=== PATIENT | male | born 1950 | race Hispanic/Latino ===

== ENCOUNTER 2020-06-12 15:49 | Inpatient (IN) | payer MEDICARE, OTHER ==
[~2020-06-12] VITALS: Ht 167.6 cm; Wt 89.4 kg
[2020-06-12] MEDS ORDERED: SODIUM CHLORIDE 0.9% 500ML 500 ML ONE (16:05)
[2020-06-12] MEDS ORDERED: VANCOMYCIN 1GM/NS 250 ML 250 ML ONE (16:05)
[2020-06-12] MEDS ORDERED: CEFEPIME 1GM/NS 0.9% 50 ML 50 ML IV STA (16:05)
[2020-06-12] MEDS ORDERED: CEFEPIME 1GM/NS 0.9% 50 ML 50 ML IV ONE (16:06)
[2020-06-12] MEDS ORDERED: SODIUM CHLORIDE 0.9% 1000ML 1,000 ML IV ONE (16:15)
[2020-06-12] MEDS ORDERED: VANCOMYCIN 1GM/NS 250 ML 250 ML IV ONE (16:15)
--- NOTE | 2020-06-12 16:26 | Emergency Department Note ---
History of Present Illnes History of Present Illness Chief Complaint: COVID PUI History of Present Illness This is a 69 year old male with history of diabetes dyslipidemia COPD here with 1 week history of generalized weakness, malaise, loss of appetite, dry cough and shortness of breath. Patient's was ill with similar one week prior. . Historian: Patient Arrival Mode: Car Onset (how long ago): week(s) (1) Location: diffuse, dyspnea Radiation: Reports non-radiation Severity: severe Onset quality: gradual Duration (how long): week(s) (1) Timing of current episode: constant Progression: worsening Chronicity: new Context: Reports other (+sick contacts ) Relieving factors: none Exacerbating factors: movement Associated symptoms: Reports cough, Reports fever/chills, Reports headaches, Reports loss of appetite, Reports malaise, Reports shortness of breath, Reports weakness; Denies chest pain, Denies diaphoresis, Denies nausea/vomiting, Denies rash, Denies seizure, Denies syncope Treatments prior to arrival: none Past Medical/Family History Physician Review I have reviewed the patient's past medical and family history. Any updates have been documented here. Past Medical History Recent Fever: Yes Clinical Suspicion of Infectio: Yes Past Medical History: Hypertension, Diabetes, CAD Past Surgical History: CABG Social History Alcohol Use: None Any Illegal Drug Use: No Family History Family history of heart diseas: Yes Review of Systems Review of Systems Constitutional: Reports as per HPI EENTM: Reports nose congestion, Reports throat pain; Denies throat swelling, Denies mouth pain Cardiovascular: Reports no symptoms Respiratory: Reports as per HPI Gastrointestinal: Reports as per HPI Genitourinary: Reports no symptoms Musculoskeletal: Reports no symptoms Integumentary: Reports no symptoms Neurological: Reports as per HPI Psychological: Reports no symptoms Hematological/Lymphatic: Reports no symptoms Review of other systems: All other systems negative Physical Exam Related Data Allergies: Coded Allergies: No Known Allergies (Unverified , 06/12/20) Vital signs reviewed: Yes (hypoxic to 80% RA, 91 on 5L) Physical Exam CONSTITUTIONAL Constitutional: Present well-developed, Present well-nourished, Present distressed, Present ill appearing HENT HENT: Present normocephalic, Present atraumatic, Present oropharynx clear /moist, Present nose normal HENT L/R: Present left ext ear normal, Present right ext ear normal EYES Eyes: Reports PERRL, Reports conjunctivae normal NECK Neck: Present ROM normal PULMONARY Pulmonary: Present respiratory distress (mild), Present rales (diffusely ) CARDIOVASCULAR Cardiovascular: Present regular rhythm, Present heart sounds normal, Present capillary refill normal, Present tachycardia GASTROINTESTINAL Abdominal: Present soft, Present nontender, Present bowel sounds normal GENITOURINARY Genitourinary: Present exam deferred SKIN Skin: Present warm, Present dry MUSCULOSKELETAL Musculoskeletal: Present ROM normal NEUROLOGICAL Neurological: Present alert, Present oriented x 3, Present no gross motor or sensory deficits PSYCHOLOGICAL Psychological: Present mood/affect normal, Present judgement normal Procedures 12 Lead ECG Interpretation ECG Interpretation : ECG: ECG 1 Linen Sorter: Interpreted by ED physician Additional Comments EKG interpreted by me shows normal axis normal sinus rhythm normal intervals no acute ST changes, patient does have a pathologic Q waves in 3 and aVF. Critical Care Time Total Critical Care Time (min): 31 Critcal care necessary due to: sepsis, other (severe hypoxia, COVID) Critcal care time spent by me: blood dram for specimens, develop tx plan w patient/surrogate, discussion w consultants, evaluation patient response to tx, examination of patient, order/perform tx or interventions, order/review laboratory studies, pulse oximetry, review of old charts Assessment & Plan Medical Decision Making MDM Patient is a 69-year-old male with history of CAD, diabetes, hypertension here with 1 week history of shortness of breath, malaise, nausea, body aches. Patient noted to be hypoxic in the 80s on room air with rales on exam. Given that he has sick contacts, patient high risk for covid. History of hypoxia, he will be t ransferred to [facility] for admission. Primary care doctor is Dr. Lundberg. Reassessment Reassessment Patient on point of care testing shows a glucose of 552, creatinine of 1.3, potassium of 5.4, CO2 26, lactic acid of 2.2. We will give the patient 10 units of insulin. Patient states that he has been hyperglycemic over the last week and uses Levemir up to 18 units. Assessment & Plan Final Impression: (1) Pneumonia due to COVID-19 virus (2) Multifocal pneumonia (3) Hypoxia Depart Disposition: ADMITTED Medications in the ED Sodium Chloride 500 ml @ [facility] ONCE .ROUTE ; Start 06/12/20 at 16:05; Stop 06/12/20 at 16:01; Status DC Vancomycin HCl 250 ml @ [facility] .ROUTE ; Start 06/12/20 at 16:05; Stop 06/12/20 at 16:01; Status DC Cefepime HCl 50 ml @ [facility] ON[facility] IV ; Start 06/12/20 at 16:06; Stop 06/12/20 at 16:01; Status DC INNA KENDALL MD Jun 12, 2020 16:26
[2020-06-12] MEDS ORDERED: DEXAMETHASONE SOD PHOS 10 MG/1 ML VIAL IV ONE ×2 (17:00→20:30)
[2020-06-12 17:03] LABS: BASOPHILS % 0.2 % (0.0-1.0); HEMATOCRIT 41.7 % (38.2-49.6); HEMOGLOBIN 13.5 g/dL (14.0-18.0); LYMPHOCYTES # (AUTO) 1.5 (1.0-3.2); LYMPHOCYTES % 27.1 % (18.0-39.1); MEAN CORPUSCULAR HEMOGLOBIN 28.4 pg (28-32); MEAN CORPUSCULAR HGB CONC 32.4 g/dL (31-35); MEAN CORPUSCULAR VOLUME 87.8 fL (81-99); MONOCYTES # (AUTO) 0.4 (0.2-0.8); MONOCYTES % 6.9 % (4.4-11.3); NEUTROPHILS # (AUTO) 3.7 (2.1-6.9); NEUTROPHILS % 65.4 % (38.7-80.0); PLATELET COUNT 186 x10e3/uL (140-360); RED BLOOD COUNT 4.75 x10e6/uL (4.3-5.7); RED CELL DISTRIBUTION WIDTH 12.3 % (11.7-14.4)
[2020-06-12 17:22] LABS: ALBUMIN 3.3 g/dL (3.5-5.0); ALBUMIN/GLOBULIN RATIO 0.8 (0.8-2.0); ANION GAP 17.4 mmol/L (8-16); CREATININE, SERUM 1.99 mg/dL (0.72-1.25); POTASSIUM 5.4 mmol/L (3.5-5.1)
[2020-06-12 17:28] LABS: CREATINE KINASE MB 0.4 ng/mL (0-5.0)
[2020-06-12] MEDS ORDERED: INSULIN REGULAR, HUMAN 100 UNIT/1 ML 3ML VIAL SQ ONE (17:30)
--- NOTE | 2020-06-12 17:43 | Diagnostic Imaging Report ---
EXAMINATION: CXR 1 W - [facility] INDICATION: Cough and sore throat. COMPARISON: None FINDINGS: TUBES and LINES: None. LUNGS: Normal lung volumes. There are subtle multifocal patchy opacities throughout both lungs and right hilar prominence. PLEURA: No pleural effusion or pneumothorax. HEART AND MEDIASTINUM: The cardiomediastinal silhouette is unremarkable. BONES AND SOFT TISSUES: No acute osseous lesion. Median sternotomy wires in place. Soft tissues are otherwise normal. UPPER ABDOMEN: No free air under the diaphragm. IMPRESSION: Subtle multifocal patchy interstitial opacities throughout both lungs and right hilar prominence. This constellation of findings may represent chronic small airway inflammation such as bronchitis with pulmonary vascular congestion and/or developing infection in the proper clinical context. Signed by: Hilda Momin MD on 06/12/2020 5:40 PM
--- OUTSIDE RECORDS SUMMARY | 2020-06-12 18:03 | XMS REPORT | Continuity of Care Document ---
Author Author [facility] t Organization [facility] Address [address] [place] [id number] Phone Unavailable Care Team Providers Care Slot Tag Inserter Name Role Phone Torsten KENDALL Attmadeleine Unavailable Problems This patient has no known problems. Allergies, Adverse Reactions, Alerts This patient has no known allergies or adverse reactions. Medications This patient has no known medications. Procedures This patient has no known procedures. Results Test Description Test Time Test Comments Results Result Comments Source CXR 1 W - [facility] 2020-06-12 17:36:00 [place] [address] Patient Name: MARQUISE PHAN MR #: [id number] : 1950 Age/Sex: 69/M Req #: [id number] Adm Physician: Ordered by: INNA KENDALL MD Report #: [id number] Location: [facility] Room/Bed: Procedure: [id number] [facility]OP[facility]/CXR 1 VEW - [facility] Exam Date: 06/12/20 Exam Time: 1625 REPORT STATUS: Signed EXAMINATION: CXR 1 W - [facility] INDICATION: Cough and sore throat. COMPARISON: None FINDINGS: TUBES and LINES: None. LUNGS: Normal lung volumes. There are subtle multifocal patchy opacities throughout both lungs and right hilar prominence. PLEURA: No pleural effusion or pneumothorax. HEART AND MEDIASTINUM: The cardiomediastinal silhouette is unremarkable. BONES AND SOFT TISSUES: No acute osseous lesion. Median sternotomy wires in place. Soft tissues are otherwise normal. UPPER ABDOMEN: No free air under the diaphragm. IMPRESSION: Subtle multifocal patchy interstitial opacities throughout both lungs and right hilar prominence. This constellation of findings may represent chronic small airway inflammation such as bronchitis with pulmonary vascular congestion and/or developing infection in the proper clinical context. Signed by: Gaby Panda MD on 06/12/2020 5:40 PM Dictated By: GABY PANDA MD 39 Transcribed By: CHRIS on 06/12/201739 COPY TO: INNA KENDALL MD
--- NOTE | 2020-06-12 18:06 | NUR ---
[facility] NOTIFIED OF TRANSFER TO [facility] ETA 30-45 MINUTES
--- NOTE | 2020-06-12 18:07 | NUR ---
DR KENDALL AWARE OF BLOOD SUGAR OF 542, NO ORDERS RECIEVED.
[2020-06-12] MEDS ORDERED: DEXTROSE 50% SYRINGE 50 ML IV PRN (20:00)
--- NOTE | 2020-06-12 20:04 | NUR ---
called and spoke to dr Fallon, made him aware patient is in room 198. he added insulin order. order carried out.
[2020-06-12] MEDS ORDERED: SODIUM CHLORIDE 0.9% 1000ML 1,000 ML ONE (20:20)
--- NOTE | 2020-06-12 20:40 | NUR ---
called and spoke to dr Abisai Quintanilla, for consult.
[2020-06-12 20:45] VITALS: BP 90/58
--- NOTE | 2020-06-12 20:55 | NUR ---
Called and spoke to dr Neves for consult, the MD also gave orders. orders carried out, see MAR. also the MD ordered to keep patient's O2 above 91%, and continue home medications.
[2020-06-12] MEDS ORDERED: INSULIN GLARGINE 100 UNITS/ML VIAL SQ SCH (21:00)
[2020-06-12] MEDS ORDERED: ONDANSETRON HCL INJ 2MG/ML 2ML 2 MG/ML VIAL IV PRN (21:00)
[2020-06-12] MEDS ORDERED: ACETAMINOPHEN 325 MG TAB PO PRN (21:00)
[2020-06-12] MEDS: AZITHROMYCIN 500MG/NS 250 ML 250 ML IV SCH (21:09)
[2020-06-12] MEDS: ENOXAPARIN SOD INJ 40 MG/0.4 ML SYR SC SCH (21:10)
[2020-06-12] MEDS ORDERED: SODIUM CHLORIDE 0.9% 100 ML ONE (21:12)
[2020-06-12] MEDS: INSULIN LISPRO 100 UNIT/1 ML 3ML VIAL SQ SCH (21:21)
[2020-06-12 21:50] VITALS: BP 90/58
--- NOTE | 2020-06-12 22:06 | NUR ---
CALLED AND SPOKE TO DR CENTENO, PT BLOOD SUGAR WAS 560, GAVE 14 UNITS HUMALOG AND SCHEDULE LANTUS. NO NEW ORDER FROM THE MD, CHECK BLOOD SUGAR AGAIN IN THE MORNING.
[2020-06-12] MEDS: CEFTRIAXONE SOD 2 GM/NS 100 ML 100 ML IV SCH (22:19)
[2020-06-12] MEDS ORDERED: LOSARTAN POTAS100 MG PO (22:22)
[2020-06-12] MEDS ORDERED: ZETIA10 MG PO (22:35)
[2020-06-12] MEDS ORDERED: FLOMAX0.4 MG PO (22:35)
[2020-06-12] MEDS ORDERED: ROSUVASTATIN CA40 MG (22:37)
[2020-06-13 00:15] VITALS: BP 92/56
[2020-06-13 04:21] VITALS: BP 96/57
[2020-06-13 04:39] LABS: HEMATOCRIT 39.2 % (38.2-49.6); HEMOGLOBIN 12.6 g/dL (14.0-18.0); MEAN CORPUSCULAR HEMOGLOBIN 29.2 pg (28-32); MEAN CORPUSCULAR HGB CONC 32.1 g/dL (31-35); MEAN CORPUSCULAR VOLUME 90.7 fL (81-99); PLATELET COUNT 169 x10e3/uL (140-360); RED BLOOD COUNT 4.32 x10e6/uL (4.3-5.7); RED CELL DISTRIBUTION WIDTH 12.3 % (11.7-14.4)
[2020-06-13 04:49] LABS: INR 0.87; PROTHROMBIN TIME 12.2 seconds (11.9-14.5)
[2020-06-13 05:51] LABS: ANION GAP 14.3 mmol/L (8-16); CALCIUM 9.3 mg/dL (8.4-10.2); CREATININE, SERUM 1.63 mg/dL (0.72-1.25); POTASSIUM 5.3 mmol/L (3.5-5.1)
[2020-06-13] MEDS: INSULIN LISPRO 100 UNIT/1 ML 3ML VIAL SQ SCH ×4 (06:51→21:30)
[2020-06-13 07:28] LABS: ALBUMIN 2.8 g/dL (3.5-5.0); BILIRUBIN,DIRECT 0.2 mg/dL (0.0-0.5)
[2020-06-13] MEDS ORDERED: DEXAMETHASONE SOD PHOS 10 MG/1 ML VIAL IV SCH (09:00)
[2020-06-13] MEDS ORDERED: LOSARTAN POTASSIUM 100 MG TAB PO SCH (09:00)
[2020-06-13] MEDS: TAMSULOSIN HCL 0.4 MG CAP PO SCH ×2 (09:13→16:40)
[2020-06-13] MEDS: DEXAMETHASONE 4 MG TAB PO SCH (09:13)
[2020-06-13] MEDS: ENOXAPARIN SOD INJ 40 MG/0.4 ML SYR SC SCH (09:14)
[2020-06-13] MEDS: EZETIMIBE 10 MG TAB PO SCH (09:14)
[2020-06-13 09:21] VITALS: BP 135/77
[2020-06-13 09:28] VITALS: BP 135/77
[2020-06-13 12:18] VITALS: BP 124/65
[2020-06-13] MEDS ORDERED: SODIUM CHLORIDE 0.9% 1000ML 1,000 ML IV ONE (16:00)
--- NOTE | 2020-06-13 16:19 | Consultation ---
DATE OF CONSULTATION: Pulmonary Critical Care consultation CHIEF COMPLAINT: Cough, dyspnea, and malaise. HISTORY OF PRESENT ILLNESS: The patient is a 69-year-old man. He has a history of a prior coronary bypass grafting 18 years ago. He reports malaise and fatigue for 10-14 days. He notes some dyspnea and cough. He did not complain of fever. There is no nausea or vomiting. PAST SURGICAL HISTORY: 1. Status post coronary bypass grafting 18 years ago. 2. Status post hand surgery. PAST SURGICAL HISTORY: 1. Diabetes. 2. Prostatic hypertrophy. 3. Hypertension. SOCIAL HISTORY: The patient quit smoking 23 years ago. He is not a drinker. ALLERGIES: NO KNOWN DRUG ALLERGIES. REVIEW OF SYSTEMS: There are possible fevers. There is no headache. There is no cough. There is some shortness of breath. There is no chest pain. There is no nausea or vomiting. PHYSICAL EXAMINATION: VITAL SIGNS: The patient is afebrile. The blood pressure is 124/65, and saturation is 99% on 6 L. HEENT: No facial swelling or erythema. The oropharynx is normal. LYMPHATIC: No submandibular, cervical, or supraclavicular adenopathy. CARDIAC: Regular rate and rhythm with normal S1, S2. LUNGS: Auscultation of lungs reveals clear breath sounds bilaterally. There is no wheezing. ABDOMEN: Soft, nontender. There is no rebound or guarding. EXTREMITIES: No leg edema or calf tenderness. There is no cyanosis or clubbing. SKIN: No rashes. LABORATORY DATA: COVID-19 test is positive. Blood sugars are 360-390 and hemoglobin A1c is 11.5. BUN to creatinine ratio is 28 to 1.63. Other electrolytes are within normal limits. White blood cell count is 3.3 and hemoglobin 12.6. The platelet count is 169. RADIOGRAPHIC DATA: Chest x-ray shows patchy bilateral infiltrates. IMPRESSION: 1. Acute respiratory failure. 2. Viral pneumonia and coronavirus disease-19 infection. 3. Diabetes. 4. Hypertension. 5. History of coronary artery disease. 6. Acute kidney injury. PLAN: 1. Zithromax and Rocephin. 2. Intravenous fluids. 3. Lovenox. 4. Lantus insulin at night and subcu insulin during the day. 5. Continue to monitor BUN and creatinine. MD IRINA Elise/ANGELA /[id number]
[2020-06-13] MEDS ORDERED: ENOXAPARIN SOD INJ 40 MG/0.4 ML SYR SC SCH (16:45)
--- NOTE | 2020-06-13 18:50 | Consultation ---
DATE OF CONSULTATION: HISTORY OF PRESENT ILLNESS: Mr. Sanabria is a 69-year-old male with history of CABG, coronary artery disease. He has been sick for 2 weeks, fatigue and cough, not feeling well. The patient comes into the emergency room. This patient has history of coronary artery disease, CABG, hand surgery, diabetes mellitus, neuropathy, and hypertension. He used to smoke, but quit 20 years ago. No drug abuse or alcohol abuse. FAMILY HISTORY: Unremarkable. The patient comes in with pneumonia, COVID-19. I was asked to see him. REVIEW OF SYSTEMS: Currently, he is complaining of shortness of breath and minimum cough and malaise. Otherwise, all other systems within normal limit. PHYSICAL EXAMINATION: GENERAL: He is currently alert, and oriented. VITAL SIGNS: Stable, afebrile. He is on 6 L. HEENT: Normocephalic. NECK: Supple. CHEST: Crackles. HEART: S1-S2. No murmur. ABDOMEN: Soft. LABORATORY DATA: Reviewed. Chart reviewed. Blood cultures still pending. White count 3.38, hemoglobin of 12. His sodium 136, potassium 5.3, creatinine 1.63, and glucose of 411. His COVID-19 was positive. IMPRESSION AND PLAN: coronavirus disease-19 with superimposed bacterial pneumonia, diabetes mellitus, uncontrolled hypertension, coronary artery disease, and acute on chronic kidney disease. Azithromycin 500 mg daily for 3 days, Rocephin 1 g daily for 5 days. Diabetic control. Lovenox 30 mg subcutaneous daily. Decadron 6 mg daily for 10 days. The patient is not a candidate for remdesivir because of kidney function and the left foot infection. Continue supportive care. We will follow. MD ELÍAS Littlejohn/MODL /[id number]
[2020-06-13] MEDS ORDERED: SODIUM CHLORIDE 0.9% 250ML 250 ML ONE (19:25)
[2020-06-13] MEDS: CEFTRIAXONE SOD 2 GM/NS 100 ML 100 ML IV SCH (19:45)
[2020-06-13 20:00] VITALS: BP 126/72
[2020-06-13] MEDS ORDERED: INSULIN GLARGINE 100 UNITS/ML VIAL SQ SCH (21:00)
[2020-06-13] MEDS: AZITHROMYCIN 500MG/NS 250 ML 250 ML IV SCH (21:30)
[2020-06-14] VITALS (7 sets, daily range): BP systolic 96–146; BP diastolic 50–99
--- NOTE | 2020-06-14 05:00 | NUR ---
Patient 02 sats 86% on 5L NC. 02 increased to 6L NC, 02 sat 88%. RT called. Patient to be placed on high flow NC. Will continue to monitor.
[2020-06-14 05:24] LABS: BASOPHILS % 0.1 % (0.0-1.0); HEMATOCRIT 39.3 % (38.2-49.6); LYMPHOCYTES # (AUTO) 1.8 (1.0-3.2); MEAN CORPUSCULAR HEMOGLOBIN 28.9 pg (28-32); MEAN CORPUSCULAR HGB CONC 33.1 g/dL (31-35); MEAN CORPUSCULAR VOLUME 87.3 fL (81-99); MONOCYTES # (AUTO) 0.8 (0.2-0.8); MONOCYTES % 6.4 % (4.4-11.3); NEUTROPHILS # (AUTO) 9.4 (2.1-6.9); NEUTROPHILS % 77.7 % (38.7-80.0); PLATELET COUNT 212 x10e3/uL (140-360); RED CELL DISTRIBUTION WIDTH 12.3 % (11.7-14.4)
[2020-06-14 06:06] LABS: ALANINE AMINOTRANSFERASE 20 IU/L (0-55); ALBUMIN 2.6 g/dL (3.5-5.0); ALBUMIN/GLOBULIN RATIO 0.7 (0.8-2.0); ALKALINE PHOSPHATASE 105 IU/L (40-150); ANION GAP 11.5 mmol/L (8-16); BLOOD UREA NITROGEN 23 mg/dL (7-26); BUN/CREATININE RATIO 21 (6-25); CALCIUM 9.5 mg/dL (8.4-10.2); CARBON DIOXIDE 23 mmol/L (22-29); CHLORIDE 109 mmol/L (98-107); CREATININE, SERUM 1.12 mg/dL (0.72-1.25); EST GLOMERULAR FILTRATION RATE > 60 ML/MIN (60-); GLUCOSE 226 mg/dL (74-118); POTASSIUM 4.5 mmol/L (3.5-5.1); SODIUM 139 mmol/L (136-145)
--- NOTE | 2020-06-14 07:01 | History and Physical ---
PRIMARY CARE DOCTOR: Dr. Preston Lundberg. CHIEF COMPLAINT: Shortness of breath. HISTORY OF PRESENT ILLNESS: This is a 69-year-old, who has been sick for a week now with cough and feeling tired. Denies fever. No nausea or vomiting. No diarrhea. However, his shortness of breath continued to get worse, finally presented to the emergency room. He was saturating at 80% on room air. PAST MEDICAL AND SURGICAL HISTORY: 1. Coronary artery disease, status post CABG. 2. Diabetes. 3. Hypertension. MEDICATIONS: Please see medication reconciliation form. ALLERGIES: NONE. SOCIAL HISTORY: Quit smoking about 10 years ago. FAMILY HISTORY: Positive for diabetes. REVIEW OF SYSTEMS: A 10-point review of systems obtained and nothing else is significant other than what is stated in HPI. PHYSICAL EXAMINATION: VITAL SIGNS: Temperature 98, pulse 78, respiratory rate 23, blood pressure 124/65. GENERAL: No acute distress. SKIN: No rash. HEENT: Anicteric. Oropharynx is clear. LUNGS: Few rhonchi. HEART: Regular rate and rhythm. Normal S1 and S2. GI: Abdomen is soft and nondistended. NEUROLOGIC: Alert and oriented x3. Cranial nerves II through XII grossly intact. PSYCHIATRIC: No hallucination. MUSCULOSKELETAL: Painless range of motion. LABORATORY DATA: White count 3.4, hemoglobin 12.6, and platelet count 169. Creatinine is 1.63, potassium is 5.3, sugar is 411. Hemoglobin A1c is 11.5%. Chest x-ray is consistent with pneumonia. ASSESSMENT AND PLAN: 1. Coronavirus disease 2019 pneumonia with hypoxia. We will continue azithromycin, Rocephin, and Decadron per Infectious Disease and electrical automation engineer. We will continue to support him with nasal cannula oxygen. 2. Mild hyperkalemia. We will discontinue his losartan for now and monitor. 3. Likely acute renal failure. We will continue to monitor. Creatinine is little better today. 4. Diabetes with hyperglycemia. We will start Lantus along with sliding scale. 5. Gastrointestinal and deep venous thrombosis prophylaxis, Lovenox. Yiching MD GUCCI Marie/ANGELA /[id number] cc: Preston Lundberg
--- NOTE | 2020-06-14 07:03 | NUR ---
Handoff completed with oncoming nurse. No issues or concerns noted. Patient A&Ox3. High flow 10L NC, 02 sat 94%, tolerating.
[2020-06-14] MEDS: INSULIN LISPRO 100 UNIT/1 ML 3ML VIAL SQ SCH ×4 (08:54→21:00)
[2020-06-14] MEDS: TAMSULOSIN HCL 0.4 MG CAP PO SCH ×2 (08:54→17:38)
[2020-06-14] MEDS: DEXAMETHASONE 4 MG TAB PO SCH (08:54)
[2020-06-14] MEDS: EZETIMIBE 10 MG TAB PO SCH (08:54)
[2020-06-14] MEDS ORDERED: ENOXAPARIN 30 MG/0.3 ML SYR SC SCH (09:00)
--- NOTE | 2020-06-14 17:26 | NUR ---
Nutrition Screen Note RD Recommendation for Physician: - Recommend adding 1800 ADA restriction per DM dx and BG trend Plan of Care: RD following, monitoring for tolerance and adequacy Nutrition reason for involvement: LOS, stage II PU Primary Diagnose(s): hypoxia, multifocal pneumonia PMH: CABG, CAD, DM, HTN Ht: 66 in Wt: 190 lb BMI: 30.7 kg/m2 IBW: [address] Assessment: (06/14) 69 YOM admitted for hypoxia and PNA, evaluated today per LOS and new stage II PU. Pt COVID negative, however currently on treatment protocol. Pt eating 100% of meals prior to NPO, no wt loss, no GI distress reported. Chart reviewed. Labs and meds reviewed, BG trend elevated. Will continue to monitor. Current Diet: NPO Malnutrition Evaluation (06/14/20) The patient does not meet criteria for a specified degree of malnutrition at this time. Will re-evaluate at follow-up as appropriate. Unable to assess per current isolation protocol for IMCU/PUI. Diet Education Needs Assessment: Diet education not indicated. Diet tolerance: tolerating po Nutrition Care Level: low Signed: Ashlee Lopez RD, LD, CNSC
--- NOTE | 2020-06-14 18:14 | Progress Note ---
DATE: SUBJECTIVE: Mr. Sanabria is better. There are no new complaints. The patient has been sick for more than a week. The patient comes in with hypoxia, azithromycin, Rocephin, dexamethasone as well as he is on Lovenox. His white count is 12.04, sodium 139, potassium 4.5, creatinine 1.1. The patient is on 5 L. The patient has been sick for 2 weeks when he came here. IMPRESSION: Acute kidney injury, improving. Continue with insulin. Continue with dexamethasone. Continue with azithromycin and Rocephin. We will follow. MD ELÍAS Littlejohn/MODL /[id number]
[2020-06-14] MEDS: CEFTRIAXONE SOD 2 GM/NS 100 ML 100 ML IV SCH (20:40)
[2020-06-14] MEDS: AZITHROMYCIN 500MG/NS 250 ML 250 ML IV SCH (20:40)
--- NOTE | 2020-06-14 20:49 | NUR ---
patient saturating in the 80s, started on a rebreather mask. Saturations now at 98.
[2020-06-14] MEDS ORDERED: INSULIN GLARGINE 100 UNITS/ML VIAL SQ SCH (21:00)
--- NOTE | 2020-06-14 21:45 | Progress Note ---
DATE: 06/14/2020 SUBJECTIVE: His shortness of breath is about the same. OBJECTIVE: VITAL SIGNS: Temperature 98.3, pulse 91, respiratory rate 28, blood pressure 129/99. GENERAL: No acute distress. SKIN: No rash. LUNGS: Decreased breath sounds. HEART: Regular rate and rhythm. Normal S1, S2. GI: Abdomen is soft, nondistended. NEUROLOGIC: Alert and oriented x3. PSYCH: No hallucination. LABORATORY DATA: White count was 12, hemoglobin 13, platelet count 212. Creatinine is 1.12. ASSESSMENT AND PLAN: 1. Coronavirus disease-19 pneumonia with hypoxia. We will continue azithromycin, Rocephin and Decadron per Infectious Disease and insurance actuary and also we will continue to support him with nasal cannula oxygen. We will need to monitor his leukocytosis. He is afebrile may just be due to Decadron. 2. Acute kidney injury which has resolved. 3. Diabetes with hyperglycemia. We will increase his Lantus dosage. 4. Gastrointestinal and deep venous thrombosis prophylaxis. Lovenox increased to 40 mg instead of 30 mg since his creatinine is better now. Freidaching MD GUCCI Marie/JENNIFERL /[id number]
[2020-06-15] VITALS (15 sets, daily range): BP systolic 100–146; BP diastolic 60–101
[2020-06-15 06:30] LABS: ANION GAP 12.3 mmol/L (8-16); BLOOD UREA NITROGEN 20 mg/dL (7-26); BUN/CREATININE RATIO 22 (6-25); CALCIUM 9.6 mg/dL (8.4-10.2); CARBON DIOXIDE 24 mmol/L (22-29); CHLORIDE 107 mmol/L (98-107); CREATININE, SERUM 0.91 mg/dL (0.72-1.25); EST GLOMERULAR FILTRATION RATE > 60 ML/MIN (60-); GLUCOSE 187 mg/dL (74-118); POTASSIUM 4.3 mmol/L (3.5-5.1); SODIUM 139 mmol/L (136-145)
[2020-06-15 07:07] LABS: BASOPHILS % 0.1 % (0.0-1.0); HEMATOCRIT 40.1 % (38.2-49.6); HEMOGLOBIN 13.2 g/dL (14.0-18.0); LYMPHOCYTES # (AUTO) 1.1 (1.0-3.2); LYMPHOCYTES % 10.2 % (18.0-39.1); MEAN CORPUSCULAR HEMOGLOBIN 28.5 pg (28-32); MEAN CORPUSCULAR HGB CONC 32.9 g/dL (31-35); MEAN CORPUSCULAR VOLUME 86.6 fL (81-99); MONOCYTES # (AUTO) 0.7 (0.2-0.8); MONOCYTES % 6.6 % (4.4-11.3); NEUTROPHILS % 82.4 % (38.7-80.0); PLATELET COUNT 243 x10e3/uL (140-360); RED BLOOD COUNT 4.63 x10e6/uL (4.3-5.7); RED CELL DISTRIBUTION WIDTH 12.6 % (11.7-14.4)
[2020-06-15] MEDS: INSULIN LISPRO 100 UNIT/1 ML 3ML VIAL SQ SCH ×4 (08:00→20:58)
[2020-06-15] MEDS: DEXAMETHASONE 4 MG TAB PO SCH (10:32)
[2020-06-15] MEDS: TAMSULOSIN HCL 0.4 MG CAP PO SCH ×2 (10:32→21:00)
[2020-06-15] MEDS: ENOXAPARIN SOD INJ 40 MG/0.4 ML SYR SC SCH (10:33)
[2020-06-15] MEDS: EZETIMIBE 10 MG TAB PO SCH (10:33)
--- NOTE | 2020-06-15 12:23 | Diagnostic Imaging Report ---
EXAMINATION: CHEST SINGLE (PORTABLE) INDICATION: Line placement COMPARISON: Chest radiograph 06/12/2020 FINDINGS: LINES/TUBES:Interval placement of right PICC line with tip in the superior vena cava. LUNGS:The lung volumes are low. Interval increase of right greater than left bilateral multifocal airspace opacities. PLEURA:No pleural effusion or pneumothorax. MEDIASTINUM:The cardiomediastinal silhouette appears normal in size and shape. BONES/SOFT TISSUES:No acute osseous injury. Sternotomy wires in place. ABDOMEN:No free air under the diaphragm. IMPRESSION: Right PICC line terminates in the SVC. Interval increase in bilateral right greater than left multifocal airspace opacities concerning for multifocal pneumonia. Signed by: Rigo Cotter MD on 06/15/2020 12:20 PM
--- NOTE | 2020-06-15 14:40 | NUR ---
Patient transferred to [facility] ICU to room 13, patient tolerated transfer, handoff report to nurse Wooten.
--- NOTE | 2020-06-15 16:24 | Progress Note ---
DATE: SUBJECTIVE: Mr. Sanabria is doing better. He is about the same in terms of oxygen demand. REVIEW OF SYSTEMS: Otherwise there is nothing new. PHYSICAL EXAMINATION: GENERAL: He is currently alert. VITAL SIGNS: Stable, currently afebrile. HEENT: He is not icteric. NECK: Supple. CHEST: Crackles bilaterally. HEART: S1, S2. ABDOMEN: Soft. IMPRESSION AND PLAN: 1. Day #3 of hospitalization. Coronavirus disease-19. On Rocephin, azithromycin, and decadron. Continue as ordered. 2. Acute kidney injury, resolved. 3. Diabetes mellitus. Continue diabetic control. We will follow. MD ELÍAS Littlejohn/MODL /[id number]
[2020-06-15] MEDS: CEFTRIAXONE SOD 2 GM/NS 100 ML 100 ML IV SCH (20:11)
[2020-06-15] MEDS: AZITHROMYCIN 500MG/NS 250 ML 250 ML IV SCH (20:53)
[2020-06-15] MEDS: INSULIN GLARGINE 100 UNITS/ML VIAL SQ SCH (20:58)
--- NOTE | 2020-06-15 21:10 | Progress Note ---
DATE: SUBJECTIVE: The patient is now on Elavil. He is on 60 L and 65% oxygen. He is not complaining of chest pain or any distress. PHYSICAL EXAMINATION: VITAL SIGNS: The patient is afebrile. The blood pressure is 113/71, saturation is 93%. HEENT: Shows no facial swelling or erythema. LYMPHATIC: Shows no submandibular, cervical, or supraclavicular adenopathy. CARDIAC: Reveals regular rate and rhythm with normal S1 and S2. LUNGS: Auscultation of lungs reveals rhonchorous breath sounds bilaterally. There is no wheezing. ABDOMEN: Soft, nontender. There is no rebound or guarding. EXTREMITIES: Shows no leg edema or calf tenderness. There is no cyanosis or clubbing. SKIN: Shows no rashes. NEUROLOGIC: Shows no focal abnormalities. LABORATORY DATA: White blood cell count is 10.8 and hemoglobin is 13.2. The platelet count is 243. BUN to creatinine ratio is normal. The other electrolytes are within normal limits. The blood sugar is 225 to 260. IMPRESSION: 1. Acute respiratory failure. 2. Viral pneumonia and coronavirus disease 2019 infection. 3. Diabetes. 4. Hypertension. 5. Acute kidney injury. PLAN: 1. Continue Elavil. 2. Continue current antibiotics. 3. Lovenox. 4. Continue to monitor blood sugars and adjust insulin. MD IRINA Elise/ANGELA /[id number]
--- NOTE | 2020-06-15 22:55 | Progress Note ---
DATE: 06/15/2020 SUBJECTIVE: The patient feels the same. However, occasionally he does de-sat. OBJECTIVE: VITAL SIGNS: Temperature 97.7, pulse 67, respiratory rate anywhere from 19 to 37, blood pressure 111/66. GENERAL: No acute distress. SKIN: No rash. LUNGS: Decreased breath sounds. HEART: Regular rhythm. Normal S1, S2. GI: Abdomen is soft, nondistended. NEUROLOGIC: Alert and oriented x3. PSYCHIATRIC: No hallucination. LABORATORY DATA: Laboratory calderon, white count 10, hemoglobin 13, platelet count 243, creatinine 0.9. ASSESSMENT AND PLAN: 1. COVID-19 pneumonia with hypoxia. We will continue azithromycin, Rocephin, and Decadron per Infectious Disease and Pulmonology. The patient was moved to the ICU for close monitor. 2. Acute kidney injury, which is resolved. 3. Diabetes with hyperglycemia, partially due to Decadron. We will increase Lantus again. 4. Gastrointestinal and deep venous thrombosis prophylaxis. Continue Lovenox 40 mg daily. MD GUCCI Bingham/ANGELA /[id number]
[2020-06-16] VITALS (24 sets, daily range): BP systolic 107–152; BP diastolic 58–84
[2020-06-16 04:47] LABS: BASOPHILS % 0.1 % (0.0-1.0); HEMATOCRIT 38.7 % (38.2-49.6); HEMOGLOBIN 12.6 g/dL (14.0-18.0); LYMPHOCYTES # (AUTO) 1.5 (1.0-3.2); LYMPHOCYTES % 18.8 % (18.0-39.1); MEAN CORPUSCULAR HEMOGLOBIN 28.7 pg (28-32); MEAN CORPUSCULAR HGB CONC 32.6 g/dL (31-35); MEAN CORPUSCULAR VOLUME 88.2 fL (81-99); MONOCYTES # (AUTO) 0.8 (0.2-0.8); MONOCYTES % 10.2 % (4.4-11.3); NEUTROPHILS # (AUTO) 5.2 (2.1-6.9); NEUTROPHILS % 67.2 % (38.7-80.0); PLATELET COUNT 242 x10e3/uL (140-360); RED BLOOD COUNT 4.39 x10e6/uL (4.3-5.7); RED CELL DISTRIBUTION WIDTH 12.4 % (11.7-14.4)
[2020-06-16 05:10] LABS: ALANINE AMINOTRANSFERASE 27 IU/L (0-55); ALBUMIN 2.4 g/dL (3.5-5.0); ALBUMIN/GLOBULIN RATIO 0.6 (0.8-2.0); ALKALINE PHOSPHATASE 108 IU/L (40-150); ANION GAP 11.2 mmol/L (8-16); BLOOD UREA NITROGEN 26 mg/dL (7-26); BUN/CREATININE RATIO 27 (6-25); CALCIUM 9.3 mg/dL (8.4-10.2); CARBON DIOXIDE 24 mmol/L (22-29); CHLORIDE 109 mmol/L (98-107); CREATININE, SERUM 0.98 mg/dL (0.72-1.25); EST GLOMERULAR FILTRATION RATE > 60 ML/MIN (60-); GLUCOSE 191 mg/dL (74-118); POTASSIUM 4.2 mmol/L (3.5-5.1); SODIUM 140 mmol/L (136-145)
[2020-06-16] MEDS: INSULIN LISPRO 100 UNIT/1 ML 3ML VIAL SQ SCH ×4 (08:30→21:18)
--- NOTE | 2020-06-16 08:30 | Diagnostic Imaging Report ---
EXAM: CHEST SINGLE (PORTABLE) DATE: 06/16/2020 5:30 AM INDICATION: Hypoxia COMPARISON: 06/15/2020 FINDINGS: Post surgical changes from median sternotomy again noted. Right-sided PICC line identified in stable position. The trachea is midline. Again identified are patchy airspace opacities throughout the lungs bilaterally with a lower lung zone predominance. Findings are no significantly changed from the prior examination. There is no evidence for pneumothorax or significant volume pleural effusion. The cardiomediastinal silhouette is stable in appearance. No acute osseous abnormality is identified. IMPRESSION: No significant interval change from 06/15/2020. Grossly stable appearing bilateral airspace opacities which can be seen in the setting of a multifocal/viral infectious process. Signed by: Dr. Gopi Ceja MD on 06/16/2020 8:27 AM
[2020-06-16 08:54] LABS: BAND NEUTROPHILS % (MANUAL) 4 %; LYMPHOCYTES % (MANUAL) 16 % (19-48); MONOCYTES % (MANUAL) 8 % (3.4-9.0); NEUTROPHILS % (MANUAL) 72 % (40-74)
--- NOTE | 2020-06-16 09:52 | Progress Note ---
DATE: SUBJECTIVE: The patient remains on Airvo at 60 L with 90% oxygen. His saturation is in the mid 90s. His pulse is 75. PHYSICAL EXAMINATION: VITAL SIGNS: As noted above. HEENT: There is no facial swelling or erythema. LYMPHATIC: No submandibular, cervical, or supraclavicular adenopathy. CARDIAC: Regular rate and rhythm with normal S1, S2. LUNGS: Auscultation of lungs reveals clear breath sounds bilaterally. There is no wheezing. ABDOMEN: Soft, nontender. There is no rebound or guarding. EXTREMITIES: No leg edema or calf tenderness. There is no cyanosis or clubbing. SKIN: No rashes. NEUROLOGICAL: No focal abnormalities. LABORATORY DATA: The white blood cell count is 7.3 and hemoglobin is 12.6. The platelet count is 242. The BUN to creatinine ratio is normal. The other electrolytes are within normal limits and the blood sugar is 205-380. Albumin is 2.4. IMPRESSION: 1. Acute respiratory failure. 2. Viral pneumonia and coronavirus disease-19 infection. 3. Diabetes. 4. Hypertension. 5. Acute kidney injury. PLAN: 1. Continue Airvo. 2. Monitor and control blood sugars. 3. Continue Lovenox. 4. Complete dexamethasone. 5. Complete current antibiotics. 6. Cardiology evaluation. 7. Repeat x-ray tomorrow. Foreign Quintanilla MD [facility]/JENNIFERL /[id number]
[2020-06-16] MEDS: DEXAMETHASONE 4 MG TAB PO SCH (11:32)
[2020-06-16] MEDS: ENOXAPARIN SOD INJ 40 MG/0.4 ML SYR SC SCH (11:32)
[2020-06-16] MEDS: TAMSULOSIN HCL 0.4 MG CAP PO SCH ×2 (11:32→21:05)
[2020-06-16] MEDS: EZETIMIBE 10 MG TAB PO SCH (11:32)
--- NOTE | 2020-06-16 18:46 | Progress Note ---
DATE: SUBJECTIVE: Mr. Sanabria remains in Intensive Care Unit, on AIRVO at 60 L with 90% oxygen. PHYSICAL EXAMINATION: HEENT: Normocephalic. NECK: Supple. CHEST: Crackles bilateral. HEART: S1, S2. ABDOMEN: Soft. Bowel sounds present. EXTREMITIES: No edema. SKIN: No rash. LABORATORY DATA: Lab data reviewed. Chart reviewed. IMPRESSION: Respiratory failure, viral pneumonia, COVID-19, diabetes mellitus. Continue with plan as ordered. Discussed with medical team. We will follow. MD ELÍAS Littlejohn/MODL /[id number]
[2020-06-16] MEDS: CEFTRIAXONE SOD 2 GM/NS 100 ML 100 ML IV SCH (20:24)
--- NOTE | 2020-06-16 21:00 | Consultation ---
DATE OF CONSULTATION: 06/16/2020 Cardiology Consultation. REFERRING PHYSICIAN: Luiz Fallon MD. CONSULTING PHYSICIAN: Eligio Albarran MD, Interventional Cardiology. REASON FOR CONSULTATION: CAD, shortness of breath. HISTORY OF PRESENT ILLNESS: A 69-year-old pleasant man with history of coronary artery disease, status post remote aortocoronary bypass, hypertension, and dyslipidemia presents over one week with progressive dyspnea on exertion, nausea, and fatigue. Noted to have COVID-19 infection and community-acquired pneumonia. He is being admitted on FiO2 supplementation to COVID Unit. He denies any chest discomfort. He denies any other current complaints. REVIEW OF SYSTEMS: Negative except for as noted above. PAST MEDICAL HISTORY: Unremarkable as per HPI. SOCIAL HISTORY: Former smoker. No alcohol. No drugs. FAMILY HISTORY: Noncontributory. PHYSICAL EXAMINATION: VITAL SIGNS: Temperature 98 degrees, heart rate 74, blood pressure 134/64, respiratory rate 20, O2 saturation 97%, BMI 30. GENERAL: No acute distress. Alert. NECK: No JVD. CHEST: Clear to auscultation bilaterally. CARDIOVASCULAR: Regular rate and rhythm. Normal S1 and S2. No S3 or S4. Systolic ejection murmur. ABDOMEN: Soft. Bowel sounds positive. EXTREMITIES: No edema. Warm distal extremities. SKIN: Sternotomy scar observed. CARDIOVASCULAR MEDICATIONS: Reviewed. Zetia 10 mg daily, Lovenox 40 mg subcu daily, tamsulosin 0.4 mg every 12 hours, azithromycin, ceftriaxone antibiotics, dexamethasone 4 mg daily. LABORATORY STUDIES: Reviewed. Sodium 140, potassium 4.2, chloride 109, bicarbonate 24, BUN 26, creatinine 0.9, glucose 191. White blood cell 7.8, hemoglobin 12.6, platelets 142,000. PT 12.2, INR 0.8. AST 36, ALT 27, alkaline phosphatase 108. ASSESSMENT AND PLAN: A 69-year-old man presents with COVID-19 infection, community-acquired pneumonia. He has a history of CAD, status post aortic coronary bypass as well as diabetes, dyslipidemia and hypertension. RECOMMENDATIONS: 1. Obtain echocardiogram. 2. Initiate aspirin and statin. 3. Add beta-gudelia to the current regimen. Diabetes optimization. Agree with dexamethasone and oxygen supplementation. Monitor closely respiratory status while in the intensive care unit. MD NOAH Ireland/JENNIFERL /[id number]
[2020-06-16] MEDS: AZITHROMYCIN 500MG/NS 250 ML 250 ML IV SCH (21:05)
[2020-06-16] MEDS: INSULIN GLARGINE 100 UNITS/ML VIAL SQ SCH (21:19)
[2020-06-16] MEDS ORDERED: SODIUM CHLORIDE 0.9% 250ML 250 ML ONE (21:27)
[2020-06-16] MEDS: ATORVASTATIN 40 MG TAB PO SCH (21:57)
--- NOTE | 2020-06-16 22:21 | Progress Note ---
DATE: 06/16/2020 CONSULTANTS: 1. Dr. Foreign Quintanilla, slat basket maker helper machine. 2. Dr. Neves, with ID. 3. Dr. Simons, Cardiology. CHIEF COMPLAINT: Shortness of breath. SUBJECTIVE: The patient is sitting up in bed, on high-flow nasal cannula. He reports feeling better, complained of constipation. OBJECTIVE: VITAL SIGNS: Temperature 98.0, pulse of 88, respirations 18, blood pressure 131/71, pulse ox is 97% on high-flow nasal cannula. GENERAL: No acute distress. HEENT: Normocephalic, atraumatic. CARDIOVASCULAR: Regular rate and rhythm. Decreased breath sounds. ABDOMEN: Soft and nontender. NEURO: Alert, awake, and oriented x3. MUSCULOSKELETAL: Moves all extremities. SKIN: Dry. LABORATORY DATA: WBC 7.81, hemoglobin 12.6, platelet 242. Sodium 140, potassium 4.2, creatinine 0.98, blood glucose 191, AST 36, ALT 27. IMAGING: Chest x-ray no significant interval change from yesterday. IMPRESSION: 1. Coronavirus disease-2019 pneumonia with hypoxia. Continue on azithromycin, Rocephin, and Decadron per ID. On high-flow nasal cannula. ID and Pulmonary on the case. Chest x-ray with no significant change. 2. Acute kidney injury, resolved. 3. Uncontrolled diabetes. Likely due to Decadron. Lantus was increased to 35 units at bedtime. We will monitor closely and adjust as needed. SSI before meals and at bedtime. 4. High cholesterol. Continue Zetia. 5. Coronary artery disease workup. Cardiology has been consulted. Echo pending. Started on metoprolol and aspirin. 6. Deep vein thrombosis prophylaxis. Lovenox 40 mg subcu. Dictated by RACHEL Haynes Luiz Fallon MD MY/MODL /[id number]
[2020-06-17] VITALS (23 sets, daily range): BP systolic 95–158; BP diastolic 61–88
[2020-06-17 04:42] LABS: BASOPHILS # (AUTO) 0.1 (0.0-0.1); BASOPHILS % 0.4 % (0.0-1.0); HEMOGLOBIN 12.2 g/dL (14.0-18.0); LYMPHOCYTES # (AUTO) 1.9 (1.0-3.2); LYMPHOCYTES % 16.9 % (18.0-39.1); MEAN CORPUSCULAR HEMOGLOBIN 29.8 pg (28-32); MEAN CORPUSCULAR VOLUME 90.5 fL (81-99); MONOCYTES % 8.4 % (4.4-11.3); NEUTROPHILS # (AUTO) 7.6 (2.1-6.9); NEUTROPHILS % 67.5 % (38.7-80.0); PLATELET COUNT 246 x10e3/uL (140-360); RED BLOOD COUNT 4.09 x10e6/uL (4.3-5.7); RED CELL DISTRIBUTION WIDTH 12.8 % (11.7-14.4)
[2020-06-17 05:08] LABS: ALANINE AMINOTRANSFERASE 23 IU/L (0-55); ALBUMIN 2.3 g/dL (3.5-5.0); ALBUMIN/GLOBULIN RATIO 0.7 (0.8-2.0); ALKALINE PHOSPHATASE 99 IU/L (40-150); ANION GAP 10.1 mmol/L (8-16); BLOOD UREA NITROGEN 27 mg/dL (7-26); BUN/CREATININE RATIO 28 (6-25); CALCIUM 9.8 mg/dL (8.4-10.2); CARBON DIOXIDE 25 mmol/L (22-29); CHLORIDE 109 mmol/L (98-107); CREATININE, SERUM 0.96 mg/dL (0.72-1.25); EST GLOMERULAR FILTRATION RATE > 60 ML/MIN (60-); GLUCOSE 141 mg/dL (74-118); POTASSIUM 4.1 mmol/L (3.5-5.1); SODIUM 140 mmol/L (136-145)
[2020-06-17] MEDS: INSULIN LISPRO 100 UNIT/1 ML 3ML VIAL SQ SCH ×4 (07:30→20:53)
[2020-06-17] MEDS: EZETIMIBE 10 MG TAB PO SCH (08:36)
[2020-06-17] MEDS: ASPIRIN 81 MG CHEW TAB PO SCH (08:36)
[2020-06-17] MEDS: DEXAMETHASONE 4 MG TAB PO SCH (08:36)
[2020-06-17] MEDS: TAMSULOSIN HCL 0.4 MG CAP PO SCH ×2 (08:36→21:11)
[2020-06-17] MEDS: METOPROLOL SUCCINATE 25 MG TAB XL PO SCH (08:38)
[2020-06-17] MEDS ORDERED: FAMOTIDINE 20 MG/2 ML VIAL IV SCH (09:00)
[2020-06-17] MEDS ORDERED: ASPIRIN 325 MG TAB PO SCH (09:00)
--- NOTE | 2020-06-17 09:01 | Diagnostic Imaging Report ---
EXAMINATION: CHEST SINGLE (PORTABLE) INDICATION: Viral pneumonia. COMPARISON: Chest radiograph 06/16/2020 FINDINGS: LINES/TUBES:Right arm PICC terminates in the SVC. LUNGS:The lung volumes are mildly hypoinflated. Interval slight increase in lower lung zone predominant interstitial and patchy airspace opacity. PLEURA:No pleural effusion or pneumothorax. MEDIASTINUM:Unchanged cardiomediastinal silhouette. BONES/SOFT TISSUES:No acute osseous injury. Status post median sternotomy with wires unchanged. ABDOMEN:No free air under the diaphragm. IMPRESSION: Interval slight increase in opacities, compatible with viral pneumonia. Signed by: Dr. Chivo Xavier MD on 06/17/2020 8:57 AM
[2020-06-17] MEDS: ENOXAPARIN SOD INJ 40 MG/0.4 ML SYR SC SCH (11:14)
--- NOTE | 2020-06-17 16:15 | Progress Note ---
DATE: SUBJECTIVE: The patient is feeling more comfortable. He has less dyspnea and less cough. He is still on Vapotherm. He is on 60 L with FiO2 of 70%. PHYSICAL EXAMINATION: VITAL SIGNS: The patient is afebrile. The blood pressure is 121/70 and saturation is 93%. HEENT: Shows no facial swelling or erythema. The oropharynx is normal. LYMPHATIC: Shows no submandibular, cervical, or supraclavicular adenopathy. CARDIAC: Reveals a regular rate and rhythm with a normal S1 and S2. LUNGS: Auscultation of lungs reveals clear breath sounds bilaterally. There is no wheezing. ABDOMEN: Soft and nontender. There is no rebound or guarding. EXTREMITIES: Shows no leg edema or calf tenderness. There is no cyanosis or clubbing. SKIN: Shows no rashes. LABORATORY DATA: White blood cell count is 11.2 and hemoglobin is 12.2. The platelet count is 246. The BUN to creatinine ratio is normal. The other electrolytes are within normal limits. Albumin is 2.3. RADIOGRAPHIC DATA: Chest x-ray shows bilateral infiltrates. IMPRESSION: 1. Acute respiratory failure. 2. Viral pneumonia and COVID-19 infection. 3. Diabetes. 4. Hypertension. 5. Acute kidney injury. PLAN: 1. Continue Airvo and decrease L flow as tolerated. 2. Monitor and control blood sugars. 3. Continue Lovenox. 4. Continue dexamethasone. 5. Complete antibiotics. 6. Prognosis remains poor. Physical therapy. Foreign Quintanilla MD [facility]/JENNIFERL /[id number]
--- NOTE | 2020-06-17 17:35 | Progress Note ---
DATE: SUBJECTIVE: Mr. Sanabria is doing better. This is day #5 of hospitalization. Remains in Intensive Care Unit. OBJECTIVE: VITAL SIGNS: Stable. HEENT: He is not icteric. NECK: Supple. HEART: S1, S2. ABDOMEN: Soft. IMPRESSION: 1. COVID-19. 2. Acute kidney injury. 3. Diabetes mellitus. 4. Hypercholesterolemia. 5. Continue as ordered. Discussed with Medical team. No new recommendations. MD ELÍAS Littlejohn/MODL /[id number]
--- NOTE | 2020-06-17 20:16 | Progress Note ---
DATE: 06/17/2020 CONSULTANTS: 1. Dr. Quintanilla, beam saw operator. 2. Dr. Neves, Infectious Disease. 3. Dr. Simons, Cardiology. CHIEF COMPLAINT: Shortness of breath. SUBJECTIVE: The patient is seen in the [facility] ICU, remains on high-flow nasal cannula. He denies any chest pain, fever, or abdominal discomfort. Had a BM this morning. OBJECTIVE: VITAL SIGNS: Temperature 98.2, pulse is 60, respirations 16, blood pressure 140/71, pulse ox is 93% on nasal cannula . GENERAL: No acute distress. HEENT: Normocephalic, atraumatic. CARDIOVASCULAR: Regular rate and rhythm. LUNGS: Decreased breath sounds. ABDOMEN: Soft and nontender. NEURO: Alert, awake oriented x3. MUSCULOSKELETAL: Moves all extremities. SKIN: Dry. LABORATORY DATA: WBC 11.27, hemoglobin 12.2, hematocrit 37.0, platelet is 246. Sodium 140, potassium 4.1, BUN is 27, creatinine 0.96, blood glucose 141, AST 25, ALT 23. Chest x-ray interval slight increase in opacity compatible with viral pneumonia. IMPRESSION AND PLAN: 1. Acute respiratory failure due to coronavirus disease-2019 pneumonia with hypoxia. Chest x-ray this morning with slight increase. Continue on Rocephin, azithromycin and Decadron per ID. Remains on high-flow nasal cannula. Pulmonology on the case. 2. Acute kidney injury. Resolved. Creatinine is 0.96 today. 3. Diabetes type 2. Blood sugar is improving. We will continue with Lantus 35 units at bedtime and sliding scale insulin. 4. High cholesterol. Continue Zetia. 5. Coronary artery disease workup. Echo has been done, pending results. Continue on metoprolol and aspirin per Cardiology. 6. Deep vein thrombosis prophylaxis. Continue Lovenox 40 mg subcu. Dictated by RACHEL Haynes Luiz Fallon MD MY/MODL /[id number] Seen and examined. Agree with the findings and plan as documented by RACHEL Lo. TANVIR
[2020-06-17] MEDS: CEFTRIAXONE SOD 2 GM/NS 100 ML 100 ML IV SCH (20:17)
[2020-06-17] MEDS: INSULIN GLARGINE 100 UNITS/ML VIAL SQ SCH (20:55)
[2020-06-17] MEDS: AZITHROMYCIN 500MG/NS 250 ML 250 ML IV SCH (21:10)
[2020-06-17] MEDS: FAMOTIDINE 20 MG/2 ML VIAL IV SCH (21:11)
[2020-06-17] MEDS: ATORVASTATIN 40 MG TAB PO SCH (21:11)
[2020-06-18] VITALS (24 sets, daily range): BP systolic 110–164; BP diastolic 47–92
[2020-06-18 04:47] LABS: ANION GAP 11.8 mmol/L (8-16); BLOOD UREA NITROGEN 23 mg/dL (7-26); BUN/CREATININE RATIO 28 (6-25); CALCIUM 9.8 mg/dL (8.4-10.2); CARBON DIOXIDE 24 mmol/L (22-29); CHLORIDE 110 mmol/L (98-107); CREATININE, SERUM 0.81 mg/dL (0.72-1.25); EST GLOMERULAR FILTRATION RATE > 60 ML/MIN (60-); POTASSIUM 3.8 mmol/L (3.5-5.1); SODIUM 142 mmol/L (136-145)
[2020-06-18 04:48] LABS: GLUCOSE 57 mg/dL (74-118)
--- NOTE | 2020-06-18 05:00 | NUR ---
Lab notified this RN of critical glucose. Rechecked with glucometer- BS 86. Gave patient apple juice. Patient has no complaints.
[2020-06-18] MEDS: INSULIN LISPRO 100 UNIT/1 ML 3ML VIAL SQ SCH ×4 (07:20→21:54)
[2020-06-18] MEDS: DEXAMETHASONE 4 MG TAB PO SCH (08:19)
[2020-06-18] MEDS: METOPROLOL SUCCINATE 25 MG TAB XL PO SCH (08:19)
[2020-06-18] MEDS: ASPIRIN 81 MG CHEW TAB PO SCH (08:19)
[2020-06-18] MEDS: ENOXAPARIN SOD INJ 40 MG/0.4 ML SYR SC SCH (08:19)
[2020-06-18] MEDS: TAMSULOSIN HCL 0.4 MG CAP PO SCH ×2 (08:19→21:32)
[2020-06-18] MEDS: EZETIMIBE 10 MG TAB PO SCH (08:19)
[2020-06-18] MEDS: FAMOTIDINE 20 MG/2 ML VIAL IV SCH ×2 (08:19→21:32)
--- NOTE | 2020-06-18 12:53 | Progress Note ---
DATE: SUBJECTIVE: The patient is still having some dyspnea with exertion. His Airvo is decreased to 70% with 50 L. PHYSICAL EXAMINATION: VITAL SIGNS: Blood pressure is 164/86 and the saturation is 96%. Pulse is 68. HEENT: Shows no facial swelling or erythema. LYMPHATIC: Shows no submandibular, cervical, or supraclavicular adenopathy. CARDIAC: Reveals regular rate and rhythm with normal S1 and S2. There are no murmurs or rubs. LUNGS: Auscultation of lungs reveals decreased breath sounds at the bases. There is no wheezing. ABDOMEN: Soft and nontender. There is no rebound or guarding. EXTREMITIES: Shows no leg edema or calf tenderness. There is no cyanosis or clubbing. SKIN: Shows no rashes. LABORATORY DATA: White blood cell count is 11.3 and hemoglobin is 12.2. The platelet count is 246 BUN to creatinine ratio is normal. The other electrolytes are within normal limits. RADIOGRAPHIC DATA: Chest x-ray shows bilateral opacities. IMPRESSION: 1. Acute respiratory failure. 2. Viral pneumonia and COVID-19 infection. 3. Diabetes. 4. Hypertension. PLAN: 1. Continue to decrease L flow and oxygen requirement as tolerated on Airvo. 2. Continue Lovenox. 3. Monitor and control blood sugars. 4. Complete dexamethasone. 5. Complete antibiotics. Foreign Quintanilla MD [facility]/MODL /[id number]
--- NOTE | 2020-06-18 16:20 | NUR ---
he patient is still having some dyspnea with exertion. His Airvo is decreased to 70% with 50 L. PHYSICAL EXAMINATION: VITAL SIGNS: Blood pressure is 164/86 and the saturation is 96%. Pulse is 68. HEENT: Shows no facial swelling or erythema. LYMPHATIC: Shows no submandibular, cervical, or supraclavicular adenopathy. CARDIAC: Reveals regular rate and rhythm with normal S1 and S2. There are no murmurs or rubs. LUNGS: Auscultation of lungs reveals decreased breath sounds at the bases. There is no wheezing. ABDOMEN: Soft and nontender. There is no rebound or guarding. EXTREMITIES: Shows no leg edema or calf tenderness. There is no cyanosis or clubbing. SKIN: Shows no rashes. LABORATORY DATA: White blood cell count is 11.3 and hemoglobin is 12.2. The platelet count is 246 BUN to creatinine ratio is normal. The other electrolytes are within normal limits. RADIOGRAPHIC DATA: Chest x-ray shows bilateral opacities. resp failure covid 19 cont as ordered
--- NOTE | 2020-06-18 19:15 | Progress Note ---
DATE: 06/18/2020 Cardiology Progress Note. SUBJECTIVE: Mr. Sanabria remains in high-flow nasal cannula. He denies any chest discomfort, and otherwise feels comfortable, currently with no complaints. OBJECTIVE: VITAL SIGNS: Temperature 98.3, heart rate 72, blood pressure 110/68, respiratory rate 18, O2 saturations 96%. BMI 30.6. GENERAL: No acute distress, alert. NECK: No JVD. CHEST: With rales and decreased breath sounds. HEART: Regular rate and rhythm. Normal S1 and S2. ABDOMEN: Soft. EXTREMITIES: No edema. SKIN: Sternotomy scar. NEURO: Nonfocal. CARDIOVASCULAR MEDICATIONS: Reviewed: 1. Zetia 10 mg daily. 2. Atorvastatin 40 mg at bedtime. 3. Lovenox 40 mg subcu daily. 4. Metoprolol succinate 25 mg daily. 5. Aspirin 81 mg daily. 6. Tamsulosin 0.4 mg q.12 hours. LABORATORY DATA: Reviewed, sodium 142, potassium 3.8, chloride 110, bicarbonate 24, BUN 23, creatinine 0.8, glucose 57. White blood cells 11.2, hemoglobin 12.2, platelets 246. PT 12.2, INR 0.87, AST 25, ALT 23, alkaline phosphatase 99. ASSESSMENT AND PLAN: A 69-year-old man presents with: 1. Community-acquired pneumonia, COVID-19 infection. 2. Acute respiratory failure, requiring high-flow nasal cannula, increased FiO2. 3. History of coronary artery disease with previous coronary artery bypass. 4. Hypertension. 5. Dyslipidemia. 6. Diabetes. RECOMMENDATIONS: Continue current cardiovascular medications. Blood pressure is at goal. He denies any active angina. Continue supportive treatment for COVID-19 infection as well as dexamethasone 6 mg daily to complete course. MD NOAH Ireland/ANGELA /[id number]
[2020-06-18] MEDS: AZITHROMYCIN 500MG/NS 250 ML 250 ML IV SCH (21:25)
[2020-06-18] MEDS: ATORVASTATIN 40 MG TAB PO SCH (21:33)
--- NOTE | 2020-06-18 21:45 | Progress Note ---
DATE: 06/18/2020 SUBJECTIVE: The patient feels his breathing is a little better. OBJECTIVE: VITAL SIGNS: Temperature 98.3, pulse 68, respiratory rate 26, blood pressure 118/70. GENERAL: No acute distress. SKIN: No rash. LUNGS: Decreased breath sounds. HEART: Regular rate and rhythm. Normal S1, S2. GI: Abdomen is soft, nondistended. NEUROLOGIC: Alert and oriented x3. PSYCHIATRIC: No hallucination. MUSCULOSKELETAL: Painless range of motion. LABORATORY DATA: White count 11, hemoglobin 12, platelet count 246, creatinine 0.8. ASSESSMENT AND PLAN: 1. Acute respiratory failure due to coronavirus disease-19 pneumonia. We will continue Rocephin, azithromycin, and Decadron per plan nurse and Infectious Disease specialist. 2. Acute kidney injury, resolved. 3. Diabetes. We will continue Lantus. 4. Gastrointestinal and deep vein thrombosis prophylaxis. Continue Lovenox. MD GUCCI Bingham/ANGELA /[id number]
[2020-06-18] MEDS: INSULIN GLARGINE 100 UNITS/ML VIAL SQ SCH (21:55)
--- NOTE | 2020-06-18 22:00 | NUR ---
Report given to Prashanth GARCIAS.
[2020-06-18] MEDS: CEFTRIAXONE SOD 2 GM/NS 100 ML 100 ML IV SCH (23:52)
[2020-06-19] VITALS (26 sets, daily range): BP systolic 89–137; BP diastolic 45–95
[2020-06-19 06:41] LABS: BASOPHILS # (AUTO) 0.1 (0.0-0.1); BASOPHILS % 0.6 % (0.0-1.0); EOSINOPHILS # (AUTO) 0.1 (0.0-0.4); EOSINOPHILS % 0.6 % (0.0-6.0); HEMATOCRIT 37.6 % (38.2-49.6); HEMOGLOBIN 13.3 g/dL (14.0-18.0); LYMPHOCYTES # (AUTO) 2.1 (1.0-3.2); LYMPHOCYTES % 12.2 % (18.0-39.1); MEAN CORPUSCULAR HEMOGLOBIN 31.8 pg (28-32); MEAN CORPUSCULAR HGB CONC 35.4 g/dL (31-35); MONOCYTES # (AUTO) 1.1 (0.2-0.8); MONOCYTES % 6.3 % (4.4-11.3); NEUTROPHILS # (AUTO) 12.1 (2.1-6.9); NEUTROPHILS % 70.9 % (38.7-80.0); PLATELET COUNT 230 x10e3/uL (140-360); RED BLOOD COUNT 4.18 x10e6/uL (4.3-5.7); RED CELL DISTRIBUTION WIDTH 13.8 % (11.7-14.4)
[2020-06-19] MEDS: INSULIN LISPRO 100 UNIT/1 ML 3ML VIAL SQ SCH ×4 (07:29→21:35)
[2020-06-19] MEDS: FAMOTIDINE 20 MG/2 ML VIAL IV SCH ×2 (08:11→20:52)
[2020-06-19] MEDS: ASPIRIN 81 MG CHEW TAB PO SCH (08:11)
[2020-06-19] MEDS: TAMSULOSIN HCL 0.4 MG CAP PO SCH ×2 (08:12→20:52)
[2020-06-19] MEDS: DEXAMETHASONE 4 MG TAB PO SCH (08:12)
[2020-06-19] MEDS: ENOXAPARIN SOD INJ 40 MG/0.4 ML SYR SC SCH (08:13)
[2020-06-19] MEDS: EZETIMIBE 10 MG TAB PO SCH (08:13)
[2020-06-19] MEDS: METOPROLOL SUCCINATE 25 MG TAB XL PO SCH (08:14)
--- NOTE | 2020-06-19 10:06 | NUR ---
infectious disease progress note Patient is intensive care unit patients examination reviewed the events noted he patient is still having some dyspnea with exertion. His Airvo is decreased to 70% with 50 L. PHYSICAL EXAMINATION: VITAL SIGNS: Blood pressure is 164/86 and the saturation is 96%. Pulse is 68. HEENT: Shows no facial swelling or erythema. LYMPHATIC: Shows no submandibular, cervical, or supraclavicular adenopathy. CARDIAC: Reveals regular rate and rhythm with normal S1 and S2. There are no murmurs or rubs. LUNGS: Auscultation of lungs reveals decreased breath sounds at the bases. There is no wheezing. ABDOMEN: Soft and nontender. There is no rebound or guarding. EXTREMITIES: Shows no leg edema or calf tenderness. There is no cyanosis or clubbing. SKIN: Shows no rashes. LABORATORY DATA: White blood cell count is 11.3 and hemoglobin is 12.2. The platelet count is 246 BUN to creatinine ratio is normal. The other electrolytes are within normal limits. RADIOGRAPHIC DATA: Chest x-ray shows bilateral opacities. IMPRESSION: 1. Acute respiratory failure. 2. Viral pneumonia and COVID-19 infection. 3. Diabetes. 4. Hypertension. Continue with supportive care as ordered' Discussed with medical team
[2020-06-19 12:05] LABS: BAND NEUTROPHILS % (MANUAL) 1 %; LYMPHOCYTES % (MANUAL) 14 % (19-48); MONOCYTES % (MANUAL) 5 % (3.4-9.0); MYELOCYTES % (MANUAL) 3 % (0-0); NEUTROPHILS % (MANUAL) 73 % (40-74); NUCLEATED RED BLOOD CELLS 1; PLATELET ESTIMATE ADEQUATE; PLATELET MORPHOLOGY COMMENT NORMAL; RBC MORPHOLOGY COMMENT NORMAL
--- NOTE | 2020-06-19 19:29 | Progress Note ---
DATE: SUBJECTIVE: The patient is currently having some dyspnea with exertion. He has some cough. PHYSICAL EXAMINATION: VITAL SIGNS: The patient is afebrile. The blood pressure is 106/55, saturation is 90%. He is on Airvo with 60 L and 87% oxygen. HEENT: Shows no facial swelling or erythema. The oropharynx is normal. LYMPHATIC: Shows no submandibular, cervical, or supraclavicular adenopathy. CARDIAC: Reveals a regular rate and rhythm with normal S1 and S2. LUNGS: Auscultation of lungs shows crackles at the bases. There is no wheezing. ABDOMEN: Soft and nontender. There is no rebound or guarding. EXTREMITIES: Shows no leg edema or calf tenderness. There is no cyanosis or clubbing. SKIN: Shows no rashes. NEUROLOGICAL: Shows no focal abnormalities. LABORATORY DATA: White blood cell count is 17, hemoglobin is 13.3, and the platelet count is 230. IMPRESSION: 1. Acute respiratory failure. 2. Viral pneumonia and COVID-19 infection. 3. Diabetes. 4. Hypertension. PLAN: 1. Place the patient in the prone position. 2. Continue to use Airvo. 3. Continue Lovenox. 4. Complete dexamethasone. 5. Continue to monitor and control blood sugars. Foreign Quintanilla MD [facility]/MODL /[id number]
[2020-06-19] MEDS: AZITHROMYCIN 500MG/NS 250 ML 250 ML IV SCH (20:52)
[2020-06-19] MEDS: CEFTRIAXONE SOD 2 GM/NS 100 ML 100 ML IV SCH (20:52)
[2020-06-19] MEDS: ATORVASTATIN 40 MG TAB PO SCH (20:52)
[2020-06-19] MEDS: INSULIN GLARGINE 100 UNITS/ML VIAL SQ SCH (21:40)
--- NOTE | 2020-06-19 22:11 | Progress Note ---
DATE: 06/19/2020 SUBJECTIVE: No new complaints, he feels his breathing is better. OBJECTIVE: VITAL SIGNS: Temperature 98.5, pulse 66, respiratory rate 22, and blood pressure 103/53. GENERAL: No acute distress. SKIN: No rash. LUNGS: Decreased breath sound ordered. HEART: Regular rate and rhythm. Normal S1 and S2. GI: Abdomen is soft and nondistended. NEUROLOGIC: Alert and oriented x3. PSYCHIATRIC: No hallucination. MUSCULOSKELETAL: Painless range of motion. LABORATORY DATA: White count 17, hemoglobin 13, and platelet count 230. ASSESSMENT AND PLAN: 1. Acute respiratory failure due to COVID-19 pneumonia. We will need to monitor his leukocytosis. The patient is afebrile. We will continue Rocephin, Zithromax, and Decadron per lvn lpn and Infectious Disease specialists. 2. Acute kidney injury, resolved. 3. Diabetes. Sugar this morning was lowish. We will decrease his Lantus. 4. Gastrointestinal and deep venous thrombosis prophylaxis. Continue Lovenox. MD GUCCI Bingham/ANGELA /[id number]
[2020-06-20] VITALS (25 sets, daily range): BP systolic 90–158; BP diastolic 50–100
[2020-06-20 04:47] LABS: BASOPHILS # (AUTO) 0.1 (0.0-0.1); BASOPHILS % 0.5 % (0.0-1.0); EOSINOPHILS # (AUTO) 0.1 (0.0-0.4); EOSINOPHILS % 0.7 % (0.0-6.0); HEMATOCRIT 38.7 % (38.2-49.6); HEMOGLOBIN 12.8 g/dL (14.0-18.0); LYMPHOCYTES # (AUTO) 1.5 (1.0-3.2); LYMPHOCYTES % 8.4 % (18.0-39.1); MEAN CORPUSCULAR HEMOGLOBIN 29.1 pg (28-32); MEAN CORPUSCULAR HGB CONC 33.1 g/dL (31-35); MONOCYTES # (AUTO) 0.7 (0.2-0.8); MONOCYTES % 4.1 % (4.4-11.3); NEUTROPHILS # (AUTO) 13.6 (2.1-6.9); NEUTROPHILS % 78.1 % (38.7-80.0); PLATELET COUNT 276 x10e3/uL (140-360); RED CELL DISTRIBUTION WIDTH 12.3 % (11.7-14.4)
[2020-06-20 05:04] LABS: ALANINE AMINOTRANSFERASE 19 IU/L (0-55); ALBUMIN 2.2 g/dL (3.5-5.0); ALBUMIN/GLOBULIN RATIO 0.6 (0.8-2.0); ALKALINE PHOSPHATASE 117 IU/L (40-150); BLOOD UREA NITROGEN 20 mg/dL (7-26); BUN/CREATININE RATIO 25 (6-25); CALCIUM 9.9 mg/dL (8.4-10.2); CARBON DIOXIDE 23 mmol/L (22-29); CHLORIDE 108 mmol/L (98-107); CREATININE, SERUM 0.81 mg/dL (0.72-1.25); EST GLOMERULAR FILTRATION RATE > 60 ML/MIN (60-); GLUCOSE 62 mg/dL (74-118); SODIUM 138 mmol/L (136-145)
--- NOTE | 2020-06-20 06:52 | NUR ---
Pt blood glucose was 67 this morning at 6:40 gave two russell crackers.
[2020-06-20] MEDS: INSULIN LISPRO 100 UNIT/1 ML 3ML VIAL SQ SCH ×4 (07:30→21:21)
[2020-06-20] MEDS: FAMOTIDINE 20 MG/2 ML VIAL IV SCH ×2 (09:20→21:15)
[2020-06-20] MEDS: ENOXAPARIN SOD INJ 40 MG/0.4 ML SYR SC SCH (09:21)
[2020-06-20] MEDS: METOPROLOL SUCCINATE 25 MG TAB XL PO SCH (09:21)
[2020-06-20] MEDS: ASPIRIN 81 MG CHEW TAB PO SCH (09:21)
[2020-06-20] MEDS: EZETIMIBE 10 MG TAB PO SCH (09:21)
[2020-06-20] MEDS: TAMSULOSIN HCL 0.4 MG CAP PO SCH ×2 (09:21→21:16)
[2020-06-20] MEDS: DEXAMETHASONE 4 MG TAB PO SCH (09:21)
[2020-06-20] MEDS: DOCUSATE SODIUM 100 MG CAP PO SCH ×2 (09:58→17:40)
--- NOTE | 2020-06-20 09:59 | NUR ---
Pt with reported no bm x 1 week. Order to start docusate and give a prune juice, per Dr Simons, given now.
--- NOTE | 2020-06-20 10:27 | Progress Note ---
DATE: 06/20/2020 Cardiology Progress Note SUBJECTIVE: Denies any chest pain or shortness of breath. Feels abdominal discomfort. Reports being constipated. High-flow nasal cannula. OBJECTIVE: VITAL SIGNS: Heart rate 93, blood pressure 122/64, O2 saturation 90%, and temperature 98.1. GENERAL: Chronically ill-appearing, high-flow nasal cannula in place with non-rebreather face mask on top. NECK: No JVD. CHEST: Regular rate and rhythm. Normal S1 and S2. ABDOMEN: Soft. Bowel sounds positive. EXTREMITIES: No edema. CARDIOVASCULAR MEDICATIONS: Reviewed. Aspirin 81 mg daily, metoprolol succinate 25 mg daily, Zetia 10 mg daily, Lovenox 40 mg subcutaneous daily, Decadron 6 mg daily, and atorvastatin 40 mg at bedtime. STUDIES: Reviewed. White blood cells 17, hemoglobin 12, and platelets 276. Creatinine 0.8 and glucose 67. ASSESSMENT AND PLAN: A 69-year-old man with community-acquired pneumonia, COVID-19 infection, acute respiratory failure, coronary artery disease with previous bypass, hypertension, diabetes, and dyslipidemia. RECOMMEND: Continue dexamethasone trial and rest of cardiovascular medications, particularly aspirin, atorvastatin, Zetia, and metoprolol. MD NOAH Ireland/ANGELA /[id number]
[2020-06-20 11:23] LABS: LYMPHOCYTES % (MANUAL) 6 % (19-48); MONOCYTES % (MANUAL) 4 % (3.4-9.0); MYELOCYTES % (MANUAL) 5 % (0-0); NEUTROPHILS % (MANUAL) 84 % (40-74); PLATELET ESTIMATE ADEQUATE; PLATELET MORPHOLOGY COMMENT NORMAL; RBC MORPHOLOGY COMMENT NORMAL
[2020-06-20] MEDS ORDERED: LACTATED RINGER'S 500 ML INJ ONE (12:00)
--- NOTE | 2020-06-20 12:07 | NUR ---
infectious disease progress note Patient seen and examined chart reviewed Discussed with medical team ITAL SIGNS: Heart rate 93, blood pressure 122/64, O2 saturation 90%, and temperature 98.1. Patient short of breath GENERAL: Chronically ill-appearing, high-flow nasal cannula in place with non-rebreather face mask on top. NECK: No JVD. CHEST: Regular rate and rhythm. Normal S1 and S2. ABDOMEN: Soft. Bowel sounds positive. EXTREMITIES: No edema. CARDIOVASCULAR MEDICATIONS: Reviewed. Aspirin 81 mg daily, metoprolol succinate 25 mg daily, Zetia 10 mg daily, Lovenox 40 mg subcutaneous daily, Decadron 6 mg daily, and atorvastatin 40 mg at bedtime. STUDIES: Reviewed. White blood cells 17, hemoglobin 12, and platelets 276. Creatinine 0.8 and glucose 67. Covid 19 on admission Respiratory failure To finish 10 days of Decadron This is day #8 Continue as ordered discussed with the medical team
--- NOTE | 2020-06-20 12:18 | Progress Note ---
DATE: SUBJECTIVE: The patient remains on Vapotherm at 50 L and 93%. He is not having fevers. He does have some dyspnea. PHYSICAL EXAMINATION: VITAL SIGNS: The patient is afebrile. The blood pressure is 121/91, saturation is 92%. The respiratory rate is 26. HEENT: No facial swelling or erythema. The oropharynx is normal. LYMPHATIC: No submandibular, cervical, or supraclavicular adenopathy. CARDIAC: Regular rate and rhythm with normal S1, S2. LUNGS: Auscultation of lungs reveals crackles at the bases. There is no wheezing. ABDOMEN: Soft, nontender. There is no rebound or guarding. EXTREMITIES: No leg edema or calf tenderness. There is no cyanosis or clubbing. SKIN: No rashes. LABORATORY DATA: White blood cell count is 17.4 and hemoglobin 12.8. The platelet count 267. The BUN to creatinine ratio is 20 to 0.81. The other electrolytes within normal limits. The albumin is 2.2. IMPRESSION: 1. Acute respiratory failure. 2. Viral pneumonia and coronavirus disease-19 infection. 3. Diabetes. 4. Hypertension. 5. History of prior coronary artery disease and bypass. PLAN: 1. Continue Airvo. 2. Complete course of dexamethasone. 3. Complete antibiotics. 4. Continue Lovenox. 5. Continue to monitor and control blood sugars. 6. Judicious use of IV fluids. 7. Nutritional supplementation and dietary consult. Foreign Quintanilla MD LM/MODL /[id number]
--- NOTE | 2020-06-20 13:28 | NUR ---
Substitute School Nurse called pt's to offer emotional/spiritual support. Pt's states she only speaks Tunisian. Substitute School Nurse will attempt to call pt's son. ALEXA Emerson Spiritual Care Department O: [phone]
--- NOTE | 2020-06-20 13:32 | NUR ---
Farm Service Adviser called pt's son, Dilan, to offer emotional/spiritual support. No answer. ALEXA Emerson Spiritual Care Department O: [phone]
--- NOTE | 2020-06-20 17:28 | NUR ---
Nutrition Intervention Note RD Recommendation(s) for Physician: - Recommend adding ADA diet to diet order - Encourage Glucerna or Ensure Compact nutrition supplements Plan of Care: RD following, monitoring for tolerance and adequacy, oral supplement recommendation Nutrition reason for involvement: consult RD Assessment (06/20) RD received consult. RD spoke to RN over the phone due to isolation restrictions. Speech therapy evaluated pt and recommended a mechanical soft/chopped meats and veggies. RN stated pt is eating 25% of meals and has been refusing nutrition supplements. Encourage Glucerna or Ensure Compact nutrition supplements. Will continue to monitor (06/14) 69 YOM admitted for hypoxia and PNA, evaluated today per LOS and new stage II PU. Pt COVID negative, however currently on treatment protocol. Pt eating 100% of meals prior to NPO, no wt loss, no GI distress reported. Chart reviewed. Labs and meds reviewed, BG trend elevated. Will continue to monitor. Principal Problems/Diagnoses: hypoxia, multifocal pneumonia PMH: CABG, CAD, DM, HTN GI: soft, non-tender, round abdomen, last recorded BM 06/20 Skin: intact Labs: (06/20) Na 138, K 4.0, BUN 20, Cr 0.81, Glu 62 Meds: insulin, colace, metoprolol, dexmethasone, pepcid, antibiotics, zofran Ht: 66 in Wt: 190 lb BMI: 30.7 kg/m2 IBW: 142 lb Malnutrition Evaluation (06/14/20) The patient does not meet criteria for a specified degree of malnutrition at this time. Will re-evaluate at follow-up as appropriate. Nutrition Prescription (Diet Order): cardiac diet Estimated Nutritional Needs: 4352-0999 calories/day (22-25 kcal/kg IBW) 97-129 g protein/day (1.5-2 g pro/kg IBW) Diet Adequacy: Not meeting calorie needs, Not meeting protein needs Tolerance:Tolerating PO Diet Education Needs Assessment: Diet education not indicated. Nutrition Care Level: low Nutrition Diagnosis: tolerating PO Goal: Patient will meet 75-100% of estimated needs by follow up Progress: goal not met Interventions: -carbohydrate and fat/cholesterol/sodium -modified diet, Commercial beverage, Recommended Modifications, Collaboration with other providers Monitoring/Evaluation: -Total energy intake, Total protein intake, Modified diet, Liquid supplement, Weight change Signed: Esme Buckley, RD, LD
[2020-06-20] MEDS: AZITHROMYCIN 500MG/NS 250 ML 250 ML IV SCH (21:15)
[2020-06-20] MEDS: CEFTRIAXONE SOD 2 GM/NS 100 ML 100 ML IV SCH (21:15)
[2020-06-20] MEDS: ATORVASTATIN 40 MG TAB PO SCH (21:16)
[2020-06-20] MEDS: INSULIN GLARGINE 100 UNITS/ML VIAL SQ SCH (21:21)
--- NOTE | 2020-06-20 22:00 | Progress Note ---
DATE: 06/20/2020 SUBJECTIVE: No new complaints. OBJECTIVE: VITAL SIGNS: Temperature 99.1, pulse 78, respiratory rate 25, and blood pressure 90/51. GENERAL: No acute distress. SKIN: No rash. LUNGS: Decreased breath sounds. HEART: Regular rate and rhythm. Normal S1 and S2. GI: Abdomen is soft and nondistended. NEUROLOGIC: Alert and oriented x3. PSYCHIATRIC: No hallucination. LABORATORY DATA: Laboratory calderon, white count 17, hemoglobin 13, and platelet count 276. Creatinine 0.8. ASSESSMENT AND PLAN: 1. Acute respiratory failure due to COVID-19 pneumonia. His leukocytosis is about the same. The patient is afebrile. We will continue plan per Infectious Disease and uniform designer. 2. Acute kidney injury, resolved. 3. Diabetes. We will continue to monitor. Adjust decrease his Lantus. We may have to increase it a little bit. 4. Gastrointestinal and deep venous thrombosis prophylaxis, Lovenox. MD GUCCI Bingham/ANGELA /[id number]
[2020-06-21] VITALS (24 sets, daily range): BP systolic 99–139; BP diastolic 43–90
[2020-06-21 05:01] LABS: BASOPHILS # (AUTO) 0.1 (0.0-0.1); BASOPHILS % 0.4 % (0.0-1.0); EOSINOPHILS # (AUTO) 0.1 (0.0-0.4); EOSINOPHILS % 0.4 % (0.0-6.0); HEMATOCRIT 38.8 % (38.2-49.6); HEMOGLOBIN 12.8 g/dL (14.0-18.0); LYMPHOCYTES # (AUTO) 1.2 (1.0-3.2); LYMPHOCYTES % 6.6 % (18.0-39.1); MEAN CORPUSCULAR HEMOGLOBIN 28.3 pg (28-32); MEAN CORPUSCULAR VOLUME 85.8 fL (81-99); MONOCYTES # (AUTO) 0.7 (0.2-0.8); MONOCYTES % 3.8 % (4.4-11.3); NEUTROPHILS # (AUTO) 15.1 (2.1-6.9); NEUTROPHILS % 82.1 % (38.7-80.0); PLATELET COUNT 239 x10e3/uL (140-360); RED BLOOD COUNT 4.52 x10e6/uL (4.3-5.7); RED CELL DISTRIBUTION WIDTH 12.4 % (11.7-14.4)
[2020-06-21 05:15] LABS: ANION GAP 11.1 mmol/L (8-16); BLOOD UREA NITROGEN 20 mg/dL (7-26); BUN/CREATININE RATIO 25 (6-25); CALCIUM 9.7 mg/dL (8.4-10.2); CARBON DIOXIDE 22 mmol/L (22-29); CHLORIDE 109 mmol/L (98-107); CREATININE, SERUM 0.79 mg/dL (0.72-1.25); EST GLOMERULAR FILTRATION RATE > 60 ML/MIN (60-); GLUCOSE 121 mg/dL (74-118); POTASSIUM 4.1 mmol/L (3.5-5.1); SODIUM 138 mmol/L (136-145)
[2020-06-21 07:16] LABS: LYMPHOCYTES % (MANUAL) 4 % (19-48); MONOCYTES % (MANUAL) 5 % (3.4-9.0); MYELOCYTES % (MANUAL) 2 % (0-0); NEUTROPHILS % (MANUAL) 89 % (40-74)
[2020-06-21 07:17] LABS: PLATELET ESTIMATE ADEQUATE; PLATELET MORPHOLOGY COMMENT NORMAL; RBC MORPHOLOGY COMMENT NORMAL
[2020-06-21] MEDS: INSULIN LISPRO 100 UNIT/1 ML 3ML VIAL SQ SCH ×4 (07:30→20:51)
[2020-06-21] MEDS: METOPROLOL SUCCINATE 25 MG TAB XL PO SCH (08:37)
[2020-06-21] MEDS: EZETIMIBE 10 MG TAB PO SCH (08:37)
[2020-06-21] MEDS: ENOXAPARIN SOD INJ 40 MG/0.4 ML SYR SC SCH ×2 (08:39→20:50)
[2020-06-21] MEDS ORDERED: BENZOCAINE 20% SPR 60 ML CAN MT STA (09:21)
[2020-06-21] MEDS: ASPIRIN 81 MG CHEW TAB PO SCH (09:56)
[2020-06-21] MEDS: FAMOTIDINE 20 MG/2 ML VIAL IV SCH ×2 (09:56→20:50)
[2020-06-21] MEDS: DEXAMETHASONE 4 MG TAB PO SCH (09:56)
[2020-06-21] MEDS: TAMSULOSIN HCL 0.4 MG CAP PO SCH ×2 (09:56→20:50)
[2020-06-21] MEDS: DOCUSATE SODIUM 100 MG CAP PO SCH ×2 (09:56→16:58)
--- NOTE | 2020-06-21 10:28 | Diagnostic Imaging Report ---
EXAMINATION: CHEST SINGLE (PORTABLE) INDICATION: Respiratory failure COMPARISON: Chest are graft 06/16/2020 FINDINGS: LINES/TUBES:Right PICC line terminates in the SVC. EKG leads overlie the chest. LUNGS:The lung volumes are low. Increasing right greater than left multifocal hazy airspace opacities. PLEURA:No pleural effusion or pneumothorax. MEDIASTINUM:The cardiomediastinal silhouette appears unchanged in size and shape. BONES/SOFT TISSUES:No acute osseous injury. ABDOMEN:No free air under the diaphragm. IMPRESSION: Low lung volumes. Increasing right greater than left airspace opacities consistent with known viral pneumonia. Signed by: Rigo Cotter MD on 06/21/2020 10:24 AM
--- NOTE | 2020-06-21 10:48 | Progress Note ---
DATE: SUBJECTIVE: The patient is still on airflow at 60 L with 93% oxygen. He has a non-rebreather superimposed over the airflow. In the supine position he desaturated into the low 80s. When he was prone his saturations improved into the low 90s. PHYSICAL EXAMINATION: VITAL SIGNS: The patient is afebrile. The blood pressure is 139/78, saturation is 95%. Pulse is 89. HEENT: Shows no facial swelling or erythema. There is an outflow placed. He has a double-lumen PICC. CARDIAC: Reveals regular rate and rhythm with normal S1 and S2. LUNGS: Auscultation of lungs reveals crackles at the bases. There is no wheezing. ABDOMEN: Soft, nontender. There is no rebound or guarding. EXTREMITIES: Shows no leg edema or calf tenderness. There is no cyanosis or clubbing. SKIN: Shows no rashes. NEUROLOGICAL: Shows no focal abnormalities. LABORATORY DATA: White blood cell count is 18.3 and hemoglobin 12.8. The platelet count is 239. The BUN to creatinine ratio is 20 to 0.79 and the chloride is 109. RADIOGRAPHIC DATA: Chest x-ray shows bilateral infiltrates, right worse than left. IMPRESSION: 1. Acute respiratory failure. 2. Viral pneumonia and coronavirus disease-19 infection. 3. Diabetes. 4. Hypertension. 5. History of prior coronary artery disease. PLAN: 1. Continue Airvo. 2. Continue to place patient in the prone position. 3. Complete antibiotics. 4. Lovenox. 5. Continue to monitor and control blood sugars. Foreign Quintanilla MD Annmarie/ANGELA /[id number]
[2020-06-21] MEDS ORDERED: DEXMEDETOMIDINE HCL 200 MCG in SODIUM CHLORIDE 0.9% 50ML 48 ML IV PRN (11:00)
--- NOTE | 2020-06-21 12:55 | NUR ---
this is infectious disease progress note patient is to examine chart reviewed this is June 21, 2020 The patient remains in intensive care unit. he patient is still on airflow at 60 L with 93% oxygen. He has a non-rebreather superimposed over the airflow. In the supine position he desaturated into the low 80s. When he was prone his saturations improved into the low 90s. PHYSICAL EXAMINATION: VITAL SIGNS: The patient is afebrile. The blood pressure is 139/78, saturation is 95%. Pulse is 89. HEENT: Shows no facial swelling or erythema. There is an outflow placed. He has a double-lumen PICC. CARDIAC: Reveals regular rate and rhythm with normal S1 and S2. LUNGS: Auscultation of lungs reveals crackles at the bases. There is no wheezing. ABDOMEN: Soft, nontender. There is no rebound or guarding. EXTREMITIES: Shows no leg edema or calf tenderness. There is no cyanosis or clubbing. SKIN: Shows no rashes. NEUROLOGICAL: Shows no focal abnormalities. LABORATORY DATA: White blood cell count is 18.3 and hemoglobin 12.8. The platelet count is 239. The BUN to creatinine ratio is 20 to 0.79 and the chloride is 109. RADIOGRAPHIC DATA: Chest x-ray shows bilateral infiltrates, right worse than left. IMPRESSION: 1. Acute respiratory failure. 2. Viral pneumonia and coronavirus disease-19 infection. 3. Diabetes. 4. Hypertension. 5. History of prior coronary artery disease. he is on Rocephin azithromycin 200 course as ordered as well Decadron
--- NOTE | 2020-06-21 14:13 | NUR ---
ST Note: Discussed case with DIETER Wolfe. Pt now requires prone position to maintain O2 sats, near intubation per RN. Will defer further intervention at this time. Will f/u as indicated.
[2020-06-21] MEDS ORDERED: FUROSEMIDE INJ 10 MG/ML 4 ML VIAL IV ONE (17:15)
--- NOTE | 2020-06-21 18:15 | Progress Note ---
DATE: 06/21/2020 Cardiology Progress Note SUBJECTIVE: Has felt more short of breath today, on some Precedex and in prone position, high-flow nasal cannula. Feels somewhat better. Denies chest pain. OBJECTIVE: VITAL SIGNS: Temperature 97.9, heart rate 71, respiratory rate 31, blood pressure 121/71, and O2 saturation 96% on oxygen supplementation. NECK: Supple. CHEST: With rales and decreased breath sounds. CARDIOVASCULAR: Regular rate and rhythm. Normal S1 and S2. ABDOMEN: Soft. EXTREMITIES: No edema. Warm extremities. CARDIOVASCULAR MEDICATIONS: Aspirin 81 mg daily, Flomax 0.4 mg every 12 hours, metoprolol succinate 25 mg daily, Zetia 10 mg daily, and atorvastatin 40 mg at bedtime. STUDIES: Reviewed. White blood cells 18, hemoglobin 12.8, and platelets 239. Sodium 138, potassium 4.1, chloride 109, bicarbonate 22, BUN 20, creatinine 0.7, glucose 174, and calcium 9.7. ASSESSMENT AND PLAN: Coronavirus-19 infection, community-acquired pneumonia, acute respiratory failure, coronary artery disease with previous bypass, hypertension, diabetes, and dyslipidemia. RECOMMEND: Continue current cardiovascular medications. Trial Lasix IV x1, 40 today and monitor volume status. Continue steroid trial, prone positioning. MD NOAH Ireland/ANGELA /[id number]
--- NOTE | 2020-06-21 20:30 | Progress Note ---
DATE: 06/21/2020 SUBJECTIVE: Not lethargic today. OBJECTIVE: VITAL SIGNS: Temperature 97.9, pulse 77, respiratory rate 28, blood pressure 130/72. GENERAL: No respiratory distress. SKIN: No rash. LUNGS: Decreased breath sounds. HEART: Regular rate and rhythm. Normal S1 and S2. GI: Abdomen is soft, nondistended. MUSCULOSKELETAL: Painless range of motion. NEUROLOGIC: Alert. PSYCHIATRIC: Calm. LABORATORY DATA: White count 18, hemoglobin 12.8, platelet count 239. Creatinine 0.8. ASSESSMENT AND PLAN: 1. Acute respiratory failure due to COVID-19 pneumonia. The patient's oxygen requirement is higher. We will need to monitor for possible intubation. Continue with azithromycin, Rocephin per Pulmonary and Infectious Disease. The patient has completed his Decadron. 2. Acute kidney injury resolved. 3. Diabetes, sugars acceptable. Continue Lantus. 4. GI, DVT prophylaxis. Pepcid IV and Lovenox b.i.d. MD GUCCI Bingham/ANGELA /[id number] MTDD
[2020-06-21] MEDS: AZITHROMYCIN 500MG/NS 250 ML 250 ML IV SCH (20:50)
[2020-06-21] MEDS: CEFTRIAXONE SOD 2 GM/NS 100 ML 100 ML IV SCH (20:50)
[2020-06-21] MEDS: ATORVASTATIN 40 MG TAB PO SCH (20:50)
[2020-06-21] MEDS: INSULIN GLARGINE 100 UNITS/ML VIAL SQ SCH (20:51)
[2020-06-22] VITALS (25 sets, daily range): BP systolic 88–164; BP diastolic 58–97
[2020-06-22] MEDS: DEXMEDETOMIDINE HCL 200 MCG in SODIUM CHLORIDE 0.9% 50ML 48 ML IV PRN ×3 (03:35→15:18)
[2020-06-22 05:01] LABS: BASOPHILS # (AUTO) 0.1 (0.0-0.1); BASOPHILS % 0.3 % (0.0-1.0); EOSINOPHILS % 0.2 % (0.0-6.0); HEMATOCRIT 41.3 % (38.2-49.6); HEMOGLOBIN 13.5 g/dL (14.0-18.0); LYMPHOCYTES # (AUTO) 1.1 (1.0-3.2); LYMPHOCYTES % 6.4 % (18.0-39.1); MEAN CORPUSCULAR HEMOGLOBIN 28.4 pg (28-32); MEAN CORPUSCULAR HGB CONC 32.7 g/dL (31-35); MEAN CORPUSCULAR VOLUME 86.8 fL (81-99); MONOCYTES # (AUTO) 0.6 (0.2-0.8); MONOCYTES % 3.2 % (4.4-11.3); NEUTROPHILS # (AUTO) 14.6 (2.1-6.9); NEUTROPHILS % 84.4 % (38.7-80.0); PLATELET COUNT 248 x10e3/uL (140-360); RED BLOOD COUNT 4.76 x10e6/uL (4.3-5.7); RED CELL DISTRIBUTION WIDTH 12.5 % (11.7-14.4)
[2020-06-22 05:26] LABS: ALANINE AMINOTRANSFERASE 13 IU/L (0-55); ALBUMIN 2.1 g/dL (3.5-5.0); ALBUMIN/GLOBULIN RATIO 0.5 (0.8-2.0); ALKALINE PHOSPHATASE 181 IU/L (40-150); ANION GAP 13.3 mmol/L (8-16); BUN/CREATININE RATIO 35 (6-25); CALCIUM 9.9 mg/dL (8.4-10.2); CARBON DIOXIDE 21 mmol/L (22-29); CHLORIDE 110 mmol/L (98-107); CREATININE, SERUM 0.88 mg/dL (0.72-1.25); EST GLOMERULAR FILTRATION RATE > 60 ML/MIN (60-); GLUCOSE 94 mg/dL (74-118); POTASSIUM 4.3 mmol/L (3.5-5.1); SODIUM 140 mmol/L (136-145)
[2020-06-22 05:32] LABS: BLOOD UREA NITROGEN 31 mg/dL (7-26)
[2020-06-22 06:59] LABS: BAND NEUTROPHILS % (MANUAL) 1 %; LYMPHOCYTES % (MANUAL) 5 % (19-48); MONOCYTES % (MANUAL) 2 % (3.4-9.0); MYELOCYTES % (MANUAL) 2 % (0-0); NEUTROPHILS % (MANUAL) 90 % (40-74); PLATELET ESTIMATE ADEQUATE; PLATELET MORPHOLOGY COMMENT NORMAL; RBC MORPHOLOGY COMMENT NORMAL
[2020-06-22 07:16] LABS: GIANT PLATELETS RARE; LARGE PLATELETS FEW
[2020-06-22] MEDS: INSULIN LISPRO 100 UNIT/1 ML 3ML VIAL SQ SCH ×4 (07:30→20:20)
[2020-06-22] MEDS: EZETIMIBE 10 MG TAB PO SCH (08:03)
[2020-06-22] MEDS: ASPIRIN 81 MG CHEW TAB PO SCH (08:28)
[2020-06-22] MEDS: ENOXAPARIN SOD INJ 40 MG/0.4 ML SYR SC SCH ×2 (08:29→20:20)
[2020-06-22] MEDS: TAMSULOSIN HCL 0.4 MG CAP PO SCH ×2 (08:29→20:20)
[2020-06-22] MEDS: DOCUSATE SODIUM 100 MG CAP PO SCH ×2 (08:30→17:00)
--- NOTE | 2020-06-22 08:57 | Progress Note ---
DATE: SUBJECTIVE: The patient is currently on airflow at 60 L and 93%. He is in the prone position. He is not complaining of dyspnea or discomfort. He is not having fevers. PHYSICAL EXAMINATION: VITAL SIGNS: The blood pressure is 124/65, saturation is 93%. The pulse is 64. HEENT: Shows no facial swelling or erythema. LYMPHATIC: Shows no submandibular, cervical, or supraclavicular adenopathy. CARDIAC: Reveals regular rate and rhythm with normal S1, S2. LUNGS: Auscultation of lungs reveals clear breath sounds bilaterally. There is no wheezing. ABDOMEN: Soft and nontender. There is no rebound or guarding. EXTREMITIES: Shows no leg edema or calf tenderness. There is no cyanosis or clubbing. SKIN: Shows no rashes. NEUROLOGICAL: Shows no focal abnormalities. LABORATORY DATA: The white blood cell count is 17.2, hemoglobin is 13.5. The platelet count is 248. The BUN to creatinine ratio is 31 to 0.88. Carbon dioxide is 21 and the albumin is 2.1. RADIOGRAPHIC DATA: There are bilateral airspace opacities. IMPRESSION: 1. Viral pneumonia and COVID-19 infection. 2. Acute respiratory failure. 3. Diabetes. 4. Hypertension. 5. History of prior coronary artery disease. PLAN: 1. Continue airflow. 2. Use prone position as much as possible. 3. Complete antibiotics. 4. Continue Lovenox. 5. Monitor and control blood sugars. 6. Judicious use of IV fluids. Foreign Quintanilla MD [facility]/MODL /[id number]
[2020-06-22] MEDS ORDERED: LACTATED RINGER'S 500 ML INJ ONE (09:15)
--- NOTE | 2020-06-22 10:00 | NUR ---
ST Note: RN requested any swallow intervention be deferred this date due to respiratory status. Will f/u as indicated.
[2020-06-22] MEDS: FAMOTIDINE 20 MG/2 ML VIAL IV SCH ×2 (11:18→20:20)
[2020-06-22] MEDS: METOPROLOL SUCCINATE 25 MG TAB XL PO SCH (11:19)
--- NOTE | 2020-06-22 15:07 | NUR ---
he patient is currently on airflow at 60 L and 93%. He is in the prone position. He is not complaining of dyspnea or discomfort. He is not having fevers. PHYSICAL EXAMINATION: VITAL SIGNS: The blood pressure is 124/65, saturation is 93%. The pulse is 64. HEENT: Shows no facial swelling or erythema. LYMPHATIC: Shows no submandibular, cervical, or supraclavicular adenopathy. CARDIAC: Reveals regular rate and rhythm with normal S1, S2. LUNGS: Auscultation of lungs reveals clear breath sounds bilaterally. There is no wheezing. ABDOMEN: Soft and nontender. There is no rebound or guarding. EXTREMITIES: Shows no leg edema or calf tenderness. There is no cyanosis or clubbing. SKIN: Shows no rashes. NEUROLOGICAL: Shows no focal abnormalities. LABORATORY DATA: The white blood cell count is 17.2, hemoglobin is 13.5. The platelet count is 248. The BUN to creatinine ratio is 31 to 0.88. Carbon dioxide is 21 and the albumin is 2.1. RADIOGRAPHIC DATA: There are bilateral airspace opacities.
--- NOTE | 2020-06-22 16:04 | Progress Note ---
DATE: Mr. Sanabria remains in intensive care unit, on 60 L with 93% oxygen in a prone position, is doing okay. Laboratory data reviewed. Chest x-ray is about the same. White count was 17.2. Afebrile. The patient will continue on Lovenox. We will discontinue his antibiotic. The patient finished his course of treatment. Continue with supportive care. MD ELÍAS Littlejohn/ANGELA /[id number]
[2020-06-22] MEDS ORDERED: BENZOCAINE 20% SPR 60 ML CAN MT ONE (17:30)
[2020-06-22] MEDS ORDERED: FUROSEMIDE INJ 10 MG/ML 4 ML VIAL IV ONE (17:45)
--- NOTE | 2020-06-22 18:00 | Progress Note ---
DATE: 06/22/2020 Cardiology Progress Note SUBJECTIVE: In prone position with non-rebreather face mask. Shortness of breath remains stable. Denies chest pain. OBJECTIVE: VITAL SIGNS: Temperature 97.8, heart rate 68, respiratory rate 26, blood pressure 141/74, and O2 saturation 94% on non-rebreather face mask. GENERAL: Acutely ill-appearing. NECK: Supple. CHEST: With rales and decreased breath sounds. CARDIOVASCULAR: Regular rate and rhythm. Normal S1 and S2. ABDOMEN: Bowel sounds positive. EXTREMITIES: Trace edema. CARDIOVASCULAR MEDICATIONS: Reviewed. Metoprolol succinate 25 mg daily, Lovenox 40 mg subcutaneous q.12 hours, aspirin 81 mg daily, and atorvastatin 40 mg at bedtime. STUDIES: Reviewed. ASSESSMENT AND PLAN: COVID-19 infection, community-acquired pneumonia, acute respiratory failure, coronary artery disease, status post aortocoronary bypass, hypertension, diabetes, and dyslipidemia. RECOMMEND: 1. Continue diuretics. 2. Continue rest of cardiovascular medications. Eligio Albarran MD [facility]/MODL /[id number]
[2020-06-22] MEDS: INSULIN GLARGINE 100 UNITS/ML VIAL SQ SCH (20:20)
[2020-06-22] MEDS: ATORVASTATIN 40 MG TAB PO SCH (20:20)
--- NOTE | 2020-06-22 21:30 | NUR ---
Dr. Quintanilla on unit, pt desatting to 60s while repositioning in bed. Pt proned and sats improved to 84%. Dr. Quintanilla rounding on pt and pt states "he is tired" and pt is abdominal breathing with rate in the upper 30s. MD decided to intubate pt. Pt educated and agrees with plan. Etomidate & Versed given. Pt intubated and 02 sats up to 99%. ETT 22 in @ the lip, CXR obtained & MD viewed. 20mg Vecuronium push given per MD and pt started on Versed & Fentanyl drips. Pt restrained. NGT placed, pending xray. Family notified.
--- NOTE | 2020-06-22 22:47 | Progress Note ---
DATE: 06/22/2020 SUBJECTIVE: Positive short of breath. OBJECTIVE: VITAL SIGNS: Temperature 98.1, pulse 70, respiratory rate 30, and blood pressure 150/70. GENERAL: In some respiratory distress. SKIN: No rash. LUNGS: Decreased breath sounds. HEART: Regular rate and rhythm. Normal S1 and S2. GI: Abdomen is soft and nondistended. NEUROLOGIC: Alert. PSYCHIATRIC: Calm. MUSCULOSKELETAL: Painless range of motion. LABORATORY DATA: Laboratory calderon, white count 17, hemoglobin 14, and platelet count 248. Creatinine 0.9. ASSESSMENT AND PLAN: 1. Acute respiratory failure due to COVID-19 pneumonia. We will continue to monitor for the need for intubation. Continue IV antibiotics per Infectious Disease specialist. 2. Acute kidney injury, resolved. 3. Diabetes. Continue Lantus. 4. Gastrointestinal and deep venous thrombosis prophylaxis. Lovenox twice a day. Yiching MD GUCCI Marie/ANGELA /[id number]
--- NOTE | 2020-06-22 22:49 | Diagnostic Imaging Report ---
EXAMINATION: CHEST SINGLE (PORTABLE) INDICATION: ^s/p intubation ^[id number] ^[id number] COMPARISON: 06/21/2020 FINDINGS: AP view TUBES and LINES: Endotracheal tube in place with tip approximately 2.7 cm above mila. Stable right PICC. LUNGS: Lungs are well inflated. Diffuse bilateral airspace opacities are again seen. PLEURA: No pleural effusion or pneumothorax. HEART AND MEDIASTINUM: The cardiomediastinal silhouette is obscured but appears enlarged. Median sternotomy wires are again seen. BONES AND SOFT TISSUES: No acute osseous lesion. Soft tissues are unremarkable. UPPER ABDOMEN: No free air under the diaphragm. IMPRESSION: Interval intubation. Again seen diffuse bilateral airspace opacities, representing edema and/or pneumonia. Signed by: Dr. Wilfredo Kaur MD on 06/22/2020 10:45 PM
[2020-06-22] MEDS: MIDAZOLAM HCL 50 MG in SODIUM CHLORIDE 0.9% 100 ML 90 ML IV PRN (23:18)
[2020-06-22] MEDS: FENTANYL CITRATE INJ 2,000 MCG in SODIUM CHLORIDE 0.9% 250ML 210 ML IV PRN (23:18)
[2020-06-23] VITALS (27 sets, daily range): BP systolic 82–126; BP diastolic 47–78
--- NOTE | 2020-06-23 00:37 | Operative Report ---
DATE OF PROCEDURE: SURGEON: Foreign Quintanilla MD PROCEDURE: Endotracheal intubation with GlideScope. PREOPERATIVE DIAGNOSIS: Respiratory failure. POSTOPERATIVE DIAGNOSIS: Respiratory failure. CONSENT: Consent was obtained from the patient and the family. MEDICATIONS: Versed 1 mg, etomidate 20 mg IV. DESCRIPTION OF PROCEDURE: The patient was desaturating with an AIRVO at 60 L with 100%. He was falling intermittently into the mid 70s. He was preoxygenated with 100% oxygen, followed by an Ambu bag. Hurricaine spray was used to anesthetize the posterior pharynx. He received Versed and etomidate. A 3-0 Mac blade was used to visualize glottis. An 8.0 endotracheal tube was passed on the first attempt. There were equal breath sounds bilaterally. The patient has a good CO2 return. COMPLICATIONS: None. ESTIMATED BLOOD LOSS: None. Foreign Quintanilla MD [facility]/MODL /[id number]
[2020-06-23] MEDS ORDERED: SODIUM CHLORIDE 0.9% 250ML 250 ML ONE (02:33)
[2020-06-23] MEDS ORDERED: ROCURONIUM BROMIDE IV ONE (02:34)
[2020-06-23] MEDS: NYSTATIN SUSPENSION 5 ML UDC PO SCH ×5 (03:03→23:57)
[2020-06-23] MEDS: ROCURONIUM BROMIDE 250 MG in SODIUM CHLORIDE 0.9% 250ML 225 ML IV SCH ×2 (03:03→20:59)
--- NOTE | 2020-06-23 04:21 | Diagnostic Imaging Report ---
EXAM: Abdomen 1 Views INDICATION: ^s/p OGT/NGT PLACEMENT ^[id number] ^0308 COMPARISON: None IMPRESSION: Dedicated x-ray to confirm enteric tube placement. Subdiaphragmatic enteric tube with tip projecting over gastric body. Nonobstructive bowel gas pattern. Bilateral lung airspace opacities. Signed by: Dr. Wilfredo Kaur MD on 06/23/2020 4:18 AM
--- NOTE | 2020-06-23 04:24 | Diagnostic Imaging Report ---
EXAMINATION: CHEST SINGLE (PORTABLE) INDICATION: ^intubated ^[id number] ^0308 COMPARISON: 06/22/2020 FINDINGS: AP view TUBES and LINES: Stable endotracheal tube and right PICC. New enteric tube in place with tip extending below the inferior margin of the film. LUNGS: Lungs are well inflated. Bilateral airspace opacities, improved when compared to prior x-ray. PLEURA: No significant pleural effusion or pneumothorax. HEART AND MEDIASTINUM: The cardiomediastinal silhouette is unremarkable. Median sternotomy wires are again seen. BONES AND SOFT TISSUES: No acute osseous lesion. Soft tissues are unremarkable. UPPER ABDOMEN: No free air under the diaphragm. IMPRESSION: Bilateral lung airspace opacities, improved when compared to prior x-ray. Signed by: Dr. Wilfredo Kaur MD on 06/23/2020 4:21 AM
[2020-06-23 06:12] LABS: BASOPHILS # (AUTO) 0.1 (0.0-0.1); BASOPHILS % 0.4 % (0.0-1.0); EOSINOPHILS # (AUTO) 0.1 (0.0-0.4); EOSINOPHILS % 0.3 % (0.0-6.0); HEMATOCRIT 43.7 % (38.2-49.6); HEMOGLOBIN 13.8 g/dL (14.0-18.0); LYMPHOCYTES # (AUTO) 1.5 (1.0-3.2); LYMPHOCYTES % 9.4 % (18.0-39.1); MEAN CORPUSCULAR HEMOGLOBIN 28.5 pg (28-32); MEAN CORPUSCULAR HGB CONC 31.6 g/dL (31-35); MEAN CORPUSCULAR VOLUME 90.3 fL (81-99); MONOCYTES # (AUTO) 0.6 (0.2-0.8); MONOCYTES % 3.7 % (4.4-11.3); NEUTROPHILS # (AUTO) 12.8 (2.1-6.9); NEUTROPHILS % 81.2 % (38.7-80.0); PLATELET COUNT 243 x10e3/uL (140-360); RED BLOOD COUNT 4.84 x10e6/uL (4.3-5.7); RED CELL DISTRIBUTION WIDTH 12.8 % (11.7-14.4)
[2020-06-23 06:22] LABS: ALBUMIN/GLOBULIN RATIO 0.5 (0.8-2.0); ANION GAP 15.5 mmol/L (8-16); CALCIUM 9.5 mg/dL (8.4-10.2); CREATININE, SERUM 1.34 mg/dL (0.72-1.25); POTASSIUM 4.5 mmol/L (3.5-5.1)
[2020-06-23] MEDS ORDERED: ASCORBIC ACID 500 MG TAB PO SCH ×2 (09:00)
[2020-06-23] MEDS ORDERED: BISACODYL 10 MG SUPP PR PRN (09:45)
[2020-06-23] MEDS ORDERED: LACTULOSE SYRUP 20 GM/30 ML UDC PO PRN (09:45)
[2020-06-23] MEDS: FAMOTIDINE 20 MG/2 ML VIAL IV SCH ×2 (09:48→20:42)
[2020-06-23] MEDS: ENOXAPARIN SOD INJ 40 MG/0.4 ML SYR SC SCH (09:48)
[2020-06-23] MEDS: ASPIRIN 81 MG CHEW TAB PO SCH (09:49)
[2020-06-23] MEDS: CHOLECALCIFEROL 1,000 UNIT TAB PO SCH (09:49)
[2020-06-23] MEDS: ZINC SULFATE 220 MG CAP PO SCH (09:49)
[2020-06-23] MEDS ORDERED: SODIUM CHLORIDE 0.45% 1,000 ML IV ONE (10:15)
[2020-06-23 10:30] LABS: ABG HCO3 23 mmol/L (22-26); ABG PCO2 54 mmHg (35-45); ABG PH 7.24 (7.35-7.45); ABG PO2 137 mmHg (80-105); ABG TCO2 24
--- NOTE | 2020-06-23 10:39 | Progress Note ---
DATE: SUBJECTIVE: The patient is now on a ventilator. He is on a PRVC mode of ventilation. He has no fevers. PHYSICAL EXAMINATION: VITAL SIGNS: The blood pressure is 101/62 and the saturation is 99%. The pulse is 94. HEENT: Shows no facial swelling or erythema. There is an oral endotracheal tube in place. There is a PRVC mode of ventilation, rate of 28 with a tidal volume of 400 and a PEEP of 10. The patient is off Levophed. HEENT: Shows no facial swelling or erythema. LYMPHATIC: Shows no submandibular, cervical, or supraclavicular adenopathy. CARDIAC: Reveals regular rate and rhythm with normal S1, S2. LUNGS: Auscultation of lungs reveals rhonchorous breath sounds bilaterally. There is no wheezing. ABDOMEN: Soft and nontender. There is no rebound or guarding. EXTREMITIES: Shows no leg edema or calf tenderness. There is no cyanosis or clubbing. SKIN: Shows no rashes. NEUROLOGICAL: Shows no focal abnormalities. LABORATORY DATA: White blood cell count is 15.7 and hemoglobin is 13.8. The platelet count is 243 and BUN to creatinine ratio is 52 to 1.34. The albumin is 2.0. Chest x-ray shows bilateral airspace opacities. IMPRESSION: 1. Acute respiratory failure. 2. Viral pneumonia and COVID-19 infection. 3. Diabetes. 4. Acute kidney injury. 5. Hypertension. 6. Prior history of coronary artery disease. PLAN: 1. Continue current mode of ventilation and repeat ABG. 2. Given additional fluids and monitor creatinine. 3. Renal ultrasound. 4. Begin enteral feedings. 5. Decrease Lantus at night and use sliding scale. 6. Complete dexamethasone. 7. Complete current antibiotics. Greater than 35 minutes in direct critical care time. Foreign Quintanilla MD [facility]/MODL /[id number]
--- NOTE | 2020-06-23 12:10 | Progress Note ---
DATE: 06/23/2020 Cardiology Progress Note SUBJECTIVE: Mr. Sanabria was intubated overnight. OBJECTIVE: VITAL SIGNS: Temperature 98 degrees, heart rate 94, blood pressure 95/60, respiratory rate 30, O2 saturation 99%. GENERAL: Intubated and sedated. NECK: Supple. CHEST: With rales and decreased breath sounds. CARDIOVASCULAR: Regular rate and rhythm. Normal S1, S2. ABDOMEN: Soft. EXTREMITIES: Trace edema. CARDIOVASCULAR MEDICATIONS: Reviewed. Aspirin 81 mg daily, Lovenox 40 mg subcu daily, atorvastatin 40 mg at bedtime. STUDIES: Reviewed sodium 142, potassium 4.5, creatinine 1.3, glucose 173. White blood cells 15.7, hemoglobin 13.8, and platelets 243. ASSESSMENT AND PLAN: A 69-year-old man with COVID-19 and the patient with community-acquired pneumonia, acute respiratory failure, hypertension, acute on chronic systolic heart failure, coronary artery disease, Diabetes, and dyslipidemia. RECOMMENDATIONS: Continue supportive care. Switch metoprolol tartrate 12.5 q.12 hours with holding parameter systolic blood pressure less than 110. Otherwise, continue rest of cardiovascular medications and monitor volume status. MD NOAH Ireland/ANGELA /[id number]
[2020-06-23] MEDS: INSULIN LISPRO 100 UNIT/1 ML 3ML VIAL SQ SCH ×3 (12:11→23:57)
--- NOTE | 2020-06-23 12:34 | NUR ---
this is infectious disease parent note patient seen and examined. Chart reviewed case discussed with the medical team -June 23, 2020. The patient is now on a ventilator. He is on a PRVC mode of ventilation. He has no fevers. PHYSICAL EXAMINATION: VITAL SIGNS: The blood pressure is 101/62 and the saturation is 99%. The pulse is 94. HEENT: Shows no facial swelling or erythema. There is an oral endotracheal tube in place. There is a PRVC mode of ventilation, rate of 28 with a tidal volume of 400 and a PEEP of 10. The patient is off Levophed. HEENT: Shows no facial swelling or erythema. LYMPHATIC: Shows no submandibular, cervical, or supraclavicular adenopathy. CARDIAC: Reveals regular rate and rhythm with normal S1, S2. LUNGS: Auscultation of lungs reveals rhonchorous breath sounds bilaterally. There is no wheezing. ABDOMEN: Soft and nontender. There is no rebound or guarding. EXTREMITIES: Shows no leg edema or calf tenderness. There is no cyanosis or clubbing. SKIN: Shows no rashes. NEUROLOGICAL: Shows no focal abnormalities. LABORATORY DATA: White blood cell count is 15.7 and hemoglobin is 13.8. The platelet count is 243 and BUN to creatinine ratio is 52 to 1.34. The albumin is 2.0. Chest x-ray shows bilateral airspace opacities. IMPRESSION: 1. Acute respiratory failure. 2. Viral pneumonia and COVID-19 infection. 3. Diabetes. 4. Acute kidney injury. 5. Hypertension. 6. Prior history of coronary artery disease. see orders
[2020-06-23] MEDS ORDERED: SODIUM CHLORIDE 0.45% 500 ML IV ONE (16:00)
[2020-06-23] MEDS: MEROPENEM 500MG/ NS 50ML 50 ML IV SCH (16:34)
[2020-06-23] MEDS: VANCOMYCIN 1GM/NS 250 ML 250 ML IV SCH (16:35)
[2020-06-23] MEDS: MIDAZOLAM HCL 50 MG in SODIUM CHLORIDE 0.9% 100 ML 90 ML IV PRN (17:19)
--- NOTE | 2020-06-23 18:51 | Operative Report ---
DATE OF PROCEDURE: SURGEON: Foreign Quintanilla MD PROCEDURE: Arterial line placement under ultrasound guidance. PREOPERATIVE DIAGNOSIS: Respiratory failure. POSTOPERATIVE DIAGNOSIS: Respiratory failure. CONSENT: Consent was obtained from the family. MEDICATIONS: The patient was on Versed and fentanyl at the time of the procedure. DESCRIPTION OF PROCEDURE: An ultrasound machine was used to visualize the right radial artery. It was patent. The right ulnar artery was patent as well with good collateral circulation. The patient was prepped with chlorhexidine. A sterile drape, gloves, and mask were used. An ultrasound machine was used to visualize the radial artery and the radial artery was cannulated under direct visualization with a 20-gauge needle. A wire was placed through the needle and a 20-gauge catheter was then placed over the wire by the Seldinger technique. There was good blood return and a normal waveform. COMPLICATIONS: None. ESTIMATED BLOOD LOSS: None. Foreign Quintanilla MD [facility]/MODL /[id number]
--- NOTE | 2020-06-23 19:39 | Diagnostic Imaging Report ---
EXAM: Renal Ultrasound INDICATION: Elevated creatinine COMPARISON: None TECHNIQUE: Transverse and longitudinal images of the kidneys and bladder were obtained. FINDINGS: Right Kidney: Size: 10.3 x 4.5 x 5.3 cm Echogenicity: Normal Parenchymal thickness: Normal Collecting system: No hydronephrosis Stones: None Cyst/Mass: None Left Kidney: Size: 12.2 x 5.1 x 4.8 cm Echogenicity: Normal Parenchymal thickness: Normal Collecting system: No hydronephrosis Stones: None Cyst/Mass: None Bladder: Decompressed with a Harrison catheter in place. IMPRESSION: Normal bilateral kidneys. Signed by: Hilda Momin MD on 06/23/2020 7:36 PM
[2020-06-23 19:57] LABS: ABG HCO3 22 mmol/L (22-26); ABG PCO2 45 mmHg (35-45); ABG PH 7.29 (7.35-7.45); ABG PO2 114 mmHg (80-105); ABG TCO2 23
[2020-06-23] MEDS ORDERED: ALBUMIN 25% 12.5GM 0.25 GM/ML BTL IV ONE (20:30)
[2020-06-23] MEDS: ATORVASTATIN 40 MG TAB PO SCH (20:42)
[2020-06-23] MEDS: ASCORBIC ACID 500 MG TAB PO SCH (20:42)
[2020-06-23] MEDS ORDERED: ALBUMIN 25% 25GM 100ML 200 ML IV ONE (20:45)
[2020-06-23] MEDS: INSULIN GLARGINE 100 UNITS/ML VIAL SQ SCH (20:58)
[2020-06-23] MEDS: NOREPINEPHRINE 8 MG/D5W 250 ML 250 ML IV PRN (21:00)
[2020-06-23] MEDS ORDERED: METOPROLOL SUCCINATE 25 MG TAB XL PO SCH (21:00)
--- NOTE | 2020-06-23 22:16 | Progress Note ---
DATE: 06/23/2020 SUBJECTIVE: Intubated, sedated, cannot give any history. OBJECTIVE: VITAL SIGNS: Temperature 97.6, pulse 87, respiratory rate 28, blood pressure 82/54. GENERAL: Sedated, intubated. SKIN: No rash. HEENT: Endotracheal tube in place. LUNGS: Decreased breath sounds. HEART: Regular rate and rhythm. Normal S1, S2. ABDOMEN: Soft, nondistended. NEUROLOGIC: Sedated. PSYCHIATRIC: Sedated. LABORATORY DATA: White count 16, hemoglobin 14, platelet count 243, and creatinine 1.3. ASSESSMENT AND PLAN: 1. Acute respiratory failure due to COVID-19 pneumonia. We will continue vent management per automatic blocker. I have discussed with both Dr. Simons and Dr. Quintanilla. We will start IV fluid in light of acute kidney injury. We will continue meropenem and IV vancomycin per infectious disease specialist. 2. Diabetes. Continue Lantus. 3. Gastrointestinal and deep venous thrombosis prophylaxes. Lovenox daily. MD GUCCI Bingham/ANGELA /[id number]
[2020-06-24] VITALS (28 sets, daily range): BP systolic 89–150; BP diastolic 39–67
[2020-06-24] MEDS: MEROPENEM 500MG/ NS 50ML 50 ML IV SCH ×3 (00:02→20:37)
[2020-06-24] MEDS: NYSTATIN SUSPENSION 5 ML UDC PO SCH ×4 (05:53→23:28)
[2020-06-24] MEDS: INSULIN LISPRO 100 UNIT/1 ML 3ML VIAL SQ SCH ×4 (05:59→23:26)
[2020-06-24] MEDS ORDERED: ENOXAPARIN SOD INJ 40 MG/0.4 ML SYR SC SCH (06:00)
[2020-06-24] MEDS: ROCURONIUM BROMIDE 250 MG in SODIUM CHLORIDE 0.9% 250ML 225 ML IV SCH ×2 (06:03→17:42)
[2020-06-24 06:06] LABS: BASOPHILS % 0.2 % (0.0-1.0); EOSINOPHILS # (AUTO) 0.1 (0.0-0.4); EOSINOPHILS % 0.7 % (0.0-6.0); HEMATOCRIT 34.5 % (38.2-49.6); HEMOGLOBIN 10.7 g/dL (14.0-18.0); LYMPHOCYTES # (AUTO) 1.6 (1.0-3.2); LYMPHOCYTES % 9.4 % (18.0-39.1); MEAN CORPUSCULAR HEMOGLOBIN 28.4 pg (28-32); MEAN CORPUSCULAR VOLUME 91.5 fL (81-99); MONOCYTES # (AUTO) 0.8 (0.2-0.8); MONOCYTES % 4.5 % (4.4-11.3); NEUTROPHILS # (AUTO) 13.5 (2.1-6.9); NEUTROPHILS % 81.9 % (38.7-80.0); PLATELET COUNT 230 x10e3/uL (140-360); RED BLOOD COUNT 3.77 x10e6/uL (4.3-5.7); RED CELL DISTRIBUTION WIDTH 13.2 % (11.7-14.4)
[2020-06-24 06:25] LABS: ALBUMIN 2.5 g/dL (3.5-5.0); ALBUMIN/GLOBULIN RATIO 0.9 (0.8-2.0); ANION GAP 11.3 mmol/L (8-16); CREATININE, SERUM 1.64 mg/dL (0.72-1.25); POTASSIUM 4.3 mmol/L (3.5-5.1)
--- NOTE | 2020-06-24 08:30 | Diagnostic Imaging Report ---
EXAM: CHEST SINGLE (PORTABLE) DATE: 06/24/2020 4:40 AM INDICATION: Respiratory failure COMPARISON: 06/23/2020 FINDINGS: Endotracheal tube and right-sided PICC line identified in stable position. Enteric tube noted coursing below the diaphragm. There are postsurgical changes from prior median sternotomy. Again identified are patchy airspace opacities throughout the lungs bilaterally, unchanged from the prior examination. There is no for pneumothorax or significant volume pleural effusion. The cardiomediastinal silhouette is stable in appearance. No acute osseous abnormality is identified. IMPRESSION: No significant interval change from 06/23/2020. Stable appearing airspace opacities identified throughout the lungs bilaterally. Signed by: Dr. Gopi Ceja MD on 06/24/2020 8:27 AM
[2020-06-24] MEDS: ASPIRIN 81 MG CHEW TAB PO SCH (08:40)
[2020-06-24] MEDS: CHOLECALCIFEROL 1,000 UNIT TAB PO SCH (08:41)
[2020-06-24] MEDS: NOREPINEPHRINE 8 MG/D5W 250 ML 250 ML IV PRN (08:41)
[2020-06-24] MEDS: FAMOTIDINE 20 MG/2 ML VIAL IV SCH (08:43)
--- NOTE | 2020-06-24 09:43 | Progress Note ---
DATE: Pulmonary Critical Care Progress Note SUBJECTIVE: The patient is currently on Versed and fentanyl along with rocuronium. He is also on a PRVC mode of ventilation at a rate of 30 with a tidal volume of 400 and a PEEP of 12. His FiO2 is set at 70%. PHYSICAL EXAMINATION: VITAL SIGNS: The blood pressure is 108/41, saturation is 97%. He is afebrile. HEENT: Shows no facial swelling or erythema. There is an oral endotracheal tube. CARDIAC: Reveals regular rate and rhythm with normal S1, S2. LUNGS: Auscultation of lungs reveals rhonchorous breath sounds bilaterally. There is no wheezing. ABDOMEN: Soft, nontender. There is no rebound or guarding. EXTREMITIES: Shows no leg edema or calf tenderness. There is no cyanosis or clubbing. SKIN: Shows no rashes. NEUROLOGICAL: Shows no focal abnormalities. The patient is sedated. LABORATORY DATA: White blood cell count is 16.5 and hemoglobin is 10.7. The platelet count is 230. The BUN to creatinine ratio is 69 to 1.64. Other electrolytes are within normal limits. The albumin is 3.5. RADIOGRAPHIC DATA: Chest x-ray shows bilateral infiltrates. IMPRESSION: 1. Acute respiratory failure. 2. Viral pneumonia and COVID-19 infection. 3. Acute kidney injury. 4. Diabetes. 5. Hypertension. 6. Chronic systolic congestive heart failure. 7. Coronary artery disease. PLAN: 1. The patient is not responding to fluid bolus. His creatinine continues to rise. We will consult Nephrology. 2. Continue current ventilator settings. 3. Monitor ABGs. 4. Continue enteral feedings. 5. Continue to adjust insulin. 6. Continue dexamethasone. 7. Complete current antibiotics. 8. Case discussed with family, nursing staff, Respiratory, Infectious Disease, and Internal Medicine. Greater than 35 minutes in direct critical care time. Foreign Quintanilla MD [facility]/MODL /[id number]
[2020-06-24] MEDS: ZINC SULFATE 220 MG CAP PO SCH (12:13)
[2020-06-24] MEDS: ASCORBIC ACID 500 MG TAB PO SCH ×2 (12:13→20:37)
[2020-06-24] MEDS: METOPROLOL TARTRATE 25 MG TAB NG SCH ×2 (12:19→20:30)
[2020-06-24] MEDS: MIDAZOLAM HCL 50 MG in SODIUM CHLORIDE 0.9% 100 ML 90 ML IV PRN (12:23)
--- NOTE | 2020-06-24 13:42 | NUR ---
The patient is currently on Versed and fentanyl along with rocuronium. He is also on a PRVC mode of ventilation at a rate of 30 with a tidal volume of 400 and a PEEP of 12. His FiO2 is set at 70%. PHYSICAL EXAMINATION: VITAL SIGNS: The blood pressure is 108/41, saturation is 97%. He is afebrile. HEENT: Shows no facial swelling or erythema. There is an oral endotracheal tube. CARDIAC: Reveals regular rate and rhythm with normal S1, S2. LUNGS: Auscultation of lungs reveals rhonchorous breath sounds bilaterally. There is no wheezing. ABDOMEN: Soft, nontender. There is no rebound or guarding. EXTREMITIES: Shows no leg edema or calf tenderness. There is no cyanosis or clubbing. SKIN: Shows no rashes. NEUROLOGICAL: Shows no focal abnormalities. The patient is sedated. LABORATORY DATA: White blood cell count is 16.5 and hemoglobin is 10.7. The platelet count is 230. The BUN to creatinine ratio is 69 to 1.64. Other electrolytes are within normal limits. The albumin is 3.5. RADIOGRAPHIC DATA: Chest x-ray shows bilateral infiltrates.
--- NOTE | 2020-06-24 14:31 | Progress Note ---
DATE: SUBJECTIVE: Mr. Sanabria remains in intensive care unit. This is day #12 on drip, on the ventilator. OBJECTIVE: HEENT: He is not icteric. NECK: Supple. CHEST: Few crackles. HEART: S1 and S2. ABDOMEN: Soft. Bowel sounds present. EXTREMITIES: No edema. IMPRESSION: COVID-19, acute kidney injury. The patient is currently on vancomycin and meropenem. White count is 16.5 and hemoglobin of 10. Sodium 142, creatinine 1.64 . Await cultures. Continue current choice of antibiotic. We will follow. MD ELÍAS Littlejohn/MODL /[id number]
[2020-06-24 14:44] LABS: ABG HCO3 24 mmol/L (22-26); ABG PCO2 45 mmHg (35-45); ABG PH 7.33 (7.35-7.45); ABG PO2 77 mmHg (80-105); ABG TCO2 25
[2020-06-24] MEDS: VANCOMYCIN 1GM/NS 250 ML 250 ML IV SCH (15:35)
--- NOTE | 2020-06-24 16:31 | NUR ---
Nutrition Intervention Note RD Recommendation(s) for Physician: - Recommend modifying formula to Vital High Protein @ 60 mL/hr (provides 1440 kca, 126 g protein) - Water/fluid management per MD Plan of Care: RD following, monitoring for tolerance and adequacy, oral supplement recommendation Nutrition reason for involvement: enteral nutrition RD Assessment 06/24: Early follow up due to initiation of tube feeding. Pt was intubated and tube feeding order was placed yesterday. Tube feeding recommendations provided to RN. Will continue to monitor. (06/20) RD received consult. RD spoke to RN over the phone due to isolation restrictions. Speech therapy evaluated pt and recommended a mechanical soft/chopped meats and veggies. RN stated pt is eating 25% of meals and has been refusing nutrition supplements. Encourage Glucerna or Ensure Compact nutrition supplements. Will continue to monitor (06/14) 69 YOM admitted for hypoxia and PNA, evaluated today per LOS and new stage II PU. Pt COVID negative, however currently on treatment protocol. Pt eating 100% of meals prior to NPO, no wt loss, no GI distress reported. Chart reviewed. Labs and meds reviewed, BG trend elevated. Will continue to monitor. Principal Problems/Diagnoses: hypoxia, multifocal pneumonia PMH: CABG, CAD, DM, HTN GI: soft, non-tender, round abdomen, last recorded BM 06/20 Skin: intact Labs: 06/24: Na 142,K 4.3, BUN 69, Cr 1.64, Glu 179 (06/20) Na 138, K 4.0, BUN 20, Cr 0.81, Glu 62 Meds: lactulose, norepinephrine, vitamin D, rocuronium, insulin, vitamin C, atorvastatin, antibiotic, zinc sulfate, fentanyl, pepcid, metoprolol, zofran Ht: 66 in Wt:170 lbs (06/24) 190 lb (06/12) BMI: 27.4 kg/m2 - using weight of 170 lbs IBW: 142 lb Malnutrition Evaluation (06/14/20) The patient does not meet criteria for a specified degree of malnutrition at this time. Will re-evaluate at follow-up as appropriate. Nutrition Prescription (Diet Order): Glucerna 1.2 @ 40 mL/hr (1152 kcal and 58 g protein) Estimated Nutritional Needs: 8209-0998 calories/day (18-20 kcal/kg CBW) - weight used: 170 lbs 93-155 g protein/day (1.2-2 g pro/kg CBW) Weight used: 170 lbs Diet Adequacy: Not meeting calorie needs, Not meeting protein needs Tolerance: tolerance pending Diet Education Needs Assessment: Diet education not indicated. Nutrition Care Level: moderate Nutrition Diagnosis: Inadequate oral intake related to acute respiratory failure/mechanical ventilation as evidenced by pt requiring enteral nutrition. Goal: Patient will meet 75-100% of estimated needs by follow up Progress: goal not met Interventions: -Compostition/Rate/Route, Recommended modifications Monitoring/Evaluation: -Total energy intake, Total protein intake, Formula/Solution, Weight change Signed: Esme Buckley RD, LD
[2020-06-24] MEDS: FENTANYL CITRATE INJ 2,000 MCG in SODIUM CHLORIDE 0.9% 250ML 210 ML IV PRN (17:43)
[2020-06-24] MEDS ORDERED: VECURONIUM BROMIDE FOR INJ 20 MG VIAL ONE (19:55)
[2020-06-24] MEDS ORDERED: MIDAZOLAM HCL 2 MG/2 ML VIAL ONE (19:55)
[2020-06-24] MEDS ORDERED: WATER STERILE 10 ML VIAL ONE (19:55)
[2020-06-24] MEDS ORDERED: SUCCINYLCHOLINE CHLORIDE 20 MG/ML 10ML VIAL ONE (19:55)
[2020-06-24] MEDS ORDERED: ETOMIDATE 2 MG/ML 10 ML INJ IV ONE (19:55)
[2020-06-24] MEDS: ATORVASTATIN 40 MG TAB PO SCH (20:37)
[2020-06-24] MEDS: INSULIN GLARGINE 100 UNITS/ML VIAL SQ SCH (20:55)
--- NOTE | 2020-06-24 22:23 | Progress Note ---
DATE: 06/24/2020 SUBJECTIVE: Intubated and sedated, cannot give any history. OBJECTIVE: VITAL SIGNS: Temperature 99.2, pulse 107, respiratory rate 30, blood pressure 129/46. GENERAL: Intubated and sedated. SKIN: No rash. HEENT: Endotracheal tube in place. LUNGS: Decreased breath sounds. HEART: Tachycardic. Normal S1, S2. GI: Abdomen is soft, nondistended. NEUROLOGIC: Sedated. PSYCHIATRIC: Sedated. LABORATORY DATA: White count 17, hemoglobin 11, platelet count 230. Creatinine 1.6. ASSESSMENT/PLAN: 1. Acute respiratory failure due to coronavirus disease-2019 pneumonia. We will continue vent management per water taxi captain. Continue renal dose, meropenem and IV vancomycin per Infectious Disease specialist. 2. Acute kidney injury. Consult Nephrology. 3. Diabetes. Continue Lantus. 4. Gastrointestinal and deep vein thrombosis prophylaxes. Lovenox 30 mg daily. MD GUCCI Bingham/ANGELA /[id number]
--- NOTE | 2020-06-24 22:47 | Consultation ---
DATE OF CONSULTATION: 06/24/2020 Nephrology Consultation REASON FOR CONSULTATION: Acute kidney injury. HISTORY OF PRESENT ILLNESS: This is a 69-year-old male, who is currently with coronavirus, intubated and sedated, severely on the critical condition in the ICU, the primary team consulted me for underlying acute kidney injury management. In reviewing this patient's chart, the patient had episodic hypotension, eventually requiring pressors at some point. He did not receive any contrast studies according to the records and his med rec was reviewed. No evidence of any serum eosinophils. He is otherwise doing well with no other issues at this time. REVIEW OF SYSTEMS: Unable to obtain at this time. He is currently intubated and sedated. ALLERGIES: NO KNOWN DRUG ALLERGIES. MEDICATIONS: Currently not available at this time. PAST MEDICAL HISTORY: Unknown. PAST SURGICAL HISTORY: Unknown. PAST FAMILY HISTORY: Unknown. SOCIAL HISTORY: Unknown at this time. PHYSICAL EXAMINATION: VITAL SIGNS: Temperature is 99.2, pulse 105, respiratory rate 30, blood pressure 130/52, pulse ox 92%, FiO2 of 70. GENERAL: Intubated and sedated. PULMONARY: Intubated and sedated. CARDIOVASCULAR: Positive S1, S2. No murmurs, rubs, or gallops. ABDOMEN: Soft, nondistended, nontender to palpation. Bowel sounds present. MUSCULOSKELETAL: Sedated. NEUROLOGIC: Sedated. SKIN: Intact. Warm to touch. Good cap refill. EXTREMITIES: No edema appreciated. LABORATORY DATA: Labs show white count 16, hemoglobin 10, hematocrit 34, his platelets is 230. His chemistry shows sodium 142, potassium 4.3, chloride 113, bicarbonate 22, anion gap of 11, BUN 69 and creatinine 1.64, prior to that, creatinine is 1.34. Urine output noted 550 mL documented. Serology; coronavirus was positive. Microbiology; blood cultures, no growth. Sputum cultures, no growth today. IMAGING STUDIES: Chest x-ray, this morning, shows no focal interval change from 06/23. Stable appearing airspace opacity identified throughout lung. IMPRESSION: 1. Acute kidney injury, likely to be hypotension from underlying acute tubular necrosis. 2. Coronavirus pneumonia, intubated and sedated. PLAN: At this time, after reviewing the chart very closely, the patient's creatinine did rise, but it says it is steady rate and it correlates with the patient's hypotension just two days ago. He is currently on IV pressors. He is making good urine output. Electrolytes are stable. At this time, it would be very difficult for us to get a renal ultrasound due to his intubated state, but I would possibly would try to get one and see if it is possible. Otherwise, his electrolytes are stable. We will repeat labs in the morning. If renal function continues to worsen with very minimal urine output, we may need to get dialysis, but at this time, he is not a candidate for renal replacement therapy as he is currently doing very well from a renal standpoint. MD JAMARCUS Estrada/ANGELA /[id number]
[2020-06-24 23:36] LABS: ABG HCO3 25 mmol/L (22-26); ABG PCO2 61 mmHg (35-45); ABG PH 7.22 (7.35-7.45); ABG PO2 73 mmHg (80-105); ABG TCO2 27
[2020-06-25] VITALS (26 sets, daily range): BP systolic 111–159; BP diastolic 42–74
[2020-06-25] MEDS: ROCURONIUM BROMIDE 250 MG in SODIUM CHLORIDE 0.9% 250ML 225 ML IV SCH ×2 (00:10→22:01)
--- NOTE | 2020-06-25 02:29 | Progress Note ---
DATE: 06/24/2020 Cardiology Progress Note SUBJECTIVE: Mr. Sanabria remains intubated and sedated. OBJECTIVE: VITAL SIGNS: Temperature 97.8, heart rate 79, blood pressure 119/41, respiratory rate 30, O2 saturation 94%. GENERAL: Intubated and sedated. NECK: Supple. CHEST: With rales and decreased breath sounds. CARDIOVASCULAR: Regular rate and rhythm. Normal S1, S2. ABDOMEN: Soft. Bowel sounds positive. EXTREMITIES: Trace edema. Normothermic. CARDIOVASCULAR MEDICATIONS: Reviewed. Lovenox 30 subcu daily, atorvastatin 40 every night at bedtime, aspirin 81 mg daily, metoprolol tartrate 12.5 mg every 12 hours. LABORATORY DATA: Studies reviewed. Creatinine increasing at 1.64, potassium 4.3, sodium 142, bicarbonate 22, chloride 113, BUN 69, glucose 149. White blood cells 16, hemoglobin 10.7, platelets 230. INR 0.8. AST 24, ALT 17, alkaline phosphatase 148. ASSESSMENT AND PLAN: A 69-year-old man presents with coronavirus disease-19 infection community-acquired pneumonia, acute respiratory failure requiring endotracheal intubation and ventilatory support, diabetes, hypertension. RECOMMENDATIONS: Creatinine trending up. Acute kidney injury. Has elevated BUN to creatinine ratio, status post hydration trial. Of note, hemoglobin has dropped several points overnight, possibly dilutional; however, given acute illness and on Lovenox, we will check fecal occult blood test to rule out ongoing bleed. So far, no gross bleeding documented on aspirin too. Continue medications for now as currently prescribed. Can hold aspirin and Lovenox if any gross bleeding noted. Eligio Albarran MD [facility] /[id number]
[2020-06-25] MEDS: INSULIN LISPRO 100 UNIT/1 ML 3ML VIAL SQ SCH ×3 (05:21→18:23)
[2020-06-25] MEDS: ENOXAPARIN 30 MG/0.3 ML SYR SC SCH (05:21)
[2020-06-25] MEDS: NYSTATIN SUSPENSION 5 ML UDC PO SCH ×3 (05:21→17:10)
[2020-06-25 05:23] LABS: BASOPHILS # (AUTO) 0.1 (0.0-0.1); BASOPHILS % 0.4 % (0.0-1.0); EOSINOPHILS # (AUTO) 0.2 (0.0-0.4); EOSINOPHILS % 1.2 % (0.0-6.0); HEMATOCRIT 36.8 % (38.2-49.6); LYMPHOCYTES # (AUTO) 1.7 (1.0-3.2); LYMPHOCYTES % 9.3 % (18.0-39.1); MEAN CORPUSCULAR HEMOGLOBIN 27.7 pg (28-32); MEAN CORPUSCULAR HGB CONC 29.9 g/dL (31-35); MEAN CORPUSCULAR VOLUME 92.7 fL (81-99); MONOCYTES # (AUTO) 1.1 (0.2-0.8); MONOCYTES % 5.8 % (4.4-11.3); NEUTROPHILS # (AUTO) 14.5 (2.1-6.9); NEUTROPHILS % 79.6 % (38.7-80.0); PLATELET COUNT 262 x10e3/uL (140-360); RED BLOOD COUNT 3.97 x10e6/uL (4.3-5.7); RED CELL DISTRIBUTION WIDTH 13.2 % (11.7-14.4)
[2020-06-25 05:59] LABS: ALBUMIN 2.2 g/dL (3.5-5.0); ALBUMIN/GLOBULIN RATIO 0.7 (0.8-2.0); ANION GAP 9.6 mmol/L (8-16); CALCIUM 8.9 mg/dL (8.4-10.2); CREATININE, SERUM 1.49 mg/dL (0.72-1.25); POTASSIUM 4.6 mmol/L (3.5-5.1)
--- NOTE | 2020-06-25 06:22 | Diagnostic Imaging Report ---
EXAMINATION: CHEST SINGLE (PORTABLE) INDICATION: ^resp failure COMPARISON: 06/24/2020 FINDINGS: AP view TUBES and LINES: Stable endotracheal tube and enteric tube. LUNGS: Limited by rotation. Lungs are well inflated. Again seen bilateral airspace opacities, slightly increased at the left lung base. PLEURA: No pleural effusion or pneumothorax. HEART AND MEDIASTINUM: The cardiomediastinal silhouette is unremarkable. Median sternotomy wires. BONES AND SOFT TISSUES: No acute osseous lesion. Soft tissues are unremarkable. UPPER ABDOMEN: No free air under the diaphragm. IMPRESSION: Persistent bilateral airspace opacities, slightly increased at left lung base. Signed by: Dr. Wilfredo Kaur MD on 06/25/2020 6:19 AM
[2020-06-25 08:21] LABS: ABG HCO3 25 mmol/L (22-26); ABG PCO2 53 mmHg (35-45); ABG PH 7.29 (7.35-7.45); ABG PO2 62 mmHg (80-105); ABG TCO2 27
[2020-06-25] MEDS: CHOLECALCIFEROL 1,000 UNIT TAB PO SCH (08:32)
[2020-06-25] MEDS: ZINC SULFATE 220 MG CAP PO SCH (08:33)
[2020-06-25] MEDS: FAMOTIDINE 20 MG/2 ML VIAL IV SCH (08:33)
[2020-06-25] MEDS: ASPIRIN 81 MG CHEW TAB PO SCH (08:33)
[2020-06-25] MEDS: ASCORBIC ACID 500 MG TAB PO SCH ×2 (08:34→20:41)
[2020-06-25] MEDS: METOPROLOL TARTRATE 25 MG TAB NG SCH ×2 (08:35→20:41)
[2020-06-25] MEDS: MEROPENEM 500MG/ NS 50ML 50 ML IV SCH ×2 (09:22→20:40)
--- NOTE | 2020-06-25 10:24 | Progress Note ---
DATE: SUBJECTIVE: The patient remains on PRVC mode of ventilation. His tidal volume was increased to 450. This rate was increased to 32. His FiO2 is set at 70% and his PEEP is set at 12. His plateau pressure was 28. He is off Levophed. The patient is currently on fentanyl, rocuronium, and Versed. The patient is still on meropenem and vancomycin. PHYSICAL EXAMINATION: VITAL SIGNS: The patient is afebrile. The blood pressure is 124/68. The saturation is 93%. The pulse is 79. The patient is on the above ventilator settings. HEENT: Shows no facial swelling or erythema. There is an oral endotracheal tube. He is in good position. The patient has a PICC line in place as well as an arterial line. CARDIAC: Reveals regular rate and rhythm with normal S1, S2. LUNGS: Auscultation of lungs reveals crackles at the bases. There is no wheezing. ABDOMEN: Soft and nontender. There is no rebound or guarding. EXTREMITIES: Shows no leg edema or calf tenderness. There is no cyanosis or clubbing. SKIN: Shows no rashes. NEUROLOGICAL: Shows no focal abnormalities. LABORATORY DATA: The BUN to creatinine ratio is 58 to 1.49. The chloride is 112. Blood sugar is 200-278. Albumin is 2.2. RADIOGRAPHIC DATA: Chest x-ray shows some bilateral airspace opacities. IMPRESSION: 1. Acute respiratory failure. 2. Viral pneumonia and COVID-19 infection. 3. Acute kidney injury. 4. Diabetes. 5. Hypertension. 6. Chronic systolic congestive heart failure. 7. Coronary artery disease. PLAN: 1. Continue current ventilator settings. Repeat ABG later today. 2. Tube placed, the patient in prone position. 3. Continue to monitor creatinine and electrolytes. 4. Continue enteral feedings. 5. Complete dexamethasone. 6. Complete antibiotics. 7. Continue to adjust insulin. 8. Greater than 35 minutes in direct critical care time. Foreign Quintanilla MD [facility]/MODL /[id number]
[2020-06-25] MEDS: MIDAZOLAM HCL 50 MG in SODIUM CHLORIDE 0.9% 100 ML 90 ML IV PRN (12:27)
[2020-06-25] MEDS: FENTANYL CITRATE INJ 2,000 MCG in SODIUM CHLORIDE 0.9% 250ML 210 ML IV PRN (12:27)
--- NOTE | 2020-06-25 13:15 | Progress Note ---
DATE: SUBJECTIVE: Mr. Sanabria remains in intensive care unit, intubated, sedated. Laboratory data reviewed. Chart reviewed. Vent setting reviewed. PHYSICAL EXAMINATION: GENERAL: He is afebrile. HEENT: He is not icteric. NECK: Supple. CHEST: Crackles. HEART: S1, S2. No murmur. ABDOMEN: Soft. IMPRESSION: Respiratory failure, viral pneumonia, coronavirus disease-19, acute kidney injury, and diabetes mellitus. Continue with supportive care. His cultures are negative so far. He is afebrile, had a T-max of 100.3, was observed. The patient, who is on day 13, currently on meropenem for aspiration pneumonia, healthcare-associated and vancomycin. We will plan five days and then discontinue. MD ELÍAS Littlejohn/ANGELA /[id number]
--- NOTE | 2020-06-25 14:25 | Progress Note ---
DATE: 06/25/2020 Cardiology Progress Note SUBJECTIVE: Remains intubated, sedated, in prone position. PHYSICAL EXAMINATION: VITAL SIGNS: Temperature 98.7, heart rate 77, respiratory rate 32, blood pressure 136/71, O2 saturation 95% on vent support. GENERAL: Intubated, sedated. NECK: Supple. CHEST: With rales and decreased breath sounds. CARDIOVASCULAR: Regular rate and rhythm. Normal S1 and S2. ABDOMEN: Bowel sounds positive. EXTREMITIES: With trace edema. CARDIOVASCULAR MEDICATIONS: Reviewed. Atorvastatin 40 mg at bedtime, aspirin 81 mg daily, Lovenox 30 mg subcu daily, off Levophed, metoprolol tartrate 12.5 mg every 12 hours. LABORATORY DATA: Studies reviewed. Sodium 141, potassium 4.6, chloride 112, bicarbonate 24, BUN 58, creatinine 1.49, glucose 303. White blood cells 18, hemoglobin 11, platelets 262. PT 12.2, INR 0.87. AST 19, ALT 15, alkaline phosphatase 171, total bilirubin 0.4. ASSESSMENT: A 69-year-old man presents with diabetes mellitus, hypertension, dyslipidemia, community-acquired pneumonia, coronavirus disease-2019 infection, acute respiratory failure, history of coronary artery disease with prior bypass. RECOMMENDATIONS: 1. Continue current cardiovascular medications. Hemoglobin today 11, stable from 10.7 yesterday. 2. Creatinine somewhat better today. Continue to monitor renal function, liberalize diuresis at this point. 3. Continue ventilatory support. Continue rest of cardiovascular medication. Eligio Albarran MD [facility]/MODL /[id number]
[2020-06-25] MEDS: VANCOMYCIN 1GM/NS 250 ML 250 ML IV SCH (17:14)
--- NOTE | 2020-06-25 18:16 | Progress Note ---
DATE: 06/25/2020 Nephrology Progress Note SUBJECTIVE: The patient is still intubated and sedated. He is currently in a prone position. He is on low-dose pressors. Renal function improved. PHYSICAL EXAMINATION: VITAL SIGNS: Temperature is 97.9, pulse 78, respiratory rate is 32, blood pressure 130/68, pulse ox 96% with FiO2 70% on mechanical ventilator. GENERAL: Intubated and sedated. PULMONARY: Intubated and sedated. CARDIOVASCULAR: Positive S1, S2. No murmurs, rubs, or gallops. GI: Abdomen is soft, nondistended, nontender to palpation. Bowel sounds present. MUSCULOSKELETAL: Sedated. NEUROLOGICAL: Sedated. SKIN: Intact. Warm to touch. Good cap refill. LABORATORY FINDINGS: Show white count 18, hemoglobin 11, hematocrit is 37, platelets of 262. Chemistry, sodium 141, potassium 4.6, chloride 112, bicarb 24, anion gap of 9.6, BUN 58, creatinine 1.49 down trending. Glucose is 266, AST 19, ALT 15, alkaline phosphatase 171. MICROBIOLOGY: None. IMAGING STUDIES: Chest x-ray shows persistent bilateral airspace opacities, slightly increased in the left lung base. IMPRESSION: 1. Acute kidney injury secondary to hypotension from underlying acute tubular necrosis. 2. Coronavirus pneumonia, intubated and sedated. PLAN: At this time after reviewing this patient records, he did have hypotension several days ago, which likely played a role in his acute kidney injury, now his renal function is improving downtrending creatinine and BUN. Electrolytes are stable. We will continue to monitor very closely. Repeat labs in the morning. Monitor urine output. Thank you so much for this consultation. We will continue to follow with you. MD JAMARCUS Estrada/MODL /[id number]
--- NOTE | 2020-06-25 19:26 | Progress Note ---
DATE: 06/25/2020 CONSULTANTS: 1. Dr. Quintanilla with ground crew lines person. 2. Dr. Sandoval with Infectious Disease. 3. Dr. Simons, Cardiology. 4. Dr. Fry with Renal. CHIEF COMPLAINT: Shortness of breath. SUBJECTIVE: The patient remains intubated in prone position. OBJECTIVE: VITAL SIGNS: Temperature 97.9, pulse is 78, respirations 32, blood pressure 130/58, pulse ox is 96% on the vent. GENERAL: Intubated and sedated. HEENT: Normocephalic. LUNGS: Intubated. CARDIAC: Regular rate and rhythm. GI: Soft. Nondistended. MUSCULOSKELETAL: No edema. NEUROLOGIC: Sedated. SKIN: Intact. LABORATORY DATA: WBC 18.2, hemoglobin 11.0, and platelet 252. Sodium 141, potassium 4.6, BUN 58, creatinine 1.49, AST 19, ALT 15. Chest x-ray, persistent bilateral airspace opacities, slightly increased at the left lung base. IMPRESSION AND PLAN: 1. Acute respiratory failure due to coronavirus disease-19. Remains intubated, vent management per ground crew lines person. Continue on vancomycin and Merrem per ID. WBC increased today. Chest x-ray with slight increase in the left lower lobe. 2. Acute kidney injury. Improving with creatinine of 1.49. Further recommendations per Renal. 3. Diabetes type 2. Continue Lantus and sliding scale insulin. 4. High cholesterol. Continue Zetia. 5. Gastrointestinal and deep venous thrombosis prophylaxis. We will give Lovenox 30 mg subcu. Dictated by RACHEL Haynes Luiz Fallon MD [facility] /[id number] Seen and examined. Agree with the findings and plan documented by RACHEL Lo. MTDD
[2020-06-25] MEDS: ATORVASTATIN 40 MG TAB PO SCH (20:41)
[2020-06-25] MEDS: INSULIN GLARGINE 100 UNITS/ML VIAL SQ SCH (20:48)
[2020-06-25 21:03] LABS: ABG HCO3 26 mmol/L (22-26); ABG PCO2 49 mmHg (35-45); ABG PH 7.33 (7.35-7.45); ABG PO2 76 mmHg (80-105); ABG TCO2 27
--- NOTE | 2020-06-25 21:09 | NUR ---
[place] called and notified of patient's ABG; per [place], no changes to ventilator settings.
[2020-06-26] VITALS (26 sets, daily range): BP systolic 97–189; BP diastolic 45–74
[2020-06-26] MEDS: NYSTATIN SUSPENSION 5 ML UDC PO SCH ×5 (00:20→23:19)
[2020-06-26] MEDS: INSULIN LISPRO 100 UNIT/1 ML 3ML VIAL SQ SCH ×5 (00:25→23:48)
[2020-06-26] MEDS: ENOXAPARIN 30 MG/0.3 ML SYR SC SCH (05:29)
[2020-06-26 06:44] LABS: BASOPHILS # (AUTO) 0.1 (0.0-0.1); BASOPHILS % 0.4 % (0.0-1.0); EOSINOPHILS # (AUTO) 0.3 (0.0-0.4); EOSINOPHILS % 1.7 % (0.0-6.0); HEMATOCRIT 34.9 % (38.2-49.6); HEMOGLOBIN 10.8 g/dL (14.0-18.0); LYMPHOCYTES # (AUTO) 1.9 (1.0-3.2); LYMPHOCYTES % 10.4 % (18.0-39.1); MEAN CORPUSCULAR HEMOGLOBIN 28.5 pg (28-32); MEAN CORPUSCULAR HGB CONC 30.9 g/dL (31-35); MEAN CORPUSCULAR VOLUME 92.1 fL (81-99); MONOCYTES # (AUTO) 1.1 (0.2-0.8); MONOCYTES % 5.9 % (4.4-11.3); NEUTROPHILS # (AUTO) 14.2 (2.1-6.9); NEUTROPHILS % 79.1 % (38.7-80.0); PLATELET COUNT 207 x10e3/uL (140-360); RED BLOOD COUNT 3.79 x10e6/uL (4.3-5.7); RED CELL DISTRIBUTION WIDTH 13.2 % (11.7-14.4)
[2020-06-26 07:17] LABS: ALANINE AMINOTRANSFERASE 16 IU/L (0-55); ALBUMIN 1.9 g/dL (3.5-5.0); ALBUMIN/GLOBULIN RATIO 0.6 (0.8-2.0); ALKALINE PHOSPHATASE 179 IU/L (40-150); ANION GAP 7.3 mmol/L (8-16); BLOOD UREA NITROGEN 45 mg/dL (7-26); BUN/CREATININE RATIO 41 (6-25); CARBON DIOXIDE 27 mmol/L (22-29); CHLORIDE 117 mmol/L (98-107); EST GLOMERULAR FILTRATION RATE > 60 ML/MIN (60-); GLUCOSE 133 mg/dL (74-118); POTASSIUM 4.3 mmol/L (3.5-5.1); SODIUM 147 mmol/L (136-145)
[2020-06-26] MEDS: FENTANYL CITRATE INJ 2,000 MCG in SODIUM CHLORIDE 0.9% 250ML 210 ML IV PRN ×2 (07:45→21:44)
[2020-06-26] MEDS: MIDAZOLAM HCL 50 MG in SODIUM CHLORIDE 0.9% 100 ML 90 ML IV PRN ×3 (07:46→20:52)
[2020-06-26 08:12] LABS: ABG HCO3 27 mmol/L (22-26); ABG PCO2 44 mmHg (35-45); ABG PO2 80 mmHg (80-105); ABG TCO2 28
[2020-06-26] MEDS: FAMOTIDINE 20 MG/2 ML VIAL IV SCH (08:37)
[2020-06-26] MEDS: ASCORBIC ACID 500 MG TAB PO SCH ×2 (08:38→20:32)
[2020-06-26] MEDS: ASPIRIN 81 MG CHEW TAB PO SCH (08:38)
[2020-06-26] MEDS: MEROPENEM 500MG/ NS 50ML 50 ML IV SCH (08:38)
[2020-06-26] MEDS: METOPROLOL TARTRATE 25 MG TAB NG SCH ×3 (08:38→20:47)
[2020-06-26] MEDS: CHOLECALCIFEROL 1,000 UNIT TAB PO SCH (08:38)
[2020-06-26] MEDS: ZINC SULFATE 220 MG CAP PO SCH (08:38)
[2020-06-26] MEDS: FUROSEMIDE INJ 10 MG/ML 4 ML VIAL IV SCH ×2 (11:37→20:31)
[2020-06-26] MEDS: ALBUMIN 25% 12.5GM 0.25 GM/ML BTL IV SCH ×3 (11:45→23:19)
[2020-06-26] MEDS ORDERED: ALBUMIN 25% 25GM 100ML 0.25 GM/ML BTL IV SCH (12:00)
--- NOTE | 2020-06-26 12:14 | Progress Note ---
DATE: SUBJECTIVE: The patient is still on mechanical ventilator. He is on the PRVC mode of ventilation at rate of 32 with a tidal volume 400. His FiO2 is set at 70%. His PEEP is set at 12. PHYSICAL EXAMINATION: VITAL SIGNS: The blood pressure is 127/64, saturation is 91%. Pulse is 72. He is on Versed and fentanyl. He is off Levophed. HEENT: Shows no facial swelling or erythema. There is an oral endotracheal tube. CARDIAC: Reveals regular rate and rhythm with normal S1, S2. There is a PICC line in place. LUNGS: Auscultation of lungs reveals crackles at the bases. ABDOMEN: Soft and nontender. There is no rebound or guarding. The patient has an arterial line. EXTREMITIES: There is no leg edema. LABORATORY DATA: White blood cell count is 17.9, hemoglobin is 10.8, and platelet count is 207. The BUN to creatinine ratio is 45 to 1.1. Other electrolytes within normal limits. Blood sugar is 142. RADIOGRAPHIC DATA: Chest x-ray shows bilateral infiltrates. IMPRESSION: 1. Acute respiratory failure. 2. Acute kidney injury. 3. Viral pneumonia and COVID-19 infection. 4. Diabetes. 5. Chronic systolic congestive heart failure. 6. Hypertension. 7. Coronary artery disease. PLAN: 1. Taper antibiotics and discontinue vancomycin. 2. Continue current ventilator settings and repeat ABG later today. 3. Begin albumin and Lasix to help prevent anasarca. 4. Continue to monitor renal function. 5. Continue enteral feedings. 6. Complete dexamethasone. 7. Continue to monitor and adjust insulin. 8. Greater than 35 minutes in direct critical care time. Foreign Quintanilla MD [facility]/MODL /[id number]
--- NOTE | 2020-06-26 15:17 | Diagnostic Imaging Report ---
EXAMINATION: CHEST SINGLE (PORTABLE) INDICATION: Respiratory failure COMPARISON: 06/25/2020. FINDINGS: AP view TUBES and LINES: Stable endotracheal tube and subdiaphragmatic enteric tube which courses beyond the [id number]. LUNGS: Lungs are well inflated. Interval worsening of bilateral airspace opacities with almost complete involvement of the entire lungs. PLEURA: No pleural effusion or pneumothorax. HEART AND MEDIASTINUM: The cardiomediastinal silhouette is unchanged. Median sternotomy wires. BONES AND SOFT TISSUES: No acute osseous lesion. Soft tissues are unchanged. UPPER ABDOMEN: No free air under the diaphragm. IMPRESSION: Interval worsening of bilateral airspace opacities, concerning for worsening multifocal pneumonia. Signed by: Hilda Momin MD on 06/26/2020 3:14 PM
[2020-06-26] MEDS: VANCOMYCIN 1GM/NS 250 ML 250 ML IV SCH (15:25)
[2020-06-26 20:03] LABS: ABG PCO2 54 mmHg (35-45); ABG PH 7.31 (7.35-7.45)
[2020-06-26 20:04] LABS: ABG HCO3 27 mmol/L (22-26); ABG PO2 68 mmHg (80-105); ABG TCO2 29
[2020-06-26] MEDS: ATORVASTATIN 40 MG TAB PO SCH (20:31)
[2020-06-26] MEDS: INSULIN GLARGINE 100 UNITS/ML VIAL SQ SCH (20:48)
--- NOTE | 2020-06-26 20:50 | Progress Note ---
DATE: 06/26/2020 Nephrology Progress Note SUBJECTIVE: Still intubated and sedated. No overnight events. PHYSICAL EXAMINATION: VITAL SIGNS: Temperature 100.4, pulse 89, respiratory rate is 32, blood pressure 123/48, pulse ox 94% on mechanical ventilation, FiO2 of 70%. Ins and outs, the patient was net positive yesterday, 1 L. The patient is currently on diuretics. GENERAL: Intubated and sedated. CARDIOVASCULAR: Positive S1 and S2. No murmurs, rubs, or gallops appreciated. PULMONARY: Intubated and sedated. ABDOMEN: Soft, nondistended, and nontender to palpation. Bowel sounds present. MUSCULOSKELETAL: Unable to assess, sedated. NEUROLOGIC: Sedated. SKIN: Intact. Warm to touch. Good cap refill. EXTREMITIES: Upper extremities seem to be edematous. Lower extremities shows no edema. LABORATORY FINDINGS: Show white count 17, hemoglobin 10.8, hematocrit is 34.9, platelets of 207. Chemistry; sodium 147, potassium 4.3, chloride 117, bicarb 27, anion gap of 7.3, BUN 45, creatinine 1.1, glucose is 133. IMPRESSION: 1. Acute kidney injury secondary to hypotension from underlying acute tubular necrosis. 2. Coronavirus pneumonia, intubated and sedated. PLAN: At this time, the patient is on IV diuretics, which we will go ahead and continue as the patient is net positive. He is also receiving albumin. Monitor electrolytes and morning labs. We will continue to follow very closely. MD JAMARCUS Estrada/MODL /[id number]
--- NOTE | 2020-06-26 21:20 | Progress Note ---
DATE: 06/26/2020 Cardiology Progress Note SUBJECTIVE: Mr. Sanabria remains intubated and sedated. OBJECTIVE: VITAL SIGNS: Temperature 100.4, heart rate 93, blood pressure 124/66, respiratory rate 32, and O2 saturation 93%. GENERAL: Intubated and sedated. NECK: Supple. CHEST: With rales and decreased breath sounds. CARDIOVASCULAR: Regular rate and rhythm normal. Normal S1, S2. ABDOMEN: Soft. Bowel sounds positive. EXTREMITIES: Trace edema. Normothermic. CARDIOVASCULAR MEDICATIONS: Reviewed. Atorvastatin 40 mg at bedtime, furosemide 40 mg q.12 hours IV, aspirin 81 mg daily, metoprolol tartrate 12.5 mg every 12 hours, Lovenox 30 mg subcu daily. STUDIES: Reviewed. Sodium 147, potassium 4.3, chloride 117, bicarbonate 27, BUN 45 and creatinine 1.1, glucose 133. White blood cells 17.9, hemoglobin 10.8, platelets 207. PT 12.2, INR 0.87. AST 24, ALT 16, total bilirubin 0.5, alkaline phosphatase 179. ASSESSMENT AND PLAN: A 69-year-old man presents with pneumonia, COVID-19 infection, acute respiratory failure, history of coronary artery disease, diabetes, hypertension, dyslipidemia, acute on chronic systolic heart failure, anemia. RECOMMENDATIONS: Continue current cardiovascular medications. Blood pressure is at goal. Continue diuresis and weaning vent support as tolerated. Continue aspirin, metoprolol, and statin. Continue Lovenox. Monitor for any signs of gross bleeding. H and H remained stable from yesterday. MD NOAH Ireland/ANGELA /[id number]
--- NOTE | 2020-06-26 21:48 | NUR ---
patient proned around 21:30
[2020-06-27] VITALS (25 sets, daily range): BP systolic 95–153; BP diastolic 36–67
[2020-06-27] MEDS: ROCURONIUM BROMIDE 250 MG in SODIUM CHLORIDE 0.9% 250ML 225 ML IV SCH (02:56)
[2020-06-27] MEDS: NYSTATIN SUSPENSION 5 ML UDC PO SCH ×4 (05:07→23:09)
[2020-06-27] MEDS: ENOXAPARIN 30 MG/0.3 ML SYR SC SCH (05:07)
--- NOTE | 2020-06-27 05:12 | NUR ---
levo off at 0510
[2020-06-27 05:17] LABS: BASOPHILS % 0.3 % (0.0-1.0); EOSINOPHILS # (AUTO) 0.3 (0.0-0.4); EOSINOPHILS % 2.1 % (0.0-6.0); HEMOGLOBIN 9.8 g/dL (14.0-18.0); LYMPHOCYTES # (AUTO) 1.7 (1.0-3.2); LYMPHOCYTES % 11.2 % (18.0-39.1); MEAN CORPUSCULAR HEMOGLOBIN 30.9 pg (28-32); MEAN CORPUSCULAR HGB CONC 31.6 g/dL (31-35); MONOCYTES # (AUTO) 0.9 (0.2-0.8); MONOCYTES % 6.3 % (4.4-11.3); NEUTROPHILS # (AUTO) 11.7 (2.1-6.9); NEUTROPHILS % 78.1 % (38.7-80.0); PLATELET COUNT 132 x10e3/uL (140-360); RED BLOOD COUNT 3.17 x10e6/uL (4.3-5.7); RED CELL DISTRIBUTION WIDTH 13.6 % (11.7-14.4)
[2020-06-27 05:20] LABS: MEAN CORPUSCULAR VOLUME 97.8 fL (81-99)
[2020-06-27 05:31] LABS: ALANINE AMINOTRANSFERASE 16 IU/L (0-55); ALBUMIN 2.9 g/dL (3.5-5.0); ALBUMIN/GLOBULIN RATIO 1.1 (0.8-2.0); ALKALINE PHOSPHATASE 159 IU/L (40-150); ANION GAP 9.1 mmol/L (8-16); BLOOD UREA NITROGEN 44 mg/dL (7-26); BUN/CREATININE RATIO 38 (6-25); CALCIUM 9.4 mg/dL (8.4-10.2); CARBON DIOXIDE 29 mmol/L (22-29); CHLORIDE 114 mmol/L (98-107); CREATININE, SERUM 1.16 mg/dL (0.72-1.25); EST GLOMERULAR FILTRATION RATE > 60 ML/MIN (60-); GLUCOSE 119 mg/dL (74-118); POTASSIUM 4.1 mmol/L (3.5-5.1); SODIUM 148 mmol/L (136-145)
[2020-06-27] MEDS: INSULIN LISPRO 100 UNIT/1 ML 3ML VIAL SQ SCH ×4 (05:57→23:10)
--- NOTE | 2020-06-27 06:49 | NUR ---
infectious disease progress note This is late entry for June 26, 2020 Patient seen and examined chart reviewed and discussed with medical team please refer to the orders in the chart Still intubated and sedated. No overnight events. PHYSICAL EXAMINATION: VITAL SIGNS: Temperature 100.4, pulse 89, respiratory rate is 32, blood pressure 123/48, pulse ox 94% on mechanical ventilation, FiO2 of 70%. Ins and outs, the patient was net positive yesterday, 1 L. The patient is currently on diuretics. GENERAL: Intubated and sedated. CARDIOVASCULAR: Positive S1 and S2. No murmurs, rubs, or gallops appreciated. PULMONARY: Intubated and sedated. ABDOMEN: Soft, nondistended, and nontender to palpation. Bowel sounds present. MUSCULOSKELETAL: Unable to assess, sedated. NEUROLOGIC: Sedated. SKIN: Intact. Warm to touch. Good cap refill. EXTREMITIES: Upper extremities seem to be edematous. Lower extremities shows no edema. LABORATORY FINDINGS: Show white count 17, hemoglobin 10.8, hematocrit is 34.9, platelets of 207. Chemistry; sodium 147, potassium 4.3, chloride 117, bicarb 27, anion gap of 7.3, BUN 45, creatinine 1.1, glucose is 133. IMPRESSION: 1. Acute kidney injury secondary to hypotension from underlying acute tubular necrosis. 2. Coronavirus pneumonia, intubated and sedated. Concern about aspiration Continue with antibiotic as ordered Recheck CBC with chicken panel Oral hygiene Aspiration precaution Prognosis is guarded
--- NOTE | 2020-06-27 06:52 | NUR ---
infectious disease progress note Patient seen and examined chart reviewed June 27, 2020 Please refer to the orders in the charts Patient remains intensive care unit intubated Physical examination patient is intubated sedated HEENT normocephalic neck supple chest few crackles heart S1-S2 abdomen soft boatswain present extremities no edema 1. Acute respiratory failure. 2. Acute kidney injury. 3. Viral pneumonia and COVID-19 infection. 4. Diabetes. 5. Chronic systolic congestive heart failure. 6. Hypertension. 7. Coronary artery disease. aspiration pneumonia We will DC on antibiotic today status post 5 days Recheck CBC restrictive panel Surveillance for aspiration Prognosis is guarded
--- NOTE | 2020-06-27 08:37 | Progress Note ---
DATE: 06/26/2020 CONSULTANTS: 1. Dr. Quintanilla with Pulmonology. 2. Dr. Neves with Infectious Disease. 3. Dr. Simons, Cardiology. 4. Dr. Fry with Renal. CHIEF COMPLAINT: Shortness of breath. SUBJECTIVE: The patient remains intubated in supine position. OBJECTIVE: VITAL SIGNS: Temperature 97.9, pulse is 80, respirations 32, blood pressure 122/49, pulse ox is 93% on vent. GENERAL: Sedated and intubated. LUNGS: Decreased breath sounds. CARDIOVASCULAR: Regular rate and rhythm. GI: Soft, nondistended. MUSCULOSKELETAL: No edema. NEUROLOGIC: Sedated. SKIN: Dry. LABORATORY DATA: WBC 17.96, hemoglobin 10.8, hematocrit 34.9, platelets 207,000. Sodium 147, potassium 4.3, CO2 27, BUN 45, creatinine 1.1, blood glucose 133, AST 24, ALT 16, alkaline phosphate 179, albumin 1.9. IMAGING: Chest x-ray, interval worsening of bilateral airspace opacities concerning for worsening multifocal pneumonia. ASSESSMENT: 1. Acute respiratory failure due to COVID-19 pneumonia. Remains intubated and sedated. Vent management per head golf professional. Chest x-ray today shows worsening multifocal pneumonia. Continue vancomycin and Merrem per ID. 2. Acute kidney injury. Creatinine is improved to 1.1. IV Lasix b.i.d. and albumin to prevent edema. 3. Diabetes type 2. Continue Lantus and sliding scale insulin. 4. High cholesterol. Continue Zetia. 5. GI and DVT prophylaxis. Continue Lovenox 30 mg subcu. Dictated by RACHEL Haynes Luiz Fallon MD [facility]/MODL /[id number] Seen and examined on 05/25/20. Agree with the findings and plan as documented by RACHEL Lo. MTDD
[2020-06-27] MEDS: ASPIRIN 81 MG CHEW TAB PO SCH (08:42)
[2020-06-27] MEDS: METOPROLOL TARTRATE 25 MG TAB NG SCH ×2 (08:42→20:52)
[2020-06-27] MEDS: FAMOTIDINE 20 MG/2 ML VIAL IV SCH (08:42)
[2020-06-27] MEDS: CHOLECALCIFEROL 1,000 UNIT TAB PO SCH (08:42)
[2020-06-27] MEDS: FUROSEMIDE INJ 10 MG/ML 4 ML VIAL IV SCH ×2 (08:42→20:51)
[2020-06-27] MEDS: ASCORBIC ACID 500 MG TAB PO SCH ×2 (08:42→20:52)
[2020-06-27] MEDS: ZINC SULFATE 220 MG CAP PO SCH (08:43)
[2020-06-27] MEDS: MIDAZOLAM HCL 50 MG in SODIUM CHLORIDE 0.9% 100 ML 90 ML IV PRN ×2 (09:02→16:56)
[2020-06-27 09:29] LABS: ABG HCO3 29 mmol/L (22-26); ABG PCO2 51 mmHg (35-45); ABG PH 7.37 (7.35-7.45); ABG PO2 71 mmHg (80-105); ABG TCO2 31
[2020-06-27] MEDS: FENTANYL CITRATE INJ 2,000 MCG in SODIUM CHLORIDE 0.9% 250ML 210 ML IV PRN ×2 (10:20→21:18)
--- NOTE | 2020-06-27 10:27 | Progress Note ---
DATE: SUBJECTIVE: The patient remains in the prone position. He is currently on 70% FiO2. He is on a PRVC mode of ventilation at a rate of 32. His PEEP is set at 10. PHYSICAL EXAMINATION: VITAL SIGNS: The blood pressure is 139/59 and the pulse is 68. Saturation is 96%. HEENT: Shows no facial swelling or erythema. There is an oral endotracheal tube. There is a nasogastric tube in good position. CARDIAC: Reveals a regular rate and rhythm with normal S1 and S2. LUNGS: Auscultation of lungs reveals crackles at the bases. There is no wheezing. ABDOMEN: Soft and nontender. There is no rebound or guarding. EXTREMITIES: Shows no leg edema or calf tenderness. There is no cyanosis or clubbing. SKIN: Shows no rashes. NEUROLOGIC: Shows no focal abnormalities. LABORATORY DATA: White blood cell count is 14.9, hemoglobin is 9.8. Platelet count is 132. The BUN to creatinine ratio is 44 to 1.16 and the sodium is 148. The glucose is 150. The albumin is 2.9. RADIOGRAPHIC DATA: There were bilateral infiltrates. IMPRESSION: 1. Acute respiratory failure. 2. Acute kidney failure. 3. Viral pneumonia and COVID-19 infection. 4. Diabetes. 5. Chronic systolic congestive heart failure. 6. Hypertension. 7. Coronary artery disease. PLAN: 1. Continue current ventilator settings and monitor ABG. 2. Place the patient back in prone position later today. 3. Continue current antibiotics. 4. Continue to give albumin and Lasix. 5. Continue enteral feedings. 6. Complete dexamethasone. 7. Continue to monitor and adjust insulin. Greater than 35 minutes in direct critical care time. Foreign Quintanilla MD [facility]/MODL /[id number]
[2020-06-27] MEDS ORDERED: FENTANYL 2,000 MCG/250 ML BAG ONE (14:05)
[2020-06-27] MEDS ORDERED: MIDAZOLAM HCL 5MG/ML 10ML VIAL 100 ML BAG IV ONE (14:05)
--- NOTE | 2020-06-27 20:04 | Progress Note ---
DATE: 06/27/2020 CONSULTANTS: 1. Dr. Arechiga, boring machine operator double end. 2. Dr. Neves with Infectious Disease. 3. Dr. Simons, Cardiology. 4. Dr. Fry, Renal. SUBJECTIVE: The patient is seen in the [facility] ICU. Remains intubated and sedated, and prone position. Afebrile. PHYSICAL EXAMINATION: VITAL SIGNS: Temperature 97.0, pulse is 66, respirations 32, blood pressure 125/48, pulse ox is 95% on the vent. GENERAL: Sedated and intubated. LUNGS: Decreased breath sounds. CARDIOVASCULAR: Regular rate and rhythm. GI: Soft and nondistended. MUSCULOSKELETAL: No edema. NEUROLOGIC: Sedated. SKIN: Dry. : Harrison draining clear yellow urine. LABORATORY DATA: WBC 14.9, hemoglobin 9.8, hematocrit 31.0, platelets 132. Sodium 148, potassium 4.11, BUN 44, creatinine 1.10, glucose 119, AST 25, ALT 16. ABG with pCO2 51, PO2 71, bicarb 29, O2 sat 93. ASSESSMENT AND PLAN: 1. Acute respiratory failure due to coronavirus disease-2019 pneumonia. Remains intubated and sedated in prone position. Vent management per boring machine operator double end. Vancomycin and Merrem completed per Infectious Disease. WBC improving. 2. Acute kidney injury. Creatinine improved. Status post IV Lasix and albumin. Albumin per Renal. 3. Diabetes type 2. Continue sliding scale insulin and Lantus. 4. High cholesterol. Continue Zetia. 5. Gastrointestinal and deep venous thrombosis prophylaxis. Lovenox 30 mg subcu. Dictated by RACHEL Haynes Luiz Fallon MD [facility]/MODL /[id number] TANVIR
[2020-06-27] MEDS: ATORVASTATIN 40 MG TAB PO SCH (20:52)
[2020-06-27] MEDS: INSULIN GLARGINE 100 UNITS/ML VIAL SQ SCH (21:10)
--- NOTE | 2020-06-27 23:16 | Progress Note ---
DATE: 06/27/2020 Cardiology Progress Note SUBJECTIVE: The patient is sedated on mechanical ventilation. OBJECTIVE: VITAL SIGNS: Show blood pressure of 135/45 by art line, heart rate is 82 beats per minute, temperature is 99.1 degrees Fahrenheit, oxygen saturation is 91% with an FiO2 of 90%. NECK: Supple. LUNGS: Show decreased breath sounds anteriorly. CARDIOVASCULAR: Regular rate and rhythm. Normal S1 and S2. No murmurs heard. No tachycardia. ABDOMEN: Soft. Bowel sounds present. Not distended. EXTREMITIES: Trace edema. NEUROLOGICAL: Status could not be assessed due to sedation. ROS: unable to obtain, sedated intubated patient. CARDIOVASCULAR MEDICATIONS: Reviewed. LABORATORY DATA: Shows white blood cell count of 14.9, hemoglobin of 9.8, which is decreased from 10.8 from June 26, hematocrit is 31. Basic metabolic profile shows a sodium of 148, potassium of 4.1, chloride 114, bicarb of 29, BUN of 44, creatinine of 1.16, glucose of 119. Platelet count is 132,000, decreased from 207,000. His liver tests, AST and ALT are within the normal reference range. ASSESSMENT AND PLAN: 1. Acute hypoxemic respiratory failure, on mechanical ventilation. 2. Covid19 infection and associated pneumonia. 3. Acute kidney injury. 4. Nllbj-ed-oztepep heart failure. 5. History of coronary artery disease. 6. Diabetes mellitus type 2. 7. Hypertension. 8. Dyslipidemia. 9. Anemia and thrombocytopenia. RECOMMENDATIONS: 1. Continue full support. 2. Continue cardiovascular medications. 3. Monitor hemoglobin, hematocrit and platelet count. There has been no bleeding reported. Janet Holbrook MD [facility]/MODL /[id number] MTDAbi
[2020-06-27] MEDS: NOREPINEPHRINE 8 MG/D5W 250 ML 250 ML IV PRN (23:30)
[2020-06-28] VITALS (24 sets, daily range): BP systolic 100–178; BP diastolic 36–66
--- NOTE | 2020-06-28 01:11 | Progress Note ---
DATE: 06/28/2020 Nephrology Progress Note SUBJECTIVE: Still intubated and sedated. No changes overnight. PHYSICAL EXAMINATION: VITAL SIGNS: Temperature 97.4, pulse 62, respiratory rate is 32, blood pressure 122/46, pulse ox 97% on mechanical ventilation. GENERAL: Intubated and sedated. PULMONARY: Intubated and sedated. CARDIOVASCULAR: Positive S1, S2. No murmurs, rubs, or gallops appreciated. ABDOMEN: Soft, nondistended, and nontender to palpation. Bowel sounds present. MUSCULOSKELETAL: Sedated. NEUROLOGICAL: Sedated. LABORATORY FINDINGS: Show white count 14, hemoglobin 9.8, hematocrit is 31, platelets of 132. Chemistry reviewed, sodium 148, potassium 4.1, chloride 114, bicarb 29, anion gap of 9.1, BUN is 44, creatinine is 1.1. IMPRESSION: 1. Acute kidney injury secondary to hypotension from underlying acute tubular necrosis. 2. Coronavirus pneumonia, intubated and sedated. PLAN: At this time, continue with IV diuretics to make him net negative. Get a.m. labs. Monitor electrolytes. Continue to follow. MD JAMARCUS Estrada/MODL /[id number]
[2020-06-28] MEDS: MIDAZOLAM HCL 50 MG in SODIUM CHLORIDE 0.9% 100 ML 90 ML IV PRN ×2 (03:29→12:26)
[2020-06-28 04:55] LABS: BASOPHILS % 0.3 % (0.0-1.0); EOSINOPHILS # (AUTO) 0.2 (0.0-0.4); EOSINOPHILS % 1.5 % (0.0-6.0); HEMATOCRIT 33.7 % (38.2-49.6); HEMOGLOBIN 10.2 g/dL (14.0-18.0); LYMPHOCYTES # (AUTO) 1.5 (1.0-3.2); LYMPHOCYTES % 10.4 % (18.0-39.1); MEAN CORPUSCULAR HEMOGLOBIN 28.3 pg (28-32); MEAN CORPUSCULAR HGB CONC 30.3 g/dL (31-35); MEAN CORPUSCULAR VOLUME 93.6 fL (81-99); MONOCYTES # (AUTO) 0.8 (0.2-0.8); MONOCYTES % 5.6 % (4.4-11.3); NEUTROPHILS # (AUTO) 11.3 (2.1-6.9); NEUTROPHILS % 80.4 % (38.7-80.0); PLATELET COUNT 145 x10e3/uL (140-360); RED CELL DISTRIBUTION WIDTH 13.3 % (11.7-14.4)
[2020-06-28] MEDS: ENOXAPARIN 30 MG/0.3 ML SYR SC SCH (05:07)
[2020-06-28] MEDS: NYSTATIN SUSPENSION 5 ML UDC PO SCH ×4 (05:07→23:16)
[2020-06-28 05:23] LABS: ALBUMIN 2.4 g/dL (3.5-5.0); ALBUMIN/GLOBULIN RATIO 0.7 (0.8-2.0); ANION GAP 11.5 mmol/L (8-16); CALCIUM 9.4 mg/dL (8.4-10.2); CREATININE, SERUM 1.19 mg/dL (0.72-1.25); POTASSIUM 4.5 mmol/L (3.5-5.1)
[2020-06-28] MEDS: ROCURONIUM BROMIDE 250 MG in SODIUM CHLORIDE 0.9% 250ML 225 ML IV SCH ×2 (05:44→20:47)
[2020-06-28] MEDS: INSULIN LISPRO 100 UNIT/1 ML 3ML VIAL SQ SCH ×4 (05:51→23:16)
[2020-06-28] MEDS: FENTANYL CITRATE INJ 2,000 MCG in SODIUM CHLORIDE 0.9% 250ML 210 ML IV PRN ×2 (07:35→17:47)
--- NOTE | 2020-06-28 08:12 | Diagnostic Imaging Report ---
Examination: Single AP view of the chest. COMPARISON: 06/26/2020 INDICATION: Respiratory failure, viral pneumonia DISCUSSION: Endotracheal tube, enteric tube, and right upper extremity PICC are unchanged in position. Lungs remain reasonably well inflated. Aeration of the upper lungs has slightly improved relative to 06/26/2020; otherwise stable confluent bilateral airspace opacities. No sizable pleural effusion or pneumothorax. Stable cardiomediastinal contour with postsurgical changes of the mediastinum and coronary stents. No acute osseous abnormalities. IMPRESSION: Stable position of support lines and tubes. Slight interval improvement in aeration of the upper lungs relative to 06/26/2020, otherwise persistent findings of multifocal pneumonia. Signed by: Dr. Josué Danielson M.D. on 06/28/2020 8:09 AM
--- NOTE | 2020-06-28 08:30 | NUR ---
infectious disease progress note June 28, 2020 Patient seen and examined chart reviewed and discussed with medical team Events noted Patient remains in intensive care unit The patient remains in the prone position. He is currently on 70% FiO2. He is on a PRVC mode of ventilation at a rate of 32. His PEEP is set at 10. PHYSICAL EXAMINATION: VITAL SIGNS: The blood pressure is 139/59 and the pulse is 68. Saturation is 96%. HEENT: Shows no facial swelling or erythema. There is an oral endotracheal tube. There is a nasogastric tube in good position. CARDIAC: Reveals a regular rate and rhythm with normal S1 and S2. LUNGS: Auscultation of lungs reveals crackles at the bases. There is no wheezing. ABDOMEN: Soft and nontender. There is no rebound or guarding. EXTREMITIES: Shows no leg edema or calf tenderness. There is no cyanosis or clubbing. SKIN: Shows no rashes. NEUROLOGIC: Shows no focal abnormalities. LABORATORY DATA: White blood cell count is 14.9, hemoglobin is 9.8. Platelet count is 132. The BUN to creatinine ratio is 44 to 1.16 and the sodium is 148. The glucose is 150. The albumin is 2.9. RADIOGRAPHIC DATA: There were bilateral infiltrates. IMPRESSION: 1. Acute respiratory failure. 2. Acute kidney failure. 3. Viral pneumonia and COVID-19 infection. 4. Diabetes. 5. Chronic systolic congestive heart failure. 6. Hypertension. continue as ordered
[2020-06-28] MEDS: FUROSEMIDE INJ 10 MG/ML 4 ML VIAL IV SCH ×2 (08:36→20:06)
[2020-06-28] MEDS: FAMOTIDINE 20 MG/2 ML VIAL IV SCH (08:36)
[2020-06-28] MEDS: METOPROLOL TARTRATE 25 MG TAB NG SCH ×2 (08:37→20:06)
[2020-06-28] MEDS: ASCORBIC ACID 500 MG TAB PO SCH ×2 (08:37→20:06)
[2020-06-28] MEDS: CHOLECALCIFEROL 1,000 UNIT TAB PO SCH (08:37)
[2020-06-28] MEDS: ASPIRIN 81 MG CHEW TAB PO SCH (08:37)
[2020-06-28] MEDS: ZINC SULFATE 220 MG CAP PO SCH (08:37)
--- NOTE | 2020-06-28 10:03 | Progress Note ---
DATE: SUBJECTIVE: The patient is still in the supine position. Running on a PRVC at a rate of 32 with a tidal volume of 400 and FiO2 of 90%. His PEEP is set at 12. PHYSICAL EXAMINATION: VITAL SIGNS: The blood pressure is 113/43, the saturation is 97%. HEENT: No facial swelling or erythema. LYMPHATIC: No submandibular, cervical, or supraclavicular adenopathy. There is an oral endotracheal tube. There is a PICC line in place. The patient is an arterial line. CARDIAC: Regular rate and rhythm with normal S1, S2. LUNGS: Auscultation of lungs reveals crackles and rhonchi at the bases. There is no wheezing. ABDOMEN: Soft, nontender. There is no rebound or guarding. EXTREMITIES: No leg edema or calf tenderness. There is no cyanosis or clubbing. SKIN: No rashes. LABORATORY DATA: White blood cell count is 14, hemoglobin is 10.2. The platelet count is 145,000. The BUN to creatinine ratio is 49 to 1.19. The sodium is 148. Albumin is 2.4. RADIOGRAPHIC DATA: Chest x-ray shows bilateral infiltrates, unchanged. IMPRESSION: 1. Acute respiratory failure. 2. Acute renal failure. 3. Viral pneumonia and coronavirus disease-19 infection. 4. Diabetes. 5. Chronic systolic congestive heart failure. 6. Hypertension. 7. Coronary artery disease. PLAN: 1. Continue current ventilator settings and monitor ABG. 2. Place the patient in prone position again. 3. Continue to give albumin along with acetazolamide. 4. Continue enteral feedings. 5. Continue Versed and fentanyl along with rocuronium. 6. Wean patient off Levophed. Greater than 35 minutes in direct critical care time. Foreign Quintanilla MD [facility]/MODL /[id number]
[2020-06-28] MEDS: ALBUMIN 25% 12.5GM 50ML 100 ML IV SCH ×3 (10:06→21:01)
[2020-06-28 11:16] LABS: ABG PCO2 56 mmHg (35-45); ABG PH 7.35 (7.35-7.45)
[2020-06-28 11:17] LABS: ABG HCO3 31 mmol/L (22-26); ABG PO2 65 mmHg (80-105); ABG TCO2 32
[2020-06-28] MEDS ORDERED: ALBUMIN 25% 25GM 100ML 0.25 GM/ML BTL IV SCH (12:00)
[2020-06-28] MEDS: ATORVASTATIN 40 MG TAB PO SCH (20:06)
[2020-06-28] MEDS: INSULIN GLARGINE 100 UNITS/ML VIAL SQ SCH (20:10)
--- NOTE | 2020-06-28 23:36 | Progress Note ---
DATE: 06/28/2020 SUBJECTIVE: The patient was seen early this afternoon approximately at 1:20 p.m. The patient is still at baseline with no new complaints. PHYSICAL EXAMINATION: VITAL SIGNS: Afebrile. Normotensive. Respiratory rate is good. FiO2 70% on mechanical ventilation. GENERAL: Intubated and sedated. PULMONARY: Intubated and sedated. CARDIOVASCULAR: Positive S1, S2. No murmurs, rubs, or gallops appreciated. ABDOMEN: Soft, nondistended, and nontender to palpation. Bowel sounds present. MUSCULOSKELETAL: Sedated. NEUROLOGIC: Sedated. SKIN: Intact. Warm to touch. Good cap refill. LABORATORY DATA: CBC reviewed. White count is 14. Hemoglobin is stable at 10. Chemistry reviewed. Sodium 140, potassium 4.5. Rest of electrolytes are stable. MICROBIOLOGY: None. IMAGING STUDIES: Chest x-ray today still shows just slight improvement in aeration of the upper lungs. IMPRESSION: 1. Acute kidney injury secondary to hypotension from underlying acute tubular necrosis. 2. Coronavirus pneumonia, intubated and sedated. PLAN: At this time, continue with IV diuretics to make a net negative. Get a.m. labs. Electrolytes are stable. Monitor closely. MD JAMARCUS Estrada/MODL /[id number]
[2020-06-29] VITALS (25 sets, daily range): BP systolic 108–172; BP diastolic 45–70
--- NOTE | 2020-06-29 00:21 | Progress Note ---
DATE: 06/28/2020 Cardiology Progress Note SUBJECTIVE: The patient is still sedated on the vent in supine position. PHYSICAL EXAMINATION: VITAL SIGNS: Show the blood pressure is 112/40 with oxygen saturation of 97% on FiO2 of 90%. HEAD AND NECK: Show normocephalic. Anicteric conjunctivae. LUNGS: Show rhonchi in both lung mendoza. CARDIAC: Regular rate and rhythm. Normal S1 and S2. ABDOMEN: Soft, nontender. There is no rebound or guarding. EXTREMITIES: No leg edema. No clubbing or cyanosis. SKIN: No rash. LABORATORY DATA: White blood cell count of 14, H/H 10/34, and platelet count is 145,000. Sodium is 148, potassium is 4.5, BUN is 48, and creatinine is 1.19. RADIOGRAPHIC DATA: Chest x-ray showed bilateral infiltrates without significant change from previous x-ray. ASSESSMENT AND PLAN: 1. Acute hypoxemic respiratory failure, on mechanical ventilation. 2. Coronavirus disease 2019 infection and associated pneumonia. 3. Acute kidney injury, improving. 4. Kuhwh-nk-ilyulst heart failure. 5. History of coronary artery disease. 6. Diabetes mellitus type 2. 7. Hypertension. 8. Dyslipidemia. 9. Anemia and thrombocytopenia. RECOMMENDATIONS: 1. Continue full support. 2. Continue cardiovascular medications. 3. Continue to monitor hemoglobin, hematocrit and platelet count; no bleeding reported. MD ZUNILDA Dockery/ANGELA /[id number] MTDD
[2020-06-29] MEDS: MIDAZOLAM HCL 50 MG in SODIUM CHLORIDE 0.9% 100 ML 90 ML IV PRN ×3 (00:43→18:21)
[2020-06-29] MEDS: FENTANYL CITRATE INJ 2,000 MCG in SODIUM CHLORIDE 0.9% 250ML 210 ML IV PRN ×2 (04:50→15:00)
[2020-06-29 05:20] LABS: BASOPHILS % 0.3 % (0.0-1.0); EOSINOPHILS # (AUTO) 0.2 (0.0-0.4); EOSINOPHILS % 2.4 % (0.0-6.0); HEMOGLOBIN 9.6 g/dL (14.0-18.0); LYMPHOCYTES # (AUTO) 1.2 (1.0-3.2); LYMPHOCYTES % 11.6 % (18.0-39.1); MEAN CORPUSCULAR HEMOGLOBIN 28.4 pg (28-32); MEAN CORPUSCULAR VOLUME 94.7 fL (81-99); MONOCYTES # (AUTO) 0.7 (0.2-0.8); MONOCYTES % 6.5 % (4.4-11.3); NEUTROPHILS # (AUTO) 7.9 (2.1-6.9); NEUTROPHILS % 78.1 % (38.7-80.0); PLATELET COUNT 138 x10e3/uL (140-360); RED BLOOD COUNT 3.38 x10e6/uL (4.3-5.7); RED CELL DISTRIBUTION WIDTH 13.5 % (11.7-14.4)
[2020-06-29 05:36] LABS: ALANINE AMINOTRANSFERASE 16 IU/L (0-55); ALBUMIN 3.2 g/dL (3.5-5.0); ALBUMIN/GLOBULIN RATIO 1.1 (0.8-2.0); ALKALINE PHOSPHATASE 158 IU/L (40-150); ANION GAP 12.1 mmol/L (8-16); BLOOD UREA NITROGEN 40 mg/dL (7-26); BUN/CREATININE RATIO 39 (6-25); CALCIUM 9.8 mg/dL (8.4-10.2); CARBON DIOXIDE 32 mmol/L (22-29); CHLORIDE 111 mmol/L (98-107); CREATININE, SERUM 1.02 mg/dL (0.72-1.25); EST GLOMERULAR FILTRATION RATE > 60 ML/MIN (60-); GLUCOSE 188 mg/dL (74-118); POTASSIUM 4.1 mmol/L (3.5-5.1); SODIUM 151 mmol/L (136-145)
[2020-06-29] MEDS: INSULIN LISPRO 100 UNIT/1 ML 3ML VIAL SQ SCH ×3 (05:58→17:17)
[2020-06-29] MEDS: NYSTATIN SUSPENSION 5 ML UDC PO SCH ×3 (06:01→17:14)
[2020-06-29] MEDS: ENOXAPARIN 30 MG/0.3 ML SYR SC SCH (06:01)
--- NOTE | 2020-06-29 07:38 | Progress Note ---
DATE: 06/28/2020 CONSULTANTS: 1. Dr. Quintanilla with Pulmonology. 2. Dr. Neves with Infectious Disease. 3. Dr. Simons with Cardiology. 4. Dr. Fry with Nephrology. SUBJECTIVE: The patient remains intubated and sedated in some position. No events overnight. PHYSICAL EXAMINATION: VITAL SIGNS: Temperature 98.2, pulse is 75, respirations 32, blood pressure 132/55, pulse ox is 100% on vent. GENERAL: Sedated and intubated. LUNGS: With decreased breath sounds. CARDIOVASCULAR: Regular rate and rhythm. GI: Soft and nondistended. MUSCULOSKELETAL: No edema. NEUROLOGIC: Sedated. SKIN: Dry. : Harrison. LABORATORY DATA: WBC 14.08, hemoglobin 10.2, hematocrit 33.7, and platelets 145,000. Sodium 148, potassium 4.5, BUN is 48, creatinine 1.19, blood glucose 384. AST 26, ALT 17. Blood gases, pH 7.35, pCO2 56, PO2 65, bicarb 31. Chest x-ray stable position of lines, slight interval improvement otherwise persistent findings of multifocal pneumonia. ASSESSMENT AND PLAN: 1. Acute respiratory failure due to COVID-19 pneumonia. in prone position. Vent management per court reporter. Vancomycin and Merrem per ID. WBC is stable. 2. Acute kidney injury. Creatinine improved. 3. Diabetes type 2. Sliding scale insulin. 4. High cholesterol. On Zetia. 5. GI and DVT prophylaxis. Lovenox 30 mg subcu. PLAN: Continue current treatment, ABG is noted Dictated by Lili Lo, ANP Luiz Fallon MD [facility]/MODL /[id number]
[2020-06-29] MEDS: FAMOTIDINE 20 MG/2 ML VIAL IV SCH (08:22)
[2020-06-29] MEDS: METOPROLOL TARTRATE 25 MG TAB NG SCH ×2 (08:22→20:27)
[2020-06-29] MEDS: FUROSEMIDE INJ 10 MG/ML 4 ML VIAL IV SCH (08:22)
[2020-06-29] MEDS: ASPIRIN 81 MG CHEW TAB PO SCH (08:22)
[2020-06-29] MEDS: ASCORBIC ACID 500 MG TAB PO SCH ×2 (08:22→20:26)
[2020-06-29] MEDS: CHOLECALCIFEROL 1,000 UNIT TAB PO SCH (08:23)
[2020-06-29] MEDS: ZINC SULFATE 220 MG CAP PO SCH (08:23)
--- NOTE | 2020-06-29 09:34 | Progress Note ---
DATE: 06/29/2020 Cardiology Progress Note SUBJECTIVE: Mr. Sanabria remains intubated and sedated in prone position. OBJECTIVE: VITAL SIGNS: Temperature 97.9, heart rate 81, blood pressure 157/57, respiratory rate 32, O2 saturation 93%. GENERAL: Intubated and sedated in prone position. NECK: Supple. CHEST: With rales and decreased breath sounds. Dullness to percussion of both lung mendoza. ABDOMEN: With bowel sounds positive. EXTREMITIES: With trace edema. Normothermic. CARDIOVASCULAR MEDICATIONS: Reviewed. Atorvastatin 40 mg at bedtime, furosemide 40 mg every 12 hours, aspirin 81 mg daily, metoprolol tartrate 12.5 mg every 12 hours, Lovenox 30 mg daily. LABORATORY DATA: Studies reviewed. Sodium 151, potassium 4.1, chloride 111, bicarbonate 32, BUN 40 and creatinine 1, glucose 188. White blood cells 10, hemoglobin 9.6, platelets 138. PT 12.2, INR 0.87. AST 21, ALT 16, alkaline phosphatase 158. ASSESSMENT AND PLAN: A 69-year-old man presents with COVID-19 infection, community-acquired pneumonia, acute respiratory failure, coronary artery disease, diabetes, and hypertension. RECOMMENDATIONS: 1. Continue to monitor H and H. 2. Continue current cardiovascular medications, particularly metoprolol, aspirin, and atorvastatin from a CAD standpoint. Continue DVT prophylaxis with Lovenox. Continue volume optimization with furosemide. MD NOAH Ireland/ANGELA /[id number]
[2020-06-29] MEDS: ROCURONIUM BROMIDE 250 MG in SODIUM CHLORIDE 0.9% 250ML 225 ML IV SCH (11:39)
--- NOTE | 2020-06-29 12:04 | Progress Note ---
DATE: SUBJECTIVE: The patient is currently on mechanical ventilation in the prone position. He is on a PRVC mode of ventilation with the tidal volume of 420. His FiO2 is set at 60% and his PEEP is set at 10. He is currently saturating 92%. His pulse is 76. OBJECTIVE: HEENT: No facial swelling or erythema. LYMPHATIC: No submandibular, cervical, or supraclavicular adenopathy. CARDIAC: Regular rate and rhythm with normal S1, S2. LUNGS: Auscultation of lungs reveals rhonchorous breath sounds bilaterally. There is no wheezing. ABDOMEN: Soft, nontender. There is no rebound or guarding. EXTREMITIES: No leg edema. LABORATORY DATA: White blood cell count is 10.06, and the hemoglobin is 9.6. The platelet count is 138. The BUN to creatinine ratio is normal, it is 40/1.02. The sodium is 151 and the carbon dioxide is 32. The albumin is 3.2. IMPRESSION: 1. Acute respiratory failure. 2. Acute renal failure. 3. Viral pneumonia and coronavirus disease-19 infection. 4. Diabetes. 5. Chronic systolic congestive heart failure. 6. Hypernatremia. PLAN: 1. Continue current ventilator settings and monitor ABG. 2. Place the patient back in supine position. 3. Increase free water with enteral feedings. 4. Hold diuretics. 5. Continue Versed and fentanyl and wean rocuronium. Case discussed with nursing, Respiratory, Infectious Disease, and Internal Medicine. Greater than 35 minutes in direct critical care time. Foreign Quintanilla MD [facility]/MODL /[id number]
[2020-06-29 13:15] LABS: ABG PCO2 61 mmHg (35-45); ABG PH 7.35 (7.35-7.45); ABG PO2 60 mmHg (80-105)
[2020-06-29 13:16] LABS: ABG HCO3 34 mmol/L (22-26); ABG TCO2 35
--- NOTE | 2020-06-29 13:55 | NUR ---
this is infectious disease progress note patient seen and examined chart reviewed. This is June 29, 2020. Patient remains intensive care unit intubated and sedated. Case was discussed with all medical team. he patient is currently on mechanical ventilation in the prone position. He is on a PRVC mode of ventilation with the tidal volume of 420. His FiO2 is set at 60% and his PEEP is set at 10. He is currently saturating 92%. His pulse is 76. OBJECTIVE: HEENT: No facial swelling or erythema. LYMPHATIC: No submandibular, cervical, or supraclavicular adenopathy. CARDIAC: Regular rate and rhythm with normal S1, S2. LUNGS: Auscultation of lungs reveals rhonchorous breath sounds bilaterally. There is no wheezing. ABDOMEN: Soft, nontender. There is no rebound or guarding. EXTREMITIES: No leg edema. LABORATORY DATA: White blood cell count is 10.06, and the hemoglobin is 9.6. The platelet count is 138. The BUN to creatinine ratio is normal, it is 40/1.02. The sodium is 151 and the carbon dioxide is 32. The albumin is 3.2. IMPRESSION: 1. Acute respiratory failure. 2. Acute renal failure. 3. Viral pneumonia and coronavirus disease-19 infection. 4. Diabetes. 5. Chronic systolic congestive heart failure. 6. Hypernatremia. the patient will be here for 17 days prognosis remains very guarded continue with same concern about aspiration pneumonia but keep surveillance
--- NOTE | 2020-06-29 14:53 | NUR ---
Nutrition Intervention Note RD Recommendation(s) for Physician: - Continue to advance current TF of Vital High Protein to goal rate of 60 mL/hr (provides 1440 kcal, 126 g protein). - Pt may be fed at goal rate while prone when placed in reverse Trendelenburg with HOB at 10-25 degrees. - Water/fluid management per MD Plan of Care: RD following, monitoring for tolerance and adequacy, TF rec's Nutrition reason for involvement: follow up RD Assessment 06/29: Follow up. Pt remains intubated, sedated, and paralyzed. Pt currently proned. TF infusing at 20 ml/hr per RN, noted pt received 400 ml TF per I/O documentation yesterday. Pt currently tolerating TF and having BMs, no pressor support, no Propofol- no contraindications to advancing TF to goal rate. Discussed with RN advancing TF to goal rate and maintaining goal rate while in prone position as long as pt is in reverse Trendelenburg position with HOB 10-25 degrees. Chart reviewed, MD to increase free water flushes 2/2 Na elevated. Will continue to monitor. 06/24: Early follow up due to initiation of tube feeding. Pt was intubated and tube feeding order was placed yesterday. Tube feeding recommendations provided to RN. Will continue to monitor. (06/20) RD received consult. RD spoke to RN over the phone due to isolation restrictions. Speech therapy evaluated pt and recommended a mechanical soft/chopped meats and veggies. RN stated pt is eating 25% of meals and has been refusing nutrition supplements. Encourage Glucerna or Ensure Compact nutrition supplements. Will continue to monitor (06/14) 69 YOM admitted for hypoxia and PNA, evaluated today per LOS and new stage II PU. Pt COVID negative, however currently on treatment protocol. Pt eating 100% of meals prior to NPO, no wt loss, no GI distress reported. Chart reviewed. Labs and meds reviewed, BG trend elevated. Will continue to monitor. Principal Problems/Diagnoses: hypoxia, multifocal pneumonia PMH: CABG, CAD, DM, HTN GI: soft, non-tender, round abdomen, last recorded BM 06/29 Skin: intact Labs: 06/29: Na 151, K 4.1, BUN 40, Cr 1.02, Gluc 188, POC Gluc 174-189 06/24: Na 142,K 4.3, BUN 69, Cr 1.64, Glu 179 (06/20) Na 138, K 4.0, BUN 20, Cr 0.81, Glu 62 Meds: lispro, lantus, lipitor, zinc sulfate, vitamin D, vitamin C, lactulose PRN, zofran PRN IVF/Drips: Rocuronium, Fentanyl Ht: 66 in Wt: 218 lb (06/29) 170 lbs (06/24) 190 lb (06/12) BMI: 27.4 kg/m2 - using weight of 170 lbs IBW: 142 lb Malnutrition Evaluation (06/28/20) Unable to complete NFPE assessment. Will re-evaluate at follow-up as appropriate. Intake adequacy: acute moderate- TF and po not meeting needs >5 days Wt loss: none, no wt loss reported on admit, pt with wt fluctuations since admit Fat loss: FARIDEH 2/2 COVID ICU isolation precautions Muscle loss: FARIDEH 2/2 COVID ICU isolation precautions Edema: no edema Functional status: FARIDEH 2/2 pt intubated and sedated in COVID ICU Nutrition Prescription (Diet Order): Vital HP at 60 mL/hr, currently infusing at 20 ml/hr (480 kcal and 42 g protein) Estimated Nutritional Needs: 4912-9336 calories/day (18-20 kcal/kg CBW) - weight used: 170 lbs 93-155 g protein/day (1.2-2 g pro/kg CBW) Weight used: 170 lbs Diet Adequacy: Not meeting calorie needs, Not meeting protein needs Tolerance: tolerating trickle feeds Diet Education Needs Assessment: Diet education not indicated. Nutrition Care Level: moderate Nutrition Diagnosis: Inadequate oral intake related to acute respiratory failure/mechanical ventilation as evidenced by pt requiring enteral nutrition. Goal: Patient will meet 75-100% of estimated needs by follow up Progress: goal not met Interventions: - TF Compostition/Rate/Route, Recommended modifications, Collaboration with other providers Monitoring/Evaluation: -Total energy intake, Total protein intake, Formula/Solution, Weight change Signed: Ashlee Lopez RD, LD, CNSC
[2020-06-29] MEDS: ATORVASTATIN 40 MG TAB PO SCH (20:26)
[2020-06-29] MEDS: INSULIN GLARGINE 100 UNITS/ML VIAL SQ SCH (20:27)
--- NOTE | 2020-06-29 20:53 | Progress Note ---
DATE: 06/29/2020 CONSULTANTS: 1. Dr. Quintanilla, assistant project manager. 2. Dr. Neves with Infectious Disease. 3. Dr. Simons with Cardiology. 4. Dr. Fry with Nephrology. SUBJECTIVE: The patient remains intubated and sedated , in prone position. No events noted. PHYSICAL EXAMINATION: VITAL SIGNS: Temperature 98.8, pulse 83, respirations 32, blood pressure 121/61, and pulse ox 92% on the vent. GENERAL: Sedated and intubated, in prone position. LUNGS: Decreased breath sounds. CARDIOVASCULAR: Regular rate and rhythm. GI: Soft. MUSCULOSKELETAL: No edema. NEUROLOGIC: Sedated. : [place]. LABORATORY DATA: WBC 10.06, hemoglobin 9.6, hematocrit 32.0, and platelets 138. Sodium 151, potassium 4.1, CO2 of 32, BUN is 40, creatinine 1.02, blood glucose 188, AST 21, ALT 16, alkaline phosphate 158. ABG; pH of 7.35, pCO2 of 61, PO2 of 60, bicarb 34. ASSESSMENT AND PLAN: 1. Acute respiratory failure due to COVID-19 pneumonia. Remains intubated and sedated, in prone position. Vent management per assistant project manager. WBC has resolved. The patient is off antibiotics. 2. Acute kidney injury. Creatinine has improved. 3. Hypernatremia. Sodium is 151. Increase free water per NG tube. 4. Diabetes type 2. Sliding scale insulin. 5. High cholesterol, on Zetia. 6. Gastrointestinal and deep venous thrombosis prophylaxis. Continue Lovenox 30 mg subcu. Dictated by RACHEL Haynes Luiz Fallon MD [facility]/MODL /[id number]
[2020-06-29 21:33] LABS: ABG HCO3 34 mmol/L (22-26); ABG PCO2 63 mmHg (35-45); ABG PH 7.35 (7.35-7.45); ABG PO2 54 mmHg (80-105); ABG TCO2 36
[2020-06-30] VITALS (25 sets, daily range): BP systolic 110–164; BP diastolic 39–78
[2020-06-30] MEDS: NYSTATIN SUSPENSION 5 ML UDC PO SCH (00:10)
[2020-06-30] MEDS: INSULIN LISPRO 100 UNIT/1 ML 3ML VIAL SQ SCH ×5 (00:11→23:37)
[2020-06-30] MEDS: ROCURONIUM BROMIDE 250 MG in SODIUM CHLORIDE 0.9% 250ML 225 ML IV SCH ×2 (01:26→15:14)
[2020-06-30] MEDS: FENTANYL 2000MCG/NS 250 250 ML IV PRN ×3 (01:29→22:02)
--- NOTE | 2020-06-30 01:50 | Progress Note ---
DATE: 06/29/2020 Nephrology progress Note SUBJECTIVE: The patient is still intubated and sedated. No overnight events. PHYSICAL EXAMINATION: VITAL SIGNS: Temperature is 98.8, pulse 83, respirations 32, blood pressure 121/67, pulse ox 89%, FiO2 70%. GENERAL: Intubated and sedated. PULMONARY: Intubated and sedated. CARDIOVASCULAR: Positive S1, S2. No murmurs, rubs, or gallops appreciated. ABDOMEN: Soft, nondistended, nontender to palpation. Bowel sounds present. MUSCULOSKELETAL: Unable to assess, sedated. NEUROLOGICAL: Unable to assess, sedated. LABORATORY DATA: Show CBC stable. Chemistry reviewed shows sodium of 151, potassium 4.1, chloride 111, bicarb 32, anion gap of 12, BUN is 14, creatinine is 1.02, glucose 188. MICROBIOLOGY: Negative. DIAGNOSTIC STUDIES: Chest x-ray, stable shows a slight interval improvement in aeration of the upper lungs relative to 06/26/2020. IMPRESSION: 1. Acute kidney injury secondary to hypotension, rule out underlying acute tubular necrosis. 2. Coronavirus pneumonia, intubated and sedated. 3. Hyponatremia. PLAN: At this time, Lasix has been discontinued. Get morning labs for electrolytes are stable. Good urine output. If sodium continues to rise, we will add free water flushes. MD JAMARCUS Estrada/MODL /[id number]
[2020-06-30 04:14] LABS: BASOPHILS % 0.3 % (0.0-1.0); EOSINOPHILS # (AUTO) 0.3 (0.0-0.4); EOSINOPHILS % 3.2 % (0.0-6.0); HEMATOCRIT 32.7 % (38.2-49.6); HEMOGLOBIN 9.7 g/dL (14.0-18.0); LYMPHOCYTES # (AUTO) 1.5 (1.0-3.2); LYMPHOCYTES % 15.6 % (18.0-39.1); MEAN CORPUSCULAR HEMOGLOBIN 28.4 pg (28-32); MEAN CORPUSCULAR HGB CONC 29.7 g/dL (31-35); MEAN CORPUSCULAR VOLUME 95.9 fL (81-99); MONOCYTES # (AUTO) 0.7 (0.2-0.8); MONOCYTES % 7.1 % (4.4-11.3); NEUTROPHILS # (AUTO) 7.2 (2.1-6.9); NEUTROPHILS % 72.7 % (38.7-80.0); PLATELET COUNT 123 x10e3/uL (140-360); RED BLOOD COUNT 3.41 x10e6/uL (4.3-5.7); RED CELL DISTRIBUTION WIDTH 13.3 % (11.7-14.4)
[2020-06-30 04:36] LABS: ALANINE AMINOTRANSFERASE 17 IU/L (0-55); ALBUMIN 2.7 g/dL (3.5-5.0); ALBUMIN/GLOBULIN RATIO 0.8 (0.8-2.0); ALKALINE PHOSPHATASE 176 IU/L (40-150); ANION GAP 10.2 mmol/L (8-16); BLOOD UREA NITROGEN 47 mg/dL (7-26); BUN/CREATININE RATIO 42 (6-25); CALCIUM 9.8 mg/dL (8.4-10.2); CARBON DIOXIDE 33 mmol/L (22-29); CHLORIDE 111 mmol/L (98-107); CREATININE, SERUM 1.13 mg/dL (0.72-1.25); EST GLOMERULAR FILTRATION RATE > 60 ML/MIN (60-); GLUCOSE 293 mg/dL (74-118); POTASSIUM 4.2 mmol/L (3.5-5.1); SODIUM 150 mmol/L (136-145)
[2020-06-30] MEDS: MIDAZOLAM HCL 5MG/ML 10ML VIAL 100 ML IV PRN ×2 (04:58→15:02)
[2020-06-30] MEDS: ENOXAPARIN 30 MG/0.3 ML SYR SC SCH (05:16)
--- NOTE | 2020-06-30 08:07 | Diagnostic Imaging Report ---
TECHNIQUE: Frontal view of the chest. INDICATION: ^resp failure ^[id number] ^[id number] COMPARISON: 06/28/2020 DISCUSSION: Limited evaluation due to portable technique. Lines and hardware: Stable. Heart and mediastinum: Stable. Lungs and pleura: Stable confluent bilateral airspace opacities with a peripheral and lower lobe predominance. Negative for new large effusion or pneumothorax. Soft tissues and bones: No acute abnormality. IMPRESSION: Stable exam. Signed by: Colin Dewey MD on 06/30/2020 8:04 AM
[2020-06-30] MEDS: ASPIRIN 81 MG CHEW TAB PO SCH (08:25)
[2020-06-30] MEDS: ZINC SULFATE 220 MG CAP PO SCH (08:25)
[2020-06-30] MEDS: FAMOTIDINE 20 MG/2 ML VIAL IV SCH (08:25)
[2020-06-30] MEDS: CHOLECALCIFEROL 1,000 UNIT TAB PO SCH (08:25)
[2020-06-30] MEDS: METOPROLOL TARTRATE 25 MG TAB NG SCH ×2 (08:25→20:44)
[2020-06-30] MEDS: ASCORBIC ACID 500 MG TAB PO SCH ×2 (08:25→20:44)
--- NOTE | 2020-06-30 13:43 | Progress Note ---
DATE: 06/30/2020 Cardiology Progress Note. SUBJECTIVE: Mr. Sanabria remains on ventilatory support. OBJECTIVE: VITAL SIGNS: Temperature 97.4, heart rate 74, blood pressure 118/60, respiratory rate 36, O2 saturation 96%. BMI of 35. GENERAL: Intubated and sedated. NECK: No JVD. CHEST: Rales and decreased breath sounds. CARDIOVASCULAR: Regular rate and rhythm. Normal S1 and S2. ABDOMEN: Soft. EXTREMITIES: Trace edema. CARDIOVASCULAR MEDICATIONS: Reviewed. Atorvastatin 40 mg at bedtime, metoprolol tartrate 12.5 mg b.i.d., aspirin 81 mg daily, and Lovenox 30 mg subcu daily. LABORATORY STUDIES: Reviewed. Sodium 150, potassium 4.2, chloride 111, bicarbonate 33, BUN 47, creatinine 1.1, glucose 293. White blood cells 9.8, hemoglobin 9.7, platelets 123,000. PT 12.2, INR 0.87. AST 21, ALT 17, alkaline phosphatase 176, total bilirubin 0.6. ASSESSMENT AND PLAN: A 69-year-old man presents with: 1. Acute on chronic diastolic heart failure, COVID-19 infection, community-acquired pneumonia, hypertension, dyslipidemia, diabetes, CAD, anemia. We recommend continue ventilatory support. Continue metoprolol and aspirin. 2. Continue statin. 3. Continue Lovenox. Monitor H and H. Eligio Albarran MD [facility]/MODL /[id number]
--- NOTE | 2020-06-30 13:43 | Progress Note ---
DATE: SUBJECTIVE: The patient is afebrile. He continues on mechanical ventilation. He is on a PRVC at a rate of 36 with a FiO2 of 80% and tidal volume of 420. His PEEP is at 12. PHYSICAL EXAMINATION: VITAL SIGNS: The patient is afebrile. The vital signs are stable. HEENT: No facial swelling or erythema. There is an oral endotracheal tube. There is an arterial line and a PICC line in place. CARDIAC: Regular rate and rhythm with normal S1, S2. LUNGS: Auscultation of lungs reveals crackles and rhonchi at the bases. There is no wheezing. ABDOMEN: Soft, nontender. There is no rebound or guarding. EXTREMITIES: No leg edema or calf tenderness. There is no cyanosis or clubbing. SKIN: No rashes. NEUROLOGICAL: No focal abnormalities. LABORATORY DATA: White blood cell count 9.9 and hemoglobin is 9.7. The platelet count is 123. BUN to creatinine ratio is 47 to 1.13. The sodium is 150. Chloride is 111 and carbon dioxide is 33. The albumin is 2.7. RADIOGRAPHIC DATA: Bilateral infiltrates. IMPRESSION: 1. Acute respiratory failure. 2. Acute renal failure. 3. Viral pneumonia and coronavirus disease-19 infection. 4. Diabetes. 5. Chronic systolic congestive heart failure. 6. Hypernatremia. PLAN: 1. Continue current ventilator settings and monitor ABG. 2. Continue free water with enteral feedings. 3. Continue Versed and fentanyl. Rocuronium is being weaned. 4. Continue Lovenox. 5. Complete current antibiotics. Foreign Quintanilla MD [facility]/MODL /[id number]
[2020-06-30 18:35] LABS: ABG HCO3 35 mmol/L (22-26); ABG PCO2 75 mmHg (35-45); ABG PH 7.28 (7.35-7.45); ABG PO2 57 mmHg (80-105); ABG TCO2 37
--- NOTE | 2020-06-30 19:50 | Progress Note ---
DATE: 06/30/2020 CONSULTANTS: 1. Dr. Arechiga, director sales and trade marketing. 2. Dr. Neves, Infectious Disease. 3. Dr. Simons, Cardiology. 4. Dr. Fry, Nephrology. SUBJECTIVE: Sedated and intubated in a supine position. No events overnight. PHYSICAL EXAMINATION: VITAL SIGNS: Temperature 97.4, pulse is 87, respirations 36, blood pressure 164/78, pulse ox is 93% on the vent. GENERAL: Sedated and intubated. LUNGS: With decreased breath sounds. CARDIOVASCULAR: Regular rate and rhythm. GI: Soft. MUSCULOSKELETAL: No edema. NEURO: Sedated. : [place]. LABORATORY DATA: WBC 9.89, hemoglobin 9.7, hematocrit 32.7, and platelet 123. Sodium 150, potassium 4.2, CO2 of 33, BUN 47, creatinine 1.13, and estimated GFR greater than 60. AST 21, ALT 17, and alkaline phosphate 176. ABG, pH 7.35, pCO2 of 63, PO2 of 54, and bicarb 34. IMAGING: Chest x-ray, stable exam. IMPRESSION AND PLAN: 1. Acute respiratory failure due to coronavirus disease-19 pneumonia. He remains intubated and sedated in supine position. Vent management per director sales and trade marketing. Leukocytosis resolved, monitoring of antibiotics per ID. 2. Acute kidney injury. Creatinine improved. Renal on the case. 3. Hypernatremia. Sodium 150. We will continue free water per NG. 4. Diabetes type 2. Sliding scale insulin and Lantus at night. 5. High cholesterol. On Zetia. 6. Gastrointestinal and deep venous thrombosis prophylaxis. Continue Lovenox subcu. Dictated by RACHEL Haynes Luiz Fallon MD [facility]/MODL /[id number]
[2020-06-30] MEDS: ATORVASTATIN 40 MG TAB PO SCH (20:44)
[2020-06-30] MEDS: INSULIN GLARGINE 100 UNITS/ML VIAL SQ SCH (20:46)
[2020-07-01] VITALS (24 sets, daily range): BP systolic 119–160; BP diastolic 47–72
[2020-07-01] MEDS: MIDAZOLAM HCL 5MG/ML 10ML VIAL 100 ML IV PRN ×4 (00:14→18:17)
[2020-07-01] MEDS ORDERED: SODIUM CHLORIDE 0.9% 250ML 250 ML ONE (01:38)
--- NOTE | 2020-07-01 02:06 | Progress Note ---
DATE: 06/30/2020 Nephrology Progress Note SUBJECTIVE: Still intubated and sedated. No overnight events. PHYSICAL EXAMINATION: VITAL SIGNS: Afebrile. Pulse is 80, respiratory rate is 36, blood pressure 136/51. He is still on mechanical ventilation with FiO2 of 85%. GENERAL: Intubated and sedated. PULMONARY: Intubated and sedated. CARDIOVASCULAR: Positive S1, S2. No murmurs, rubs, or gallops appreciated. ABDOMEN: Soft, nondistended, nontender to palpation. Bowel sounds present. MUSCULOSKELETAL: Sedated. NEUROLOGIC: Sedated. LABORATORY DATA: Reviewed. CBC, stable. Chemistry; sodium of 150, still on diuretics. The rest of electrolytes are stable. MICROBIOLOGY: All cultures were negative. IMAGING DATA: Chest x-ray this morning was stable exam, still similar findings. IMPRESSION: 1. Acute kidney injury secondary to hypotension secondary to acute tubular necrosis. 2. Coronavirus pneumonia, intubated and sedated. 3. Hypernatremia. PLAN: At this time, Lasix has been discontinued. Sodium is still elevated at 150, but we will continue to monitor it very closely. Monitor electrolytes. Monitor urine output. MD JAMARUCS Estrada/MODL /[id number]
--- NOTE | 2020-07-01 04:07 | Progress Note ---
DATE: 06/30/2020 SUBJECTIVE: Mr. Sanabria remains in intensive care unit. This is day #18 of hospitalization. The patient remains intubated and sedated. OBJECTIVE: VITAL SIGNS: Stable. There is no fever. HEENT: Normocephalic. NECK: Supple. CHEST: Few rhonchi. HEART: S1 and S2. EXTREMITIES: No edema. The patient who is not on any antibiotics. His white count 9.9, hemoglobin 9.7. Sodium 150, 1.13. IMPRESSION: Respiratory failure, COVID-19, diabetes mellitus, and congestive heart failure. Stable off antibiotic. We will follow. Continue supportive care. MD ELÍAS Littlejohn/MODL /[id number]
[2020-07-01 04:58] LABS: BASOPHILS # (AUTO) 0.1 (0.0-0.1); BASOPHILS % 0.5 % (0.0-1.0); EOSINOPHILS # (AUTO) 0.5 (0.0-0.4); EOSINOPHILS % 4.7 % (0.0-6.0); HEMATOCRIT 34.1 % (38.2-49.6); HEMOGLOBIN 9.8 g/dL (14.0-18.0); LYMPHOCYTES # (AUTO) 1.9 (1.0-3.2); LYMPHOCYTES % 18.1 % (18.0-39.1); MEAN CORPUSCULAR HGB CONC 28.7 g/dL (31-35); MEAN CORPUSCULAR VOLUME 97.4 fL (81-99); MONOCYTES # (AUTO) 0.7 (0.2-0.8); MONOCYTES % 7.1 % (4.4-11.3); NEUTROPHILS % 68.2 % (38.7-80.0); PLATELET COUNT 134 x10e3/uL (140-360); RED CELL DISTRIBUTION WIDTH 13.6 % (11.7-14.4)
[2020-07-01] MEDS: ROCURONIUM BROMIDE 250 MG in SODIUM CHLORIDE 0.9% 250ML 225 ML IV SCH ×3 (05:00→22:58)
[2020-07-01 05:15] LABS: ALANINE AMINOTRANSFERASE 27 IU/L (0-55); ALBUMIN 2.4 g/dL (3.5-5.0); ALBUMIN/GLOBULIN RATIO 0.6 (0.8-2.0); ALKALINE PHOSPHATASE 194 IU/L (40-150); ANION GAP 10.3 mmol/L (8-16); BLOOD UREA NITROGEN 45 mg/dL (7-26); BUN/CREATININE RATIO 42 (6-25); CALCIUM 9.9 mg/dL (8.4-10.2); CARBON DIOXIDE 32 mmol/L (22-29); CHLORIDE 114 mmol/L (98-107); CREATININE, SERUM 1.07 mg/dL (0.72-1.25); EST GLOMERULAR FILTRATION RATE > 60 ML/MIN (60-); GLUCOSE 267 mg/dL (74-118); POTASSIUM 4.3 mmol/L (3.5-5.1); SODIUM 152 mmol/L (136-145)
[2020-07-01] MEDS: ENOXAPARIN 30 MG/0.3 ML SYR SC SCH (06:10)
[2020-07-01] MEDS: INSULIN LISPRO 100 UNIT/1 ML 3ML VIAL SQ SCH ×3 (06:11→17:21)
[2020-07-01] MEDS: FENTANYL 2000MCG/NS 250 250 ML IV PRN ×3 (07:22→22:16)
[2020-07-01] MEDS: FAMOTIDINE 20 MG/2 ML VIAL IV SCH (08:12)
[2020-07-01] MEDS: METOPROLOL TARTRATE 25 MG TAB NG SCH ×2 (08:12→20:01)
[2020-07-01] MEDS: CHOLECALCIFEROL 1,000 UNIT TAB PO SCH (08:12)
[2020-07-01] MEDS: ASPIRIN 81 MG CHEW TAB PO SCH (08:12)
[2020-07-01] MEDS: ASCORBIC ACID 500 MG TAB PO SCH ×2 (08:12→20:01)
[2020-07-01] MEDS: ZINC SULFATE 220 MG CAP PO SCH (08:12)
[2020-07-01 09:38] LABS: ABG HCO3 32 mmol/L (22-26); ABG PCO2 72 mmHg (35-45); ABG PH 7.25 (7.35-7.45); ABG PO2 51 mmHg (80-105); ABG TCO2 34
--- NOTE | 2020-07-01 13:19 | Progress Note ---
DATE: Pulmonary Critical Care Progress Note SUBJECTIVE: The patient had some respiratory acidosis this morning. His minute ventilation was increased. He was placed back in the prone position. He remains on enteral feedings. He is still on Versed and fentanyl. PHYSICAL EXAMINATION: VITAL SIGNS: The blood pressure is 143/60 and the pulse is 97. He has a PRVC at a rate of 36 with a tidal volume of 350. His FiO2 is set at 90%. His PEEP is set at 12. HEENT: Shows no facial swelling or erythema. There is an oral endotracheal tube. The site looks clean. There is no drainage. CARDIAC: Reveals regular rate and rhythm with normal S1 and S2. LUNGS: Auscultation of lungs reveals rhonchorous breath sounds bilaterally. There is no wheezing. ABDOMEN: Soft and nontender. There is no rebound or guarding. EXTREMITIES: Shows no leg edema or calf tenderness. There is no cyanosis or clubbing. SKIN: Shows no rashes. LABORATORY DATA: BUN to creatinine ratio is 14 to 1.07. Other electrolytes are within normal limits. The sodium is 152. The albumin is 2.4. The blood sugar is 250. IMPRESSION: 1. Acute respiratory failure. 2. Acute renal failure. 3. Viral pneumonia and COVID-19 infection. 4. Diabetes. 5. Chronic systolic congestive heart failure. 6. Hypernatremia. PLAN: 1. Continue to use the prone position. 2. Repeat ABG at 1300. 3. Continue Versed and fentanyl. The patient is back on rocuronium as well. 4. Continue Lovenox. 5. Complete antibiotics. 6. Case discussed with nursing, Respiratory, Infectious Disease, and Internal Medicine. Greater than 35 minutes in direct critical care time. Foreign Quintanilla MD [facility]/MODL /[id number]
--- NOTE | 2020-07-01 13:37 | NUR ---
infectious disease progress note. Patient seen and examined chart reviewed. Apparently this patient case was discussed with all medical team critical care. The patient made intensive care unit intubated sedated on multiple drips. e remains on enteral feedings. He is still on Versed and fentanyl. PHYSICAL EXAMINATION: VITAL SIGNS: The blood pressure is 143/60 and the pulse is 97. He has a PRVC at a rate of 36 with a tidal volume of 350. His FiO2 is set at 90%. His PEEP is set at 12. HEENT: Shows no facial swelling or erythema. There is an oral endotracheal tube. The site looks clean. There is no drainage. CARDIAC: Reveals regular rate and rhythm with normal S1 and S2. LUNGS: Auscultation of lungs reveals rhonchorous breath sounds bilaterally. There is no wheezing. ABDOMEN: Soft and nontender. There is no rebound or guarding. EXTREMITIES: Shows no leg edema or calf tenderness. There is no cyanosis or clubbing. SKIN: Shows no rashes. LABORATORY DATA: BUN to creatinine ratio is 14 to 1.07. Other electrolytes are within normal limits. The sodium is 152. The albumin is 2.4. The blood sugar is 250. IMPRESSION: 1. Acute respiratory failure. 2. Acute renal failure. 3. Viral pneumonia and COVID-19 infection. 4. Diabetes. 5. Chronic systolic congestive heart failure. 6. Hypernatremia. cultures noted see orders
[2020-07-01 15:36] LABS: ABG HCO3 34 mmol/L (22-26); ABG PCO2 101 mmHg (35-45); ABG PH 7.13 (7.35-7.45); ABG PO2 81 mmHg (80-105); ABG TCO2 37
--- NOTE | 2020-07-01 19:50 | Progress Note ---
DATE: 07/01/2020 Cardiology Progress Note SUBJECTIVE: Intubated and sedated. OBJECTIVE: VITAL SIGNS: Temperature 97.6, heart rate 107, sinus tachycardia on telemetry, respiratory rate 36, blood pressure 137/58, and O2 saturation 100% on vent support. GENERAL: Intubated and sedated. NECK: Supple. CHEST: With decreased breath sounds and rales. CARDIOVASCULAR: Regular rate and rhythm. Normal S1 and S2. ABDOMEN: Soft. Bowel sounds positive. EXTREMITIES: 1+ edema. CARDIOVASCULAR MEDICATIONS: Reviewed. Metoprolol tartrate 12.5 mg every 12 hours, aspirin 81 mg daily, atorvastatin 40 mg at bedtime, and Lovenox 40 mg subcutaneous daily. STUDIES: Reviewed. White blood cells 10, hemoglobin 9.8, and platelets 134. Glucose 203, creatinine 1.07, sodium 152, potassium 4.3, chloride 113, and bicarbonate 32. AST 32 and ALT 27. BUN 45. ASSESSMENT AND PLAN: 1. Remains intubated and sedated for acute respiratory failure in the setting COVID-19 infection and acute respiratory failure. Elevated BUN to creatinine ratio. 2. Diabetes. 3. [id number] diastolic heart failure and hypernatremia. RECOMMEND: 1. Increase free water intake. 2. Continue rest of cardiovascular medications. Diuretic holiday given elevated BUN to creatinine ratio and contraction alkalosis. Await rebalancing of intravascular fluids and resume diuretics following this. MD NOAH Ireland/ANGELA /[id number]
[2020-07-01] MEDS: ATORVASTATIN 40 MG TAB PO SCH (20:01)
--- NOTE | 2020-07-01 20:30 | Progress Note ---
DATE: 07/01/2020 CONSULTANTS: 1. Dr. Quintanilla, demolition crane operator. 2. Dr. Neves with Infectious Disease. 3. Dr. Simons, Cardiology. 4. Dr. Fry, Nephrology. SUBJECTIVE: The patient remains intubated and sedated in prone position. No further events overnight. PHYSICAL EXAMINATION: VITAL SIGNS: Temperature 97.6, pulse is 108, respirations 36, blood pressure 144/61, pulse ox is 99% on the vent. GENERAL: Sedated and intubated in prone position. LUNGS: With decreased breath sounds. CARDIOVASCULAR: Regular rate and rhythm. GI: Soft and nondistended. MUSCULOSKELETAL: No edema. NEURO: Sedated. LABORATORY DATA: WBC 10.23, hemoglobin 9.8, hematocrit 34.1, platelet 134. Sodium 152, potassium 4.3, CO2 32, BUN 45, creatinine 1.07, estimated GFR 60. IMPRESSION: 1. Acute respiratory failure due to coronavirus disease-19 pneumonia. He remains intubated and sedated in prone position. Vent management per demolition crane operator. 2. Leukocytosis, resolved, monitor, off antibiotics per ID. 3. Acute kidney injury. Creatinine improved, Renal following. 4. Hypernatremia. Sodium 152 today, continue with free water per NG. 5. Diabetes type 2. Sliding scale insulin and Lantus at night. 6. High cholesterol. Continue on Zetia. 7. Gastrointestinal and deep venous thrombosis prophylaxis. Lovenox 40 mg subcu. PLAN: To continue current treatment, vent management per demolition crane operator. Dictated by RACHEL Haynes Luiz Fallon MD [facility]/MODL /[id number]
[2020-07-01] MEDS: INSULIN GLARGINE 100 UNITS/ML VIAL SQ SCH (21:16)
[2020-07-02] VITALS (24 sets, daily range): BP systolic 99–191; BP diastolic 39–72
[2020-07-02] MEDS: MIDAZOLAM HCL 5MG/ML 10ML VIAL 100 ML IV PRN ×5 (00:02→22:21)
[2020-07-02] MEDS: INSULIN LISPRO 100 UNIT/1 ML 3ML VIAL SQ SCH ×4 (00:03→17:27)
--- NOTE | 2020-07-02 03:21 | Progress Note ---
DATE: 07/01/2020 Renal Progress Note SUBJECTIVE: The patient was seen and evaluated early this afternoon at approximately around 1 o' clock. No overnight events. PHYSICAL EXAMINATION: VITAL SIGNS: Temperature was 97.7, pulse 88, respiratory rate 36, blood pressure 183/52, pulse ox 96% on mechanical ventilation, 100% FiO2. GENERAL: Intubated and sedated. PULMONARY: Intubated and sedated. CARDIOVASCULAR: Positive S1, S2. No murmurs, rubs, or gallops. ABDOMEN: Soft, nondistended, and nontender to palpation. Bowel sounds present. MUSCULOSKELETAL: Intubated and sedated. NEUROLOGICAL: Sedated. LABORATORY DATA: Show white count 10.2, hemoglobin 9.8, hematocrit 34, platelets of 134. Chemistry; sodium 152, potassium 4.8, chloride 114, bicarb 32. Anion gap of 10, BUN is 45, creatinine is 1.07, glucose is 267. Microbiology none. IMAGING STUDIES: Nothing new. IMPRESSION: 1. Acute kidney injury secondary to hypotension secondary to acute tubular necrosis. 2. Coronavirus, pneumonia viral, intubated and sedated. 3. Hypernatremia secondary to dehydration. PLAN: At this time, free water flushes have been added, 250 mL q.6 hours up to 1 L given today. Monitor electrolytes closely. Bicarbonate and sodium in any case of dehydration. MD JAMARCUS Estrada/MODL /[id number]
[2020-07-02 04:53] LABS: BASOPHILS # (AUTO) 0.1 (0.0-0.1); BASOPHILS % 0.4 % (0.0-1.0); EOSINOPHILS # (AUTO) 0.6 (0.0-0.4); EOSINOPHILS % 5.2 % (0.0-6.0); HEMATOCRIT 33.7 % (38.2-49.6); HEMOGLOBIN 9.4 g/dL (14.0-18.0); LYMPHOCYTES # (AUTO) 2.1 (1.0-3.2); LYMPHOCYTES % 18.9 % (18.0-39.1); MEAN CORPUSCULAR HEMOGLOBIN 28.1 pg (28-32); MEAN CORPUSCULAR HGB CONC 27.9 g/dL (31-35); MEAN CORPUSCULAR VOLUME 100.6 fL (81-99); MONOCYTES # (AUTO) 0.8 (0.2-0.8); MONOCYTES % 7.2 % (4.4-11.3); NEUTROPHILS # (AUTO) 7.5 (2.1-6.9); NEUTROPHILS % 66.7 % (38.7-80.0); PLATELET COUNT 141 x10e3/uL (140-360); RED BLOOD COUNT 3.35 x10e6/uL (4.3-5.7); RED CELL DISTRIBUTION WIDTH 13.6 % (11.7-14.4)
[2020-07-02 05:14] LABS: ALANINE AMINOTRANSFERASE 31 IU/L (0-55); ALBUMIN 2.1 g/dL (3.5-5.0); ALBUMIN/GLOBULIN RATIO 0.6 (0.8-2.0); ALKALINE PHOSPHATASE 179 IU/L (40-150); ANION GAP 8.7 mmol/L (8-16); BLOOD UREA NITROGEN 40 mg/dL (7-26); BUN/CREATININE RATIO 41 (6-25); CALCIUM 9.9 mg/dL (8.4-10.2); CARBON DIOXIDE 33 mmol/L (22-29); CHLORIDE 117 mmol/L (98-107); CREATININE, SERUM 0.98 mg/dL (0.72-1.25); EST GLOMERULAR FILTRATION RATE > 60 ML/MIN (60-); GLUCOSE 100 mg/dL (74-118); POTASSIUM 4.7 mmol/L (3.5-5.1); SODIUM 154 mmol/L (136-145)
[2020-07-02] MEDS: FENTANYL 2000MCG/NS 250 250 ML IV PRN ×2 (05:29→16:47)
[2020-07-02] MEDS: ENOXAPARIN SOD INJ 40 MG/0.4 ML SYR SC SCH (05:29)
[2020-07-02] MEDS ORDERED: ENOXAPARIN 30 MG/0.3 ML SYR SC SCH (06:00)
[2020-07-02] MEDS: METOPROLOL TARTRATE 25 MG TAB NG SCH ×2 (07:50→20:38)
[2020-07-02] MEDS: ROCURONIUM BROMIDE 250 MG in SODIUM CHLORIDE 0.9% 250ML 225 ML IV SCH ×3 (08:10→19:35)
[2020-07-02] MEDS: CHOLECALCIFEROL 1,000 UNIT TAB PO SCH (08:32)
[2020-07-02] MEDS: ZINC SULFATE 220 MG CAP PO SCH (08:32)
[2020-07-02] MEDS: FAMOTIDINE 20 MG/2 ML VIAL IV SCH (08:32)
[2020-07-02] MEDS: ASPIRIN 81 MG CHEW TAB PO SCH (08:32)
[2020-07-02] MEDS: ASCORBIC ACID 500 MG TAB PO SCH ×2 (08:32→20:39)
[2020-07-02 09:17] LABS: ABG HCO3 35 mmol/L (22-26); ABG PCO2 88 mmHg (35-45); ABG PO2 78 mmHg (80-105); ABG TCO2 37
--- NOTE | 2020-07-02 10:08 | NUR ---
seen and examined PHYSICAL EXAMINATION: VITAL SIGNS: Temperature was 97.7, pulse 88, respiratory rate 36, blood pressure 183/52, pulse ox 96% on mechanical ventilation, 100% FiO2. GENERAL: Intubated and sedated. PULMONARY: Intubated and sedated. CARDIOVASCULAR: Positive S1, S2. No murmurs, rubs, or gallops. ABDOMEN: Soft, nondistended, and nontender to palpation. Bowel sounds present. MUSCULOSKELETAL: Intubated and sedated. NEUROLOGICAL: Sedated. LABORATORY DATA: Show white count 10.2, hemoglobin 9.8, hematocrit 34, platelets of 134. Chemistry; sodium 152, potassium 4.8, chloride 114, bicarb 32. Anion gap of 10, BUN is 45, creatinine is 1.07, glucose is 267. Microbiology none. IMAGING STUDIES: Nothing new. LABORATORY DATA: White blood cell count is 13.2 and the hemoglobin is 9.5. The platelet count is 159. The BUN to creatinine ratio is 35 to 0.82 and the other electrolytes are within normal limits. The sodium is 150. The albumin is 1.9. IMPRESSION: 1. Acute respiratory failure. 2. Viral pneumonia and COVID-19 infection. 3. Diabetes. 4. Chronic systolic congestive heart failure. 5. Acute kidney injury.
--- NOTE | 2020-07-02 14:13 | Progress Note ---
DATE: SUBJECTIVE: The patient is doing better. He has less congestion and less dyspnea. He remains afebrile. He is currently in the prone position. He had low pH this morning and his minute ventilation was increased. PHYSICAL EXAMINATION: VITAL SIGNS: The blood pressure is 104/44 and pulse is 77. HEENT: Shows no facial swelling or erythema. LYMPHATIC: Shows no submandibular, cervical or supraclavicular adenopathy. CARDIAC: Reveals regular rate and rhythm with normal S1 and S2. LUNGS: Auscultation of lungs reveals rhonchorous breath sounds bilaterally. There is no wheezing. ABDOMEN: Soft, nontender. There is no rebound or guarding. EXTREMITIES: Shows no leg edema or calf tenderness. There is no cyanosis or clubbing. SKIN: Shows no rashes. LABORATORY DATA: White blood cell count is 11.2 and hemoglobin is 9.4. The platelet count is 141. The BUN to creatinine ratio is 40 to 0.98 and the other electrolytes are within normal limits. Sodium is 154. Albumin is 2.1. IMPRESSION: 1. Acute respiratory failure. 2. Viral pneumonia and coronavirus disease-19 infection. 3. Hypernatremia. 4. Diabetes. 5. Chronic systolic congestive heart failure. 6. Acute kidney injury. PLAN: 1. Continue current ventilation and repeat ABG at 1300. 2. Continue Versed and fentanyl. Continue Lovenox. 3. Continue antibiotics. 4. Continue enteral feedings. 5. Increase free water. Greater than 35 minutes in direct critical care time. Foreign Quintanilla MD [facility]/MODL /[id number]
--- NOTE | 2020-07-02 16:58 | Progress Note ---
DATE: Nephrology Progress Note. SUBJECTIVE: Still intubated sedated. Sodium level was elevated and free water was initiated. PHYSICAL EXAMINATION: VITAL SIGNS: Temperature 97.9, pulse 77, respiratory 36, blood pressure was 124/57, pulse ox 100% on mechanical ventilation with FiO2 of 90%. GENERAL: Intubated and sedated. CARDIOVASCULAR: PositiveS1 and S. No murmurs, gallops or rubs. PULMONARY: Intubated and sedated. ABDOMEN: Soft nondistended, non tender palpation bowel sounds present. MUSCULOSKELETAL: He is sedated neurologic is sedated, unable to assess. LABORATORY FINDINGS: White count 11, hemoglobin 9.4, hematocrit 34 platelets of 141,000. Chemistry sodium, potassium 4.7, chloride 117, bicarb 33, anion gap of 8, BUN 40, creatinine 0.98, glucose is 100. IMPRESSION: 1. Acute kidney injury secondary to hypotension, secondary to ATN. 2. Hypernatremia secondary to dehydration and diuretics. 3. Viral pneumonia secondary to live virus intubated and sedated. PLAN: At this time free water flushes has been increased, 350 mL q.6 hours. Get sodium level in the morning. Replace electrolytes accordingly. MD JAMARCUS Estrada/MODL /[id number]
[2020-07-02 18:49] LABS: ABG HCO3 31 mmol/L (22-26); ABG PCO2 66 mmHg (35-45); ABG PH 7.28 (7.35-7.45); ABG PO2 79 mmHg (80-105); ABG TCO2 33
--- NOTE | 2020-07-02 19:24 | Progress Note ---
DATE: 07/02/2020 Cardiology Progress Note. SUBJECTIVE: Remains intubated and sedated. OBJECTIVE: VITAL SIGNS: Temperature 97.7, heart rate 72, blood pressure 140/56, respiratory rate 36, O2 saturation 100%. GENERAL: Intubated and sedated. NECK: Supple. CHEST: Rales and decreased breath sounds. CARDIOVASCULAR: Regular rate and rhythm. Normal S1, S2. ABDOMEN: Bowel sounds positive. EXTREMITIES: Trace edema. Normothermic extremities. CARDIOVASCULAR MEDICATIONS: Reviewed. Atorvastatin 40 mg at bedtime, aspirin 81 mg daily, Lovenox 40 mg subcu daily, metoprolol tartrate 12.5 mg every 12 hours. STUDIES: Reviewed: Sodium 154, potassium 4.7, chloride 117, bicarbonate 33, BUN 40, creatinine 0.9, glucose 100. White blood cells 11.2, hemoglobin 9.4, platelets 141. INR 0.8. ASSESSMENT AND PLAN: A 69-year-old man presents with acute respiratory failure, community acquired pneumonia, COVID-19 infection, diabetes, hypertension, dyslipidemia, coronary artery disease, anemia, hypernatremia. Recommend increased free water intake and continue rest of cardiovascular medications. Monitor H and H. MD NOAH Ireland/ANGELA /[id number]
[2020-07-02] MEDS: ATORVASTATIN 40 MG TAB PO SCH (20:39)
[2020-07-02] MEDS: INSULIN GLARGINE 100 UNITS/ML VIAL SQ SCH (20:40)
--- NOTE | 2020-07-02 20:54 | Progress Note ---
DATE: 07/02/2020 CONSULTANTS: 1. Dr. Quintanilla, brim stretcher. 2. Dr. Neves with Infectious Disease. 3. Dr. Simons, Cardiology. 4. Dr. Fry, Nephrology. SUBJECTIVE: The patient is intubated, sedated in prone position. Not tolerating supine position per staff. PHYSICAL EXAMINATION: VITAL SIGNS: Temperature 97.7, pulse is 77, respirations 36, blood pressure 142/54, pulse ox 100% on the vent. GENERAL: Sedated and intubated in prone position. LUNGS: Decreased breath sounds. CARDIOVASCULAR: Regular rate and rhythm. GI: Soft. MUSCULOSKELETAL: Moves. No edema. NEUROLOGIC: Sedated. LABORATORY DATA: WBC 11.26, hemoglobin 9.4, hematocrit 33.7, platelet 141. Sodium 134, potassium 4.7, CO2 33, BUN 40, creatinine 0.98, estimated GFR greater than 60. AST 32, ALT 31. ABG; pH 7.38, pCO2 66, PO2 79, and bicarb 31. IMPRESSION: 1. Acute respiratory failure due to COVID-19 pneumonia. Remains intubated and sedated in prone position. Vent management per his brim stretcher. 2. Leukocytosis, improving from antibiotics per ID. 3. Acute kidney injury. Creatinine is improving per Renal. 4. Hypernatremia. Sodium 154. Free water per NG and repeat labs. 5. Diabetes type 2. Sliding scale insulin and increase Lantus to 16 units at bedtime. 6. High cholesterol. On Zetia. 7. Gastrointestinal and deep venous thrombosis prophylaxes. Continue Lovenox 40 mg subcu. PLAN: To continue supportive therapy, vent per brim stretcher. Dictated by RACHEL Haynes Luiz Fallon MD MY/MODL /[id number]
[2020-07-03] VITALS (25 sets, daily range): BP systolic 88–154; BP diastolic 36–70
[2020-07-03] MEDS: INSULIN LISPRO 100 UNIT/1 ML 3ML VIAL SQ SCH ×4 (00:19→18:05)
[2020-07-03] MEDS: FENTANYL 2000MCG/NS 250 250 ML IV PRN ×4 (00:51→23:20)
[2020-07-03] MEDS: ROCURONIUM BROMIDE 250 MG in SODIUM CHLORIDE 0.9% 250ML 225 ML IV SCH ×2 (03:28→10:05)
[2020-07-03] MEDS: MIDAZOLAM HCL 5MG/ML 10ML VIAL 100 ML IV PRN ×4 (03:50→21:33)
[2020-07-03 05:38] LABS: BASOPHILS % 0.3 % (0.0-1.0); EOSINOPHILS # (AUTO) 0.7 (0.0-0.4); EOSINOPHILS % 5.2 % (0.0-6.0); HEMATOCRIT 33.7 % (38.2-49.6); HEMOGLOBIN 9.5 g/dL (14.0-18.0); LYMPHOCYTES # (AUTO) 2.3 (1.0-3.2); LYMPHOCYTES % 17.2 % (18.0-39.1); MEAN CORPUSCULAR HEMOGLOBIN 27.8 pg (28-32); MEAN CORPUSCULAR HGB CONC 28.2 g/dL (31-35); MEAN CORPUSCULAR VOLUME 98.5 fL (81-99); MONOCYTES # (AUTO) 0.9 (0.2-0.8); MONOCYTES % 6.7 % (4.4-11.3); NEUTROPHILS # (AUTO) 9.2 (2.1-6.9); NEUTROPHILS % 69.5 % (38.7-80.0); PLATELET COUNT 159 x10e3/uL (140-360); RED BLOOD COUNT 3.42 x10e6/uL (4.3-5.7); RED CELL DISTRIBUTION WIDTH 13.4 % (11.7-14.4)
[2020-07-03 05:53] LABS: ALANINE AMINOTRANSFERASE 33 IU/L (0-55); ALBUMIN 1.9 g/dL (3.5-5.0); ALBUMIN/GLOBULIN RATIO 0.5 (0.8-2.0); ALKALINE PHOSPHATASE 197 IU/L (40-150); ANION GAP 8.1 mmol/L (8-16); BLOOD UREA NITROGEN 35 mg/dL (7-26); BUN/CREATININE RATIO 43 (6-25); CALCIUM 9.8 mg/dL (8.4-10.2); CARBON DIOXIDE 32 mmol/L (22-29); CHLORIDE 114 mmol/L (98-107); CREATININE, SERUM 0.82 mg/dL (0.72-1.25); EST GLOMERULAR FILTRATION RATE > 60 ML/MIN (60-); GLUCOSE 106 mg/dL (74-118); POTASSIUM 4.1 mmol/L (3.5-5.1); SODIUM 150 mmol/L (136-145)
[2020-07-03] MEDS: ENOXAPARIN SOD INJ 40 MG/0.4 ML SYR SC SCH (06:04)
[2020-07-03] MEDS: FAMOTIDINE 20 MG/2 ML VIAL IV SCH (08:11)
[2020-07-03] MEDS: ASCORBIC ACID 500 MG TAB PO SCH ×2 (08:12→21:28)
[2020-07-03] MEDS: ZINC SULFATE 220 MG CAP PO SCH (08:12)
[2020-07-03] MEDS: METOPROLOL TARTRATE 25 MG TAB NG SCH ×2 (08:12→21:00)
[2020-07-03] MEDS: ASPIRIN 81 MG CHEW TAB PO SCH (08:12)
[2020-07-03] MEDS: CHOLECALCIFEROL 1,000 UNIT TAB PO SCH (08:12)
[2020-07-03 09:31] LABS: HYPOCHROMASIA SLIGHT
[2020-07-03 10:23] LABS: ABG HCO3 32 mmol/L (22-26); ABG PCO2 89 mmHg (35-45); ABG PH 7.16 (7.35-7.45); ABG PO2 74 mmHg (80-105); ABG TCO2 35
--- NOTE | 2020-07-03 12:56 | Progress Note ---
DATE: SUBJECTIVE: The patient is currently in the prone position. He remains on FiO2 of 85% with a PRVC of 36 and a tidal volume of 450. His PEEP is set at 10. He continues on Versed, fentanyl, and Nimbex. PHYSICAL EXAMINATION: VITAL SIGNS: The blood pressure is 110/65 and saturation is 99%. The pulse is 93. HEENT: Shows no facial swelling or erythema. LYMPHATIC: Shows no submandibular, cervical, or supraclavicular adenopathy. CARDIAC: Reveals regular rate and rhythm with normal S1 and S2. LUNGS: Auscultation of lungs reveals rhonchorous breath sounds bilaterally. There is no wheezing. ABDOMEN: Soft and nontender. There is no rebound or guarding. EXTREMITIES: Shows no leg edema or calf tenderness. There is no cyanosis or clubbing. SKIN: Shows no rashes. NEUROLOGICAL: Shows no focal abnormalities. LABORATORY DATA: White blood cell count is 13.2 and the hemoglobin is 9.5. The platelet count is 159. The BUN to creatinine ratio is 35 to 0.82 and the other electrolytes are within normal limits. The sodium is 150. The albumin is 1.9. IMPRESSION: 1. Acute respiratory failure. 2. Viral pneumonia and COVID-19 infection. 3. Diabetes. 4. Chronic systolic congestive heart failure. 5. Acute kidney injury. PLAN: 1. Place the patient back in the supine position. 2. Continue current ventilator settings and repeat ABG. 3. Continue enteral feedings and advance as tolerated. 4. Continue free water. 5. Complete antibiotics. 6. Repeat chest x-ray. Greater than 35 minutes in direct critical care time. Foreign Quintanilla MD Annmarie/JENNIFERL /[id number]
[2020-07-03] MEDS ORDERED: FUROSEMIDE INJ 10 MG/ML 4 ML VIAL IV SCH (13:00)
[2020-07-03 16:37] LABS: ABG HCO3 32 mmol/L (22-26); ABG PCO2 81 mmHg (35-45); ABG PO2 62 mmHg (80-105); ABG TCO2 34
--- NOTE | 2020-07-03 16:58 | Diagnostic Imaging Report ---
EXAMINATION: CHEST SINGLE (PORTABLE) INDICATION: Multifocal pneumonia. Hypoxia. COMPARISON: 06/30/2020. FINDINGS: AP view TUBES and LINES: Endotracheal tube has been removed. Enteric tube extending below the diaphragm with distal tip not included. Right upper extremity PICC with distal tip projected on the cavoatrial junction, unchanged. LUNGS: Redemonstration of bilateral patchy interstitial and airspace disease with confluent consolidation particularly in the lingula and left lower lobe, not significantly changed. PLEURA: Bilateral small pleural effusions. No pneumothorax. HEART AND MEDIASTINUM: Obscured. BONES AND SOFT TISSUES: No acute osseous lesion. UPPER ABDOMEN: No free air under the diaphragm. IMPRESSION: 1. Interval extubation. 2. No significant interval change in bilateral opacities. Signed by: Dr. Rafael Nunes M.D. on 07/03/2020 4:54 PM
--- NOTE | 2020-07-03 17:03 | Progress Note ---
DATE: 07/03/2020 Renal Progress Note SUBJECTIVE: The patient is still at baseline. Intubated and sedated. PHYSICAL EXAMINATION: VITAL SIGNS: Afebrile, blood pressure 107/62. He is still on mechanical ventilation 90% FiO2. GENERAL: Intubated and sedated. PULMONARY: Intubated and sedated. CARDIOVASCULAR: Positive S1 and S2. No murmurs, rubs, or gallops appreciated. ABDOMEN: Soft, nondistended, and nontender to palpation. Bowel sounds present. MUSCULOSKELETAL: Unable to assess. NEUROLOGIC: Unable to assess. LABORATORY DATA: Show CBC; white count 13, hemoglobin is stable. Chemistry; sodium is 150. He is on free water. Bicarbonate is 32, downtrending from 33. Creatinine is 0.82 and BUN is 35. IMAGING STUDIES: Nothing new. IMPRESSION: 1. Acute kidney injury secondary to hypotension and acute tubular necrosis, much improved. 2. Hypernatremia secondary to dehydration and diuretics. 3. Viral pneumonia secondary to coronavirus. Intubated and sedated. PLAN: I will continue with the free water flushes to 350 mL per q.6 hours. Get a sodium level in the morning. Replace electrolytes accordingly. MD JAMARCUS Estrada/MODL /[id number]
[2020-07-03] MEDS: ALBUMIN 25% 25GM 100ML 0.25 GM/ML BTL IV SCH (18:05)
[2020-07-03] MEDS: ROCURONIUM BROMIDE 1,250 MG in SODIUM CHLORIDE 0.9% 250ML 125 ML IV SCH (18:05)
[2020-07-03] MEDS: FUROSEMIDE INJ 100 MG in SODIUM CHLORIDE 0.9% 100 ML 90 ML IV SCH (18:05)
--- NOTE | 2020-07-03 18:09 | Diagnostic Imaging Report ---
EXAMINATION: CHEST SINGLE (PORTABLE) INDICATION: Tracheal tube replacement. COMPARISON: 07/03/2020 at 1624 hours. FINDINGS: AP view TUBES and LINES: Endotracheal tube has been placed with distal tip approximately 1.0 cm proximal to the mila. Right upper extremity PICC with distal tip projected on the cavoatrial junction, unchanged. LUNGS: The demonstration of diffuse patchy airspace disease, with abnormal lucency between consolidation in the mid to lower right lung, in the cardia mediastinal silhouette without mediastinal shift, possibly artifact, however, pneumothorax could result in this appearance. PLEURA: Bilateral small pleural effusions. HEART AND MEDIASTINUM: Obscured. BONES AND SOFT TISSUES: No acute osseous lesion. Soft tissues are unremarkable. UPPER ABDOMEN: No free air under the diaphragm. IMPRESSION: 1. Interval placement of an endotracheal tube with distal tip approximately 1.2 cm proximal to the mila. 2. Abnormal appearance of the right hemithorax with abnormal lucency could be part related to technique versus pneumothorax. Recommend repeat examination. Signed by: Dr. Rafael Nunes M.D. on 07/03/2020 6:06 PM
--- NOTE | 2020-07-03 18:10 | Diagnostic Imaging Report ---
EXAMINATION: CHEST SINGLE (PORTABLE) INDICATION: Multifocal pneumonia. Hypoxia. COMPARISON: 06/30/2020. FINDINGS: AP view TUBES and LINES: Endotracheal tube has been removed. Enteric tube extending below the diaphragm with distal tip not included. Right upper extremity PICC with distal tip projected on the cavoatrial junction, unchanged. LUNGS: Redemonstration of bilateral patchy interstitial and airspace disease with confluent consolidation particularly in the lingula and left lower lobe, not significantly changed. PLEURA: Bilateral small pleural effusions. No pneumothorax. HEART AND MEDIASTINUM: Obscured. BONES AND SOFT TISSUES: No acute osseous lesion. Soft tissues are unremarkable. UPPER ABDOMEN: No free air under the diaphragm. IMPRESSION: 1. Interval extubation. 2. No significant interval change in bilateral opacities. Signed by: Dr. Rafael Nunes M.D. on 07/03/2020 6:07 PM
--- NOTE | 2020-07-03 18:37 | NUR ---
patient had a cuff lick so Dr Quintanilla did tube exchanged. Patient did not tolerate the procedure well. patient oxygen saturation dropped to 50s with heart rate and sbp also in the 50s. emergent left chest tube was inserted, chest xray done. Dr tony called and updated her about the patient status.
--- NOTE | 2020-07-03 18:48 | Operative Report ---
DATE OF PROCEDURE: SURGEON: Foreign Quintanilla MD PROCEDURE: Tube exchange of an endotracheal tube with bougie. PREOPERATIVE DIAGNOSIS: Respiratory failure. POSTOPERATIVE DIAGNOSIS: Respiratory failure. CONSENT: Consent was obtained from the family due to prior intubation and mechanical ventilation. MEDICATIONS: The patient was on Versed and fentanyl at the time this procedure. PROCEDURE IN DETAIL: The NG tube was placed to suction. A bougie was placed to an 8.0 endotracheal tube. It was advanced into the trachea. The prior tube was removed and a new 8.0 endotracheal tube was passed over the bougie by the Seldinger technique. There was good CO2 return. There were decreased breath sounds on one side and the tube was retracted to 23 cm. The patient also required brief Ambu bag to increase saturations prior to be placing on the ventilator. COMPLICATIONS: None. ESTIMATED BLOOD LOSS: None. Foreign Quintanilla MD [facility]/MODL /[id number]
--- NOTE | 2020-07-03 18:57 | Diagnostic Imaging Report ---
EXAMINATION: CHEST SINGLE (PORTABLE) INDICATION: ET tube adjustment. COMPARISON: 07/03/2020 at 1727 hours. FINDINGS: AP view TUBES and LINES: Endotracheal tube has been withdrawn with distal tip approximately 2.4 cm proximal to the mila. Right upper extremity PICC with distal tip projected on the cavoatrial junction, unchanged. LUNGS: Redemonstration of lucency throughout the right hemithorax with displaced pleura in the apex, consistent with moderate to large pneumothorax. PLEURA: Bilateral small pleural effusions. HEART AND MEDIASTINUM: The cardiac silhouette is partially visualized. Widening of the superior mediastinum. BONES AND SOFT TISSUES: No acute osseous lesion. Soft tissues are unremarkable. UPPER ABDOMEN: No free air under the diaphragm. IMPRESSION: 1. Moderate to large right sided pneumothorax. Clinical team was informed of this finding at 6:45 PM on 07/03/2020. 2. Unchanged bilateral extensive airspace disease. Signed by: Dr. Rafael Nunes M.D. on 07/03/2020 6:54 PM
--- NOTE | 2020-07-03 18:58 | Operative Report ---
DATE OF PROCEDURE: SURGEON: Foreign Quintanilla MD PROCEDURE: Right-sided surgical chest tube placement. PREOPERATIVE DIAGNOSIS: Tension pneumothorax, on ventilator. POSTOPERATIVE DIAGNOSIS: Tension pneumothorax, on ventilator. CONSENT: Consent was deemed emergent due to hemodynamic instability and low oxygen saturations. MEDICATIONS: 1% lidocaine. DESCRIPTION OF PROCEDURE: The patient's right lateral thorax was prepped with chlorhexidine. 1% lidocaine was used to anesthetize the area in the mid axillary line at the 6th intercostal space. A 3 cm incision was made. Hemostat was used to dissect through the subcutaneous tissue to the parietal pleura. Rosa forceps were used to dissect through the parietal pleura into the pleural space. There was a large air leak. A 20-Wolof chest tube was placed. He was sutured in place with a horizontal mattress suture with 0 nylon. Two Prolene stitches were also used to anchor the tube. Tube was connected to a Pleur-evac with wall suction. COMPLICATIONS: None. ESTIMATED BLOOD LOSS: None. Foreign Quintanilla MD [facility]/MODL /[id number]
[2020-07-03 19:27] LABS: ABG PH 7.27 (7.35-7.45)
[2020-07-03 19:28] LABS: ABG HCO3 31 mmol/L (22-26); ABG PCO2 68 mmHg (35-45); ABG PO2 44 mmHg (80-105); ABG TCO2 33
--- NOTE | 2020-07-03 19:28 | Diagnostic Imaging Report ---
EXAMINATION: CHEST SINGLE (PORTABLE) INDICATION: Chest tube placement, verify position COMPARISON: Chest x-ray 07/03/2020 5:34 PM FINDINGS: TUBES and LINES: New right chest tube, sagittal port and tip projects within the right hemithorax. ET tube tip in the mid intrathoracic trachea. Enteric tube courses into the left upper abdomen, tip out of field of view. Right upper extremity PICC tip terminates in the superior cavoatrial junction. LUNGS: Extensive airspace haziness. PLEURA: Persistent moderate right pneumothorax. HEART AND MEDIASTINUM: The cardiomediastinal silhouette is mildly enlarged. Coronary stent. BONES AND SOFT TISSUES: Sternotomy wires. Subjacent emphysema in the right chest wall. UPPER ABDOMEN: No free air under the diaphragm. IMPRESSION: New right chest tube, tip and sidehole port project within the right hemithorax. Persistent moderate right pneumothorax. Extensive airspace disease. Signed by: Reagan Hanley DO on 07/03/2020 7:24 PM
--- NOTE | 2020-07-03 19:43 | Progress Note ---
DATE: 07/03/2020 CONSULTANTS: 1. Dr. Quintanilla, inpatient nursing aide. 2. Dr. Neves, Infectious Disease. 3. Dr. Simons, Cardiology. 4. Dr. Fry, Nephrology. SUBJECTIVE: The patient remains intubated and sedated, no events noted overnight. PHYSICAL EXAMINATION: VITAL SIGNS: Temperature 99.2, pulse is 93, respirations 36, blood pressure 110/64, pulse ox is 99% on vent. GENERAL: Sedated and intubated. LUNGS: Decreased breath sounds. CARDIOVASCULAR: Regular rate and rhythm. GI: Soft. MUSCULOSKELETAL: No edema. NEUROLOGIC: Sedated. SKIN: Dry. LABORATORY DATA: WBC 13.19, hemoglobin 9.5, hematocrit 33.7, and platelets 159. Sodium 150, potassium 4.1, BUN 35, creatinine 0.82, estimated GFR is 60. AST 34, ALT 33, alkaline phosphate 197, albumin 1.9. ABG; pH 7.16, pCO2 of 89, PO2 of 74, bicarb 32, total CO2 is 35. IMAGING: No significant interval change in bilateral opacities. IMPRESSION: 1. Acute respiratory failure due to coronavirus disease 2019 pneumonia. Remains intubated and sedated, on vent management per inpatient nursing aide. All antibiotics per ID. 2. Leukocytosis, improving. Further recommendations per ID. 3. Acute kidney injury. Creatinine is improved. 4. Hypernatremia. Sodium improving free water via NG per Renal. Sodium 150. 5. Diabetes type 2. Sliding scale insulin and Lantus at bedtime. 6. High cholesterol. Continue on Zetia. 7. Gastrointestinal and deep venous thrombosis prophylaxis. Continue Lovenox subcu. PLAN: To continue supportive therapy, vent management per inpatient nursing aide. Dictated by RACHEL Haynes Freidaching Richard Fallon MD MY/MODL /[id number]
--- NOTE | 2020-07-03 20:31 | NUR ---
Pt matteo - Evelio Quintanilla Addendum: 07/03/20 at 2031 by Tena Sow RT Amended: Links added.
[2020-07-03] MEDS: ATORVASTATIN 40 MG TAB PO SCH (21:28)
[2020-07-03] MEDS: INSULIN GLARGINE 100 UNITS/ML VIAL SQ SCH (21:33)
--- NOTE | 2020-07-03 22:05 | NUR ---
Patient proned at 20:30
--- NOTE | 2020-07-03 23:51 | NUR ---
while rounding, patient found to have large amount of blood on pads as well as large clots. Sand bag put on patient's side; stat labs drawn and Dr. Quintanilla notified of patient's status. per [place], morning dose of Lovenox to be held. Started patient of Levophed gtt. Will continue to monitor.
[2020-07-04] VITALS (23 sets, daily range): BP systolic 52–148; BP diastolic 35–73
[2020-07-04 00:10] LABS: HEMATOCRIT 28.2 % (38.2-49.6); HEMOGLOBIN 8.2 g/dL (14.0-18.0)
[2020-07-04 00:20] LABS: PROTHROMBIN TIME 13.7 seconds (11.9-14.5)
[2020-07-04] MEDS: NOREPINEPHRINE 8 MG/D5W 250 ML 250 ML IV PRN ×3 (00:20→12:10)
[2020-07-04 00:22] LABS: PARTIAL THROMBOPLASTIN TIME 36.7 seconds (23.8-35.5)
[2020-07-04] MEDS: ALBUMIN 25% 25GM 100ML 0.25 GM/ML BTL IV SCH ×3 (00:28→05:05)
[2020-07-04 00:30] LABS: ALBUMIN 2.3 g/dL (3.5-5.0); ALBUMIN/GLOBULIN RATIO 0.7 (0.8-2.0); ANION GAP 14.1 mmol/L (8-16); CALCIUM 9.5 mg/dL (8.4-10.2)
[2020-07-04 00:31] LABS: CREATININE, SERUM 1.33 mg/dL (0.72-1.25); POTASSIUM 5.1 mmol/L (3.5-5.1)
[2020-07-04] MEDS: INSULIN LISPRO 100 UNIT/1 ML 3ML VIAL SQ SCH ×4 (00:39→17:22)
[2020-07-04] MEDS ORDERED: ALTEPLASE RECOMBINANT 2 MG/2 ML VIAL IV ONE (01:45)
[2020-07-04] MEDS: MIDAZOLAM HCL 5MG/ML 10ML VIAL 100 ML IV PRN ×2 (02:05→13:29)
[2020-07-04] MEDS: ENOXAPARIN SOD INJ 40 MG/0.4 ML SYR SC SCH (05:05)
[2020-07-04 06:33] LABS: BASOPHILS # (AUTO) 0.1 (0.0-0.1); BASOPHILS % 0.4 % (0.0-1.0); EOSINOPHILS # (AUTO) 0.4 (0.0-0.4); EOSINOPHILS % 2.7 % (0.0-6.0); HEMATOCRIT 23.7 % (38.2-49.6); LYMPHOCYTES % 20.8 % (18.0-39.1); MEAN CORPUSCULAR HEMOGLOBIN 28.1 pg (28-32); MEAN CORPUSCULAR HGB CONC 28.7 g/dL (31-35); MEAN CORPUSCULAR VOLUME 97.9 fL (81-99); MONOCYTES # (AUTO) 1.1 (0.2-0.8); MONOCYTES % 7.6 % (4.4-11.3); NEUTROPHILS # (AUTO) 9.5 (2.1-6.9); NEUTROPHILS % 66.6 % (38.7-80.0); PLATELET COUNT 215 x10e3/uL (140-360); RED BLOOD COUNT 2.42 x10e6/uL (4.3-5.7); RED CELL DISTRIBUTION WIDTH 13.4 % (11.7-14.4)
[2020-07-04 06:40] LABS: HEMOGLOBIN 6.8 g/dL (14.0-18.0)
[2020-07-04] MEDS ORDERED: ALBUMIN 25% 25GM 100ML 0.25 GM/ML BTL IV ONE (06:45)
[2020-07-04 07:07] LABS: ALBUMIN 3.2 g/dL (3.5-5.0); ALBUMIN/GLOBULIN RATIO 1.1 (0.8-2.0); ANION GAP 12.8 mmol/L (8-16); CALCIUM 9.5 mg/dL (8.4-10.2); CREATININE, SERUM 1.44 mg/dL (0.72-1.25); POTASSIUM 4.8 mmol/L (3.5-5.1)
[2020-07-04] MEDS ORDERED: ALBUMIN 25% 25GM 100ML 200 ML IV ONE (07:15)
[2020-07-04] MEDS ORDERED: SODIUM CHLORIDE 0.9% 250ML 250 ML IV ONE (07:20)
[2020-07-04] MEDS ORDERED: LIDOCAINE HCL 2% LOCAL 20 ML VIAL ONE (08:06)
[2020-07-04] MEDS ORDERED: VASOPRESSIN INJ 20 UNIT/ML VIAL ONE (08:13)
[2020-07-04] MEDS ORDERED: SODIUM CHLORIDE 0.9% 50ML 50 ML ONE (08:14)
--- NOTE | 2020-07-04 08:53 | Diagnostic Imaging Report ---
TECHNIQUE: Frontal view of the chest. INDICATION: ^chest tube placement/desaturation ^[id number] ^[id number] COMPARISON: Prior day. DISCUSSION: Limited evaluation due to portable technique. Lines and hardware: Stable positioning of right PICC, right chest tube, endotracheal tube and enteric tube. Heart and mediastinum: Stable. Lungs and pleura: There is a large right pneumothorax without significant right to left mediastinal shift. There is increasing diffuse interstitial airspace opacities throughout the left lung. Soft tissues and bones: No acute abnormality. IMPRESSION: Large right pneumothorax with indwelling right chest tube concerning for tube malfunction. Increased diffuse patchy opacities of the left lung. Patient underwent chest tube placement after this radiograph. Signed by: Colin Dewey MD on 07/04/2020 8:50 AM
--- NOTE | 2020-07-04 08:56 | Diagnostic Imaging Report ---
TECHNIQUE: Frontal view of the chest. INDICATION: ^eval chest, chest tubes ^[id number] ^[id number] COMPARISON: Same day DISCUSSION: Limited evaluation due to portable technique. Lines and hardware: Interval placement of a second right chest tube is noted. Remaining support structures are stable. Heart and mediastinum: Stable. Lungs and pleura: Reexpansion of the right lung is noted without definite residual pneumothorax. There are diffuse bilateral interstitial and alveolar airspace opacities with a more consolidative appearance the left lung base, increased since the prior exam. Question trace effusions. Soft tissues and bones: No acute abnormality. Trace of the hands emphysema is noted overlying the right chest. IMPRESSION: 1. Interval placement of a second right chest tube with reexpansion of the right lung. Negative for significant right pneumothorax. 2. Worsening bilateral interstitial and airspace opacities with a more consolidative appearance at the left lung base. Trace effusions are also noted. Signed by: Colin Dewey MD on 07/04/2020 8:53 AM
[2020-07-04] MEDS: METOPROLOL TARTRATE 25 MG TAB NG SCH ×2 (09:00→20:31)
[2020-07-04] MEDS: ASPIRIN 81 MG CHEW TAB PO SCH (09:02)
[2020-07-04] MEDS: FAMOTIDINE 20 MG/2 ML VIAL IV SCH (09:02)
[2020-07-04] MEDS: CHOLECALCIFEROL 1,000 UNIT TAB PO SCH (09:02)
[2020-07-04] MEDS: ZINC SULFATE 220 MG CAP PO SCH (09:02)
[2020-07-04] MEDS: ASCORBIC ACID 500 MG TAB PO SCH ×2 (09:02→20:33)
[2020-07-04 09:03] LABS: BASOPHILS # (AUTO) 0.1 (0.0-0.1); BASOPHILS % 0.4 % (0.0-1.0); EOSINOPHILS # (AUTO) 0.4 (0.0-0.4); EOSINOPHILS % 1.8 % (0.0-6.0); HEMATOCRIT 23.8 % (38.2-49.6); LYMPHOCYTES % 35.5 % (18.0-39.1); MEAN CORPUSCULAR HEMOGLOBIN 28.3 pg (28-32); MEAN CORPUSCULAR HGB CONC 27.3 g/dL (31-35); MEAN CORPUSCULAR VOLUME 103.5 fL (81-99); MONOCYTES # (AUTO) 1.2 (0.2-0.8); NEUTROPHILS # (AUTO) 10.1 (2.1-6.9); NEUTROPHILS % 50.9 % (38.7-80.0); PLATELET COUNT 209 x10e3/uL (140-360); RED CELL DISTRIBUTION WIDTH 13.5 % (11.7-14.4)
[2020-07-04] MEDS ORDERED: SODIUM BICARBONATE 8.4% SYRING 100 ML ONE (09:05)
[2020-07-04 09:09] LABS: HEMOGLOBIN 6.5 g/dL (14.0-18.0)
[2020-07-04] MEDS: VASOPRESSIN 60 UNIT in DEXTROSE 5% 50ML 57 ML IV PRN (09:20)
--- NOTE | 2020-07-04 09:37 | Operative Report ---
DATE OF PROCEDURE: SURGEON: Foreign Quintanilla MD PROCEDURE: Surgical chest tube placement. PREOPERATIVE DIAGNOSIS: Tension pneumothorax with hypotension and desaturations. POSTOPERATIVE DIAGNOSIS: Tension pneumothorax with hypotension and desaturations. CONSENT: Consent was deemed emergent due to hemodynamic instability. MEDICATIONS: 1% lidocaine for local anesthesia. DESCRIPTION OF PROCEDURE: The patient was placed in a supine position. The area at the 2nd intercostal space in the midclavicular line was prepped sterilely with chlorhexidine. 1% lidocaine was used to anesthetize the area. A 3 cm incision was made. A 16-gauge needle was used to cannulate the pleural cavity in the 2nd intercostal space. There was some air return. A 3 cm incision was made in the 2nd intercostal space. The forceps were used to dissect through the subcutaneous tissue to the parietal pleura. Rosa forceps were then used to dissect through the parietal pleura. There was a significant air return. The lung was palpable with good respiratory variation. A 24-Ghanaian chest tube was then placed through the 2nd intercostal space. There was good air return with good respiratory variation. The patient's hemodynamic stability gradually improved. ESTIMATED BLOOD LOSS: 5 mL. COMPLICATIONS: None. Foreign Quintanilla MD LMH/MODL /[id number]
--- NOTE | 2020-07-04 09:42 | Progress Note ---
DATE: SUBJECTIVE: The patient was switched to pressure control around 10 p.m. last night. His saturations improved and good exhaled tidal volumes. Early this morning, his blood pressure decreased. He required additional albumin. He also had some bleeding around the chest tube site. A type and cross was ordered along with one unit of packed red blood cells. The nursing staff also increased the Levophed to maximum strength. Chest x-ray this morning showed a recurrent pneumothorax. The anterior chest tube was placed on the right side. Shortly before the procedure was completed, the patient required 2 amps of bicarb as well as epinephrine and CPR very briefly. The right chest tube dressing on the side was changed. The tube was occluded with blood and was irrigated. The visible blood within the lumen of the tube was removed. PHYSICAL EXAMINATION: VITAL SIGNS: The patient is still hypotensive. He is requiring Levophed as well as vasopressin. His blood pressure is 87/56 and his heart rate is 105. His T-max is 99.9. He is on a PRVC mode of ventilation with pressure control. His PEEP is set at 10 and his pressure above PEEP is set at 32. His rate is set at 34. HEENT: Shows no facial swelling or erythema. He has an arterial line in place as well as a PICC line. There is a right anterior chest tube in the right lateral chest tube. The sites look clean. ABDOMEN: Soft and nontender. There is no rebound or guarding. EXTREMITIES: Shows no leg edema or calf tenderness. There is no cyanosis or clubbing. SKIN: Shows no rashes. LABORATORY DATA: Hemoglobin is now 6.5 and the white blood cell count is 19.7. The platelet count is 209. The BUN to creatinine ratio is 43 to 1.44. Albumin is 3.2. IMPRESSION: 1. Viral pneumonia and COVID-19 infection. 2. Acute respiratory failure. 3. Acute renal failure. 4. Anemia secondary to acute and chronic blood loss. 5. Right-sided pneumothorax with 2 chest tubes. 6. Systolic congestive heart failure. 7. Diabetes. PLAN: 1. Continue chest tubes to suction. 2. The patient to receive packed red blood cells. 3. Continue pressure control. 4. Begin bicarbonate drip. 5. Repeat ABG later this afternoon. 6. Place the patient back in the prone position if possible. 7. Case discussed with daughter last night and again this morning. At this point, the family still wants to pursue all aggressive measures. 8. Case discussed with Dr. Fallon of Internal Medicine, nursing staff, and Respiratory. Greater than 35 minutes in direct critical care time apart from any procedures performed. MD IRINA Elise/ANGELA /[id number]
[2020-07-04] MEDS: SODIUM BICARBONATE 8.4% 150 ML in DEXTROSE 5% 1,000 ML IV SCH ×2 (10:34→21:36)
--- NOTE | 2020-07-04 10:59 | NUR ---
patient heart rate dropped to 40-50s with sbp in 50s during shift change. Dr quintanilla notified and he came to bedside. Emergent right chest tube was inserted by Dr quintanilla due to tension pneumothorax and x-ray done. patient became pulseless and cpr done as per acls protocol. Rosc achieved after two epi and bicarb. Patient is max out ob both norepi and vaso drip yet sbp in the 60s. PRBC order and going. Per Dr Quintanilla, Addendum: 07/04/20 at 1124 by Rudolph Marquez RN Dr Quintanilla spoke with the patient daughter (Miracle) about patient status and family want everything done for patient. Bicard drip ordered, PRBC is cureently being transfuse. patient was also given half amp of epi which brought up patient sbp to 100s but dropped back to 50s within [address] Simons was also at bedside and order half amp of epi to be given. Patient remain 100% ventilated with two chect tube to right chest.
--- NOTE | 2020-07-04 11:22 | Progress Note ---
DATE: 07/04/2020 Cardiology Progress Note SUBJECTIVE: Mr. Sanabria remains intubated, sedated in prone position. OBJECTIVE: VITAL SIGNS: Temperature 99.9, heart rate 105, blood pressure 87/56, respiratory rate 34, O2 saturation 82%. GENERAL: Intubated, sedated. NECK: Supple. HEENT: With facial edema. CHEST: With decreased breath sounds. Chest tubes now in place. CARDIOVASCULAR: Regular rate and rhythm. Normal S1, S2. ABDOMEN: Soft. Bowel sounds positive. EXTREMITIES: Trace edema. CARDIOVASCULAR MEDICATIONS: Reviewed. 1. Atorvastatin 40 at bedtime. 2. Aspirin 81 mg daily. 3. Lovenox 40 daily. 4. Metoprolol tartrate 12.5 q.12. 5. Furosemide, on hold. 6. Metoprolol, on hold. 7. Vasopressin and Levophed drips at max dose. STUDIES: Reviewed. Creatinine is 1.4, sodium 146, potassium 4.8, chloride 111, bicarbonate 27, BUN 43, and glucose 286. White blood cells 19.7, hemoglobin 6.5, and platelets 209. INR 1, PT 13.7, and PTT 36.7. AST 28, ALT 26. ASSESSMENT AND PLAN: A 69-year-old man presents with acute respiratory failure in the setting of COVID-19 infection, community-acquired pneumonia, status post tension pneumothorax, requiring chest tube placement. Acute anemia. Acute on chronic systolic heart failure. Coronary artery disease, hypertension, diabetes, dyslipidemia. Hypovolemic mixed with septic shock. RECOMMEND: Bolus 250 saline and epinephrine 0.5 mg administered at bedside with improvement in systolic blood pressure to 120s. Bicarbonate drip has been ordered as ABG pH was less than 7.2, and we are awaiting receipt of bicarb drip to initiate. PRBC transfusion also has been ordered. Awaiting blood products received for administration. Overall, guarded prognosis. High risk for , worsening condition. Aspirin, Lovenox metoprolol, Lasix, all on hold. Eligio Albarran MD AFV/MODL /[id number]
[2020-07-04] MEDS: FENTANYL 2000MCG/NS 250 250 ML IV PRN ×2 (13:28→21:03)
[2020-07-04] MEDS: ROCURONIUM BROMIDE 1,250 MG in SODIUM CHLORIDE 0.9% 250ML 125 ML IV SCH (13:28)
--- NOTE | 2020-07-04 14:09 | NUR ---
infectious disease progress note. Patient seen and examined chart reviewed discussed medical team preparative July 04, 2020. Patient remains in intensive care area tricked remains extremely ill. Remains on the ventilator on multiple drips the patient was switched to pressure control around 10 p.m. last night. His saturations improved and good exhaled tidal volumes. Early this morning, his blood pressure decreased. He required additional albumin. He also had some bleeding around the chest tube site. A type and cross was ordered along with one unit of packed red blood cells. The nursing staff also increased the Levophed to maximum strength. Chest x-ray this morning showed a recurrent pneumothorax. The anterior chest tube was placed on the right side. Shortly before the procedure was completed, the patient required 2 amps of bicarb as well as epinephrine and CPR very briefly. The right chest tube dressing on the side was changed. The tube was occluded with blood and was irrigated. The visible blood within the lumen of the tube was removed. PHYSICAL EXAMINATION: VITAL SIGNS: The patient is still hypotensive. patient remains in the intensive care unit intubated sedated He is requiring Levophed as well as vasopressin. His blood pressure is 87/56 and his heart rate is 105. His T-max is 99.9. He is on a PRVC mode of ventilation with pressure control. His PEEP is set at 10 and his pressure above PEEP is set at 32. His rate is set at 34. HEENT: Shows no facial swelling or erythema. He has an arterial line in place as well as a PICC line. There is a right anterior chest tube in the right lateral chest tube. The sites look clean. ABDOMEN: Soft and nontender. There is no rebound or guarding. EXTREMITIES: Shows no leg edema or calf tenderness. There is no cyanosis or clubbing. SKIN: Shows no rashes. LABORATORY DATA: Hemoglobin is now 6.5 and the white blood cell count is 19.7. The platelet count is 209. The BUN to creatinine ratio is 43 to 1.44. Albumin is 3.2. IMPRESSION: patient condition seems to be worse today concerned about sepsis concerned about aspiration pneumonia We will start him on meropenem and vancomycin obtain sputum for culture Adjust for kidney function 1. Viral pneumonia and COVID-19 infection. 2. Acute respiratory failure. 3. Acute renal failure. 4. Anemia secondary to acute and chronic blood loss. 5. Right-sided pneumothorax with 2 chest tubes. 6. Systolic congestive heart failure. 7. Diabetes.
[2020-07-04] MEDS: MEROPENEM 500MG/ NS 50ML 50 ML IV SCH (14:42)
[2020-07-04] MEDS ORDERED: VANCOMYCIN 1GM/NS 250 ML 250 ML IV SCH (16:00)
[2020-07-04] MEDS: FUROSEMIDE INJ 100 MG in SODIUM CHLORIDE 0.9% 100 ML 90 ML IV SCH (17:00)
--- NOTE | 2020-07-04 17:02 | NUR ---
Nutrition Intervention Note RD Recommendation(s) for Physician: - Continue to advance current TF of Vital High Protein to goal rate of 60 mL/hr (provides 1440 kcal, 126 g protein). - Pt may be fed at goal rate while prone when placed in reverse Trendelenburg with HOB at 10-25 degrees. - Water/fluid management per MD Plan of Care: RD following, monitoring for tolerance and adequacy, TF rec's Nutrition reason for involvement: follow up RD Assessment 07/04: Follow up. Chart reviewed. Pt remains intubated and sedated. RD called RN this morning who stated pts tube feeding was off at that time but will be restarted at 30 mL/hr. Per chart, pt had a pneumothorax and required chest tube placement. Will continue to monitor. 06/29: Follow up. Pt remains intubated, sedated, and paralyzed. Pt currently proned. TF infusing at 20 ml/hr per RN, noted pt received 400 ml TF per I/O documentation yesterday. Pt currently tolerating TF and having BMs, no pressor support, no Propofol- no contraindications to advancing TF to goal rate. Discussed with RN advancing TF to goal rate and maintaining goal rate while in prone position as long as pt is in reverse Trendelenburg position with HOB 10-25 degrees. Chart reviewed, MD to increase free water flushes 2/2 Na elevated. Will continue to monitor. 06/24: Early follow up due to initiation of tube feeding. Pt was intubated and tube feeding order was placed yesterday. Tube feeding recommendations provided to RN. Will continue to monitor. (06/20) RD received consult. RD spoke to RN over the phone due to isolation restrictions. Speech therapy evaluated pt and recommended a mechanical soft/chopped meats and veggies. RN stated pt is eating 25% of meals and has been refusing nutrition supplements. Encourage Glucerna or Ensure Compact nutrition supplements. Will continue to monitor (06/14) 69 YOM admitted for hypoxia and PNA, evaluated today per LOS and new stage II PU. Pt COVID negative, however currently on treatment protocol. Pt eating 100% of meals prior to NPO, no wt loss, no GI distress reported. Chart reviewed. Labs and meds reviewed, BG trend elevated. Will continue to monitor. Principal Problems/Diagnoses: hypoxia, multifocal pneumonia PMH: CABG, CAD, DM, HTN GI: soft, non-tender, round abdomen, last recorded BM 07/04 Skin: intact Labs: 07/04: Na 146, K 4.8, Cr 1.44, BUN 43, Glu 286 06/29: Na 151, K 4.1, BUN 40, Cr 1.02, Gluc 188, POC Gluc 174-189 06/24: Na 142,K 4.3, BUN 69, Cr 1.64, Glu 179 (06/20) Na 138, K 4.0, BUN 20, Cr 0.81, Glu 62 Meds: insulin, vitamin C, zinc sulfate, norepinephrine, fentanyl, insulin, atorvastatin, rocuronium, lasix, lactulose, metoprolol, vasopressin, zofran Ht: 66 in Wt: 219 lbs (07/04) 218 lb (06/29) 170 lbs (06/24) 190 lb (06/12) BMI: 27.4 kg/m2 - using weight of 170 lbs IBW: 142 lb Malnutrition Evaluation (07/04/20) Unable to complete NFPE assessment. Will re-evaluate at follow-up as appropriate. Intake adequacy: acute moderate- TF and po not meeting needs >5 days Wt loss: none, no wt loss reported on admit, pt with wt fluctuations since admit Fat loss: FARIDEH 2/2 COVID ICU isolation precautions Muscle loss: FARIDEH 2/2 COVID ICU isolation precautions Edema: no edema Functional status: FARIDEH 2/2 pt intubated and sedated in [facility] ICU Nutrition Prescription (Diet Order): Vital HP at 60 mL/hr, going to be infused at 30 ml/hr per RN (720 kcal and 63 g protein) Estimated Nutritional Needs: 1377-6569 calories/day (18-20 kcal/kg CBW) - weight used: 170 lbs 93-155 g protein/day (1.2-2 g pro/kg CBW) Weight used: 170 lbs Diet Adequacy: Not meeting calorie needs, Not meeting protein needs Tolerance: TF were off, going to be restarted at 30 mL/her per RN Diet Education Needs Assessment: Diet education not indicated. Nutrition Care Level: moderate Nutrition Diagnosis: Inadequate oral intake related to acute respiratory failure/mechanical ventilation as evidenced by pt requiring enteral nutrition. Goal: Patient will meet 75-100% of estimated needs by follow up Progress: goal not met Interventions: - TF Compostition/Rate/Route, Recommended modifications, Collaboration with other providers Monitoring/Evaluation: -Total energy intake, Total protein intake, Formula/Solution, Weight change Signed: Esme Buckley RD, LD
[2020-07-04 18:27] LABS: ABG HCO3 31 mmol/L (22-26); ABG PCO2 64 mmHg (35-45); ABG PH 7.29 (7.35-7.45); ABG PO2 54 mmHg (80-105); ABG TCO2 33
[2020-07-04 18:31] LABS: ABG HCO3 21 mmol/L (22-26); ABG PCO2 87 mmHg (35-45); ABG PO2 63 mmHg (80-105); ABG TCO2 24
[2020-07-04 18:45] LABS: BASOPHILS # (AUTO) 0.1 (0.0-0.1); BASOPHILS % 0.4 % (0.0-1.0); EOSINOPHILS % 0.1 % (0.0-6.0); HEMATOCRIT 26.5 % (38.2-49.6); HEMOGLOBIN 8.2 g/dL (14.0-18.0); LYMPHOCYTES # (AUTO) 2.2 (1.0-3.2); LYMPHOCYTES % 10.2 % (18.0-39.1); MEAN CORPUSCULAR HEMOGLOBIN 29.3 pg (28-32); MEAN CORPUSCULAR HGB CONC 30.9 g/dL (31-35); MEAN CORPUSCULAR VOLUME 94.6 fL (81-99); MONOCYTES # (AUTO) 1.4 (0.2-0.8); MONOCYTES % 6.3 % (4.4-11.3); NEUTROPHILS # (AUTO) 17.1 (2.1-6.9); NEUTROPHILS % 77.5 % (38.7-80.0); PLATELET COUNT 197 x10e3/uL (140-360); RED CELL DISTRIBUTION WIDTH 13.7 % (11.7-14.4)
[2020-07-04] MEDS ORDERED: SODIUM CHLORIDE 0.9% 250ML 250 ML IV SCH (18:45)
--- NOTE | 2020-07-04 18:55 | Progress Note ---
DATE: 07/04/2020 CONSULTANTS: 1. Dr. Quintanilla, manager development. 2. Dr. Neves, Infectious Disease. 3. Dr. Simons, Cardiology. 4. Dr. Fry, Nephrology. SUBJECTIVE: The patient remains intubated and sedated, he had developed left-sided pneumothorax, place chest tube and this morning right-sided pneumothorax with chest tubes to both sides. Reported anemia, currently transfusing 1 unit of PRBC. OBJECTIVE: VITAL SIGNS: Temperature 97.5, pulse is 106, respiration 34, blood pressure 99/50, pulse ox 86 on the vent. GENERAL: Sedated and intubated. LUNGS: With decreased breath sounds, chest tubes to both sides. On the left chest tube x2 bilaterally. CARDIOVASCULAR: Regular rate and rhythm. GI: Soft. MUSCULOSKELETAL: Mild edema. NEUROLOGIC: Sedated. SKIN: Dry. LABORATORY DATA: WBC 19.76, hemoglobin is 6.5, hematocrit 23.8, and platelets 209. Sodium 146, potassium 4.8, BUN 43, creatinine 1.44, estimated GFR is 48, blood sugar 286, AST 23, and ALT is 26. Chest x-ray this morning shows worsening bilateral interstitial airspace opacities with more consolidative appearance at the lung base. Chest tube to the right lung, negative pneumothorax. IMPRESSION: 1. Acute respiratory failure due to COVID 2019 pneumonia. Remains intubated and sedated, vent management per manager development and vancomycin started per ID. 2. Pneumothorax, recurrent. Chest tubes x2 in place. Chest x-ray, resolved pneumothorax, but with bilateral opacities. 3. Leukocytosis. Vanc and Merrem restarted per ID. 4. Acute anemia. Hemoglobin 6.5. Transfusing 1 unit of PRBC. We will recheck labs in the a.m. 5. Acute kidney injury. Creatinine is 1.44. Renal on case. 6. Hypernatremia. Free water via NG per Renal. 7. Diabetes type 2. Continue sliding scale and increase Lantus to 18 units at bedtime. 8. High cholesterol. Continue Zetia. 9. GI and DVT prophylaxis. Continue PPI and we will hold Lovenox due to anemia. PLAN: To continue on transfusion, repeat labs in the a.m., chest tubes noted. Discussed case with Dr. Quintanilla, manager development, who has also informed the patient's daughter as status changes. Dictated by Lili Lo, ANP MD SERA Bingham/ANGELA /[id number]
--- NOTE | 2020-07-04 19:25 | Progress Note ---
DATE: 07/03/2020 SUBJECTIVE: Mr. Sanabria remains in intensive care unit. This is day #21. He remains on FiO2 of 80%. His PEEP is 10 on several drip, Versed, fentanyl, and nimbex. PHYSICAL EXAMINATION: GENERAL: He is currently intubated and sedated. VITAL SIGNS: Stable, afebrile. HEENT: Normocephalic. NECK: Supple. CHEST: Few crackles bilateral. HEART: S1-S2. ABDOMEN: Soft, bowel sounds present. EXTREMITIES: No edema. LABORATORY DATA: His white count is 13.19, hemoglobin 9.5. Sodium 150 and his creatinine 0.82. He is currently on Lasix, insulin, and aspirin. IMPRESSION: Respiratory failure, COVID-19. Continue with supportive care. Prognosis remains very poor. We will follow. Gini Neves MD ZS/MODL /[id number]
--- NOTE | 2020-07-04 20:14 | Diagnostic Imaging Report ---
EXAMINATION: CHEST SINGLE (PORTABLE) INDICATION: Evaluate for pneumothorax. COMPARISON: Multiple prior chest x-rays including most recent earlier today. FINDINGS: TUBES and LINES: Endotracheal tube,, right PICC enteric tube and right chest tubes are unchanged. LUNGS: No interval change in multifocal interstitial and airspace opacities throughout both lungs. PLEURA: Probable trace bilateral pleural effusion. No evidence of pneumothorax. HEART AND MEDIASTINUM: The cardiomediastinal silhouette is obscured. BONES AND SOFT TISSUES: No acute osseous lesion. Interval improvement in previously seen left chest wall subcutaneous emphysema.. UPPER ABDOMEN: No free air under the diaphragm. IMPRESSION: 1. Stable support lines/tubes as above. No evidence of pneumothorax. 2. No interval change in multifocal interstitial and airspace opacities throughout both lungs. Signed by: Hilda Momin MD on 07/04/2020 8:11 PM
[2020-07-04] MEDS ORDERED: INSULIN LISPRO 100 UNIT/1 ML 3ML VIAL SQ ONE (20:21)
--- NOTE | 2020-07-04 20:25 | NUR ---
2022: called [facility] to notify of patient's blood glucose reading. Per [facility], give additional 14 units of Humalog once tonight to cover current reading. Also per telephone order, continue to hold patient's Lasix drip and hold tomorrow morning's (07/05) dose of Lovenox. will continue to monitor patient's condition
[2020-07-04] MEDS: ATORVASTATIN 40 MG TAB PO SCH (20:33)
[2020-07-04] MEDS ORDERED: INSULIN GLARGINE 100 UNITS/ML VIAL SQ SCH (21:00)
[2020-07-04 21:20] LABS: LYMPHOCYTES % (MANUAL) 10 % (19-48); MONOCYTES % (MANUAL) 6 % (3.4-9.0); NEUTROPHILS % (MANUAL) 81 % (40-74); PLATELET ESTIMATE ADEQUATE; PLATELET MORPHOLOGY COMMENT NORMAL; RBC MORPHOLOGY COMMENT NORMAL
[2020-07-04 23:29] LABS: ABG HCO3 33 mmol/L (22-26); ABG PCO2 66 mmHg (35-45); ABG PH 7.31 (7.35-7.45); ABG PO2 45 mmHg (80-105); ABG TCO2 34
[2020-07-04] MEDS: NOREPINEPHRINE INJ 4MG/4ML 16 MG in DEXTROSE 5% 250ML 250 ML IV PRN (23:35)
[2020-07-05] VITALS (21 sets, daily range): BP systolic 104–179; BP diastolic 45–97
--- NOTE | 2020-07-05 00:14 | NUR ---
called [facility] with results of ABG and informed that patient is now proned. O2 saturation increased slightly. Also, informed that patient's BG = 427; orders per [place], give 14 units per SS coverage; no additional coverage ordered. Will continue to monitor.
[2020-07-05] MEDS: INSULIN LISPRO 100 UNIT/1 ML 3ML VIAL SQ SCH ×5 (00:19→23:53)
--- NOTE | 2020-07-05 00:47 | Progress Note ---
DATE: 07/04/2020 Nephrology Progress Note SUBJECTIVE: The patient is still intubated and sedated. PHYSICAL EXAMINATION: VITAL SIGNS: Temperature is 99.6, pulse is on mechanical ventilation. GENERAL: Intubated and sedated. PULMONARY: Intubated and sedated. CARDIOVASCULAR: Positive S1, S2. No murmurs, rubs, or gallops appreciated. ABDOMEN: Soft, nondistended, nontender to palpation. Bowel sounds present. MUSCULOSKELETAL: Sedated. NEUROLOGICAL: Sedated. Unable to assess. EXTREMITIES: Trace edema appreciated. LABORATORY DATA: White count 22, hemoglobin 8, hematocrit 26, platelets of 197. Chemistry; sodium 136, potassium 4.8, chloride , creatinine 0.44, glucose noted to be 372. MICROBIOLOGY: None. IMAGING STUDIES: Chest x-ray still shows no change. IMPRESSION: 1. Acute kidney injury secondary to hypotension and acute tubular necrosis. 2. Hypernatremia secondary to dehydration and diuretics. 3. Viral pneumonia secondary to coronavirus, intubated and sedated. PLAN: Continue with free water flushes 350 mL q.6 hours. Sodium level is improving. Get a.m. labs. Monitor electrolytes closely. MD JAMARCUS Estrada/MODL /[id number]
[2020-07-05] MEDS: MEROPENEM 500MG/ NS 50ML 50 ML IV SCH ×2 (01:04→13:33)
[2020-07-05 04:47] LABS: BASOPHILS # (AUTO) 0.1 (0.0-0.1); BASOPHILS % 0.5 % (0.0-1.0); EOSINOPHILS % 0.2 % (0.0-6.0); HEMATOCRIT 26.3 % (38.2-49.6); HEMOGLOBIN 8.4 g/dL (14.0-18.0); LYMPHOCYTES # (AUTO) 1.7 (1.0-3.2); LYMPHOCYTES % 10.4 % (18.0-39.1); MEAN CORPUSCULAR HEMOGLOBIN 30.5 pg (28-32); MEAN CORPUSCULAR HGB CONC 31.9 g/dL (31-35); MEAN CORPUSCULAR VOLUME 95.6 fL (81-99); MONOCYTES # (AUTO) 0.7 (0.2-0.8); MONOCYTES % 4.4 % (4.4-11.3); NEUTROPHILS # (AUTO) 13.8 (2.1-6.9); PLATELET COUNT 166 x10e3/uL (140-360); RED BLOOD COUNT 2.75 x10e6/uL (4.3-5.7)
[2020-07-05 04:55] LABS: INR 2.09; PROTHROMBIN TIME 24.8 seconds (11.9-14.5)
[2020-07-05 04:56] LABS: PARTIAL THROMBOPLASTIN TIME 45.5 seconds (23.8-35.5)
[2020-07-05 05:15] LABS: ALBUMIN 2.4 g/dL (3.5-5.0); ANION GAP 17.4 mmol/L (8-16); CALCIUM 8.1 mg/dL (8.4-10.2); POTASSIUM 4.4 mmol/L (3.5-5.1)
[2020-07-05] MEDS: ENOXAPARIN SOD INJ 40 MG/0.4 ML SYR SC SCH (05:23)
[2020-07-05] MEDS: FENTANYL 2000MCG/NS 250 250 ML IV PRN ×2 (05:24→13:34)
[2020-07-05 05:56] LABS: CREATININE, SERUM 3.07 mg/dL (0.72-1.25)
[2020-07-05] MEDS: ROCURONIUM BROMIDE 1,250 MG in SODIUM CHLORIDE 0.9% 250ML 125 ML IV SCH (05:58)
--- NOTE | 2020-07-05 06:41 | NUR ---
called Dr. Quintanilla and informed of labs; 18 units of Regular insulin order for blood glucose of 430. ordered registered nurse teacher, Dr. Fry to be notified for other labs and low UOP. Called Dr. Fry to notify.
--- NOTE | 2020-07-05 06:57 | NUR ---
Called Dr. Fry in order to report labs as ordered by [place]. In the process of giving labs, Dr. Fry stated that "I am a kidney doctor and not a liver doctor." While trying to give him information pertaining to patient's kidney function, Dr. Fry hung up on me. Tried to called Dr. Fry back twice both times Dr. Fry hung up phone. Unable to report labs. Will inform dayshift nurse so that lab values can be reported as ordered.
[2020-07-05] MEDS ORDERED: INSULIN REGULAR, HUMAN 100 UNIT/1 ML 3ML VIAL SQ ONE (07:15)
[2020-07-05] MEDS: FAMOTIDINE 20 MG/2 ML VIAL IV SCH (08:27)
[2020-07-05] MEDS: ASPIRIN 81 MG CHEW TAB PO SCH (08:27)
[2020-07-05] MEDS: CHOLECALCIFEROL 1,000 UNIT TAB PO SCH (08:27)
[2020-07-05] MEDS: ZINC SULFATE 220 MG CAP PO SCH (08:27)
[2020-07-05] MEDS: ASCORBIC ACID 500 MG TAB PO SCH ×2 (08:27→21:00)
[2020-07-05] MEDS: SODIUM BICARBONATE 8.4% 150 ML in DEXTROSE 5% 1,000 ML IV SCH (08:35)
[2020-07-05] MEDS: METOPROLOL TARTRATE 25 MG TAB NG SCH (08:54)
[2020-07-05 09:02] LABS: BAND NEUTROPHILS % (MANUAL) 1 %; LYMPHOCYTES % (MANUAL) 5 % (19-48); MONOCYTES % (MANUAL) 2 % (3.4-9.0); MYELOCYTES % (MANUAL) 2 % (0-0); NEUTROPHILS % (MANUAL) 90 % (40-74); PLATELET ESTIMATE ADEQUATE; PLATELET MORPHOLOGY COMMENT NORMAL; RBC MORPHOLOGY COMMENT NORMAL
[2020-07-05] MEDS: MIDAZOLAM HCL 5MG/ML 10ML VIAL 100 ML IV PRN ×2 (10:15)
[2020-07-05] MEDS ORDERED: DEXTROSE 50% SYRINGE 50 ML IV PRN (11:15)
--- NOTE | 2020-07-05 11:44 | Progress Note ---
DATE: 07/05/2020 Cardiology Progress Note SUBJECTIVE: Mr. Sanabria remains intubated and sedated. OBJECTIVE: VITAL SIGNS: Temperature 98.6 heart rate 106, blood pressure 127/58, respiratory rate 34, and O2 saturation 100%. BMI 35. GENERAL: Intubated and Sedated. NECK: Supple. CHEST: With rales and decreased breath sounds. CARDIOVASCULAR: Regular rate and rhythm. Normal S1 and S2. ABDOMEN: Bowel sounds positive. EXTREMITIES: With edema 1+. Chest tubes in place. CARDIOVASCULAR MEDICATIONS: Reviewed. Levophed, atorvastatin 40 mg at bedtime, aspirin 81 mg daily, and Lovenox 40 mg subcutaneous daily. STUDIES: Reviewed. Sodium 145, potassium 4.4, chloride 101, bicarbonate 31, BUN 61, creatinine 3, and glucose of 430. White blood cells 16.8, hemoglobin 8.4, and platelets 166. INR 2 and PTT 45. AST 13,819, ALT 7151, total bilirubin 2.1, and alkaline phosphatase 357. ASSESSMENT AND PLAN: 1. A 69-year-old man with severe septic shock, severe sepsis in the setting of COVID-19 in the patient community-acquired pneumonia. 2. Anemia. 3. Acute renal failure. 4. Shock liver. 5. Coronary artery disease, history. RECOMMEND: Status post chest tube for pneumothorax. Monitor H and H. hypovolemic shock yesterday remains in septic shock now. Continue Levophed for MAP 65 to 75. Monitor H and H. PRBC transfusions as needed. Can hold aspirin as needed. Discontinue atorvastatin given abnormal LFTs and discontinue blood pressure medications given persistence of shock. The patient has had them on hold, however, will discontinue for now. Eligio Albarran MD AFV/MODL /[id number]
--- NOTE | 2020-07-05 12:07 | Diagnostic Imaging Report ---
EXAMINATION: CHEST SINGLE (PORTABLE) INDICATION: Pneumothorax COMPARISON: Chest radiograph 07/04/2020 FINDINGS: LINES/TUBES:Lateral right chest tube has been slightly pulled back, with side port now immediately adjacent to the lateral ribs. The other right chest tube appears unchanged. Remaining lines and tubes unchanged. LUNGS:The lungs are moderately inflated. Unchanged bilateral multifocal airspace opacities. PLEURA:No pleural effusion or pneumothorax. MEDIASTINUM:The cardiomediastinal silhouette appears unchanged in size and shape. BONES/SOFT TISSUES:No acute osseous injury. ABDOMEN:No free air under the diaphragm. IMPRESSION: Lateral right chest tube has been slightly pulled back, with the side port now immediately adjacent to the lateral ribs. Remaining lines and tubes unchanged. Unchanged bilateral multifocal airspace opacities. Signed by: Rigo Cotter MD on 07/05/2020 12:04 PM
[2020-07-05] MEDS: INSULIN REGULAR, HUMAN 3ML VL 100 UNIT in SODIUM CHLORIDE 0.9% 100 ML IV SCH ×4 (12:13→19:56)
--- NOTE | 2020-07-05 12:22 | NUR ---
infectious disease progress note Patient seen and examined chart reviewed events noted discussed with medical team lab data reviewed vitals reviewed. remains intubated and sedated. OBJECTIVE: VITAL SIGNS: stable no fever Temperature 98.6 heart rate 106, blood pressure 127/58, respiratory rate 34, and O2 saturation 100%. BMI 35. GENERAL: Intubated and Sedated. NECK: Supple. CHEST: With rales and decreased breath sounds. CARDIOVASCULAR: Regular rate and rhythm. Normal S1 and S2. ABDOMEN: Bowel sounds positive. EXTREMITIES: With edema 1+. Chest tubes in place. CARDIOVASCULAR MEDICATIONS: Reviewed. Levophed, atorvastatin 40 mg at bedtime, aspirin 81 mg daily, and Lovenox 40 mg subcutaneous daily. STUDIES: Reviewed. Sodium 145, potassium 4.4, chloride 101, bicarbonate 31, BUN 61, creatinine 3, and glucose of 430. White blood cells 16.8, hemoglobin 8.4, and platelets 166. INR 2 and PTT 45. AST 13,819, ALT 7151, total bilirubin 2.1, and alkaline phosphatase 357. ASSESSMENT AND PLAN: covid 19 respiratory failure Multiorgan failure Prognosis remains poor elevated liver enzyme could be shocked liver will obtain ultrasound to check hepatitis A, B, and C recheck liver enzyme will discontinue vancomycin and continue with meropenem Continue with supportive care as ordered 2. Anemia. 3. Acute renal failure. 4. Shock liver. 5. Coronary artery disease, history.
[2020-07-05 13:09] LABS: ALBUMIN 2.2 g/dL (3.5-5.0); BILIRUBIN,DIRECT 1.8 mg/dL (0.0-0.5)
--- NOTE | 2020-07-05 13:24 | Progress Note ---
DATE: Pulmonary Critical Care Progress Note SUBJECTIVE: The patient is now down to 6 of Levophed and 0.02 of vasopressin. The patient is in the prone position. His FiO2 is at 90% and his PEEP is set at 10. PHYSICAL EXAMINATION: VITAL SIGNS: The blood pressure is 122/56, on low dose Levophed and low dose vasopressin. The temperature is 97.4 and the saturation is 98%. HEENT: Shows no facial swelling or erythema. There is an oral endotracheal tube. There is a chest tube in place on the right side anteriorly as well as on the lateral thorax on the right side. The patient also has an arterial line and the PICC line. ABDOMEN: Soft and nontender. There is no rebound or guarding. EXTREMITIES: Shows no leg edema or calf tenderness. There is no cyanosis or clubbing. SKIN: Shows no rashes. NEUROLOGICAL: Shows no focal abnormalities. LABORATORY DATA: White blood cell count is 16.8 and the hemoglobin is 8.4. The platelet count is 166. The BUN to creatinine ratio is 61 to 3.07. The electrolytes are within normal limits and the blood sugar is 400 to 450. The AST is 13,819 and the ALT is 7151. The INR is 2.09. IMPRESSION: 1. Acute respiratory failure. 2. Acute renal failure. 3. Viral pneumonia and COVID-19 infection. 4. Ischemic hepatitis. 5. Coagulopathy. 6. Pneumothorax with [address] on the right side. 7. Systolic cardiomyopathy. 8. Diabetes. PLAN: 1. Continue to wean pressors. 2. Continue to monitor renal function. 3. Begin insulin drip. 4. Packed red blood cells as needed. 5. Stop bicarbonate drip. 6. Repeat ABG later this afternoon. Greater than 35 minutes in direct critical care time. Foreign Quintanilla MD LM/MODL /[id number]
[2020-07-05 16:23] LABS: ABG HCO3 35 mmol/L (22-26); ABG PCO2 80 mmHg (35-45); ABG PH 7.25 (7.35-7.45); ABG PO2 63 mmHg (80-105)
[2020-07-05 16:24] LABS: ABG TCO2 38
[2020-07-05 19:02] LABS: CHOL/HDL RATIO 3.5 (3.9-4.7)
[2020-07-05] MEDS ORDERED: FUROSEMIDE INJ 100 MG in SODIUM CHLORIDE 0.9% 100 ML 90 ML IV SCH (20:15)
--- NOTE | 2020-07-05 20:47 | Progress Note ---
DATE: 07/05/2020 CONSULTANTS: 1. Dr. Quintanilla, senior policy advisor. 2. Dr. Neves, Infectious Disease. 3. Dr. Simons, Cardiology. 4. Dr. Fry, parts room clerk. SUBJECTIVE: The patient remains intubated and sedated in prone position. Chest tube in place. OBJECTIVE: VITAL SIGNS: Temperature 97.4, pulse is 112, respirations 34, blood pressure 122/53, pulse ox 99% on the vent. GENERAL: Intubated and sedated. LUNGS: With decreased breath sounds. Chest tube x2 to the right. CARDIOVASCULAR: Tachycardia, S1, S2 heard. GI: Soft. MUSCULOSKELETAL: No edema. NEUROLOGIC: Sedated. SKIN: Dry. LABORATORY DATA: WBC 16.8, hemoglobin 8.4, hematocrit 26.3, platelet is 166. Sodium 145, potassium 4.4, creatinine 3.07, BUN is 61, glucose 455, total bilirubin 1.8, AST 6086, ALT 4091. Hepatitis panel pending. Chest x-ray showed lateral right chest tube has been slightly pulled back with multifocal airspace opacity. IMPRESSION: 1. Acute respiratory failure due to COVID-19 pneumonia. He remains intubated and sedated. Vent management per senior policy advisor. Continue on Merrem per ID. 2. Pneumothorax. Chest tube x2 to the right in place. Chest x-ray, resolved pneumothorax. 3. Leukocytosis. Continue on Merrem per ID. Chest x-ray with unchanged bilateral multifocal pneumonia. 4. Acute kidney injury. Creatinine is 3.07. We will defer to Renal. 5. Acute anemia status post 1 unit of PRBC. Hemoglobin is 8.4. We will continue to monitor closely. 6. Elevated LFTs pending hepatitis panel. We will continue to monitor closely. 7. Diabetes type 2. Continue sliding scale insulin and Lantus 8 units at bedtime. Insulin drip started. 8. High cholesterol. Continue Zetia. 9. GI and DVT prophylaxis. Continue PPI and we will hold Lovenox due to anemia. PLAN: To continue supportive therapy and vent management per senior policy advisor. Insulin drip started for hyperglycemia, repeat hepatic panel tomorrow. We will also check lipid panel. Dictated by RACHEL Haynes Yiching MD SERA Marie/ANGELA /[id number]
--- NOTE | 2020-07-05 23:12 | Progress Note ---
DATE: 07/05/2020 Nephrology Progress Note SUBJECTIVE: The patient underwent cardiac arrest yesterday according to the nursing staff, explains why the patient is in shock liver. He is also now in ATN. The patient is very ill. He is on one pressor now. PHYSICAL EXAMINATION: VITAL SIGNS: Temperature 97.5, pulse 110, respiratory rate is 36, blood pressure 110/56, pulse ox 96%, on 90% FiO2. GENERAL: Intubated and sedated. PULMONARY: Intubated and sedated with a chest tube. CARDIOVASCULAR: Positive S1 and S2. No murmurs, rubs, or gallops appreciated. ABDOMEN: Soft, nondistended, nontender to palpation. Bowel sounds present. MUSCULOSKELETAL: Unable to assess, sedated. NEUROLOGIC: Unable to assess, sedated. LABORATORY DATA: Show white count 16, hemoglobin 8.5, hematocrit is 26, platelets of 166. Chemistry; sodium 145, potassium 4.4, chloride 101, bicarb 31, anion gap of 17, BUN 61, creatinine is 3.07 which doubled, glucose level was 522. Total bilirubin is 2.1. LFTs shows AST 6086, ALT 4091, alkaline phosphatase 343, total bilirubin is 2.2. IMAGING STUDIES: Chest x-ray this morning, lateral right chest tube has been slightly pulled back. Still shows unchanged bilateral multifocal airspace opacities. IMPRESSION: 1. Acute kidney injury secondary to hypertension with underlying acute tubular necrosis secondary to cardiac arrest. 2. Shock liver. 3. Hypernatremia secondary to dehydration and diuretics. 4. Viral pneumonia secondary to coronavirus, intubated and sedated. PLAN: At this time from a renal standpoint, his sodium has improved to 145. His rest of electrolytes are stable. His BUN and creatinine are elevated. This is all secondary to underlying cardiac arrest leading to ATN. I suspect this patient will likely end up on dialysis. His ABG shows a pH of 7.25, pCO2 of 80. His bicarbonate is 35 though. At this time, we will put on a Lasix drip at 10 mg/hour to see if he can generate some urine and potentially see if his renal function improves. But if he does not improve and his urine output is dismal, and his electrolytes are worse tomorrow, he will likely need hemodialysis. I discussed this with the Critical Care attending as well as the nurse taking care of him right now. We will continue same plan of care and monitor very closely. MD JAMARCUS Estrada/ANGELA /[id number]
--- NOTE | 2020-07-05 23:54 | NUR ---
DC Vaso drip around 2330 07/05 and patient seems to tolerate the change. He is now on Levo alone.
[2020-07-06] VITALS (17 sets, daily range): BP systolic 94–144; BP diastolic 53–73
[2020-07-06] MEDS: MEROPENEM 500MG/ NS 50ML 50 ML IV SCH ×2 (02:00→16:46)
--- NOTE | 2020-07-06 03:30 | NUR ---
Received to ICU 194 from [facility] ICU. Placed on NBP, pulse ox & EKG for monitoring. Orally intubated. Vent settings: 90%, Peep 10, Rate 36, PC above PEEP 30. IVs: Lasix, Angelito, Insulin, Fent,Versed, Norepi & Vasopressin.
--- NOTE | 2020-07-06 05:15 | NUR ---
Vitas for earlier in the shift were not logged, patient was transferred to ICU from CICU and resource nurse assigned to log in vitals did not log vitals accordingly.
--- NOTE | 2020-07-06 05:37 | NUR ---
Patient was placed on a Lasix drip at start of shift. Patient only put out 25mL for the entire shift. very dark colored urine.
[2020-07-06 05:43] LABS: BASOPHILS # (AUTO) 0.2 (0.0-0.1); BASOPHILS % 0.7 % (0.0-1.0); EOSINOPHILS # (AUTO) 0.2 (0.0-0.4); EOSINOPHILS % 0.9 % (0.0-6.0); HEMATOCRIT 27.7 % (38.2-49.6); HEMOGLOBIN 8.6 g/dL (14.0-18.0); LYMPHOCYTES % 13.6 % (18.0-39.1); MEAN CORPUSCULAR HEMOGLOBIN 29.6 pg (28-32); MEAN CORPUSCULAR VOLUME 95.2 fL (81-99); MONOCYTES # (AUTO) 0.7 (0.2-0.8); MONOCYTES % 3.3 % (4.4-11.3); NEUTROPHILS # (AUTO) 16.3 (2.1-6.9); PLATELET COUNT 211 x10e3/uL (140-360); RED BLOOD COUNT 2.91 x10e6/uL (4.3-5.7)
[2020-07-06] MEDS: ENOXAPARIN SOD INJ 40 MG/0.4 ML SYR SC SCH (06:00)
[2020-07-06] MEDS: INSULIN LISPRO 100 UNIT/1 ML 3ML VIAL SQ SCH ×3 (06:00→16:46)
[2020-07-06 06:08] LABS: ALBUMIN 2.3 g/dL (3.5-5.0); ALBUMIN/GLOBULIN RATIO 0.9 (0.8-2.0); ANION GAP 15.9 mmol/L (8-16); CALCIUM 7.8 mg/dL (8.4-10.2); CREATININE, SERUM 4.13 mg/dL (0.72-1.25); POTASSIUM 3.9 mmol/L (3.5-5.1)
[2020-07-06] MEDS: INSULIN REGULAR, HUMAN 3ML VL 100 UNIT in SODIUM CHLORIDE 0.9% 100 ML IV SCH ×2 (06:21)
[2020-07-06 07:31] LABS: BAND NEUTROPHILS % (MANUAL) 3 %; LYMPHOCYTES % (MANUAL) 11 % (19-48); METAMYELOCYTES % (MANUAL) 2 % (0-0); MYELOCYTES % (MANUAL) 1 % (0-0); NEUTROPHILS % (MANUAL) 81 % (40-74); NUCLEATED RED BLOOD CELLS 7; PROMYELOCYTES % (MANUAL) 2 % (0-0)
[2020-07-06 07:35] LABS: PLATELET ESTIMATE ADEQUATE; PLATELET MORPHOLOGY COMMENT FEW LARGE; RBC MORPHOLOGY COMMENT NORMAL; SMUDGE CELLS FEW
[2020-07-06 08:53] LABS: ABG PH 7.29 (7.35-7.45)
[2020-07-06 08:54] LABS: ABG HCO3 33 mmol/L (22-26); ABG PCO2 68 mmHg (35-45); ABG PO2 63 mmHg (80-105); ABG TCO2 35
--- NOTE | 2020-07-06 10:55 | Progress Note ---
DATE: SUBJECTIVE: The patient is still requiring Levophed. The Levophed has been increased to 20 mcg. He is not urinating well. The patient is afebrile. PHYSICAL EXAMINATION: VITAL SIGNS: The patient's blood pressure is 99/60, saturation is 94%. He is currently on a pressure control mode of ventilation at a rate of 36 with a PEEP of 12 and pressure above PEEP of 30. His FiO2 is set at 90%. He is on 20 of Levophed. HEENT: Shows no facial swelling or erythema. There is an oral endotracheal tube. LYMPHATIC: Shows no submandibular, cervical or supraclavicular adenopathy. CARDIAC: Reveals regular rate and rhythm with normal S1 and S2. LUNGS: Auscultation of lungs reveals rhonchorous breath sounds bilaterally. There is no wheezing. ABDOMEN: Soft and nontender. There is no rebound or guarding. EXTREMITIES: Shows no leg edema or calf tenderness. There is no cyanosis or clubbing. SKIN: Shows no rashes. NEUROLOGICAL: Shows no focal abnormalities. LABORATORY DATA: The white blood cell count is 21.7, hemoglobin is 8.6, and platelet count is 211. The BUN to creatinine ratio is 71/4.13 and the sodium is 147. The blood sugar is 225 to 335. The AST is 5467 and the ALT is 4082. RADIOGRAPHIC DATA: Chest x-ray shows stable chest tubes with bilateral infiltrates. IMPRESSION: 1. Acute renal failure. 2. Acute respiratory failure. 3. Viral pneumonia and COVID-19 infection. 4. Ischemic hepatitis. 5. Pneumothorax with chest tubes on the right side. 6. Coagulopathy. 7. Systolic cardiomyopathy. 8. Diabetes. 9. Klebsiella urinary tract infection. PLAN: 1. Case discussed with daughter. Family will make a decision regarding dialysis. 2. Continue current ventilator settings and adjust as needed. 3. Continue current antibiotics. 4. Wean Levophed as tolerated. 5. Continue insulin drip. 6. Enteral feedings as tolerated. Foreign Quintanilla MD [facility]/MODL /[id number]
[2020-07-06] MEDS: ASCORBIC ACID 500 MG TAB PO SCH ×2 (11:29→21:39)
[2020-07-06] MEDS: CHOLECALCIFEROL 1,000 UNIT TAB PO SCH (11:29)
[2020-07-06] MEDS: ZINC SULFATE 220 MG CAP PO SCH (11:29)
[2020-07-06] MEDS: FAMOTIDINE 20 MG/2 ML VIAL IV SCH (11:29)
--- NOTE | 2020-07-06 13:01 | NUR ---
infectious disease progress note Patient with intensive care unit Patient remains in very critical condition Remains on a ventilator on vasopressors The patient is still requiring Levophed. The Levophed has been increased to 20 mcg. Discussed with the medical team that we did review her chart reviewed He is not urinating well. The patient is afebrile. PHYSICAL EXAMINATION:intubated and sedated VITAL SIGNS: The patient's blood pressure is 99/60, saturation is 94%. He is currently on a pressure control mode of ventilation at a rate of 36 with a PEEP of 12 and pressure above PEEP of 30. His FiO2 is set at 90%. He is on 20 of Levophed. HEENT: Shows no facial swelling or erythema. There is an oral endotracheal tube. LYMPHATIC: Shows no submandibular, cervical or supraclavicular adenopathy. CARDIAC: Reveals regular rate and rhythm with normal S1 and S2. LUNGS: Auscultation of lungs reveals rhonchorous breath sounds bilaterally. There is no wheezing. ABDOMEN: Soft and nontender. There is no rebound or guarding. EXTREMITIES: Shows no leg edema or calf tenderness. There is no cyanosis or clubbing. SKIN: Shows no rashes. NEUROLOGICAL: Shows no focal abnormalities. LABORATORY DATA: The white blood cell count is 21.7, hemoglobin is 8.6, and platelet count is 211. The BUN to creatinine ratio is 71/4.13 and the sodium is 147. The blood sugar is 225 to 335. The AST is 5467 and the ALT is 4082. RADIOGRAPHIC DATA: Chest x-ray shows stable chest tubes with bilateral infiltrates. IMPRESSION: 1. Acute renal failure. 2. Acute respiratory failure. 3. Viral pneumonia and COVID-19 infection. 4. Ischemic hepatitis. 5. Pneumothorax with chest tubes on the right side. 6. Coagulopathy. 7. Systolic cardiomyopathy. 8. Diabetes. 9. Klebsiella urinary tract infection. patient is going into multiorgan failure prognosis is very poor continue as ordered family is aware please refer to the orders
[2020-07-06] MEDS ORDERED: ALBUMIN 25% 25GM 100ML 0.25 GM/ML BTL IV SCH (13:30)
--- NOTE | 2020-07-06 13:36 | Diagnostic Imaging Report ---
EXAMINATION: CHEST SINGLE (PORTABLE) INDICATION: Pneumothorax COMPARISON: Chest radiograph of 07/05/2020 FINDINGS: LINES/TUBES:Lateral right chest tube has been slightly pulled back further, with side port now lateral to the right lateral thoracic parietal pleura. The other right chest tube appears unchanged. Remaining lines and tubes unchanged. LUNGS:The lungs are moderately inflated. Unchanged bilateral multifocal airspace opacities. PLEURA:No pleural effusion or pneumothorax. MEDIASTINUM:The cardiomediastinal silhouette appears unchanged in size and shape. BONES/SOFT TISSUES:No acute osseous injury. ABDOMEN:No free air under the diaphragm. IMPRESSION: Lateral right chest tube has been further pulled back, with the side port now lateral to the right lateral thoracic parietal pleura. No pneumothorax. Unchanged bilateral multifocal airspace opacities. The above findings were discussed with Vielka CONTAINER FINISHER on 07/06/2020 1:29 PM, who responded indicating that the communication was understood. Signed by: Rigo Cotter MD on 07/06/2020 1:33 PM
--- NOTE | 2020-07-06 13:40 | Diagnostic Imaging Report ---
EXAMINATION: CHEST SINGLE (PORTABLE) INDICATION: Endotracheal tube repositioning COMPARISON: Chest radiograph 07/06/2020 FINDINGS: LINES/TUBES:Endotracheal tube has been advanced, now terminating approximately 3 cm above the mila compared to 6 cm above the mila earlier the same day. Other lines and tubes unchanged, including the right lateral chest tube with side port no longer in the pleural space. LUNGS:Unchanged bilateral multifocal opacities. PLEURA:No pleural effusion or pneumothorax. MEDIASTINUM:The cardiomediastinal silhouette appears unchanged in size and shape. BONES/SOFT TISSUES:No acute osseous injury. ABDOMEN:No free air under the diaphragm. IMPRESSION: Endotracheal tube terminates 3 cm above the mila compared to 6 cm previously. Right lateral thoracic chest tube continues to show side port outside of the pleural space. Unchanged bilateral multifocal opacities. Signed by: Rigo Cotter MD on 07/06/2020 1:37 PM
[2020-07-06] MEDS: ROCURONIUM BROMIDE 1,250 MG in SODIUM CHLORIDE 0.9% 250ML 125 ML IV SCH (17:15)
--- NOTE | 2020-07-06 18:36 | Progress Note ---
DATE: 07/06/2020 CONSULTANTS: 1. Dr. Quintanilla, pulper operator. 2. Dr. Neves, Infectious Disease. 3. Dr. Simons, Cardiology. 4. Dr. Fry, Nephrology. SUBJECTIVE: The patient remains intubated and sedated with chest tube to the right side x2. OBJECTIVE: VITAL SIGNS: Temperature 97.8, pulse is 119, respirations 36, blood pressure 112/60, O2 sats 96% on the vent. GENERAL: Sedated and intubated. LUNGS: Decreased breath sounds, chest tube x2 to the right, draining fluid. CARDIOVASCULAR: Tachycardia. GI: Soft. MUSCULOSKELETAL: No edema. NEUROLOGIC: Sedated. SKIN: Dry. LABORATORY DATA: WBC 21.70, hemoglobin 8.3, hematocrit 27.7, platelets 211. Sodium 147, potassium 3.91, BUN 71, creatinine 4.13, AST 5467, ALT 4082, total bilirubin 2.3. LDL 10. Triglycerides 37. TSH 0.425. Hepatitis panel negative. IMAGING: Chest x-ray shows right lateral thoracic chest tube bilateral multifocal opacity. IMPRESSION: 1. Acute respiratory failure due to COVID-19 pneumonia. He remains intubated and sedated. Vent management per pulmonology, continue management per ID. 2. Pneumothorax, chest tube x2 to right side in place, chest x-ray noted. 3. Leukocytosis, WBC is 21 today. We will continue Merrem and defer to ID. 4. Acute kidney injury. Creatinine is worsening at four today. Started on Lasix drip per renal, may consider dialysis. 5. Anemia, status post 1 unit of PRBC. We will continue to monitor hemoglobin closely. 6. Elevated LFTs, likely due to shock. Hepatitis panel negative. We will continue to trend. 7. Diabetes type 2, continue insulin drip. 8. High cholesterol, continue on Zetia. Lipid panel within normal limits. 9. DVT prophylaxis, continue Lovenox subcu. PLAN: Continue insulin, Lasix, and Levophed . Chest tube in place. Continue to monitor closely. Dictated by RACHEL Haynes Yiching Richard Fallon, MD MY/JENNIFERL /[id number]
[2020-07-06] MEDS: FUROSEMIDE INJ 100 MG in SODIUM CHLORIDE 0.9% 100 ML 90 ML IV SCH (21:39)
[2020-07-06] MEDS: FENTANYL 2000MCG/NS 250 250 ML IV PRN (21:39)
[2020-07-06] MEDS: MIDAZOLAM HCL 5MG/ML 10ML VIAL 100 ML IV PRN (21:40)
[2020-07-06] MEDS: NOREPINEPHRINE INJ 4MG/4ML 16 MG in DEXTROSE 5% 250ML 250 ML IV PRN (23:40)
--- NOTE | 2020-07-06 23:41 | Progress Note ---
DATE: 07/06/2020 Cardiology Progress Note SUBJECTIVE: Mr. Sanabria remains intubated and sedated. Chest tube is in place. OBJECTIVE: VITAL SIGNS: Temperature 97.8, heart rate 119, sinus tachycardia on telemetry, blood pressure 120/55, respiratory rate 36, O2 saturation 90%. GENERAL: Intubated and sedated. NECK: Supple. CHEST: With rales and decreased breath sounds. Chest tube is in place. CARDIOVASCULAR: Regular rate and rhythm. Normal S1 and S2. ABDOMEN: Bowel sounds positive. EXTREMITIES: 1+ edema. Normothermic extremities. CARDIOVASCULAR MEDICATIONS: Reviewed. On vasopressin and Levophed. STUDIES: Reviewed. Sodium 147, potassium 3.9, chloride 103, bicarbonate 32, BUN 71, creatinine 4, glucose 224. White blood cells 21, hemoglobin 8.6, and platelets 211. AST 5467, ALT 4082. ASSESSMENT: A 69-year-old man presents with coronavirus disease 2019 infection, community-acquired pneumonia, acute respiratory failure, pneumothorax, acute blood loss anemia, mixed septic and hypovolemic shock in the setting of acute blood loss anemia. RECOMMENDATIONS: 1. Continue supportive care. 2. Transfuse as needed for hemoglobin less than 7. 3. Wean pressors to maintain a MAP 65 to 75. 4. Continue respiratory support. Eligio Albarran MD AFV/MODL /[id number]
[2020-07-07] VITALS (16 sets, daily range): BP systolic 90–173; BP diastolic 50–76
--- NOTE | 2020-07-07 00:22 | Progress Note ---
DATE: 07/06/2020 Nephrology Progress Note SUBJECTIVE: The patient's renal function is continued to deteriorate. I decided to order a tunneled HD catheter, but the family refused and they understand he is very sick. At this time, they would just like to see how he does. PHYSICAL EXAMINATION: VITAL SIGNS: Temperature is 99.5, pulse 123, respiratory rate is 36, blood pressure 104/53, pulse ox 90% on room 100% FiO2. GENERAL: Intubated and sedated. PULMONARY: Intubated and sedated. CARDIOVASCULAR: Positive S1 and S2. No murmurs, rubs, or gallops appreciated. ABDOMEN: Soft, nondistended, nontender to palpation. Bowel sounds present. MUSCULOSKELETAL: Unable to assess. NEUROLOGIC: Unable to assess. LABORATORY DATA: White count 21, hemoglobin 8.6, hematocrit is 27, and platelets 211. Chemistry; sodium 147, potassium 3.9, chloride 103, bicarb 32, anion gap of 15, BUN is 71, creatinine is 4.13, glucose is 224. LFTs were elevated. IMPRESSION: 1. Acute kidney injury secondary to hypertension with acute tubular necrosis secondary to cardiac arrest. 2. Shock liver. 3. Hypernatremia secondary to dehydration and diuretics. 4. Viral pneumonia secondary to coronavirus, intubated and sedated. PLAN: At this time, temporary HD catheter was ordered, but when the nursing staff and the Pulmonary Critical Care tried to get consent, the family refused at this time. They would like to just monitor him very closely. The know his overall prognosis is very poor. We will continue with Lasix drip for now. Monitor very closely. In the event the family changes their mind, I will provide an HD catheter. MD JAMARCUS Estrada/MODL /[id number]
[2020-07-07] MEDS: INSULIN LISPRO 100 UNIT/1 ML 3ML VIAL SQ SCH ×4 (01:23→18:00)
[2020-07-07] MEDS: MEROPENEM 500MG/ NS 50ML 50 ML IV SCH ×2 (02:31→16:47)
[2020-07-07 05:22] LABS: BASOPHILS # (AUTO) 0.1 (0.0-0.1); BASOPHILS % 0.3 % (0.0-1.0); EOSINOPHILS # (AUTO) 0.9 (0.0-0.4); EOSINOPHILS % 3.2 % (0.0-6.0); HEMATOCRIT 27.5 % (38.2-49.6); HEMOGLOBIN 8.4 g/dL (14.0-18.0); LYMPHOCYTES # (AUTO) 4.1 (1.0-3.2); LYMPHOCYTES % 15.2 % (18.0-39.1); MEAN CORPUSCULAR HEMOGLOBIN 29.1 pg (28-32); MEAN CORPUSCULAR HGB CONC 30.5 g/dL (31-35); MEAN CORPUSCULAR VOLUME 95.2 fL (81-99); MONOCYTES # (AUTO) 1.2 (0.2-0.8); MONOCYTES % 4.3 % (4.4-11.3); NEUTROPHILS # (AUTO) 18.1 (2.1-6.9); NEUTROPHILS % 66.6 % (38.7-80.0); PLATELET COUNT 249 x10e3/uL (140-360); RED BLOOD COUNT 2.89 x10e6/uL (4.3-5.7); RED CELL DISTRIBUTION WIDTH 14.5 % (11.7-14.4)
[2020-07-07] MEDS: ENOXAPARIN SOD INJ 40 MG/0.4 ML SYR SC SCH (05:24)
[2020-07-07] MEDS: FUROSEMIDE INJ 100 MG in SODIUM CHLORIDE 0.9% 100 ML 90 ML IV SCH ×2 (05:24→16:00)
[2020-07-07] MEDS: INSULIN REGULAR, HUMAN 3ML VL 100 UNIT in SODIUM CHLORIDE 0.9% 100 ML IV SCH ×2 (05:25)
[2020-07-07] MEDS: FENTANYL 2000MCG/NS 250 250 ML IV PRN ×3 (05:25→23:00)
[2020-07-07] MEDS: MIDAZOLAM HCL 5MG/ML 10ML VIAL 100 ML IV PRN ×3 (05:26→23:00)
[2020-07-07 06:05] LABS: ALBUMIN 2.2 g/dL (3.5-5.0); ALBUMIN/GLOBULIN RATIO 0.9 (0.8-2.0); ANION GAP 19.3 mmol/L (8-16); CALCIUM 7.1 mg/dL (8.4-10.2); POTASSIUM 4.3 mmol/L (3.5-5.1)
[2020-07-07 08:01] LABS: ABG HCO3 30 mmol/L (22-26); ABG PCO2 82 mmHg (35-45); ABG PH 7.17 (7.35-7.45); ABG PO2 77 mmHg (80-105); ABG TCO2 33
[2020-07-07 08:14] LABS: EOSINOPHILS % (MANUAL) 4 % (0-7); LYMPHOCYTES % (MANUAL) 22 % (19-48); METAMYELOCYTES % (MANUAL) 2 % (0-0); MONOCYTES % (MANUAL) 6 % (3.4-9.0); MYELOCYTES % (MANUAL) 2 % (0-0); NEUTROPHILS % (MANUAL) 64 % (40-74); NUCLEATED RED BLOOD CELLS 1
[2020-07-07 08:15] LABS: HYPOCHROMASIA MODE; PLATELET ESTIMATE ADEQUATE; PLATELET MORPHOLOGY COMMENT FEW LARGE; POLYCHROMASIA FEW
[2020-07-07] MEDS: ASCORBIC ACID 500 MG TAB PO SCH ×2 (09:00→21:38)
[2020-07-07] MEDS: ZINC SULFATE 220 MG CAP PO SCH (09:00)
[2020-07-07] MEDS: CHOLECALCIFEROL 1,000 UNIT TAB PO SCH (09:00)
[2020-07-07] MEDS: FAMOTIDINE 20 MG/2 ML VIAL IV SCH (09:00)
--- NOTE | 2020-07-07 15:26 | Progress Note ---
DATE: 07/07/2020 Cardiology Progress Note SUBJECTIVE: Intubated, sedated. OBJECTIVE: GENERAL: Intubated, sedated. VITAL SIGNS: Temperature 96.9, heart rate 117, respiratory rate 36, blood pressure 113/61, O2 saturation 96% on vent support. NECK: Supple. CHEST: Rales. Decreased breath sounds. CARDIOVASCULAR: Regular rate and rhythm. Normal S1, S2. ABDOMEN: Soft. EXTREMITIES: 1+ edema. MEDICATIONS: Lovenox 40 mg subcu daily on vasopressin drip. STUDIES: White blood cells 27 trending up, hemoglobin 8.4, stable, and platelets 249. INR 2. Sodium 144, potassium 4.3, chloride 101, bicarbonate 28, BUN 88, creatinine 5, glucose 288, and calcium 7.1. AST 2358, trending down. ALT 2893, alkaline phosphatase 388, total protein 4.6, albumin 2.2. ASSESSMENT AND PLAN: 1. Acute kidney injury secondary to ATN. 2. Shock liver. 3. Acute respiratory failure. 4. COVID-19 infection, community-acquired pneumonia. 5. Coronary artery disease. 6. Diabetes, hypertension, and dyslipidemia. 7. Acute on chronic systolic heart failure. 8. Anemia. RECOMMEND: 1. Remains in severe sepsis with septic shock. Continue vasopressin for MAP 65 to 75. 2. Status post severe anemia, hemoglobin down to 6.5, now status post transfusion, stable at 8.4. Monitor for recurrent bleeding. 3. Continue respiratory support for respiratory failure. 4. Goals of care discussions underway with Primary Service. 5. Guarded prognosis. Eligio Albarran MD AF[facility]uan/MODL /[id number]
--- NOTE | 2020-07-07 16:15 | NUR ---
infectious disease progress note Patient with intensive care unit Patient remains in very critical condition Remains on a ventilator on vasopressors Discussed with the medical team that we did review her chart reviewed He is not urinating well. The patient is afebrile. PHYSICAL EXAMINATION:intubated and sedated VITAL SIGNS: noted HEENT: Shows no facial swelling or erythema. There is an oral endotracheal tube. LYMPHATIC: Shows no submandibular, cervical or supraclavicular adenopathy. CARDIAC: Reveals regular rate and rhythm with normal S1 and S2. LUNGS: Auscultation of lungs reveals rhonchorous breath sounds bilaterally. There is no wheezing. ABDOMEN: Soft and nontender. There is no rebound or guarding. EXTREMITIES: Shows no leg edema or calf tenderness. There is no cyanosis or clubbing. SKIN: Shows no rashes. NEUROLOGICAL: Shows no focal abnormalities. LABORATORY DATA: The white blood cell count is 21.7, hemoglobin is 8.6, and platelet count is 211. The BUN to creatinine ratio is 71/4.13 and the sodium is 147. The blood sugar is 225 to 335. The AST is 5467 and the ALT is 4082. RADIOGRAPHIC DATA: Chest x-ray shows stable chest tubes with bilateral infiltrates. IMPRESSION: 1. Acute renal failure. 2. Acute respiratory failure. 3. Viral pneumonia and COVID-19 infection. 4. Ischemic hepatitis. 5. Pneumothorax with chest tubes on the right side. 6. Coagulopathy. 7. Systolic cardiomyopathy. 8. Diabetes. 9. Klebsiella urinary tract infection. patient is going into multiorgan failure prognosis is very poor continue as ordered family is aware please refer to the orders
[2020-07-07 16:43] LABS: ABG HCO3 30 mmol/L (22-26); ABG PCO2 74 mmHg (35-45); ABG PH 7.21 (7.35-7.45); ABG PO2 75 mmHg (80-105); ABG TCO2 32
--- NOTE | 2020-07-07 17:06 | Progress Note ---
DATE: SUBJECTIVE: The patient is currently on Levophed at 20 mcg as well as vasopressin 0.012. The patient remains on pressure control with a PEEP of 10 and a pressure above PEEP of 32. The rate is set at 36 and the FiO2 is 100%. PHYSICAL EXAMINATION: VITAL SIGNS: The blood pressure is 113/61. The heart rate is 110. HEENT: Shows no facial swelling or erythema. LYMPHATIC: Shows no submandibular, cervical, or supraclavicular adenopathy. There is an oral endotracheal tube. There is an arterial line and an IJ line. The patient also has an anterior chest tube. CARDIAC: Reveals a regular rate and rhythm with normal S1 and S2. LUNGS: Auscultation of lungs reveals decreased breath sounds at the bases. There is no wheezing. ABDOMEN: Soft and nontender. There is no rebound or guarding. EXTREMITIES: Show no leg edema or calf tenderness. There is no cyanosis or clubbing. SKIN: Shows no rashes. NEUROLOGICAL: Shows no focal abnormalities. LABORATORY DATA: White blood cell count is 27.2 and the hemoglobin is 8.4. The platelet count is 249. The BUN to creatinine ratio is 88 to 5. The other electrolytes are within normal limits and the blood sugar is 380 to 280. RADIOGRAPHIC DATA: Chest x-ray shows right lateral chest tube has been removed. There is an anterior chest tube as well. IMPRESSION: 1. Respiratory failure. 2. Viral pneumonia and COVID-19 infection. 3. Acute kidney failure. 4. Ischemic hepatitis. 5. Hypernatremia. 6. Pneumothorax. 7. Coagulopathy. 8. Systolic cardiomyopathy. 9. Klebsiella urinary tract infection. PLAN: 1. The family has opted to refrain from dialysis or any escalation of care. They do wish to continue pressors at this time. 2. Continue current antibiotics. 3. Continue ventilator settings and repeat ABG. 4. Continue insulin drip. 5. Enteral feedings. 6. Lovenox. 7. Case discussed with nursing, Respiratory, daughter, administration, and Nephrology. Greater than 35 minutes in direct critical care time. Foreign Quintanilla MD [facility]/MODL /[id number]
[2020-07-07] MEDS: ROCURONIUM BROMIDE 1,250 MG in SODIUM CHLORIDE 0.9% 250ML 125 ML IV SCH (17:15)
--- NOTE | 2020-07-07 17:46 | Diagnostic Imaging Report ---
EXAMINATION: CHEST SINGLE (PORTABLE) INDICATION: Pneumothorax. COMPARISON: Multiple prior radiographs including most recent on 06/16/2020. FINDINGS: TUBES and LINES: No significant interval changes in endotracheal tube which terminates approximately 4 cm above the mila, right PICC which terminates at the cavoatrial junction, right chest tube and subdiaphragmatic enteric tube. LUNGS: No interval change in multifocal airspace opacities throughout both lungs. PLEURA: No pleural effusion or pneumothorax. HEART AND MEDIASTINUM: The cardiomediastinal silhouette is obscured heart BONES AND SOFT TISSUES: No acute osseous lesion. Soft tissues are unchanged. UPPER ABDOMEN: No free air under the diaphragm. IMPRESSION: 1. No interval change in multifocal airspace opacities throughout both lungs. 2. Stable support lines/tubes. Signed by: Hilda Momin MD on 07/07/2020 5:43 PM
--- NOTE | 2020-07-07 21:27 | Progress Note ---
DATE: 07/07/2020 CONSULTANTS: 1. Dr. Quintanilla, slotter operator helper. 2. Dr. Neves, Infectious Disease. 3. Dr. Simons, Cardiology. 4. Dr. Fry, Nephrology. SUBJECTIVE: The patient remains intubated and sedated with chest tube in place, but family wants to hold off on dialysis. OBJECTIVE: VITAL SIGNS: Temperature 97.0, pulse is 107, respirations 36, blood pressure 119/59, pulse ox is 97% on the vent. GENERAL: Sedated and intubated. LUNGS: Decreased breath sounds. Chest tube to the right. CARDIOVASCULAR: Tachycardia. GI: Soft. MUSCULOSKELETAL: Generalized edema. NEURO: Sedated. SKIN: Dry. LABORATORY DATA: WBC 27.17, hemoglobin 8.4, hematocrit 27.5, platelet 249. Sodium 144, potassium 4.3, CO2 of 28, anion gap 19.3, BUN 88 and creatinine 5.0, calcium 7.1, AST 2358, ALT 2893. ABG; pH 7.17, pCO2 82, PO2 77, bicarb 30. IMAGING: Chest x-ray, no interval changes and multifocal airspace opacities throughout both lungs. Stable lines and tubes. IMPRESSION: 1. Acute respiratory failure due to COVID-19 pneumonia. Remains sedated and intubated with chest tube to the right. Vent management per slotter operator helper. 2. Pneumothorax. Chest tube in place. Chest x-ray with multifocal pneumonia, stable. 3. Leukocytosis. WBC is worsening at 27.1. We will continue on Merrem per ID. 4. Acute kidney injury. Creatinine is 5.0, continuing Lasix drip per Renal. Family does not want dialysis at this time. 5. Anemia. Status post 1 unit of PRBC. Hemoglobin is 8.4. We will continue to monitor. 6. Elevated liver function tests. Likely due to shock. Hepatitis panel is negative. Liver function tests are trending down. 7. Diabetes type 2. Continue insulin drip. 8. High cholesterol. 9. Deep vein thrombosis prophylaxis. Continue Lovenox subcu. PLAN: To continue insulin and Lasix drip. Pressors titrating. Creatinine is worsening, but holding off on dialysis per family. We will discuss about treatment goals. Dictated by RACHEL Haynes Yiching MD [facility]/ANGELA /[id number]
[2020-07-08] VITALS (25 sets, daily range): BP systolic 89–125; BP diastolic 42–61
--- NOTE | 2020-07-08 00:37 | Progress Note ---
DATE: 07/07/2020 Nephrology Progress Note SUBJECTIVE: The patient is still intubated and sedated. Renal function has worsened. He is hypotensive, decreased urine output. PHYSICAL EXAMINATION: VITAL SIGNS: Temperature is 96, pulse 102, respiratory rate is 36, blood pressure 119/59, pulse ox 98% on mechanical ventilator and FiO2 of 100%. GENERAL: Intubated and sedated. PULMONARY: Intubated and sedated. CARDIOVASCULAR: Positive S1 and S2. No murmurs, rubs, or gallops appreciated. ABDOMEN: Soft, nondistended, nontender to palpation. Bowel sounds present. MUSCULOSKELETAL: Unable to assess. NEUROLOGIC: Unable to assess. LABORATORY DATA: Labs show CBC; white count 27, hemoglobin 8.4, hematocrit is 27, and platelets of 249. Chemistry; sodium 144, potassium 4.3, chloride 101, bicarb 28, anion gap of 19, BUN is 88, creatinine is 5, glucose 264. LFTs downtrending. MICROBIOLOGY: Sputum culture shows Klebsiella oxytoca. IMPRESSION: 1. Acute kidney injury secondary to hypertension with acute tubular necrosis secondary to cardiac arrest. 2. Shock liver. 3. Hypernatremia secondary to dehydration and diuretics. 4. Viral pneumonia secondary to coronavirus disease 2019, intubated and sedated. PLAN: At this point, family does not want hemodialysis. His electrolytes are worsening. He is not hyperkalemic. Continue with Lasix drip for now. We will continue to monitor very closely. Overall prognosis is very poor. MD JAMARCUS Estrada/MODL /[id number]
[2020-07-08] MEDS: NOREPINEPHRINE INJ 4MG/4ML 16 MG in DEXTROSE 5% 250ML 250 ML IV PRN ×4 (01:32→13:03)
[2020-07-08] MEDS: FUROSEMIDE INJ 100 MG in SODIUM CHLORIDE 0.9% 100 ML 90 ML IV SCH ×3 (01:32→21:29)
[2020-07-08] MEDS: MEROPENEM 500MG/ NS 50ML 50 ML IV SCH ×4 (02:00→13:26)
[2020-07-08] MEDS: INSULIN LISPRO 100 UNIT/1 ML 3ML VIAL SQ SCH ×4 (06:00→18:00)
[2020-07-08 06:08] LABS: BASOPHILS # (AUTO) 0.2 (0.0-0.1); BASOPHILS % 0.6 % (0.0-1.0); EOSINOPHILS # (AUTO) 1.4 (0.0-0.4); EOSINOPHILS % 5.4 % (0.0-6.0); HEMATOCRIT 24.8 % (38.2-49.6); HEMOGLOBIN 7.7 g/dL (14.0-18.0); LYMPHOCYTES # (AUTO) 3.5 (1.0-3.2); LYMPHOCYTES % 13.2 % (18.0-39.1); MEAN CORPUSCULAR HEMOGLOBIN 28.8 pg (28-32); MEAN CORPUSCULAR VOLUME 92.9 fL (81-99); MONOCYTES # (AUTO) 1.5 (0.2-0.8); MONOCYTES % 5.5 % (4.4-11.3); NEUTROPHILS # (AUTO) 17.5 (2.1-6.9); NEUTROPHILS % 66.4 % (38.7-80.0); PLATELET COUNT 251 x10e3/uL (140-360); RED BLOOD COUNT 2.67 x10e6/uL (4.3-5.7); RED CELL DISTRIBUTION WIDTH 14.7 % (11.7-14.4)
[2020-07-08 06:16] LABS: ALBUMIN 2.1 g/dL (3.5-5.0); ALBUMIN/GLOBULIN RATIO 0.8 (0.8-2.0); ANION GAP 19.9 mmol/L (8-16); CALCIUM 7.7 mg/dL (8.4-10.2); CREATININE, SERUM 6.23 mg/dL (0.72-1.25); POTASSIUM 4.9 mmol/L (3.5-5.1)
[2020-07-08] MEDS: ENOXAPARIN SOD INJ 40 MG/0.4 ML SYR SC SCH (06:20)
[2020-07-08] MEDS: MIDAZOLAM HCL 5MG/ML 10ML VIAL 100 ML IV PRN (06:38)
[2020-07-08] MEDS: FENTANYL 2000MCG/NS 250 250 ML IV PRN ×2 (06:38→16:23)
[2020-07-08 07:49] LABS: EOSINOPHILS % (MANUAL) 5 % (0-7); LYMPHOCYTES % (MANUAL) 9 % (19-48); MONOCYTES % (MANUAL) 3 % (3.4-9.0); MYELOCYTES % (MANUAL) 6 % (0-0); NEUTROPHILS % (MANUAL) 77 % (40-74); NUCLEATED RED BLOOD CELLS 4
[2020-07-08 07:50] LABS: ANISOCYTOSIS SLIGHT; POLYCHROMASIA FEW; RBC MORPHOLOGY COMMENT ABNORMAL
[2020-07-08 07:51] LABS: PLATELET ESTIMATE ADEQUATE; PLATELET MORPHOLOGY COMMENT NORMAL
--- NOTE | 2020-07-08 08:30 | Diagnostic Imaging Report ---
EXAM: CHEST SINGLE (PORTABLE) DATE: 07/08/2020 5:35 AM INDICATION: Respiratory failure COMPARISON: 07/07/2020 FINDINGS: Endotracheal tube, right-sided PICC line, and right-sided chest tube identified in stable position. Enteric tube noted coursing below the diaphragm. Again identified are multifocal airspace opacities throughout the lungs bilaterally. There is no evidence for pneumothorax or significant bony pleural effusion. The cardiomediastinal silhouette is partially secured by grossly stable in appearance. No acute osseous abnormalities identified. IMPRESSION: No significant interval change from 07/07/2020. Signed by: Dr. Gopi Ceja MD on 07/08/2020 8:26 AM
[2020-07-08] MEDS: ASCORBIC ACID 500 MG TAB PO SCH ×2 (09:10→21:29)
[2020-07-08] MEDS: FAMOTIDINE 20 MG/2 ML VIAL IV SCH (09:10)
[2020-07-08] MEDS: ZINC SULFATE 220 MG CAP PO SCH (09:10)
[2020-07-08] MEDS: CHOLECALCIFEROL 1,000 UNIT TAB PO SCH (09:12)
--- NOTE | 2020-07-08 09:28 | NUR ---
ABG shown to Dr Quintanilla when asked yes on 100% fio2
--- NOTE | 2020-07-08 10:10 | NUR ---
Dr Quintanilla spoke updated the with and family patient condition and prognosis code status changed to DNR
[2020-07-08 10:18] LABS: ABG HCO3 28 mmol/L (22-26); ABG PCO2 57 mmHg (35-45); ABG PH 7.29 (7.35-7.45); ABG PO2 58 mmHg (80-105); ABG TCO2 29
[2020-07-08] MEDS: INSULIN REGULAR, HUMAN 3ML VL 100 UNIT in SODIUM CHLORIDE 0.9% 100 ML IV SCH ×6 (10:29→16:22)
--- NOTE | 2020-07-08 11:54 | Progress Note ---
DATE: SUBJECTIVE: The patient is still not urinating. He is still on a mechanical ventilator. He is congested and coughing. He is saturating in the high 80s and low 90s on 100% with a PEEP of 12 and pressure control above PEEP of 30. He is still requiring Levophed at 20 mcg. PHYSICAL EXAMINATION: VITAL SIGNS: The patient is afebrile. The blood pressure is 109/54 and the saturation is 90%. HEENT: Shows no facial swelling or erythema. LYMPHATIC: Shows no submandibular, cervical, or supraclavicular adenopathy. CARDIAC: Reveals regular rate and rhythm with normal S1 and S2. LUNGS: Auscultation of lungs reveals crackles at the bases. There is no wheezing. ABDOMEN: Soft and nontender. There is a chest tube in place anteriorly on the right. There is A-line. EXTREMITIES: There is no leg edema. LABORATORY DATA: White blood cell count is 26.3, hemoglobin is 7.7, and the platelet count is 251. The BUN to creatinine ratio is 104 to 6.23 and the other electrolytes are within normal limits. Albumin is 2.1. IMPRESSION: 1. Acute respiratory failure. 2. Viral pneumonia and COVID-19 infection. 3. Acute renal failure. 4. Ischemic hepatitis. 5. Pneumothorax. 6. Coagulopathy. 7. Klebsiella urinary tract infection. 8. Systolic cardiomyopathy. PLAN: 1. The patient is now on oral vancomycin in addition to IV antibiotics for possible Clostridium difficile. 2. Continue current ventilator settings. 3. Continue Levophed. 4. Continue enteral feedings. 5. Family wants to hold off on dialysis. 6. Family wants to make the patient DNR. We will arrange resuscitation. 7. Greater than 35 minutes in direct critical care time. 8. Case discussed with the , Zohreh Sanabria, daughter, Miracle, hotel night auditor nursing, day shift nursing, Respiratory, administration, Infectious Disease, and Nephrology. Foreign Quintanilla MD [facility]/MODL /[id number]
[2020-07-08] MEDS ORDERED: FUROSEMIDE INJ 10 MG/ML 10 ML VIAL ONE (11:56)
--- NOTE | 2020-07-08 15:23 | NUR ---
and family at bedside with surgical mask, gown and gloves emotional support given explained all the equipment and pulled covers back to patient gowns, daughter Miracle translated and no questions at this time.
--- NOTE | 2020-07-08 16:14 | NUR ---
Nutrition Intervention Note RD Recommendation(s) for Physician: - Continue Vital High Protein at goal rate of 60 mL/hr as appropriate (provides 1440 kcal, 126 g protein). - Pt may be fed at goal rate while prone when placed in reverse Trendelenburg with HOB at 10-25 degrees. - Water/fluid management per MD Plan of Care: RD following, monitoring for tolerance and adequacy, TF rec's Nutrition reason for involvement: follow up RD Assessment 07/08: Follow up. Chart reviewed. Pt remains intubated and sedated. Pts tube feeding is at 60 mL/hr. Per chart, pts renal function has worsened. MD note indicates that family wants to hold off on dialysis at this time and make pt DNR. Will continue to monitor. 07/04: Follow up. Chart reviewed. Pt remains intubated and sedated. RD called RN this morning who stated pts tube feeding was off at that time but will be restarted at 30 mL/hr. Per chart, pt had a pneumothorax and required chest tube placement. Will continue to monitor. 06/29: Follow up. Pt remains intubated, sedated, and paralyzed. Pt currently proned. TF infusing at 20 ml/hr per RN, noted pt received 400 ml TF per I/O documentation yesterday. Pt currently tolerating TF and having BMs, no pressor support, no Propofol- no contraindications to advancing TF to goal rate. Discussed with RN advancing TF to goal rate and maintaining goal rate while in prone position as long as pt is in reverse Trendelenburg position with HOB 10-25 degrees. Chart reviewed, MD to increase free water flushes 2/2 Na elevated. Will continue to monitor. 06/24: Early follow up due to initiation of tube feeding. Pt was intubated and tube feeding order was placed yesterday. Tube feeding recommendations provided to RN. Will continue to monitor. (06/20) RD received consult. RD spoke to RN over the phone due to isolation restrictions. Speech therapy evaluated pt and recommended a mechanical soft/chopped meats and veggies. RN stated pt is eating 25% of meals and has been refusing nutrition supplements. Encourage Glucerna or Ensure Compact nutrition supplements. Will continue to monitor (06/14) 69 YOM admitted for hypoxia and PNA, evaluated today per LOS and new stage II PU. Pt COVID negative, however currently on treatment protocol. Pt eating 100% of meals prior to NPO, no wt loss, no GI distress reported. Chart reviewed. Labs and meds reviewed, BG trend elevated. Will continue to monitor. Principal Problems/Diagnoses: hypoxia, multifocal pneumonia PMH: CABG, CAD, DM, HTN GI: soft, non-tender, round abdomen, last recorded BM 07/08 Skin: intact Labs: 07/08: Na 143, K 4.9, Cr 6.23, BUN 104, Glu 159, Ca 7.7, Total Bili 2.7, AST 1361, ALT 2481 07/04: Na 146, K 4.8, Cr 1.44, BUN 43, Glu 286 06/29: Na 151, K 4.1, BUN 40, Cr 1.02, Gluc 188, POC Gluc 174-189 06/24: Na 142,K 4.3, BUN 69, Cr 1.64, Glu 179 (06/20) Na 138, K 4.0, BUN 20, Cr 0.81, Glu 62 Meds: insulin, norepinephrine, furosemide, vitamin D, pepcid, vitamin C, zinc sulfate fentanyl, antibiotic, vasopressin, lactulose, zofran Ht: 66 in Wt: 182 lbs (07/05) 219 lbs (07/04) 218 lb (06/29) 170 lbs (06/24) 190 lb (06/12) Suspect weight error or fluid related BMI: 27.4 kg/m2 - using weight of 170 lbs IBW: 142 lb Malnutrition Evaluation (07/08/20) The patient does not meet criteria for a specified degree of malnutrition at this time.Will re-evaluate at follow-up as appropriate. Intake adequacy: TF is at goal rate meeting calorie and protein needs Wt loss: none, no wt loss reported on admit, pt with wt fluctuations since admit Fat loss: FARIDEH 2/2 COVID ICU isolation precautions Muscle loss: FARIDEH 2/2 COVID ICU isolation precautions Edema: generalized edema per MD note Functional status: FARIDEH 2/2 pt intubated and sedated in COVID ICU Nutrition Prescription (Diet Order): Vital HP at 60 mL/hr (provides 1440 kcal, 126 g protein) Estimated Nutritional Needs: 0174-2966 calories/day (18-20 kcal/kg CBW) - weight used: 170 lbs 93-155 g protein/day (1.2-2 g pro/kg CBW) Weight used: 170 lbs Diet Adequacy: meeting calorie needs, meeting protein needs Tolerance: tolerating TF Diet Education Needs Assessment: Diet education not indicated. Nutrition Care Level: moderate Nutrition Diagnosis: Inadequate oral intake related to acute respiratory failure/mechanical ventilation as evidenced by pt requiring enteral nutrition. Goal: Patient will meet 75-100% of estimated needs by follow up Progress: goal met Interventions: - TF Compostition/Rate/Route Monitoring/Evaluation: -Total energy intake, Total protein intake, Formula/Solution, Weight change Signed: Esme Buckley RD, LD
--- NOTE | 2020-07-08 16:53 | NUR ---
infectious disease progress note He is saturating in the high 80s and low 90s on 100% with a PEEP of 12 and pressure control above PEEP of 30. He is still requiring Levophed at 20 mcg. PHYSICAL EXAMINATION: VITAL SIGNS: The patient is afebrile. The blood pressure is 109/54 and the saturation is 90%. HEENT: Shows no facial swelling or erythema. LYMPHATIC: Shows no submandibular, cervical, or supraclavicular adenopathy. CARDIAC: Reveals regular rate and rhythm with normal S1 and S2. LUNGS: Auscultation of lungs reveals crackles at the bases. There is no wheezing. ABDOMEN: Soft and nontender. There is a chest tube in place anteriorly on the right. There is A-line. EXTREMITIES: There is no leg edema. impression Covid 19 respiratory failure Ragini 1. Acute kidney injury, secondary to hypertension with acute tubular necrosis, secondary to cardiac arrest. 2. Shock liver. 3. Hypernatremia, secondary to dehydration diuretics. 4. Acquired pneumonia, secondary to coronavirus disease 2019, intubated and sedated. continue supportive care as ordered continue to monitor for aspiration
[2020-07-08] MEDS: ROCURONIUM BROMIDE 1,250 MG in SODIUM CHLORIDE 0.9% 250ML 125 ML IV SCH (17:15)
--- NOTE | 2020-07-08 17:30 | NUR ---
Liver Ultrasound done.
--- NOTE | 2020-07-08 17:40 | Progress Note ---
DATE: 07/08/2020 CONSULTANTS: 1. Dr. Quintanilla, personal lines appraiser. 2. Dr. Neves, ID. 3. Dr. Simons, Cardiology. 4. Dr. Fry, Nephrology. SUBJECTIVE: The patient is intubated and sedated, chest tube in place, creatinine is worsening. OBJECTIVE: VITAL SIGNS: Temperature is 99.2, pulse is 110, respirations 36, blood pressure 101/49, pulse oximetry is 90% on the vent. GENERAL: Intubated and sedated. LUNGS: Decreased breath sounds. CARDIOVASCULAR: Tachycardic, S1, S2 heard. GI: Soft. MUSCULOSKELETAL: Generalized edema. NEURO: Sedated. SKIN: Dry. LABORATORY DATA: WBC 26.29, hemoglobin 7.7, hematocrit 24.8, platelets 251. Sodium 143, potassium 4.9, BUN 104, creatinine 6.23, estimated GFR is 9, AST 1361, ALT 2481, alkaline phosphatase 466. IMPRESSION: 1. Acute respiratory failure due to COVID-19 pneumonia. Intubated and sedated with chest tube to the right side. Vent management per personal lines appraiser, antibiotics per ID. 2. Pneumothorax. Chest tube in place. 3. Leukocytosis. WBC is 26.2, we will continue Merrem per ID. 4. Acute kidney injury. Creatinine is worsening at 6.23. Continue Lasix drip per Renal. Dialysis has been hold after discussing with family. 5. Anemia. Status post 1 unit of PRBC. Hemoglobin is 7.7. 6. Elevated liver function tests. Likely due to shock. Hepatitis panel is negative. Liver functions are trending down. 7. Diabetes type 2. Continue insulin drip. 8. High cholesterol. 9. Deep vein thrombosis prophylaxis. Continue Lovenox. PLAN: To continue pressors and insulin. Creatinine continues to worsen. Dictated by RACHEL Haynes Luiz Fallon MD [facility]/MODL /[id number]
--- NOTE | 2020-07-08 17:49 | NUR ---
Dr Simons at bedside
--- NOTE | 2020-07-08 18:40 | Diagnostic Imaging Report ---
EXAM: Liver Ultrasound INDICATION: Hypoxia and abdominal pain. COMPARISON: None. TECHNIQUE: Transverse and longitudinal images of the liver were obtained. FINDINGS: Liver: Size: 15.2 cm in the right midclavicular line, normal Appearance: Normal echogenicity, smooth contour Mass: No focal masses Gallbladder: There are stones and sludge in the gallbladder. No evidence of gallbladder wall thickening. Negative sonographic Lopez's sign. Bile Ducts: No extrahepatic or intrahepatic biliary ductal dilatation. The common bile duct has normal caliber measuring 0.2 cm. Free Fluid: No ascites or pleural effusion The main portal vein has normal caliber measuring 1.2 cm with hepatopedal flow. The right kidney is normal measuring 10.4 x 5.1 x 4.9 cm. The head and proximal body the pancreas appear normal. The tail is not visualized. The abdominal aorta and inferior vena cava have normal caliber. IMPRESSION: Cholelithiasis without sonographic evidence of cholecystitis. Signed by: Hilda Momin MD on 07/08/2020 6:37 PM
[2020-07-09] VITALS (27 sets, daily range): BP systolic 66–175; BP diastolic 39–74
--- NOTE | 2020-07-09 01:00 | NUR ---
Pt proned at this time. Sats improved from low 80s to low 90s. Pt tolerated well.
--- NOTE | 2020-07-09 01:07 | Progress Note ---
DATE: 07/08/2020 Cardiology Progress Note SUBJECTIVE: Intubated and sedated. OBJECTIVE: VITAL SIGNS: Temperature 99.2, heart rate 111, respiratory rate 36, blood pressure 125/55, O2 saturation 88% on vent support. GENERAL: Intubated and sedated. NECK: Supple. CHEST: With rales and decreased breath sounds. CARDIOVASCULAR: Regular rate and rhythm. Normal S1 and S2. ABDOMEN: Soft. EXTREMITIES: 1+ edema. Normothermic. CARDIOVASCULAR MEDICATIONS: Reviewed. On Levophed, off vasopressin, and on Lovenox 40 subcu daily. STUDIES: Reviewed. White blood cells 26, hemoglobin 7.7 trending down from 8.4, platelets 251. Sodium 143, potassium 4.9, chloride 101, bicarbonate 27, BUN 104, creatinine 6.2, glucose 161, calcium 7.7, total bilirubin 2.3, AST 1361, ALT 2481, alkaline phosphatase 466, total protein 4.7, albumin 2.1. ASSESSMENT AND PLAN: 1. Acute respiratory failure. 2. Coronavirus disease-2019 infection, community-acquired pneumonia. 3. Pneumothorax, status post chest tube. 4. Acute blood loss anemia, status post PRBC transfusion. 5. Acute kidney injury with worsening creatinine. Nephrology consulted. 6. Shock liver. 7. Diabetes mellitus. 8. Hypertension. 9. Coronary artery disease. 10. [id number] systolic heart failure. RECOMMEND: 1. Remains in shock. Continue wean Levophed for MAP 65-75. Guarded prognosis. 2. The patient is DNR. 3. Monitor H and H, transfuse as needed. Eliigo Albarran MD [facility]/MODL /[id number]
[2020-07-09] MEDS: MEROPENEM 500MG/ NS 50ML 50 ML IV SCH ×2 (02:07→14:36)
--- NOTE | 2020-07-09 02:27 | Progress Note ---
DATE: 07/08/2020 Nephrology Progress Note SUBJECTIVE: The patient is not doing very well. He is still at baseline. He is very hypoxic. On mechanical ventilator. LABORATORY DATA: Labs show white count 26, hemoglobin 7.7, hematocrit 24, platelets of 251. Chemistry, sodium 142, potassium 4.1, chloride 101, bicarb 27, anion gap is 19. BUN is 104, creatinine is 6.23, glucose 159. His LFTs are elevated. MICROBIOLOGY: His sputum culture shows klebsiella oxytoca. IMAGING STUDIES: Chest x-ray this morning showed no significant interval change. Liver ultrasound shows cholelithiasis without sonographic evidence of cholecystitis. PHYSICAL EXAMINATION: VITAL SIGNS: Temperature is 99.2, pulse 110, respiratory rate is 36, blood pressure 113/52, pulse ox FiO2. GENERAL: Intubated and sedated. PULMONARY: Intubated and sedated. CARDIOVASCULAR: Positive S1 and S2. No murmurs, rubs, or gallops appreciated. GI: Abdomen is soft, nondistended, nontender to palpation. Bowel sounds present. MUSCULOSKELETAL: Unable to assess. Sedated. NEUROLOGIC: Unable to assess. Sedated. IMPRESSION: 1. Acute kidney injury, secondary to hypertension with acute tubular necrosis, secondary to cardiac arrest. 2. Shock liver. 3. Hypernatremia, secondary to dehydration diuretics. 4. Acquired pneumonia, secondary to coronavirus disease 2019, intubated and sedated. PLAN: At this time, renal function is worsening. Electrolytes are noted. Family does not want dialysis. Lasix drip at this time. Since he is not making any urine, it would not be of any help. Since the family does not want HD, we will continue to monitor. If they change their mind, we will proceed with dialysis. MD JAMARCUS Estrada/MODL /[id number]
[2020-07-09] MEDS: FENTANYL 2000MCG/NS 250 250 ML IV PRN (02:55)
[2020-07-09] MEDS: MIDAZOLAM HCL 5MG/ML 10ML VIAL 100 ML IV PRN ×3 (02:56→23:41)
[2020-07-09 05:33] LABS: BASOPHILS # (AUTO) 0.1 (0.0-0.1); BASOPHILS % 0.2 % (0.0-1.0); EOSINOPHILS # (AUTO) 2.3 (0.0-0.4); EOSINOPHILS % 7.3 % (0.0-6.0); HEMATOCRIT 28.4 % (38.2-49.6); HEMOGLOBIN 8.5 g/dL (14.0-18.0); LYMPHOCYTES # (AUTO) 4.4 (1.0-3.2); LYMPHOCYTES % 13.9 % (18.0-39.1); MEAN CORPUSCULAR HEMOGLOBIN 28.2 pg (28-32); MEAN CORPUSCULAR HGB CONC 29.9 g/dL (31-35); MEAN CORPUSCULAR VOLUME 94.4 fL (81-99); MONOCYTES # (AUTO) 2.4 (0.2-0.8); MONOCYTES % 7.5 % (4.4-11.3); NEUTROPHILS # (AUTO) 19.6 (2.1-6.9); NEUTROPHILS % 62.6 % (38.7-80.0); PLATELET COUNT 272 x10e3/uL (140-360); RED BLOOD COUNT 3.01 x10e6/uL (4.3-5.7); RED CELL DISTRIBUTION WIDTH 15.5 % (11.7-14.4)
[2020-07-09] MEDS: ENOXAPARIN SOD INJ 40 MG/0.4 ML SYR SC SCH (05:38)
[2020-07-09] MEDS: INSULIN LISPRO 100 UNIT/1 ML 3ML VIAL SQ SCH ×2 (05:38)
[2020-07-09 06:01] LABS: ANION GAP 20.4 mmol/L (8-16); CALCIUM 8.5 mg/dL (8.4-10.2); CREATININE, SERUM 7.1 mg/dL (0.72-1.25); POTASSIUM 5.4 mmol/L (3.5-5.1)
[2020-07-09] MEDS: NOREPINEPHRINE INJ 4MG/4ML 16 MG in DEXTROSE 5% 250ML 250 ML IV PRN ×4 (06:12→21:00)
--- NOTE | 2020-07-09 07:00 | NUR ---
Patient in prone position
[2020-07-09 07:24] LABS: EOSINOPHILS % (MANUAL) 9 % (0-7); LYMPHOCYTES % (MANUAL) 19 % (19-48); METAMYELOCYTES % (MANUAL) 3 % (0-0); MONOCYTES % (MANUAL) 7 % (3.4-9.0); NEUTROPHILS % (MANUAL) 62 % (40-74); NUCLEATED RED BLOOD CELLS 8
[2020-07-09 07:25] LABS: ANISOCYTOSIS SLIGHT; PLATELET ESTIMATE ADEQUATE; PLATELET MORPHOLOGY COMMENT NORMAL; RBC MORPHOLOGY COMMENT ABNORMAL; TOXIC GRANULATION MODERATE
[2020-07-09 07:26] LABS: OVALOCYTES FEW; POLYCHROMASIA FEW
[2020-07-09] MEDS: CHOLECALCIFEROL 1,000 UNIT TAB PO SCH (08:06)
[2020-07-09] MEDS: FAMOTIDINE 20 MG/2 ML VIAL IV SCH (08:06)
[2020-07-09] MEDS: ZINC SULFATE 220 MG CAP PO SCH (08:06)
[2020-07-09] MEDS: ASCORBIC ACID 500 MG TAB PO SCH ×2 (08:06→21:41)
[2020-07-09] MEDS: INSULIN REGULAR, HUMAN 3ML VL 100 UNIT in SODIUM CHLORIDE 0.9% 100 ML IV SCH ×6 (08:26→23:40)
--- NOTE | 2020-07-09 10:40 | NUR ---
Dr Quintanilla at bedside informed him BS 76-200 patient on insulin drip and humalog sliding scale dc sliding scale
--- NOTE | 2020-07-09 11:18 | Progress Note ---
DATE: SUBJECTIVE: The family came to visit last night. He is DNR. He is being continued on pressors and ventilation, but the family does not want any further escalation. He will not receive dialysis. PHYSICAL EXAMINATION: VITAL SIGNS: The blood pressure is 106/50 and pulse is 103. HEENT: Shows no facial swelling or erythema. The oropharynx is normal. There is an oral endotracheal tube. LYMPHATIC: Shows no submandibular, cervical, or supraclavicular adenopathy. CARDIAC: Reveals regular rhythm with normal S1 and S2. LUNGS: Auscultation of lungs reveals rhonchorous breath sounds bilaterally. There is no wheezing. ABDOMEN: Soft and nontender. There is no rebound or guarding. EXTREMITIES: Shows no leg edema or calf tenderness. There is no cyanosis or clubbing. SKIN: Shows no rashes. NEUROLOGICAL: Shows no focal abnormalities. LABORATORY DATA: The BUN to creatinine ratio is 109 to 7.1. Other electrolytes are within normal limits and the white blood cell count is 31.3. The hemoglobin is 8.5, and the platelet count is 272. IMPRESSION: 1. Acute respiratory failure. 2. Viral pneumonia, coronavirus disease-2019 infection. 3. Acute renal failure. 4. Ischemic hepatitis. 5. Pneumothorax. 6. Systolic cardiomyopathy. PLAN: 1. Continue insulin drip. 2. Continue current pressors. 3. Continue mechanical ventilation. 4. Hold off on dialysis. 5. Prognosis remains very poor. Foreign Quintanilla MD [facility]/MODL /[id number]
--- NOTE | 2020-07-09 15:37 | NUR ---
Dr Neves here update given
--- NOTE | 2020-07-09 15:51 | NUR ---
Turned Vasopressin back off at this time
--- NOTE | 2020-07-09 15:52 | NUR ---
Patient remains prone
--- NOTE | 2020-07-09 16:30 | NUR ---
Patient becomes very hypotensive quickly watch pressors volume closely
--- NOTE | 2020-07-09 16:41 | NUR ---
infectious disease parents note patient seen and examined chart reviewed events noted. he family came to visit last night. He is DNR. He is being continued on pressors and ventilation, but the family does not want any further escalation. He will not receive dialysis. PHYSICAL EXAMINATION:patient is noncommunicative intubated and sedated VITAL SIGNS: The blood pressure is 106/50 and pulse is 103. HEENT: Shows no facial swelling or erythema. The oropharynx is normal. There is an oral endotracheal tube. LYMPHATIC: Shows no submandibular, cervical, or supraclavicular adenopathy. CARDIAC: Reveals regular rhythm with normal S1 and S2. LUNGS: Auscultation of lungs reveals rhonchorous breath sounds bilaterally. There is no wheezing. ABDOMEN: Soft and nontender. There is no rebound or guarding. EXTREMITIES: Shows no leg edema or calf tenderness. There is no cyanosis or clubbing. SKIN: Shows no rashes. NEUROLOGICAL: Shows no focal abnormalities. LABORATORY DATA: The BUN to creatinine ratio is 109 to 7.1. Other electrolytes are within normal limits and the white blood cell count is 31.3. The hemoglobin is 8.5, and the platelet count is 272. IMPRESSION: 1. Acute respiratory failure. 2. Viral pneumonia, coronavirus disease-2019 infection. 3. Acute renal failure. 4. Ischemic hepatitis. 5. Pneumothorax. 6. Systolic congestive heart failure Continue with treatment as ordered surveillance for sepsis prognosis remains poor
[2020-07-09] MEDS ORDERED: NOREPINEPHRINE 8 MG/D5W 250 ML 250 ML ONE (16:43)
[2020-07-09] MEDS: ROCURONIUM BROMIDE 1,250 MG in SODIUM CHLORIDE 0.9% 250ML 125 ML IV SCH (17:15)
--- NOTE | 2020-07-09 18:25 | Progress Note ---
DATE: 07/09/2020 CONSULTANTS: 1. Dr. Quintanilla, [facility]. 2. Dr. Neves, ID. 3. Dr. Simons, Cardiology. 4. Dr. Fry, Nephrology. SUBJECTIVE: The patient remains intubated and sedated in prone position, chest tube remains in place, creatinine worsening. Family has visited yesterday and he is DNR status. OBJECTIVE: VITAL SIGNS: Temperature 96.6, pulse is 102, respirations 36, blood pressure 109/52, pulse ox is 95% on the vent. GENERAL: Intubated and sedated. LUNGS: Decreased breath sounds. CARDIOVASCULAR: Tachycardic. GI: Soft. MUSCULOSKELETAL: Generalized edema. NEURO: Sedated. SKIN: Dry. LABORATORY DATA: WBC 31.34, hemoglobin 8.5, hematocrit 28.4, and platelets 272. Sodium 140, potassium 5.4, creatinine 7.10, BUN 109. IMPRESSION: 1. Acute respiratory failure due to coronavirus disease 2019 pneumonia. Remains intubated and sedated. Chest tube to the right side for pneumothorax. Vent management per [facility] and antibiotics per ID. 2. Leukocytosis. WBC 31.1 today. We will continue on Merrem per ID. 3. Acute kidney injury. Creatinine 7.1, continue Lasix drip per Renal. No dialysis. 4. Anemia. Status post 1 unit of PRBCs. Hemoglobin is 8.5. 5. Elevated LFTs. Likely due to shock. Hepatitis panel negative. 6. Diabetes type 2. Continue insulin drip. 7. High cholesterol. 8. Deep vein thrombosis prophylaxis. Continue Lovenox. PLAN: To continue IV antibiotics, pressors, and insulin. No dialysis per discussion with family. He is DNR. Dictated by RACHEL Haynes Luiz Fallon MD MY/MODL /[id number]
--- NOTE | 2020-07-09 18:25 | NUR ---
Dr Fry here update given
[2020-07-09] MEDS ORDERED: NOREPINEPHRINE 8 MG/D5W 250 ML 500 ML ONE (21:29)
--- NOTE | 2020-07-09 21:30 | NUR ---
Call placed to Dr. Abisai Quintanilla due to pt's bp in the 60s systolic and continuing to drop. Pt over the max on Levophed and maxed on Vasopressin at this time & sedation cut off. MD does not want to add more pressors due to pt being DNR and family refusing dialysis. Ordered 2 amp bicarb pushes STAT. BP improved, will monitor.
[2020-07-09] MEDS ORDERED: SODIUM BICARBONATE 8.4% SYRING 100 ML ONE (21:32)
[2020-07-09] MEDS ORDERED: SODIUM BICARBONATE 8.4% INJ 50 ML SYR IV STA (21:41)
--- NOTE | 2020-07-09 22:10 | Progress Note ---
DATE: 07/09/2020 Cardiology Progress Note SUBJECTIVE: No new events O Acutely ill, intubated Rales on lung exam RRR tachycardic Peripheral edema 1. A 69-year-old man presents with COVID-19 infection, community-acquired pneumonia, pneumothorax, CAD, acute on chronic systolic heart failure, mixed septic and hemorrhagic shock, now status post PRBC transfusions. 2. Acute blood loss anemia. 3. Acute renal failure. 4. Shock liver. LABORATORY DATA: Studies reviewed, including potassium 5.4, creatinine 7. White blood cells 31, hemoglobin 8.5, platelets 272. INR 2. AST 1261, ALT 2481. MEDICATIONS: Reviewed, on vasopressin and on Levophed, Lovenox 40 q.12, aspirin 81 mg daily. ASSESSMENT AND PLAN: 1. Monitor hemoglobin and hematocrit. 2. Wean pressors for MAP 65 to 75. 3. Nephrology consultation. 4. Overall, multiorgan failure in the setting of COVID-19 infection with respiratory failure. Prognosis is guarded. The patient continues to deteriorate compared to yesterday. Eligio Albarran MD AFJuan/MODL /[id number] MTDD
[2020-07-10] VITALS (28 sets, daily range): BP systolic 12–155; BP diastolic 9–62
--- NOTE | 2020-07-10 02:01 | Progress Note ---
DATE: 07/09/2020 Nephrology Progress Note SUBJECTIVE: The patient is severely ill. No overnight events. PHYSICAL EXAMINATION: VITAL SIGNS: Temperature is 96.3, pulse 104, respirations 36, blood pressure . GENERAL: Intubated and sedated. PULMONARY: Intubated and sedated. CARDIOVASCULAR: Positive S1, S2. ABDOMEN: Soft, nondistended, nontender to palpation. Bowel sounds present. MUSCULOSKELETAL: Unable to assess. NEUROLOGIC: Unable to assess. LABORATORY DATA: Show white count 31, hemoglobin 8.5, hematocrit 28, and platelets of 272. Chemistry; sodium 140, potassium 5.4, chloride 99, bicarb 26, anion gap of 20, BUN 109, creatinine 7.1. Urine output, he is anuric. IMPRESSION: 1. Acute kidney injury with underlying acute tubular necrosis secondary to cardiac arrest. 2. Shock liver. 3. Hypernatremia. 4. Mild hyperkalemia. 5. Bilateral pneumonia. PLAN: At this time, renal functioning worsening. He is anuric. His potassium is 5.4, was given bicarbonate. Repeat labs in the morning. His blood pressure is . The renal function is abnormal. Family refuses dialysis. At this time, we will continue same plan of care. If the family changes their mind, we will proceed with dialysis. MD JAMARCUS Estrada/MODL /[id number]
[2020-07-10] MEDS: MEROPENEM 500MG/ NS 50ML 50 ML IV SCH ×2 (02:41→13:41)
[2020-07-10] MEDS: NOREPINEPHRINE INJ 4MG/4ML 16 MG in DEXTROSE 5% 250ML 250 ML IV PRN ×3 (06:21→22:03)
[2020-07-10] MEDS: ENOXAPARIN SOD INJ 40 MG/0.4 ML SYR SC SCH (06:21)
[2020-07-10] MEDS: ROCURONIUM BROMIDE 1,250 MG in SODIUM CHLORIDE 0.9% 250ML 125 ML IV SCH (06:21)
[2020-07-10 06:34] LABS: BASOPHILS # (AUTO) 0.2 (0.0-0.1); BASOPHILS % 0.6 % (0.0-1.0); EOSINOPHILS # (AUTO) 0.3 (0.0-0.4); EOSINOPHILS % 1.2 % (0.0-6.0); HEMATOCRIT 25.5 % (38.2-49.6); HEMOGLOBIN 7.9 g/dL (14.0-18.0); LYMPHOCYTES # (AUTO) 2.2 (1.0-3.2); LYMPHOCYTES % 9.3 % (18.0-39.1); MONOCYTES % 8.3 % (4.4-11.3); NEUTROPHILS # (AUTO) 17.4 (2.1-6.9); PLATELET COUNT 214 x10e3/uL (140-360); RED BLOOD COUNT 2.63 x10e6/uL (4.3-5.7); RED CELL DISTRIBUTION WIDTH 15.9 % (11.7-14.4)
[2020-07-10 07:12] LABS: ANION GAP 23.4 mmol/L (8-16); CALCIUM 8.2 mg/dL (8.4-10.2); CREATININE, SERUM 7.4 mg/dL (0.72-1.25)
--- NOTE | 2020-07-10 07:15 | NUR ---
Patient map 53 78/40 increased vasopressin per protocol max on Levo at 30mcg/minand vasopressin .07 units/min
[2020-07-10 07:23] LABS: POTASSIUM 6.4 mmol/L (3.5-5.1)
--- NOTE | 2020-07-10 08:30 | NUR ---
Dr Quintanilla in unit informed of critical K+ 6.4
[2020-07-10] MEDS: ASCORBIC ACID 500 MG TAB PO SCH ×2 (09:08→20:50)
[2020-07-10] MEDS: FAMOTIDINE 20 MG/2 ML VIAL IV SCH (09:08)
[2020-07-10] MEDS: ZINC SULFATE 220 MG CAP PO SCH (09:08)
[2020-07-10] MEDS: CHOLECALCIFEROL 1,000 UNIT TAB PO SCH (09:08)
[2020-07-10] MEDS: INSULIN REGULAR, HUMAN 3ML VL 100 UNIT in SODIUM CHLORIDE 0.9% 100 ML IV SCH ×4 (09:13→12:21)
[2020-07-10] MEDS: VASOPRESSIN 60 UNIT in DEXTROSE 5% 50ML 57 ML IV PRN ×3 (11:30→19:00)
--- NOTE | 2020-07-10 11:49 | NUR ---
Phoned Dr Quintanilla informe of bright red blood in stool and foul order no new orders at this time
--- NOTE | 2020-07-10 12:15 | NUR ---
Dr Quintanilla at bedside labs reviewed update given and questions answered. Informed po vanco not started yet.
[2020-07-10] MEDS: FENTANYL 2000MCG/NS 250 250 ML IV PRN (12:23)
[2020-07-10] MEDS: MIDAZOLAM HCL 5MG/ML 10ML VIAL 100 ML IV PRN ×2 (12:28→22:56)
--- NOTE | 2020-07-10 12:37 | Progress Note ---
DATE: SUBJECTIVE: The patient remains on Levophed and on vasopressin. He is not urinating. He remains on mechanical ventilation. PHYSICAL EXAMINATION: VITAL SIGNS: The patient is afebrile. The blood pressure is 102/47 on Levophed and vasopressin. HEENT: No facial swelling or erythema. There is an oral endotracheal tube. There is a right-sided chest tube. CARDIAC: Regular rate and rhythm with normal S1, S2. LUNGS: Auscultation of lungs shows decreased breath sounds at the bases. There is no wheezing. ABDOMEN: Soft, nontender. There is no rebound or guarding. EXTREMITIES: No leg edema or calf tenderness. There is no cyanosis or clubbing. SKIN: No rashes. NEUROLOGICAL: No focal abnormalities. LABORATORY DATA: White blood cell count is 23.8, hemoglobin is 7.9, and the platelet count is 214. The BUN to creatinine ratio is 126 to 7.4 and the potassium is 6.4. Blood sugars are 185-310. IMPRESSION: 1. Acute respiratory failure. 2. Viral pneumonia and coronavirus disease-19 infection. 3. Acute renal failure. 4. Ischemic hepatitis. 5. Pneumothorax. 6. Systolic cardiomyopathy. PLAN: 1. Prognosis remains very poor. The patient is DNR. Family does not want further escalation of care. 2. Family does wish to continue current pressors and antibiotics. 3. Add vancomycin orally for diarrhea. 4. Continue to hold off on dialysis as requested by family. Foreign Quintanilla MD [facility]/JENNIFERL /[id number]
--- NOTE | 2020-07-10 15:23 | Progress Note ---
DATE: 07/10/2020 CONSULTANTS: 1. Dr. Quintanilla, screening unit registered nurse. 2. Dr. Neves, ID. 3. Dr. Simons, Cardiology. 4. Dr. Fry, Nephrology. SUBJECTIVE: The patient remains intubated and sedated with chest tube in place. Staff reports diarrhea. OBJECTIVE: VITAL SIGNS: Temperature 96.3, pulse is 93, respirations 36, blood pressure 102/46, and pulse ox is 96% on the vent. GENERAL: Sedated and intubated. LUNGS: Decreased breath sounds with chest tube to the right side. CARDIOVASCULAR: Tachycardic. GI: Soft. MUSCULOSKELETAL: Generalized edema. NEURO: Sedated. : [place]. SKIN: Dry. LABORATORY DATA: WBC 23.84, hemoglobin 7.9, and platelet 214. Sodium 137, potassium 6.4, BUN 126, creatinine 7.4, glucose 218, and calcium 8.2. IMPRESSION: 1. Acute respiratory failure due to COVID-2019 pneumonia. He is sedated and intubated, chest to the right side. Vent management per screening unit registered nurse and antibiotics per ID. 2. Leukocytosis. We will continue on Merrem and vancomycin per ID. 3. Acute kidney injury. Creatinine is 7.3 with hyperkalemia. Continue Lasix drip per Renal. No dialysis per family. 4. Anemia. Status post 1 unit of PRBC. Continue to monitor. 5. Elevated LFTs. Likely due to shock. Hepatitis panel is negative. 6. Hyperkalemia. Potassium 6.4. We will defer to Renal. 7. Diabetes type 2. Continue insulin drip. 8. High cholesterol. 9. Diarrhea. 10. Deep vein thrombosis prophylaxis. Continue Lovenox. PLAN: To continue IV antibiotics, pressors, and insulin drip. The patient is DNR. Dictated by RACHEL Haynes Luiz Fallon MD MY/MODL /[id number]
[2020-07-10] MEDS ORDERED: SOD POLYSTYRENE SULFONATE SUSP 15 GM/60 ML BTL NG ONE (17:00)
[2020-07-10] MEDS ORDERED: FUROSEMIDE INJ 100 MG in SODIUM CHLORIDE 0.9% 100 ML 90 ML IV SCH (17:00)
[2020-07-10] MEDS: VANCOMYCIN 250MG/5ML ORAL SOLN PO SCH (17:10)
--- NOTE | 2020-07-10 17:45 | NUR ---
Patient with noted change in condition; called Dr Abisai Quintanilla who gives his consent to call family and inform of the present change in condition. Daughter, Miracle, states she is grateful for all the care that has been provided and understands the current condition as she works at [employer] and is familiar with the hemodynamic changes. She and her mother request that we pray with him and the request granted with 3 RNs to bedside. 1829 Updated Miracle on the patient's present vitals and informed her of the night staff members assuming care of her father.
--- NOTE | 2020-07-10 18:00 | NUR ---
Dr Quintanilla notified and family notified of patient change of status o2 sat 60's max on both pressors. Fecal bowel management placed alarms on condition remains critical.
--- NOTE | 2020-07-10 18:50 | NUR ---
Report given to oncoming shift [facility] [address] 02 sat 57% Dr Quintanilla aware fio2 100%, 96.2 temp.rr 36,bp 120/39/62 pressors infusing at max condition remains critical . Charge Nurse Corine phoned Daughter Miracle with update. see her notes
[2020-07-10] MEDS ORDERED: DEXTROSE 50% SYRINGE 50 ML IV STA (19:03)
[2020-07-10] MEDS ORDERED: INSULIN REGULAR, HUMAN 100 UNIT/1 ML 3ML VIAL SQ ONE (19:15)
[2020-07-10] MEDS ORDERED: INSULIN REGULAR, HUMAN 100 UNIT/1 ML 3ML VIAL ONE (19:29)
[2020-07-10] MEDS ORDERED: CALCIUM GLUCONATE 10% INJ 13.95 MEQ in SODIUM CHLORIDE 0.9% 100 ML 100 ML IV ONE (20:00)
[2020-07-10] MEDS ORDERED: SODIUM BICARBONATE 8.4% INJ 50 ML SYR IV ONE (20:00)
--- NOTE | 2020-07-10 20:59 | Progress Note ---
DATE: 07/10/2020 Nephrology Progress Note SUBJECTIVE: The patient is not doing well today. His potassium is elevated. He is currently getting medical management for his potassium. Family does not want dialysis. PHYSICAL EXAMINATION: VITAL SIGNS: Temperature is 96.6, pulse is 80, respiratory rate is 36, blood pressure is 127/69. His pulse ox went down is 69% on mechanical ventilation, FiO2 100%. GENERAL: Intubated and sedated. PULMONARY: Intubated and sedated. CARDIOVASCULAR: Positive S1, S2. No murmurs, rubs, or gallops. ABDOMEN: Soft, nondistended, nontender to palpation. Bowel sounds present. MUSCULOSKELETAL: Unable to assess. NEUROLOGIC: Unable to assess. LABORATORY DATA: Show white count 23, hemoglobin 7.9, hematocrit 25, and platelets of 214. Chemistry; reviewed. Sodium 137, potassium 6.4, chloride 95, bicarb 25, anion gap of 23, BUN is 126, creatinine 7.4, glucose is 213, calcium is 8.2. MICROBIOLOGY: Nothing new. IMAGING STUDIES: Nothing new. IMPRESSION: 1. Acute kidney injury with underlying ATN, now anuric, this is all secondary to cardiac arrest. 2. Shock liver. 3. Hypernatremia. 4. Hyperkalemia. 5. Coronavirus-19, intubated and sedated. PLAN: At this time, the patient will be given medical management for his potassium. Kayexalate was ordered, calcium gluconate, D50 10 units of regular insulin as well and we will put him on a Lasix drip. Overall, prognosis is very poor. Bicarbonate was given as well. Family does not want dialysis. We will monitor him very closely with this medical management, see this will be of any help. MD JAMARCUS Estrada/MODL /[id number]
--- NOTE | 2020-07-10 21:34 | Progress Note ---
DATE: Cardiology Progress Note SUBJECTIVE: Remains intubated and sedated. OBJECTIVE: VITAL SIGNS: Temperature 97.7, heart rate 95, blood pressure 119/50, respiratory rate 36, O2 saturation 97%. GENERAL: Intubated and sedated. NECK: Supple. CHEST: With rales. Decreased breath sounds. CARDIOVASCULAR: Regular rate and rhythm. Normal S1, S2. ABDOMEN: Soft. EXTREMITIES: 1+ edema. MEDICATIONS: 1. Levophed. 2. Aspirin. STUDIES: Reviewed. Potassium 6.4, bicarbonate 25, creatinine 7.4, glucose 213. White blood cells 23, hemoglobin 7.9, platelets 214. AST 1361, ALT 2481. ASSESSMENT AND PLAN: A 69-year-old man with coronavirus disease 2019 infection, community acquired pneumonia, pneumothorax, acute respiratory failure, acute renal failure, shock liver, anemia, severe shock requiring pressors; acute blood loss anemia, status post PRBC transfusion; [id number] systolic heart failure and coronary artery disease. RECOMMEND: 1. Continue to wean pressors for MAP 65 to 75. 2. Aspirin and Lovenox. Monitor H and H. 3. Remains with guarded prognosis. DNR status. MD NOAH Ireland/ANGELA /[id number] MTDD
--- NOTE | 2020-07-10 22:07 | NUR ---
infectious disease Progress note all notes reviewed The patient remains intensive care unit The patient remains on Levophed and on vasopressin. patient seen and examined chart reviewed and discussed with medical team He is not urinating. He remains on mechanical ventilation. PHYSICAL EXAMINATION: VITAL SIGNS: The patient is afebrile. The blood pressure is 102/47 on Levophed and vasopressin. HEENT: No facial swelling or erythema. There is an oral endotracheal tube. There is a right-sided chest tube. CARDIAC: Regular rate and rhythm with normal S1, S2. LUNGS: Auscultation of lungs shows decreased breath sounds at the bases. There is no wheezing. ABDOMEN: Soft, nontender. There is no rebound or guarding. EXTREMITIES: No leg edema or calf tenderness. There is no cyanosis or clubbing. SKIN: No rashes. NEUROLOGICAL: No focal abnormalities. LABORATORY DATA: White blood cell count is 23.8, hemoglobin is 7.9, and the platelet count is 214. The BUN to creatinine ratio is 126 to 7.4 and the potassium is 6.4. Blood sugars are 185-310. IMPRESSION: 1. Acute respiratory failure. 2. Viral pneumonia and coronavirus disease-19 infection. 3. Acute renal failure. 4. Ischemic hepatitis. 5. Pneumothorax. 6. Systolic cardiomyopathy. continue as ordered to recheck CBC to check in panel concern about the leukocytosis please refer to my orders and discharge
--- NOTE | 2020-07-10 23:30 | NUR ---
Pt's BP decreasing steadily and HR dropping. (Dtr) Miracle notified that the patient will most likely pass soon. Support provided to patient during this time by 2 RNs at bedside. Pt pronounced at 00:[address] Patel. Attending MD notified, family notified, lifegift notified and home notified. Will notify other MDs in AM as ordered.
[2020-07-11] MEDS: VANCOMYCIN 250MG/5ML ORAL SOLN PO SCH
--- NOTE | 2020-07-11 23:29 | Discharge Summary ---
PRIMARY CARE PHYSICIAN: Dr. Preston Lundberg. CAUSE OF : Cardiac arrest and respiratory failure due to COVID-19 pneumonia. TIME OF : 1209 hours. HOSPITAL COURSE: This is a 69-year-old male, who presented to the ER with acute respiratory failure due to COVID-19 pneumonia. He was initially treated with IV antibiotics and placed on high-flow oxygen, but continued to worsen, so was intubated. He continued to worsen, was noted to have pneumothorax and needed to have right-sided chest tube placed x2 per ship's officer. He received PRBCs for his anemia and his kidney function continue to worsen. He was placed on insulin to better control his blood sugars. The manager clinical research was consulted and discussed with family of poor prognosis and agreed to withhold dialysis. He was deemed DNR, overnight his blood pressure continued to go down even on pressors, heart rate dropped . He was pronounced at midnight by Dr. Patel. Discharged to home. Dictated by RACHEL Haynes Luiz Fallon MD MY/MODL /[id number] cc: Preston Lundberg
== END 2020-07-11 02:39 | disposition expired | DRG 207 ==
LOC: FSED 16:21 → ERHOLD 17:55 → IMCU 18:26 → COVIDICU 06-15 14:57 → ICU 07-06 03:23
PROVIDERS: ADMIT Internal Medicine; ATTEND Internal Medicine
PROC: 02HV33Z Insertion of Infusion Device into Superior Vena Cava, Percutaneous Approach (ICD-10-PCS; 2020-06-15)
PROC: B548ZZA Ultrasonography of Superior Vena Cava, Guidance (ICD-10-PCS; 2020-06-15)
PROC: 5A1955Z Respiratory Ventilation, Greater than 96 Consecutive Hours (ICD-10-PCS; principal; 2020-06-22)
PROC: 0BH17EZ Insertion of Endotracheal Airway into Trachea, Via Natural or Artificial Opening (ICD-10-PCS; 2020-06-22)
PROC: 03HY32Z Insertion of Monitoring Device into Upper Artery, Percutaneous Approach (ICD-10-PCS; 2020-06-23)
PROC: 0W9900Z Drainage of Right Pleural Cavity with Drainage Device, Open Approach (ICD-10-PCS; 2020-07-03)
PROC: 0B21XEZ Change Endotracheal Airway in Trachea, External Approach (ICD-10-PCS; 2020-07-03)
PROC: 0W9900Z Drainage of Right Pleural Cavity with Drainage Device, Open Approach (ICD-10-PCS; 2020-07-04)
PROC: 5A12012 Performance of Cardiac Output, Single, Manual (ICD-10-PCS; 2020-07-04)
PROC: 3E043XZ Introduction of Vasopressor into Central Vein, Percutaneous Approach (ICD-10-PCS; 2020-07-04)
PROC: 30243N1 Transfusion of Nonautologous Red Blood Cells into Central Vein, Percutaneous Approach (ICD-10-PCS; 2020-07-04)
DX: U07.1 COVID-19 (principal); J12.89 Other viral pneumonia; J93.0 Spontaneous tension pneumothorax; N17.0 Acute kidney failure with tubular necrosis; J96.01 Acute respiratory failure with hypoxia; I50.23 Acute on chronic systolic (congestive) heart failure; J15.9 Unspecified bacterial pneumonia; J69.0 Pneumonitis due to inhalation of food and vomit; A41.9 Sepsis, unspecified organism; R65.21 Severe sepsis with septic shock; K72.00 Acute and subacute hepatic failure without coma; D62 Acute posthemorrhagic anemia; E87.0 Hyperosmolality and hypernatremia; N39.0 Urinary tract infection, site not specified; I46.9 Cardiac arrest, cause unspecified; E78.5 Hyperlipidemia, unspecified; J44.9 Chronic obstructive pulmonary disease, unspecified; I25.10 Atherosclerotic heart disease of native coronary artery without angina pectoris; Z95.1 Presence of aortocoronary bypass graft; Z87.891 Personal history of nicotine dependence; Z83.3 Family history of diabetes mellitus; E87.5 Hyperkalemia; E11.65 Type 2 diabetes mellitus with hyperglycemia; N40.0 Benign prostatic hyperplasia without lower urinary tract symptoms; E11.42 Type 2 diabetes mellitus with diabetic polyneuropathy; D69.6 Thrombocytopenia, unspecified; E86.0 Dehydration; B96.1 Klebsiella pneumoniae [K. pneumoniae] as the cause of diseases classified elsewhere; Z66 Do not resuscitate
CPT/HCPCS: 31500; 36415; 36569; 36600; 71045; 74018; 74470; 76705; 76770; 80048; 80053; 80061; 80076; 80202; 82550; 82553; 82805; 82948; 83036; 83615; 83880; 84443; 84484; 85007; 85014; 85018; 85025; 85027; 85379; 85610; 85730; 86140; 86850; 86900; 86920; 87040; 87070; 87186; 87205; 93005; 93306; 94002; 94003; 96372; 96376; 99284; J0330; J0456; J0610; J0692; J0696; J1100; J1650; J1815; J1817; J1940; J2001; J2250; J2405; J2997; J3370; J7030; J7040; J7050; J7070; J7121; J7799; P9016; P9047; U0002